=== PATIENT | male | born 1945 | race Caucasian/White ===

== ENCOUNTER → 2018-01-17 06:05 | Outpatient (REF) | payer MEDICARE, SELFPAY ==
[2018-01-25 13:17] LABS: Anion Gap 10 (5-15); BUN 19 mg/dL (7-18); BUN/Creat Ratio 118.8 RATIO (10-20); Calcium,Total 8.2 mg/dL (8.5-10.1); Chloride 87 mmol/L (98-107); Cholesterol 193 mg/dL (200); Creatinine, Serum 0.16 mg/dL (0.70-1.30); EST Glomerular Filtration Rate 649 mL/min (>60); Est Glom Filt Rate - Afr Amer 787 mL/min (>60); Glucose 99 mg/dL (74-106); High Density Lipoprotein 18 mg/dL; Potassium 3.3 mmol/L (3.5-5.1); Sodium Level 131 mmol/L (136-145); Triglycerides 160 mg/dL; Very Low Density Lipoprotein 32 mg/dL (5-40)
[2018-01-25 13:19] LABS: Hematocrit 38.2 % (40-54); Hemoglobin 12.9 g/dl (13.0-16.5); Red Blood Count 4.11 M/mm3 (4.6-6.2); White Blood Count 10.1 K/mm3 (4.4-11.0)
[2018-01-25 13:20] LABS: Mean Corp Hgb Conc 33.8 g/gl (32-36); Mean Corpuscular Hgb 31.4 pg (27.0-32.0); Mean Corpuscular Volume 92.9 fL (80-94); Mean Platelet Vol. 9.6 fl (6.2-12.0); Platelet Count 349 K/mm3 (150-450); RBC Distribution Width CV 14.7 % (11.6-14.6); RBC Distribution Width SD 48.9 fl (35.1-43.9); Scan Indicated on CBC? Y/N NO
== END ==
LOC: OLS.WCC 06:05
PROVIDERS: Visit Provider Family Medicine
DX: E78.5 Hyperlipidemia, unspecified (principal); Z79.899 Other long term (current) drug therapy
CPT/HCPCS: 36415; 80048; 80061; 85027

== ENCOUNTER → 2018-02-01 04:00 | Outpatient (REF) | payer OTHER, SELFPAY ==
[2018-02-01 07:47] LABS: ALB/GLOB Ratio 0.7 RATIO (0.9-2.4); Albumin, Serum 2.2 g/dL (3.2-5.0); Prealbumin 16.2 mg/dL (20.0-40.0); Protein, Total 5.2 g/dL (6.4-8.2)
== END ==
LOC: OLS.WCC 04:00
DX: L89.132 Pressure ulcer of right lower back, stage 2 (principal)
CPT/HCPCS: 36415; 82040; 84134; 84156

== ENCOUNTER 2018-02-07 08:30 | Outpatient (RCR) | payer MEDICARE, SELFPAY ==
[2018-01-31 10:57] VITALS: BP 127/70; PULSE 91; RESP 18; TEMP 36.5; BMI 20.9
--- NOTE | 2018-01-31 12:12 | PCM.WC.HP ---
(1) Sacral decubitus ulcer, stage II Status: Chronic Current Visit: Yes Code(s): L89.152 - Pressure ulcer of sacral region, stage 2 (2) Ulcer of left knee Status: Chronic Current Visit: Yes Qualifiers: Non-pressure ulcer stage: limited to breakdown of skin Qualified Code(s): L97.821 - Non-pressure chronic ulcer of other part of left lower leg limited to breakdown of skin Code(s): L97.829 - Non-pressure chronic ulcer of other part of left lower leg with unspecified severity (3) Ulcer of right knee Status: Chronic Current Visit: Yes Qualifiers: Non-pressure ulcer stage: limited to breakdown of skin Qualified Code(s): L97.811 - Non-pressure chronic ulcer of other part of right lower leg limited to breakdown of skin Code(s): L97.819 - Non-pressure chronic ulcer of other part of right lower leg with unspecified severity (4) Muscular dystrophy Status: Chronic Current Visit: Yes Code(s): G71.0 - Muscular dystrophy (5) Debility Status: Chronic Current Visit: Yes Code(s): R53.81 - Other malaise (6) Immobility Status: Chronic Current Visit: Yes Code(s): Z74.09 - Other reduced mobility (7) Malnutrition Status: Chronic Current Visit: Yes Qualifiers: Protein-calorie malnutrition severity: severe Code(s): E46 - Unspecified protein-calorie malnutrition (8) Incontinence of feces Status: Chronic Current Visit: Yes Code(s): R15.9 - Full incontinence of feces (9) Incontinence of urine Status: Chronic Current Visit: Yes Code(s): R32 - Unspecified urinary incontinence (10) Cachexia Status: Chronic Current Visit: Yes Code(s): R64 - Cachexia History of Present Illness Date of Service: 01/31/18 Chief Complaint: Pressure ulceration of the sacral area, stage II; bilateral knee ulcerations History of Wound: This is a 72-year-old male who is a resident of [facility]. He suffers from muscular dystrophy, and is severely impaired and immobilized. His muscular dystrophy was diagnosed in 1972. He has only recently been transferred to the [facility], approximately 6 weeks ago. Prior to that time, the patient resided at home, cared for by a hired aide and by his sister. He has been bedridden and nonambulatory for a prolonged period of time, with severe muscle atrophy. Due to a lack of mobility and physical therapy, lower extremity joints are essentially frozen and immovable. The patient is extremely thin and emaciated, suggesting malnutrition and cachexia. He claims his appetite is good. He claims to take a normal diet. He is incontinent of urine and stool, and wears a condom catheter. He has been referred to the [facility] due to superficial ulcerations on each knee, and a pressure ulceration in the sacral area, to the right of the midline, appearing to be a stage II pressure ulcer. Past Medical History Past Medical History: Chronic Problems Sacral decubitus ulcer, stage II (Chronic) Ulcer of left knee (Chronic) Ulcer of right knee (Chronic) Muscular dystrophy (Chronic) Debility (Chronic) Immobility (Chronic) Malnutrition (Chronic) Incontinence of feces (Chronic) Incontinence of urine (Chronic) Cachexia (Chronic) Past Medical History: The patient has a long-standing history of muscular dystrophy, diagnosed in 1972. He is extremely debilitated and bedridden. It appears as though he suffers from malnutrition and cachexia. He is known to be incontinent of urine and stool. His history is negative for myocardial infarction, congestive heart failure, diabetes mellitus, hypertension, cerebrovascular accident, cancer, pulmonary disease, renal disease, thyroid disease, and hyperlipidemia. Surgical History: tonsillectomy Allergies/Adverse Reactions: Allergies No Known Allergies Allergy (Verified 01/31/18 11:20) Home Medications: Ambulatory Orders Medication Instructions Recorded Ascorbic Acid 500 mg PO DAILY 01/31/18 Cyanocobalamin (Vitamin B-12) 1,000 mcg PO DAILY 01/31/18 [Vitamin B12] Fluticasone 0.05% [Flonase Nasal 1 spray NASAL DAILY 01/31/18 [place]] Furosemide 40 mg PO DAILY 01/31/18 Polyvinyl Alcohol [Artificial 2 drop OP TID 01/31/18 Tears] Saw/Vit E/Sod Nina/Lyc/Beta/Pyg 30 ml PO BID 01/31/18 [Prostate Health Caplet] - Family History Paternal - - The patient's father at the age of 93 with a history of cancer, of unknown etiology. Patient's mother at the age of 84 from pneumonia, but had a history of breast cancer and muscular dystrophy. Social History: The patient is a resident of [facility]. 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 Lives: [facility] Smoking Status: Former smoker Tobacco Use: Non-smoker Alcohol: Rare Drugs: None Review of Systems Constitutional: Denies: Chills, Fever, Weight Change Eyes: Denies: Pain, Vision Change HEENT: Denies: Difficulty Hearing, Difficulty Swallowing, Sinus Congestion Cardiovascular: Denies: Chest Pain, Palpitations Respiratory: Denies: Cough, Shortness of Breath Gastrointestinal: Denies: Diarrhea, Nausea, Vomiting Genitourinary: Denies: Dysuria, Hematuria Neurological: Reports: - - Patient has a history of muscular dystrophy, diagnosed in 1972. Endocrine: Denies: Heat/ Cold Intolerance, Polydipsia, Polyuria Hematologic/ Lymphatic: Denies: Easy Bruising, Easy Bleeding - Physical Exam Vital Signs Temp Pulse Resp BP 97.7 F L 91 18 127/70 H 01/31/18 10:57 01/31/18 10:57 01/31/18 10:57 01/31/18 10:57 General: Alert, Oriented x3, Cooperative, No apparent distress, - - The patient displays very little movement. Lower extremity joints are essentially frozen immovable. The patient appears cachectic and malnourished. He communicates verbally without deficit. HEENT: Atraumatic, PERRLA, EOMI, Normocephalic Oral: Moist Mucosa Neck: No JVD, Negative Carotid Bruits, Negative Hepatojugular Reflux, Trachea Midline Lungs: Clear to auscultation, Normal air movement, No rhonchi, No wheeze, No rales Cardiovascular: Regular rate, Regular Rhythm, Normal S1, Normal S2, No murmurs Abdomen: Soft, Non Tender, Non-Distended Extremities: No clubbing, No cyanosis, No Calf Tenderness, - - Right upper extremity and right hand edema is noted. Superficial ulceration is noted on each knee. No sign of infection or cellulitis. The base of the ulcerations are generally pink and healthy. Flexion and extension is minimal in the joints of the lower extremities. Skin: No rashes, - - Stage II pressure ulceration is noted on the sacral area, to the right of midline. Signs are documented elsewhere. It is small in size and relatively superficial. There is no evidence of undermining or tunneling. Wound Measurements and Assessment WC - Nurse 1 - General Ulcer Measurement Start: 01/31/18 10:57 Freq: Status: Active Protocol: Activity Type Activity Date Activity User E-Sign Co-Sign Detail Recorded Client Recorded Date Recorded By Document 01/31/18 10:57 ALEXANDRO [id number] 01/31/18 11:14 ALEXANDRO 01/31/18 10:57 Wound Center Nurse 1 [Ulcer Assessment] 3-right lumbar cluster -Combined with other wound No -Current Size (cm) - Length 0.4 -Current Size (cm) - Width 2 -Current Size (cm) - Depth 0.2 -Total Square Cm 0.8 -Photo Taken Yes -Epithelialization Small 1-33% -Tunneling No -Undermining/Tunneling No -Circular Undermining No -Classification - Thickness Unclassifiable (Eschar Covered ) -Exudate Amt Small (1-33%) -Exudate Type Serosanguineous -Wound Margin Flat & Intact -Granulation Amt None Present (0 %) -Slough/Fibrin Yes -Necrosis Amt Large (67-100%) -Necrotic Tissue Type Adherent Slough -Structure Exposed N/A -Texture (Jeanine-wound Skin Appearance) Assessed -Moisture (Jeanine-wound Skin Appearance Assessed ) Dry/Scaly -Color (Jeanine-wound Skin Appearance) Assessed -Temperature (Jeanine-wound Skin No Abnormality Appearance) (Pt Warm) -Tenderness on Palpation (Jeanine-wound No Skin Appearance) -Ulcer Cleansing Rinsed/ Irrigated with Saline -Foul Odor after Cleansing No -Anesthetic Used 4% Lidocaine Solution 2-left knee -Combined with other wound No -Current Size (cm) - Length 0.8 -Current Size (cm) - Width 0.6 -Current Size (cm) - Depth 0.1 -Total Square Cm 0.48 -Photo Taken Yes -Epithelialization Large 67-100% -Tunneling No -Undermining/Tunneling No -Circular Undermining No -Classification - Thickness Partial Thickness -Exudate Amt Small (1-33%) -Exudate Type Sanguineous -Wound Margin Flat & Intact -Granulation Amt Large (67-100%) -Granulation Quality [place] Pos -Slough/Fibrin Yes -Necrosis Amt Small (1-33%) -Necrotic Tissue Type Adherent Slough -Structure Exposed N/A -Texture (Jeanine-wound Skin Appearance) Assessed Scarring -Moisture (Jeanine-wound Skin Appearance Assessed ) Dry/Scaly -Color (Jeanine-wound Skin Appearance) Assessed -Temperature (Jeanine-wound Skin No Abnormality Appearance) (Pt Warm) -Tenderness on Palpation (Jeanine-wound No Skin Appearance) -Ulcer Cleansing Rinsed/ Irrigated with Saline -Foul Odor after Cleansing No -Anesthetic Used 4% Lidocaine Solution 1-right knee -Combined with other wound No -Current Size (cm) - Length 0.7 -Current Size (cm) - Width 0.6 -Current Size (cm) - Depth 0.1 -Total Square Cm 0.42 -Photo Taken Yes -Epithelialization Small 1-33% -Tunneling No -Undermining/Tunneling No -Circular Undermining No -Classification - Thickness Partial Thickness -Exudate Amt Small (1-33%) -Exudate Type Serosanguineous -Wound Margin Flat & Intact -Granulation Amt Large (67-100%) -Granulation Quality [place] Pos -Slough/Fibrin Yes -Necrosis Amt Small (1-33%) -Necrotic Tissue Type Adherent Slough -Structure Exposed N/A -Texture (Jeanine-wound Skin Appearance) Assessed Scarring -Moisture (Jeanine-wound Skin Appearance Assessed ) Dry/Scaly -Color (Jeanine-wound Skin Appearance) Assessed -Temperature (Jeanine-wound Skin No Abnormality Appearance) (Pt Warm) -Tenderness on Palpation (Jeanine-wound No Skin Appearance) -Ulcer Cleansing Rinsed/ Irrigated with Saline -Foul Odor after Cleansing No -Anesthetic Used 4% Lidocaine Solution [Edema Assessment] -Lower Limb Edema Present NA Musculoskeletal: Cachexia, Muscle Wasting, - - The joints of the hands and lower extremities are fixed and immobile. Neurological: Cranial nerves II-XII grossly intact, - - Patient is weak with little or no motion of extremities. Joints of the hands and the lower extremities are contracted and fixed in position. Psych/Mental Status: Normal Affect, Appropriate, Alert and oriented to time, place, person, mood and affect Debridement Note Laterality: Right - Knee Type of Debridement: Selective debridement Anesthesia Used: 4% Lidocaine Solution Depth: Down to and including healthy tissue Percentage of wound debrided: 100 Instrument Used: 5mm curette Severity: Limited To Skin Breakdown Amount of bleeding with debridement: Mild Bleeding Controlled with: Compression and gauze Patient tolerated procedure well - Additional Wound Laterality: Left - Knee Type of Debridement: Selective debridement Anesthesia Used: 4% Lidocaine Solution Depth: Down to and including healthy tissue Percentage of wound debrided: 100 Instrument Used: 5mm curette Severity: Limited To Skin Breakdown Amount of bleeding with debridement: Mild Bleeding Controlled with: Compression and gauze Patient tolerated procedure: Patient tolerated procedure well - Additional Wound Laterality: Right - Sacrum Type of Debridement: Excisional debridement Anesthesia Used: 4% Lidocaine Solution Depth: Down to and including healthy tissue, in the subcutaneous layer Percentage of wound debrided: 100 Instrument Used: 5mm curette Severity: Fat Layer Exposed Amount of bleeding with debridement: Mild Bleeding Controlled with: Compression and gauze Patient tolerated procedure: Patient tolerated procedure well Assessment/Plan Active Problems Sacral decubitus ulcer, stage II (Chronic) Ulcer of left knee (Chronic) Ulcer of right knee (Chronic) Muscular dystrophy (Chronic) Debility (Chronic) Immobility (Chronic) Malnutrition (Chronic) Incontinence of feces (Chronic) Incontinence of urine (Chronic) Cachexia (Chronic) Assessment: This is a 72-year-old male with muscular dystrophy and chronic debility, immobilization, cachexia, malnutrition, and ulcerations on the knees and sacral area. His extremities are relatively immobile and fixed in position. Extremities are atrophic. The patient has been in the home environment, cared for by his sister and a hired aide so recently. As of 6 weeks ago, the patient's care was transferred to the [facility], where he currently resides. The ulcerations on each knee are superficial. The pressure ulcer on the sacral area appears to represent a stage II ulceration, and is also somewhat superficial. Laboratory studies have been performed recently, and have been reviewed. Results are as follows: Glucose 99, BUN 19, creatinine 0.16, calcium 8.2, cholesterol 193, triglycerides 160, sodium 131, potassium 3.3, chloride 87, blood count 10.1, globin 12.9, hematocrit 38.2, platelets 349,000. Plan: Offloading measures are to be implemented. The patient is known to have a low air loss mattress on his bed. Frequent repositioning is to be recommended. We are to implement the use of collagen hydrogel topically on each of the patient's 3 ulcerations, one on each knee, and one in the sacral area. We are to use OptiFoam to minimize pressure and shear forces. The patient has been encouraged to take a well balanced diet, with the use of nutritional supplements several times daily. We are to obtain additional laboratory studies, including serum protein, serum albumin, and serum prealbumin, which will allow for assessment of patient's nutritional status. Patient is to return in 1 week for reassessment. The patient is not a smoker. Influenza vaccine was not administered today. Patient stands 5 feet 9 inches tall, and weighs 142 pounds. His BMI is 20.9.
[2018-02-07 08:49] VITALS: BP 116/61; PULSE 91; RESP 16; TEMP 36.8; BMI 20.9
--- NOTE | 2018-02-07 09:47 | PCM.WC.HP ---
(1) Sacral decubitus ulcer, stage II Status: Chronic Current Visit: Yes Code(s): L89.152 - Pressure ulcer of sacral region, stage 2 (2) Ulcer of left knee Status: Chronic Current Visit: Yes Qualifiers: Non-pressure ulcer stage: limited to breakdown of skin Qualified Code(s): L97.821 - Non-pressure chronic ulcer of other part of left lower leg limited to breakdown of skin Code(s): L97.829 - Non-pressure chronic ulcer of other part of left lower leg with unspecified severity (3) Ulcer of right knee Status: Chronic Current Visit: Yes Qualifiers: Non-pressure ulcer stage: limited to breakdown of skin Qualified Code(s): L97.811 - Non-pressure chronic ulcer of other part of right lower leg limited to breakdown of skin Code(s): L97.819 - Non-pressure chronic ulcer of other part of right lower leg with unspecified severity (4) Muscular dystrophy Status: Chronic Current Visit: Yes Code(s): G71.0 - Muscular dystrophy (5) Debility Status: Chronic Current Visit: Yes Code(s): R53.81 - Other malaise (6) Immobility Status: Chronic Current Visit: Yes Code(s): Z74.09 - Other reduced mobility (7) Malnutrition Status: Chronic Current Visit: Yes Qualifiers: Protein-calorie malnutrition severity: severe Code(s): E46 - Unspecified protein-calorie malnutrition (8) Incontinence of feces Status: Chronic Current Visit: Yes Code(s): R15.9 - Full incontinence of feces (9) Incontinence of urine Status: Chronic Current Visit: Yes Code(s): R32 - Unspecified urinary incontinence (10) Cachexia Status: Chronic Current Visit: Yes Code(s): R64 - Cachexia History of Present Illness Date of Service: 02/07/18 Chief Complaint: Pressure ulceration of the sacral area, stage II; bilateral knee ulcerations History of Wound: This is a 72-year-old male who is a resident of [facility]. He suffers from muscular dystrophy, and is severely impaired and immobilized. His muscular dystrophy was diagnosed in 1972. He has only recently been transferred to the [facility], approximately 6 weeks ago. Prior to that time, the patient resided at home, cared for by a hired aide and by his sister. He has been bedridden and nonambulatory for a prolonged period of time, with severe muscle atrophy. Due to a lack of mobility and physical therapy, lower extremity joints are essentially frozen and immovable. The patient is extremely thin and emaciated, suggesting malnutrition and cachexia. He claims his appetite is good. He claims to take a normal diet. He is incontinent of urine and stool, and wears a condom catheter. He has been referred to the [facility] due to superficial ulcerations on each knee, and a pressure ulceration in the sacral area, to the right of the midline, appearing to be a stage II pressure ulcer. Past Medical History Past Medical History: Chronic Problems Sacral decubitus ulcer, stage II (Chronic) Ulcer of left knee (Chronic) Ulcer of right knee (Chronic) Muscular dystrophy (Chronic) Debility (Chronic) Immobility (Chronic) Malnutrition (Chronic) Incontinence of feces (Chronic) Incontinence of urine (Chronic) Cachexia (Chronic) Surgical History: tonsillectomy Allergies/Adverse Reactions: Allergies No Known Allergies Allergy (Verified 01/31/18 11:20) Home Medications: Ambulatory Orders Medication Instructions Recorded Ascorbic Acid 500 mg PO DAILY 01/31/18 Cyanocobalamin (Vitamin B-12) 1,000 mcg PO DAILY 01/31/18 [Vitamin B12] Fluticasone 0.05% [Flonase Nasal 1 spray NASAL DAILY 01/31/18 [place]] Furosemide 40 mg PO DAILY 01/31/18 Polyvinyl Alcohol [Artificial 2 drop OP TID 01/31/18 [place]] Saw/Vit E/Sod Nina/Lyc/Beta/Pyg 30 ml PO BID 01/31/18 [Prostate Health [place]] - Family History Paternal - - The patient's father at the age of 93 with a history of cancer, of unknown etiology. Patient's mother at the age of 84 from pneumonia, but had a history of breast cancer and muscular dystrophy. [place]: [place] Smoking Status: Former smoker Tobacco Use: Non-smoker Alcohol: Rare Drugs: None Review of Systems Constitutional: Denies: Chills, Fever, Weight Change Eyes: Denies: Pain, Vision Change HEENT: Denies: Difficulty Hearing, Difficulty Swallowing, Sinus Congestion Cardiovascular: Denies: Chest Pain, Palpitations Respiratory: Denies: Cough, Shortness of Breath Gastrointestinal: Denies: Diarrhea, Nausea, Vomiting Genitourinary: Denies: Dysuria, Hematuria Endocrine: Denies: Heat/ Cold Intolerance, Polydipsia, Polyuria Hematologic/ Lymphatic: Denies: Easy Bruising, Easy Bleeding - Physical Exam Vital Signs Temp Pulse Resp BP 98.2 F 91 16 116/61 02/07/18 08:49 02/07/18 08:49 02/07/18 08:49 02/07/18 08:49 General: Alert, Oriented x3, Cooperative, No apparent distress, Well developed, Well nourished HEENT: Atraumatic, PERRLA, EOMI, Normocephalic Oral: Moist Mucosa Neck: No JVD Lungs: Normal air movement Abdomen: Non-Distended Extremities: No clubbing, No cyanosis, No edema, - - The joints of the extremities are essentially fixed, frozen, and immobile. Skin: - - The superficial ulceration on the right knee now appears to be completely healed and epithelialized. The ulceration on the left knee is smaller in size, quite superficial, and nearly healed. The stage II sacral pressure ulceration is relatively unchanged in size and appearance. There is a moderate amount of bioburden. There is no sign of infection or cellulitis. Dimensions are documented elsewhere. Wound Measurements and Assessment WC - Nurse 1 - General Ulcer Measurement Start: 01/31/18 10:57 Freq: Status: Active Protocol: Activity Type Activity Date Activity User E-Sign Co-Sign Detail Recorded Client Recorded Date Recorded By Document 02/07/18 08:49 [email or web address] [id number] 02/07/18 08:51 [email or web address] 02/07/18 08:49 Wound Center Nurse 1 [Ulcer Assessment] 3-right lumbar cluster -Combined with other wound No -Current Size (cm) - Length 0.4 -Current Size (cm) - Width 2.2 -Current Size (cm) - Depth 0.2 -Total Square Cm 0.88 -Photo Taken No -Epithelialization None Present -Tunneling No -Undermining/Tunneling No -Circular Undermining No -Exudate Amt Small (1-33%) -Exudate Type Serosanguineous -Wound Margin Flat & Intact -Granulation Amt None Present (0 %) -Slough/Fibrin Yes -Necrosis Amt Large (67-100%) -Necrotic Tissue Type Adherent Slough -Structure Exposed N/A -Texture (Jeanine-wound Skin Appearance) Assessed -Moisture (Jeanine-wound Skin Appearance Assessed ) Dry/Scaly -Color (Jeanine-wound Skin Appearance) Assessed -Temperature (Jeanine-wound Skin No Abnormality Appearance) (Pt Warm) -Tenderness on Palpation (Jeanine-wound No Skin Appearance) -Ulcer Cleansing Rinsed/ Irrigated with Saline -Foul Odor after Cleansing No -Anesthetic Used 4% Lidocaine Solution 2-left knee -Combined with other wound No -Current Size (cm) - Length 0.1 -Current Size (cm) - Width 0.1 -Current Size (cm) - Depth 0.1 -Total Square Cm 0.01 -Photo Taken No -Epithelialization Large 67-100% -Undermining/Tunneling No -Circular Undermining No -Exudate Amt None Present (0 %) -Wound Margin Flat & Intact -Granulation Amt Large (67-100%) -Granulation Quality [place] -Slough/Fibrin Yes -Necrosis Amt Small (1-33%) -Necrotic Tissue Type Adherent Slough -Structure Exposed N/A -Texture (Jeanine-wound Skin Appearance) Assessed Scarring -Moisture (Jeanine-wound Skin Appearance Assessed ) Dry/Scaly -Color (Jeanine-wound Skin Appearance) Assessed -Temperature (Jeanine-wound Skin No Abnormality Appearance) (Pt Warm) -Tenderness on Palpation (Jeanine-wound No Skin Appearance) -Ulcer Cleansing Rinsed/ Irrigated with Saline -Foul Odor after Cleansing No -Anesthetic Used 4% Lidocaine Solution 1-right knee -Combined with other wound No -Current Size (cm) - Length 0 -Current Size (cm) - Width 0 -Current Size (cm) - Depth 0 -Total Square Cm 0 -Photo Taken Yes -Epithelialization Large 67-100% -Tunneling No -Undermining/Tunneling No -Circular Undermining No -Exudate Amt None Present (0 %) [Edema Assessment] -Lower Limb Edema Present NA WC - Nurse 2 - General Ulcer CM Notes Start: 01/31/18 10:57 Freq: Status: Active Protocol: Activity Type Activity Date Activity User E-Sign Co-Sign Detail Recorded Client Recorded Date Recorded By Document 02/07/18 09:42 [id number] 02/07/18 09:47 CS 02/07/18 09:42 Wound Center Nurse 2 [Procedure/Treatment] 3-right lumbar cluster -Time 09:44 -Correct Patient Yes -Correct Side, Site, Position Yes -Correct Procedure Yes -Procedure Performed Yes -Type of Procedure Debridement -Clinical Debridement Subcutaneous -Post Debridement Size (cm) - Length 0.1 -Post Debridement Size (cm) - Width 0.1 -Post Debridement Size (cm) - Depth 0.1 -Total Square Cm 0.01 -Wound/Ulcer Outcome Not Healed 2-left knee -Time 09:45 -Correct Patient Yes -Correct Side, Site, Position Yes -Post Debridement Size (cm) - Length 0.1 -Post Debridement Size (cm) - Width 0.1 -Post Debridement Size (cm) - Depth 0.1 -Total Square Cm 0.01 -Wound/Ulcer Outcome Not Healed -Ulcer Cleansing Not Cleansed -Foul Odor after Cleansing No -Bioengineered Tissue No -Bleeding Controlled with NA 1-right knee -Post Debridement Size (cm) - Length 0 -Post Debridement Size (cm) - Width 0 -Post Debridement Size (cm) - Depth 0 -Total Square Cm 0 -Wound/Ulcer Outcome Healed- Epithelialized [See Physician Procedure note for Specifics] Pain Scale: 0-10 Numeric [Pain] -Is Patient Pain Free? Yes Neurological: Cranial nerves II-XII grossly intact, Neuro grossly intact Psych/Mental Status: Normal Affect, Appropriate, Alert and oriented to time, place, person, mood and affect Debridement Note Post-Debridement Measurements/Treatment WC - Nurse 2 - General Ulcer CM Notes Start: 01/31/18 10:57 Freq: Status: Active Protocol: Activity Type Activity Date Activity User E-Sign Co-Sign Detail Recorded Client Recorded Date Recorded By Document 01/31/18 12:20 [id number] 01/31/18 12:23 Document 02/07/18 09:42 [id number] 02/07/18 09:47 01/31/18 02/07/18 12:20 09:42 Wound Center Nurse 2 3-right lumbar cluster -Time 12:00 09:44 -Correct Patient Yes Yes -Correct Side, Site, Position Yes Yes -Correct Procedure Yes Yes -Procedure Performed Yes Yes -Type of Procedure Debridement Debridement -Clinical Debridement Subcutaneous Subcutaneous -Post Debridement Size (cm) - Length 0.4 0.1 -Post Debridement Size (cm) - Width 0.2 0.1 -Post Debridement Size (cm) - Depth 0.2 0.1 -Total Square Cm 0.08 0.01 -Wound/Ulcer Outcome Not Healed Not Healed -Ulcer Cleansing Rinsed/ Irrigated with Saline -Foul Odor after Cleansing No -Bioengineered Tissue No -Topical Lidocaine (%) 4 -Lidocaine (ml) 5 -Bleeding Controlled with Pressure -Treatment Response Procedure Tolerated Well 2-left knee -Time 12:00 09:45 -Correct Patient Yes Yes -Correct Side, Site, Position Yes Yes -Correct Procedure Yes -Procedure Performed Yes -Type of Procedure Debridement -Clinical Debridement Subcutaneous -Post Debridement Size (cm) - Length 0.9 0.1 -Post Debridement Size (cm) - Width 0.7 0.1 -Post Debridement Size (cm) - Depth 0.1 0.1 -Total Square Cm 0.63 0.01 -Wound/Ulcer Outcome Not Healed Not Healed -Ulcer Cleansing Rinsed/ Not Cleansed Irrigated with Saline -Foul Odor after Cleansing No No -Bioengineered Tissue No No -Topical Lidocaine (%) 4 -Lidocaine (ml) 5 -Bleeding Controlled with Pressure NA -Treatment Response Procedure Tolerated Well 1-right knee -Time 12:00 -Correct Patient Yes -Correct Side, Site, Position Yes -Correct Procedure Yes -Procedure Performed Yes -Type of Procedure Debridement -Clinical Debridement Subcutaneous -Post Debridement Size (cm) - Length 0.8 0 -Post Debridement Size (cm) - Width 0.7 0 -Post Debridement Size (cm) - Depth 0.1 0 -Total Square Cm 0.56 0 -Wound/Ulcer Outcome Not Healed Healed- Epithelialized -Ulcer Cleansing Rinsed/ Irrigated with Saline -Foul Odor after Cleansing No -Bioengineered Tissue No -Topical Lidocaine (%) 4 -Lidocaine (ml) 5 -Bleeding Controlled with Pressure -Treatment Response Procedure Tolerated Well Pain Scale: 0-10 Numeric Is Patient Pain Free? Yes Yes Laterality: Not Applicable - Stage II sacral pressure ulceration Type of Debridement: Excisional debridement Anesthesia Used: 4% Lidocaine Solution Depth: Down to and including healthy tissue, in the subcutaneous layer Percentage of wound debrided: 100 Instrument Used: 5mm curette Severity: Fat Layer Exposed Amount of bleeding with debridement: Mild Bleeding Controlled with: Compression and gauze Patient tolerated procedure well Assessment/Plan Active Problems Sacral decubitus ulcer, stage II (Chronic) Ulcer of left knee (Chronic) Ulcer of right knee (Chronic) Muscular dystrophy (Chronic) Debility (Chronic) Immobility (Chronic) Malnutrition (Chronic) Incontinence of feces (Chronic) Incontinence of urine (Chronic) Cachexia (Chronic) Assessment: This is a 72-year-old male with muscular dystrophy and chronic debility, immobilization, cachexia, malnutrition, and ulcerations on the knees and sacral area. His extremities are relatively immobile and fixed in position. Extremities are atrophic. The patient has been in the home environment, cared for by his sister and a hired aide so recently. As of 7 weeks ago, the patient's care was transferred to the [facility], where he currently resides. The ulcerations on each knee are superficial. The right knee ulceration is now healed. The pressure ulcer on the sacral area appears to represent a stage II ulceration, and is also somewhat superficial. Laboratory studies have been performed recently, and have been reviewed. Results are as follows: Glucose 99, BUN 19, creatinine 0.16, calcium 8.2, cholesterol 193, triglycerides 160, sodium 131, potassium 3.3, chloride 87, blood count 10.1, globin 12.9, hematocrit 38.2, platelets 349,000. Plan: Offloading measures are to be implemented. The patient is known to have a low air loss mattress on his bed. Frequent repositioning is to be recommended. We are to continue the use of collagen hydrogel topically on the left knee ulceration. We will use collagenase Santyl topically on the sacral pressure ulceration. We are to use OptiFoam to minimize pressure and shear forces. The patient has been encouraged to take a well balanced diet, with the use of nutritional supplements several times daily. We are to obtain additional laboratory studies, including serum protein, serum albumin, and serum prealbumin, which will allow for assessment of patient's nutritional status. Patient is to return in 1 week for reassessment. The patient is not a smoker. Influenza vaccine was not administered today. Patient stands 5 feet 9 inches tall, and weighs 142 pounds. His BMI is 20.9.
== END 2018-02-11 23:59 ==
LOC: WC 08:30
PROVIDERS: Family Provider Family Medicine; PCP Family Medicine; Visit Provider Surgery
DX: L89.152 Pressure ulcer of sacral region, stage 2 (principal); L97.821 Non-pressure chronic ulcer of other part of left lower leg limited to breakdown of skin; L97.811 Non-pressure chronic ulcer of other part of right lower leg limited to breakdown of skin; G71.0 Muscular dystrophy; R15.9 Full incontinence of feces; R32 Unspecified urinary incontinence; Z74.01 Bed confinement status; R64 Cachexia; Z68.21 Body mass index [BMI] 21.0-21.9, adult
CPT/HCPCS: 11042; 97597; 99214; G0463

== ENCOUNTER 2018-02-14 10:50 | Emergency (ER) | payer OTHER, SELFPAY ==
[2018-02-14 10:51] VITALS: BP 109/68; PULSE 92; RESP 15; TEMP 36.6; O2SAT 95; BMI 21.8
--- NOTE | 2018-02-14 11:06 | RAD_ITS ---
STUDY: X-RAY - LEFT SHOULDER REASON FOR EXAM: Male, 72 years old. Left shoulder and scapular pain. Patient has a history multiple sclerosis. TECHNIQUE: 3 view(s) of the shoulder. COMPARISON: None. FINDINGS: Normal glenohumeral articulation. Normal acromioclavicular joint. Normal acromion. Abnormal positioning of the scapula most likely secondary to the patient's underlying multiple sclerosis. Normal humeral head and visualized proximal humerus. The soft tissue structures are unremarkable. Increased markings at the left lung base. RAD/Shoulder min 2 Views IMPRESSION: No acute abnormality is seen. Increased markings at the left lung base. Electronically Signed: Jacques Parsons MD at 12:24 EDT Tel [phone], Service support ,
--- NOTE | 2018-02-14 11:06 | RAD_ITS ---
STUDY: X-RAY CHEST REASON FOR EXAM: Male, 72 years old. Cough. Patient has multiple sclerosis. TECHNIQUE: Single AP portable view of the chest. COMPARISON: None. FINDINGS: Patchy bibasilar infiltrates. Blunting of both costophrenic angles. Normal size heart. Normal mediastinum and charlie. Normal visualized pulmonary arteries. Normal visualized aortic arch and descending thoracic aorta. Normal visualized thoracic spine. There is abnormal position of the scapula bilaterally most likely secondary to the patient's underlying multiple sclerosis. There is no demonstrated abnormality of the visualized soft tissue structures of the upper abdomen. RAD/Chest 1 View (Portable) IMPRESSION: Patchy bibasilar infiltrates. Electronically Signed: Jacques Parsons MD at 12:23 EDT Tel [phone], Service support ,
--- NOTE | 2018-02-14 12:33 | ED.DCSUM_ITS ---
- ER Visit Summary Date of Service: 02/14/18 Chief Complaint: Left shoulder pain History of Present Illness: The patient is a [address] Miguel Butler. He has a history of severe muscular dystrophy and as a result of this has problems with his scapula. Reports that he has chronic pain in his scapula that worsened 2 days ago. It is a sharp pain that is 10 out of 10 at worst and 1 out of 10 currently. Is worsened by movement and relieved by rest. He denies any paresthesias or trauma. Physical Examination: Vitals: Stable. Afebrile. General: Well-developed, but cachectic. Head: Normocephalic atraumatic. Neck: Supple, no lymphadenopathy. No JVD. Nontender. Cardiovascular: Regular rate and rhythm. No murmurs. Respiratory: No respiratory distress. Clear to auscultation bilaterally. Abdominal: Soft, nontender, nondistended, normal bowel sounds. No guarding, rebound, or peritoneal signs. Back: Nontender. Extremities: Nontender, no edema. Posterior to his clavicle bilaterally he has prominent, palpable scapula that are nontender to palpation. He has no tenderness palpation over the left shoulder. He does have pain with any range of motion. He is neurovascular intact. Skin: Normal color, no rash. Neurologic: Alert and oriented ?3. Cranial nerves II through XII are intact. Normal strength and sensation. Psych: Normal affect. Test Results: Chest x-ray read by myself shows chronic changes with abnormal position of the scapula bilaterally. Left shoulder x-ray shows degenerative changes. Emergency Department Course and Treatment: Patient refused pain medications initially. He was then given oxycodone is resting comfortably. Treatment Plan: Patient will be discharged with Percocet and instructed to follow-up his primary care physician in 3-5 days if not improving. Return to the emergency department for any worsening symptoms. Disposition: To home in improved and stable condition. Impression: 1. Left scapula pain, acute on chronic. This note was generated with [employer] dictation software. It may contain incorrect words, spelling, and punctuation that were not noted in review of the chart prior to signing ED Disposition - Plan for ED Patient: Disposition: Home or Assisted Living Chief Complaint: Upper Extremity Injury Instructions: ED Shoulder Pain [facility] Prescriptions: Oxycodone HCl/Acetaminophen [Percocet 5/325] 1 tablet PO Q6H PRN PRN 5 Days #20 tablet PRN Reason: Pain Referrals: Miguel Butler MD [Primary Care Provider] - 3-5 Days if not improving
[2018-02-14 12:43] VITALS: BP 119/61; PULSE 101; RESP 15; O2SAT 96
[2018-02-14] MEDS: oxyCODONE 5 MG Tablet PO (12:43)
--- NOTE | 2018-02-14 12:51 | ED.RN ---
REPORT CALLED TO [facility] AND REPORT GIVEN TO
== END 2018-02-14 13:04 | disposition home or self-care (01) ==
LOC: ED 11:13
PROVIDERS: Emergency Provider Emergency Medicine; Family Provider Family Medicine; PCP Family Medicine
DX: M25.512 Pain in left shoulder (principal); G71.0 Muscular dystrophy; G89.29 Other chronic pain; Z66 Do not resuscitate; Z79.899 Other long term (current) drug therapy
CPT/HCPCS: 71045; 73030; 99284

== ENCOUNTER 2018-03-14 08:30 | Outpatient (RCR) | payer OTHER, SELFPAY ==
[2018-02-12 01:14] VITALS: BP 116/61; PULSE 91; RESP 16; TEMP 36.8
[2018-02-14 08:26] VITALS: BP 110/64; PULSE 84; RESP 18; TEMP 36
--- NOTE | 2018-02-14 10:14 | PCM.WC.HP ---
(1) Sacral decubitus ulcer, stage II Status: Chronic Current Visit: Yes Code(s): L89.152 - Pressure ulcer of sacral region, stage 2 (2) Ulcer of left knee Status: Chronic Current Visit: Yes Qualifiers: Code(s): L97.829 - Non-pressure chronic ulcer of other part of left lower leg with unspecified severity (3) Ulcer of right knee Status: Resolved Current Visit: No Qualifiers: Code(s): L97.819 - Non-pressure chronic ulcer of other part of right lower leg with unspecified severity (4) Muscular dystrophy Status: Chronic Current Visit: Yes Code(s): G71.0 - Muscular dystrophy (5) Debility Status: Chronic Current Visit: Yes Code(s): R53.81 - Other malaise (6) Immobility Status: Chronic Current Visit: Yes Code(s): Z74.09 - Other reduced mobility (7) Malnutrition Status: Chronic Current Visit: Yes Code(s): E46 - Unspecified protein-calorie malnutrition (8) Incontinence of feces Status: Chronic Current Visit: No Code(s): R15.9 - Full incontinence of feces (9) Incontinence of urine Status: Chronic Current Visit: No Code(s): R32 - Unspecified urinary incontinence (10) Cachexia Status: Chronic Current Visit: Yes Code(s): R64 - Cachexia History of Present Illness Date of Service: 02/14/18 Chief Complaint: Pressure ulceration of the sacral area, stage II; bilateral knee ulcerations History of Wound: This is a 72-year-old male who is a resident of [facility]. He suffers from muscular dystrophy, and is severely impaired and immobilized. His muscular dystrophy was diagnosed in 1972. He has only recently been transferred to the [facility]. Prior to that time, the patient resided at home, cared for by a hired aide and by his sister. He has been bedridden and nonambulatory for a prolonged period of time, with severe muscle atrophy. Due to a lack of mobility and physical therapy, extremity joints are essentially frozen and immovable. The patient is extremely thin and emaciated, suggesting malnutrition and cachexia. He claims his appetite is good. He claims to take a normal diet. He is incontinent of urine and stool, and wears a condom catheter. He has been referred to the [facility] due to superficial ulcerations on each knee, and a pressure ulceration in the sacral area, to the right of the midline, appearing to be a stage II pressure ulcer. Past Medical History Past Medical History: Chronic Problems Sacral decubitus ulcer, stage II (Chronic) Ulcer of left knee (Chronic) Muscular dystrophy (Chronic) Debility (Chronic) Immobility (Chronic) Malnutrition (Chronic) Incontinence of feces (Chronic) Incontinence of urine (Chronic) Cachexia (Chronic) Surgical History: tonsillectomy Allergies/Adverse Reactions: Allergies No Known Allergies Allergy (Verified 01/31/18 11:20) Home Medications: Ambulatory Orders Medication Instructions Recorded Ascorbic Acid 500 mg PO DAILY 01/31/18 Cyanocobalamin (Vitamin B-12) 1,000 mcg PO DAILY 01/31/18 [Vitamin B12] Fluticasone 0.05% [Flonase Nasal 1 spray NASAL DAILY 01/31/18 [place]] Furosemide 40 mg PO DAILY 01/31/18 Polyvinyl Alcohol [Artificial 2 drop OP TID 01/31/18 [place]] Saw/Vit E/Sod Nina/Lyc/Beta/Pyg 30 ml PO BID 01/31/18 [Prostate Health [place]] - Family History Paternal - - The patient's father at the age of 93 with a history of cancer, of unknown etiology. Patient's mother at the age of 84 from pneumonia, but had a history of breast cancer and muscular dystrophy. Smoking Status: Former smoker Tobacco Use: Non-smoker Review of Systems Constitutional: Denies: Chills, Fever, Weight Change Eyes: Denies: Pain, Vision Change HEENT: Denies: Difficulty Hearing, Difficulty Swallowing, Sinus Congestion Cardiovascular: Denies: Chest Pain, Palpitations Respiratory: Denies: Cough, Shortness of Breath Gastrointestinal: Denies: Diarrhea, Nausea, Vomiting Genitourinary: Denies: Dysuria, Hematuria Endocrine: Denies: Heat/ Cold Intolerance, Polydipsia, Polyuria Hematologic/ Lymphatic: Denies: Easy Bruising, Easy Bleeding - Physical Exam Vital Signs Temp Pulse Resp BP 96.8 F L 84 18 110/64 02/14/18 08:26 02/14/18 08:26 02/14/18 08:26 02/14/18 08:26 General: Alert, Oriented x3, Cooperative, No apparent distress, Well developed, - - Patient appears malnourished and extremely thin HEENT: Atraumatic, PERRLA, EOMI, Normocephalic Oral: Moist Mucosa Neck: No JVD Lungs: Normal air movement Abdomen: Non-Distended Extremities: No clubbing, No cyanosis, No edema, No Calf Tenderness, - - The right knee ulceration appears to be totally healed. The left knee ulceration is extremely small and superficial, now nearly healed. The patient's left shoulder appears to be anatomically displaced. Skin: - - The sacral ulceration is superficial. Is generally pink and healthy in appearance. There is no sign of infection or cellulitis. Dimensions are documented elsewhere. There is only a small amount of bioburden. Wound Measurements and Assessment WC - Nurse 1 - General Ulcer Measurement Start: 02/14/18 08:26 Freq: Status: Active Protocol: Activity Type Activity Date Activity User E-Sign Co-Sign Detail Recorded Client Recorded Date Recorded By Document 02/14/18 08:26 [id number] 02/14/18 08:42 02/14/18 08:26 Wound Center Nurse 1 [Ulcer Assessment] 3-right lumbar cluster -Combined with other wound No -Current Size (cm) - Length 0.4 -Current Size (cm) - Width 0.5 -Current Size (cm) - Depth 0.1 -Total Square Cm 0.20 -Photo Taken No -Epithelialization None Present -Tunneling No -Undermining/Tunneling No -Circular Undermining No -Exudate Amt Small (1-33%) -Exudate Type Serosanguineous -Wound Margin Distinct, Outline Attached -Granulation Amt Small (1-33%) -Granulation Quality Red -Slough/Fibrin Yes -Necrosis Amt None Present (0 %) -Necrotic Tissue Type Adherent Slough -Structure Exposed None/Limited to Skin Breakdown -Texture (Jeanine-wound Skin Appearance) No Abnormality Assessed -Moisture (Jeanine-wound Skin Appearance No Abnormality ) Assessed -Color (Jeanine-wound Skin Appearance) No Abnormality Assessed -Temperature (Jeanine-wound Skin No Abnormality Appearance) (Pt Warm) -Tenderness on Palpation (Jeanine-wound No Skin Appearance) -Ulcer Cleansing Rinsed/ Irrigated with Saline -Foul Odor after Cleansing No -Anesthetic Used 4% Lidocaine Solution 2-left knee -Combined with other wound No -Current Size (cm) - Length 0 -Current Size (cm) - Width 0 -Current Size (cm) - Depth 0 -Total Square Cm 0 -Date of Last Picture (Recall this 02/14/18 field) -Photo Taken Yes -Epithelialization Large 67-100% [Edema Assessment] -Lower Limb Edema Present NA Musculoskeletal: Muscle Wasting, - - Frozen joints of extremities Neurological: Cranial nerves II-XII grossly intact, Neuro grossly intact Psych/Mental Status: Normal Affect, Appropriate, Alert and oriented to time, place, person, mood and affect Debridement Note Laterality: Not Applicable - Sacrum Type of Debridement: Excisional debridement Anesthesia Used: 4% Lidocaine Solution Depth: Down to and including healthy tissue, in the subcutaneous layer Percentage of wound debrided: 100 Instrument Used: 3mm curette Severity: Fat Layer Exposed Amount of bleeding with debridement: Mild Bleeding Controlled with: Compression and gauze Patient tolerated procedure well Assessment/Plan Active Problems Sacral decubitus ulcer, stage II (Chronic) Ulcer of left knee (Chronic) Muscular dystrophy (Chronic) Debility (Chronic) Immobility (Chronic) Malnutrition (Chronic) Cachexia (Chronic) Assessment: This is a 72-year-old male with muscular dystrophy and chronic debility, immobilization, cachexia, malnutrition, and ulcerations on the knees and sacral area. His extremities are relatively immobile and fixed in position. Extremities are atrophic. The patient has been in the home environment, cared for by his sister and a hired aide recently. Recently, the patient's care was transferred to the [facility], where he currently resides. The ulcerations on each knee are superficial. The right knee ulceration is now healed. The pressure ulcer on the sacral area appears to represent a stage II ulceration, and is also superficial. Laboratory studies have been performed recently, and have been reviewed. Results are as follows: Glucose 99, BUN 19, creatinine 0.16, calcium 8.2, cholesterol 193, triglycerides 160, sodium 131, potassium 3.3, chloride 87, blood count 10.1, globin 12.9, hematocrit 38.2, platelets 349,000. Patient's nutritional labs have been reviewed, and suggest malnutrition. Total protein was 5.2, albumin 2.2, and serum prealbumin 16.2. Plan: Offloading measures are to be continued. The patient is known to have a low air loss mattress on his bed. Frequent repositioning has been recommended. We are to continue the use of collagen hydrogel topically on the left knee ulceration. We will use collagen hydrogel topically on the sacral pressure ulceration. We are to use OptiFoam to minimize pressure and shear forces. The patient has been encouraged to take a well balanced diet, with the use of nutritional supplements several times daily. Patient is to return in 1 week for reassessment. Additionally, clinically it appears as though the patient may have a left shoulder dislocation. This fact has been brought to the attention of his caregivers at the [facility]. Attention to this matter has been recommended. However, evaluation and management will be deferred to his caregivers at the snf. They have recommended that the patient be transferred to the emergency department. The patient is not a smoker. Influenza vaccine was not administered today. Patient stands 5 feet 9 inches tall, and weighs 142 pounds. His BMI is 20.9.
[2018-02-21 08:18] VITALS: BP 134/71; PULSE 92; RESP 16; TEMP 36.2
--- NOTE | 2018-02-21 08:53 | HP.PCM_ITS ---
(1) Sacral decubitus ulcer, stage II Status: Chronic Current Visit: Yes Code(s): L89.152 - Pressure ulcer of sacral region, stage 2 (2) Ulcer of left knee Status: Resolved Current Visit: No Qualifiers: Code(s): L97.829 - Non-pressure chronic ulcer of other part of left lower leg with unspecified severity (3) Ulcer of right knee Status: Resolved Current Visit: No Qualifiers: Code(s): L97.819 - Non-pressure chronic ulcer of other part of right lower leg with unspecified severity (4) Muscular dystrophy Status: Chronic Current Visit: Yes Code(s): G71.0 - Muscular dystrophy (5) Debility Status: Chronic Current Visit: Yes Code(s): R53.81 - Other malaise (6) Immobility Status: Chronic Current Visit: Yes Code(s): Z74.09 - Other reduced mobility (7) Malnutrition Status: Chronic Current Visit: Yes Code(s): E46 - Unspecified protein- calorie malnutrition (8) Incontinence of feces Status: Chronic Current Visit: No Code(s): R15.9 - Full incontinence of feces (9) Incontinence of urine Status: Chronic Current Visit: No Code(s): R32 - Unspecified urinary incontinence (10) Cachexia Status: Chronic Current Visit: Yes Code(s): R64 - Cachexia History of Present Illness Date of Service: 02/21/18 Chief Complaint: Pressure ulceration of the sacral area, stage II; bilateral knee ulcerations History of Wound: This is a 72-year-old male who is a resident of [facility]. He suffers from muscular dystrophy, and is severely impaired and immobilized. His muscular dystrophy was diagnosed in 1972. He has only recently been transferred to the [facility]. Prior to that time, the patient resided at home, cared for by a hired aide and by his sister. He has been bedridden and nonambulatory for a prolonged period of time, with severe muscle atrophy. Due to a lack of mobility and physical therapy, extremity joints are essentially frozen and immovable. The patient is extremely thin and emaciated, suggesting malnutrition and cachexia. He claims his appetite is good. He claims to take a normal diet. He is incontinent of urine and stool, and wears a condom catheter. He was referred to the [facility] due to superficial ulcerations on each knee, and a pressure ulceration in the sacral area, to the right of the midline , appearing to be a stage II pressure ulcer. Past Medical History Past Medical History: Chronic Problems Sacral decubitus ulcer, stage II (Chronic) Muscular dystrophy (Chronic) Debility (Chronic) Immobility (Chronic) Malnutrition (Chronic) Incontinence of feces (Chronic) Incontinence of urine (Chronic) Cachexia (Chronic) Surgical History: tonsillectomy Allergies/Adverse Reactions: Allergies No Known Allergies Allergy (Verified 02/14/18 12:30) Home Medications: Ambulatory Orders Medication Instructions Recorded Ascorbic Acid 500 mg PO DAILY 01/31/18 Cyanocobalamin (Vitamin B-12) 1,000 mcg PO DAILY 01/31/18 [Vitamin B12] Fluticasone 0.05% [Flonase Nasal 1 spray NASAL DAILY 01/31/18 [place]] Furosemide 40 mg PO DAILY 01/31/18 Polyvinyl Alcohol [Artificial 2 drop OP TID 01/31/18 [place]] Saw/Vit E/Sod Nina/Lyc/Beta/Pyg 30 ml PO BID 01/31/18 [Prostate Health Caplet] Oxycodone HCl/Acetaminophen 1 tablet PO Q6H PRN PRN 5 Days #20 02/14/18 [Percocet 5/325] tablet - Family History Paternal - - The patient's father at the age of 93 with a history of cancer, of unknown etiology. Patient's mother at the age of 84 from pneumonia, but had a history of breast cancer and muscular dystrophy. Smoking Status: Former smoker Tobacco Use: Non-smoker Review of Systems Constitutional: Denies: Chills, Fever, Weight Change Eyes: Denies: Pain, Vision Change HEENT: Denies: Difficulty Hearing, Difficulty Swallowing, Sinus Congestion Cardiovascular: Denies: Chest Pain, Palpitations Respiratory: Denies: Cough, Shortness of Breath Gastrointestinal: Denies: Diarrhea, Nausea, Vomiting Genitourinary: Denies: Dysuria, Hematuria Endocrine: Denies: Heat/ Cold Intolerance, Polydipsia, Polyuria Hematologic/ Lymphatic: Denies: Easy Bruising, Easy Bleeding - Physical Exam Vital Signs Temp Pulse Resp BP 97.1 F L 92 16 134/71 H 02/21/18 08:18 02/21/18 08:18 02/21/18 08:18 02/21/18 08:18 General: Alert, Oriented x3, Cooperative, No apparent distress, Well developed, - - The patient is extremely thin and cachectic. HEENT: Atraumatic, PERRLA, EOMI, Normocephalic Oral: Moist Mucosa Neck: No JVD Lungs: Normal air movement Abdomen: Non-Distended Extremities: No clubbing, No cyanosis, No edema, No Calf Tenderness, - - Severe muscle wasting is noted in the extremities. Joints in the upper and lower extremities are frozen and immovable. Skin: - - Ulceration in the sacral area is slightly improved. Dimensions are documented elsewhere. The base of the ulceration is generally pink and healthy in appearance. There is no sign of infection or cellulitis. Wound Measurements and Assessment WC - Nurse 1 - General Ulcer Measurement Start: 02/14/18 08:26 Freq: Status: Active Protocol: Activity Type Activity Date Activity User E-Sign Co-Sign Detail Recorded Client Recorded Date Recorded By Document 02/21/18 08:18 [id number] 02/21/18 08:32 02/21/18 08:18 Wound Center Nurse 1 [Ulcer Assessment] 3-right lumbar cluster -Combined with other wound No -Current Size (cm) - Length 1.6 -Current Size (cm) - Width 1.8 -Current Size (cm) - Depth 0.1 -Total Square Cm 2.88 -Epithelialization None Present -Exudate Amt Small (1-33%) -Exudate Type Purulent -Wound Margin Flat & Intact -Granulation Amt Medium (34-66%) -Granulation Quality Red -Slough/Fibrin Yes -Necrosis Amt Medium (34-66%) -Necrotic Tissue Type Adherent Slough -Structure Exposed N/A -Texture (Jeanine-wound Skin Appearance) Assessed -Moisture (Jeanine-wound Skin Appearance Assessed ) -Color (Jeanine-wound Skin Appearance) Assessed Erythema -Temperature (Jeanine-wound Skin No Abnormality Appearance) (Pt Warm) -Tenderness on Palpation (Jeanine-wound No Skin Appearance) -Ulcer Cleansing Rinsed/ Irrigated with Saline -Foul Odor after Cleansing No -Anesthetic Used 5% Lidocaine Gel Musculoskeletal: Cachexia, Muscle Wasting Neurological: Cranial nerves II-XII grossly intact, Neuro grossly intact Psych/Mental Status: Normal Affect, Appropriate, Alert and oriented to time, place, person, mood and affect Debridement Note Post-Debridement Measurements/Treatment WC - Nurse 2 - General Ulcer CM Notes Start: 02/14/18 08:26 Freq: Status: Active Protocol: Activity Type Activity Date Activity User E-Sign Co-Sign Detail Recorded Client Recorded Date Recorded By Document 02/14/18 10:01 [email or web address] [id number] 02/14/18 10:15 MITCHELL 02/14/18 10:01 Wound Center Nurse 2 3-right lumbar cluster -Time 10:01 -Correct Patient Yes -Correct Side, Site, Position Yes -Correct Procedure Yes -Procedure Performed Yes -Type of Procedure Debridement -Clinical Debridement Subcutaneous -Post Debridement Size (cm) - Length 0.6 -Post Debridement Size (cm) - Width 0.5 -Post Debridement Size (cm) - Depth 0.1 -Total Square Cm 0.30 -Wound/Ulcer Outcome Not Healed -Ulcer Cleansing Rinsed/ Irrigated with Saline -Foul Odor after Cleansing No -Bioengineered Tissue No -Bleeding Controlled with NA -Treatment Response Procedure Tolerated Well 2-left knee -Time 10:13 -Correct Patient Yes -Correct Side, Site, Position Yes -Correct Procedure Yes -Procedure Performed No -Wound/Ulcer Outcome Not Healed -Ulcer Cleansing Rinsed/ Irrigated with Saline -Foul Odor after Cleansing No -Bioengineered Tissue No -Bleeding Controlled with NA Pain Scale: 0-10 Numeric Is Patient Pain Free? No LEFT SHOULDER -Description Sharp Throbbing Burning Aching -Intensity 2 -Duration (hours) Chronic -Pain Behavior Moaning Facial Grimacing -Pain Aggravating Factors Changing Position -Alleviating Factors/Interventions Turning/ Repositioning -Effectiveness of Alleviating Factor/ Moderately Intervention effective Laterality: Not Applicable - Sacral pressure ulcer Type of Debridement: Excisional debridement Anesthesia Used: 4% Lidocaine Solution Depth: Down to and including healthy tissue, in the subcutaneous layer Percentage of wound debrided: 100 Instrument Used: 5mm curette Severity: Fat Layer Exposed Amount of bleeding with debridement: Mild Bleeding Controlled with: Compression and gauze Patient tolerated procedure well Assessment/Plan Active Problems Sacral decubitus ulcer, stage II (Chronic) Muscular dystrophy (Chronic) Debility (Chronic) Immobility (Chronic) Malnutrition (Chronic) Cachexia (Chronic) Assessment: This is a 72-year-old male with muscular dystrophy and chronic debility, immobilization, cachexia, malnutrition, and ulcerations on the knees and sacral area. His extremities are relatively immobile and fixed in position. Extremities are atrophic. The patient has been in the home environment, cared for by his sister and a hired aide recently. Recently, the patient's care was transferred to the [facility], where he currently resides. The ulcerations on each knee were superficial, and are now essentially healed. The sacral pressure ulceration represents a stage II ulcer. Laboratory studies have been performed recently, and have been reviewed. Results are as follows: Glucose 99, BUN 19, creatinine 0.16, calcium 8.2, cholesterol 193, triglycerides 160, sodium 131, potassium 3.3, chloride 87 , blood count 10.1, globin 12.9, hematocrit 38.2, platelets 349,000. Patient's nutritional labs have been reviewed, and suggest malnutrition. Total protein was 5.2, albumin 2.2, and serum prealbumin 16.2. Plan: Offloading measures are to be continued. The patient is known to have a low air loss mattress on his bed. Frequent repositioning has been recommended. We are to continue the use of collagen hydrogel topically on the sacral pressure ulceration. We are to use OptiFoam to minimize pressure and shear forces. The patient has been encouraged to take a well balanced diet, with the use of nutritional supplements several times daily. Patient is to return in 1 week for reassessment. . The patient is not a smoker. Influenza vaccine was not administered today. Patient stands 5 feet 9 inches tall, and weighs 142 pounds. His BMI is 20.9.
[2018-02-28 08:35] VITALS: BP 124/68; PULSE 89; RESP 16; TEMP 36.7
--- NOTE | 2018-02-28 09:19 | PCM.WC.HP ---
(1) Sacral decubitus ulcer, stage II Status: Chronic Current Visit: Yes Code(s): L89.152 - Pressure ulcer of sacral region, stage 2 (2) Ulcer of left knee Status: Resolved Current Visit: No Qualifiers: Code(s): L97.829 - Non-pressure chronic ulcer of other part of left lower leg with unspecified severity (3) Ulcer of right knee Status: Resolved Current Visit: No Qualifiers: Code(s): L97.819 - Non-pressure chronic ulcer of other part of right lower leg with unspecified severity (4) Muscular dystrophy Status: Chronic Current Visit: Yes Code(s): G71.0 - Muscular dystrophy (5) Debility Status: Chronic Current Visit: Yes Code(s): R53.81 - Other malaise (6) Immobility Status: Chronic Current Visit: Yes Code(s): Z74.09 - Other reduced mobility (7) Malnutrition Status: Chronic Current Visit: Yes Code(s): E46 - Unspecified protein-calorie malnutrition (8) Incontinence of feces Status: Chronic Current Visit: No Code(s): R15.9 - Full incontinence of feces (9) Incontinence of urine Status: Chronic Current Visit: No Code(s): R32 - Unspecified urinary incontinence (10) Cachexia Status: Chronic Current Visit: Yes Code(s): R64 - Cachexia History of Present Illness Date of Service: 02/28/18 Chief Complaint: Pressure ulceration of the sacral area, stage II; bilateral knee ulcerations History of Wound: This is a 72-year-old male who is a resident of . He suffers from muscular dystrophy, and is severely impaired and immobilized. His muscular dystrophy was diagnosed in 1972. He has only recently been transferred to the . Prior to that time, the patient resided at home, cared for by a hired aide and by his sister. He has been bedridden and nonambulatory for a prolonged period of time, with severe muscle atrophy. Due to a lack of mobility and physical therapy, extremity joints are essentially frozen and immovable. The patient is extremely thin and emaciated, suggesting malnutrition and cachexia. He claims his appetite is good. He claims to take a normal diet. He is incontinent of urine and stool, and wears a condom catheter. He was referred to the [facility] due to superficial ulcerations on each knee, and a pressure ulceration in the sacral area, to the right of the midline, appearing to be a stage II pressure ulcer. Past Medical History Past Medical History: Chronic Problems Sacral decubitus ulcer, stage II (Chronic) Muscular dystrophy (Chronic) Debility (Chronic) Immobility (Chronic) Malnutrition (Chronic) Incontinence of feces (Chronic) Incontinence of urine (Chronic) Cachexia (Chronic) Surgical History: tonsillectomy Allergies/Adverse Reactions: Allergies No Known Allergies Allergy (Verified 02/14/18 12:30) Home Medications: Ambulatory Orders Medication Instructions Recorded Ascorbic Acid 500 mg PO DAILY 01/31/18 Cyanocobalamin (Vitamin B-12) 1,000 mcg PO DAILY 01/31/18 [Vitamin B12] Fluticasone 0.05% [Flonase Nasal 1 spray NASAL DAILY 01/31/18 [place]] Furosemide 40 mg PO DAILY 01/31/18 Polyvinyl Alcohol [Artificial 2 drop OP TID 01/31/18 [place]] Saw/Vit E/Sod Nina/Lyc/Beta/Pyg 30 ml PO BID 01/31/18 [Prostate Health Caplet] Oxycodone HCl/Acetaminophen 1 tablet PO Q6H PRN PRN 5 Days #20 02/14/18 [Percocet 5/325] tablet - Family History Paternal - - The patient's father at the age of 93 with a history of cancer, of unknown etiology. Patient's mother at the age of 84 from pneumonia, but had a history of breast cancer and muscular dystrophy. Smoking Status: Former smoker Tobacco Use: Non-smoker Review of Systems Constitutional: Denies: Chills, Fever, Weight Change Eyes: Denies: Pain, Vision Change HEENT: Denies: Difficulty Hearing, Difficulty Swallowing, Sinus Congestion Cardiovascular: Denies: Chest Pain, Palpitations Respiratory: Denies: Cough, Shortness of Breath Gastrointestinal: Denies: Diarrhea, Nausea, Vomiting Genitourinary: Denies: Dysuria, Hematuria Endocrine: Denies: Heat/ Cold Intolerance, Polydipsia, Polyuria Hematologic/ Lymphatic: Denies: Easy Bruising, Easy Bleeding - Physical Exam Vital Signs Temp Pulse Resp BP 98.0 F 89 16 124/68 H 02/28/18 08:35 02/28/18 08:35 02/28/18 08:35 02/28/18 08:35 General: Alert, Oriented x3, Cooperative, No apparent distress, - - The patient is thin and emaciated. HEENT: Atraumatic, PERRLA, EOMI, Normocephalic Oral: Moist Mucosa Neck: No JVD Lungs: Normal air movement Abdomen: Non-Distended Extremities: No clubbing, No cyanosis, No edema, No Calf Tenderness, - - Severe muscle wasting is noted. Joints of all extremities are essentially frozen and immovable. Ulcerations on each knee are essentially healed, with only a small area of dry eschar on each knee. There is no sign of infection or cellulitis. Skin: - - The ulceration in the sacral area is clustered. Dimensions are documented elsewhere. There is no sign of infection or cellulitis. The base of the ulceration is generally pink and healthy, with a mild amount of bioburden. Wound Measurements and Assessment WC - Nurse 1 - General Ulcer Measurement Start: 02/14/18 08:26 Freq: Status: Active Protocol: Activity Type Activity Date Activity User E-Sign Co-Sign Detail Recorded Client Recorded Date Recorded By Document 02/28/18 08:35 HI [id number] 02/28/18 08:47 HI 02/28/18 08:35 Wound Center Nurse 1 [Ulcer Assessment] 3-right lumbar cluster -Current Size (cm) - Length 1.4 -Current Size (cm) - Width 1.7 -Current Size (cm) - Depth 0.1 -Total Square Cm 2.38 -Date of Last Picture (Recall this 02/28/18 field) -Photo Taken Yes -Epithelialization Small 1-33% -Tunneling No -Undermining/Tunneling No -Circular Undermining No -Exudate Amt Small (1-33%) -Exudate Type Purulent -Wound Margin Flat & Intact -Granulation Amt Large (67-100%) -Granulation Quality Red -Necrosis Amt Large (67-100%) -Necrotic Tissue Type Adherent Slough -Structure Exposed N/A -Texture (Jeanine-wound Skin Appearance) Assessed Localized Edema -Moisture (Jeanine-wound Skin Appearance Assessed ) -Color (Jeanine-wound Skin Appearance) Assessed Erythema -Temperature (Jeanine-wound Skin No Abnormality Appearance) (Pt Warm) -Tenderness on Palpation (Jeanine-wound No Skin Appearance) -Ulcer Cleansing Wound Cleanser -Foul Odor after Cleansing No -Anesthetic Used 4% Lidocaine Solution - Nurse 2 - General Ulcer CM Notes Start: 02/14/18 08:26 Freq: Status: Active Protocol: Activity Type Activity Date Activity User E-Sign Co-Sign Detail Recorded Client Recorded Date Recorded By Document 02/28/18 09:01 [id number] 02/28/18 09:18 JS 02/28/18 09:01 Wound Center Nurse 2 [Procedure/Treatment] -Time 09:02 -Correct Patient Yes -Correct Side, Site, Position Yes -Correct Procedure Yes -Procedure Performed Yes -Type of Procedure Debridement -Clinical Debridement Subcutaneous -Post Debridement Size (cm) - Length 1.5 -Post Debridement Size (cm) - Width 1.6 -Post Debridement Size (cm) - Depth 0.1 -Total Square Cm 2.40 -Wound/Ulcer Outcome Not Healed -Ulcer Cleansing Rinsed/ Irrigated with Saline -Foul Odor after Cleansing No -Bioengineered Tissue No -Bleeding Controlled with NA -Treatment Response Procedure Tolerated Well [See Physician Procedure note for Specifics] Pain Scale: 0-10 Numeric [Pain] -Is Patient Pain Free? Yes Musculoskeletal: Muscle Wasting, - - Severe muscle wasting is noted in extremities Neurological: Cranial nerves II-XII grossly intact, Neuro grossly intact Psych/Mental Status: Normal Affect, Appropriate, Alert and oriented to time, place, person, mood and affect Debridement Note Post-Debridement Measurements/Treatment - Nurse 2 - General Ulcer CM Notes Start: 02/14/18 08:26 Freq: Status: Active Protocol: Activity Type Activity Date Activity User E-Sign Co-Sign Detail Recorded Client Recorded Date Recorded By Document 02/14/18 10:01 [id number] 02/14/18 10:15 Document 02/21/18 08:48 [id number] 02/21/18 08:49 Document 02/28/18 09:01 JS [id number] 02/28/18 09:18 JS 02/14/18 02/21/18 02/28/18 10:01 08:48 09:01 Wound Center Nurse 2 3-right lumbar cluster -Time 10:01 08:48 09:02 -Correct Patient Yes Yes Yes -Correct Side, Site, Position Yes Yes Yes -Correct Procedure Yes Yes Yes -Procedure Performed Yes Yes Yes -Type of Procedure Debridement Debridement Debridement -Clinical Debridement Subcutaneous Subcutaneous Subcutaneous -Post Debridement Size (cm) - Length 0.6 0.6 1.5 -Post Debridement Size (cm) - Width 0.5 0.8 1.6 -Post Debridement Size (cm) - Depth 0.1 0.1 0.1 -Total Square Cm 0.30 0.48 2.40 -Wound/Ulcer Outcome Not Healed Not Healed Not Healed -Ulcer Cleansing Rinsed/ Rinsed/ Rinsed/ Irrigated with Irrigated with Irrigated with Saline Saline Saline -Foul Odor after Cleansing No No No -Bioengineered Tissue No No No -Bleeding Controlled with NA Pressure NA -Treatment Response Procedure Procedure Procedure Tolerated Well Tolerated Well Tolerated Well 2-left knee -Time 10:13 -Correct Patient Yes -Correct Side, Site, Position Yes -Correct Procedure Yes -Procedure Performed No -Wound/Ulcer Outcome Not Healed -Ulcer Cleansing Rinsed/ Irrigated with Saline -Foul Odor after Cleansing No -Bioengineered Tissue No -Bleeding Controlled with NA Pain Scale: 0-10 Numeric Is Patient Pain Free? No Yes Yes LEFT SHOULDER -Description Sharp Throbbing Burning Aching -Intensity 2 -Duration (hours) Chronic -Pain Behavior Moaning Facial Grimacing -Pain Aggravating Factors Changing Position -Alleviating Factors/Interventions Turning/ Repositioning -Effectiveness of Alleviating Factor/ Moderately Intervention effective Laterality: Not Applicable - Sacral ulceration Type of Debridement: Excisional debridement Anesthesia Used: 4% Lidocaine Solution Depth: Down to and including healthy tissue, in the subcutaneous layer Percentage of wound debrided: 100 Instrument Used: 3mm curette Severity: Fat Layer Exposed Amount of bleeding with debridement: Mild Bleeding Controlled with: Compression and gauze Patient tolerated procedure well Assessment/Plan Active Problems Sacral decubitus ulcer, stage II (Chronic) Muscular dystrophy (Chronic) Debility (Chronic) Immobility (Chronic) Malnutrition (Chronic) Cachexia (Chronic) Assessment: This is a 72-year-old male with muscular dystrophy and chronic debility, immobilization, cachexia, malnutrition, and ulcerations on the knees and sacral area. His extremities are relatively immobile and fixed in position. Extremities are atrophic. The patient has been in the home environment, cared for by his sister and a hired aide recently. Recently, the patient's care was transferred to the , where he currently resides. The ulcerations on each knee were superficial, and are now essentially healed. The sacral pressure ulceration represents a stage II ulcer. Laboratory studies have been performed recently, and have been reviewed. Results are as follows: Glucose 99, BUN 19, creatinine 0.16, calcium 8.2, cholesterol 193, triglycerides 160, sodium 131, potassium 3.3, chloride 87, blood count 10.1, globin 12.9, hematocrit 38.2, platelets 349,000. Patient's nutritional labs have been reviewed, and suggest malnutrition. Total protein was 5.2, albumin 2.2, and serum prealbumin 16.2. Plan: Offloading measures are to be continued. The patient is known to have a low air loss mattress on his bed. Frequent repositioning has been recommended. We are to continue the use of collagen hydrogel topically on the sacral pressure ulceration. We are to use OptiFoam to minimize pressure and shear forces. The patient has been encouraged to take a well balanced diet, with the use of nutritional supplements several times daily. Patient is to return in 2 weeks for reassessment. The patient is not a smoker. Influenza vaccine was not administered today. Patient stands 5 feet 9 inches tall, and weighs 142 pounds. His BMI is 20.9.
--- NOTE | 2018-02-28 09:24 | HP.PCM_ITS ---
(1) Sacral decubitus ulcer, stage II Status: Chronic Current Visit: Yes Code(s): L89.152 - Pressure ulcer of sacral region, stage 2 (2) Ulcer of left knee Status: Resolved Current Visit: No Qualifiers: Code(s): L97.829 - Non-pressure chronic ulcer of other part of left lower leg with unspecified severity (3) Ulcer of right knee Status: Resolved Current Visit: No Qualifiers: Code(s): L97.819 - Non-pressure chronic ulcer of other part of right lower leg with unspecified severity (4) Muscular dystrophy Status: Chronic Current Visit: Yes Code(s): G71.0 - Muscular dystrophy (5) Debility Status: Chronic Current Visit: Yes Code(s): R53.81 - Other malaise (6) Immobility Status: Chronic Current Visit: Yes Code(s): Z74.09 - Other reduced mobility (7) Malnutrition Status: Chronic Current Visit: Yes Code(s): E46 - Unspecified protein- calorie malnutrition (8) Incontinence of feces Status: Chronic Current Visit: No Code(s): R15.9 - Full incontinence of feces (9) Incontinence of urine Status: Chronic Current Visit: No Code(s): R32 - Unspecified urinary incontinence (10) Cachexia Status: Chronic Current Visit: Yes Code(s): R64 - Cachexia History of Present Illness Date of Service: 02/28/18 Chief Complaint: Pressure ulceration of the sacral area, stage II; bilateral knee ulcerations History of Wound: This is a 72-year-old male who is a resident of [facility]. He suffers from muscular dystrophy, and is severely impaired and immobilized. His muscular dystrophy was diagnosed in 1972. He has only recently been transferred to the [facility]. Prior to that time, the patient resided at home, cared for by a hired aide and by his sister. He has been bedridden and nonambulatory for a prolonged period of time, with severe muscle atrophy. Due to a lack of mobility and physical therapy, extremity joints are essentially frozen and immovable. The patient is extremely thin and emaciated, suggesting malnutrition and cachexia. He claims his appetite is good. He claims to take a normal diet. He is incontinent of urine and stool, and wears a condom catheter. He was referred to the [facility] due to superficial ulcerations on each knee, and a pressure ulceration in the sacral area, to the right of the midline , appearing to be a stage II pressure ulcer. Past Medical History Past Medical History: Chronic Problems Sacral decubitus ulcer, stage II (Chronic) Muscular dystrophy (Chronic) Debility (Chronic) Immobility (Chronic) Malnutrition (Chronic) Incontinence of feces (Chronic) Incontinence of urine (Chronic) Cachexia (Chronic) Surgical History: tonsillectomy Allergies/Adverse Reactions: Allergies No Known Allergies Allergy (Verified 02/14/18 12:30) Home Medications: Ambulatory Orders Medication Instructions Recorded Ascorbic Acid 500 mg PO DAILY 01/31/18 Cyanocobalamin (Vitamin B-12) 1,000 mcg PO DAILY 01/31/18 [Vitamin B12] Fluticasone 0.05% [Flonase Nasal 1 spray NASAL DAILY 01/31/18 [place]] Furosemide 40 mg PO DAILY 01/31/18 Polyvinyl Alcohol [Artificial 2 drop OP TID 01/31/18 Tears] Saw/Vit E/Sod Nina/Lyc/Beta/Pyg 30 ml PO BID 01/31/18 [Prostate Health Caplet] Oxycodone HCl/Acetaminophen 1 tablet PO Q6H PRN PRN 5 Days #20 02/14/18 [Percocet 5/325] tablet - Family History Paternal - - The patient's father at the age of 93 with a history of cancer, of unknown etiology. Patient's mother at the age of 84 from pneumonia, but had a history of breast cancer and muscular dystrophy. Smoking Status: Former smoker Tobacco Use: Non-smoker Review of Systems Constitutional: Denies: Chills, Fever, Weight Change Eyes: Denies: Pain, Vision Change HEENT: Denies: Difficulty Hearing, Difficulty Swallowing, Sinus Congestion Cardiovascular: Denies: Chest Pain, Palpitations Respiratory: Denies: Cough, Shortness of Breath Gastrointestinal: Denies: Diarrhea, Nausea, Vomiting Genitourinary: Denies: Dysuria, Hematuria Endocrine: Denies: Heat/ Cold Intolerance, Polydipsia, Polyuria Hematologic/ Lymphatic: Denies: Easy Bruising, Easy Bleeding - Physical Exam Vital Signs Temp Pulse Resp BP 98.0 F 89 16 124/68 H 02/28/18 08:35 02/28/18 08:35 02/28/18 08:35 02/28/18 08:35 General: Alert, Oriented x3, Cooperative, No apparent distress, - - The patient is thin and emaciated. HEENT: Atraumatic, PERRLA, EOMI, Normocephalic Oral: Moist Mucosa Neck: No JVD Lungs: Normal air movement Abdomen: Non-Distended Extremities: No clubbing, No cyanosis, No edema, No Calf Tenderness, - - Severe muscle wasting is noted. Joints of all extremities are essentially frozen and immovable. Ulcerations on each knee are essentially healed, with only a small area of dry eschar on each knee. There is no sign of infection or cellulitis. Skin: - - The ulceration in the sacral area is clustered. Dimensions are documented elsewhere. There is no sign of infection or cellulitis. The base of the ulceration is generally pink and healthy, with a mild amount of bioburden. Wound Measurements and Assessment WC - Nurse 1 - General Ulcer Measurement Start: 02/14/18 08:26 Freq: Status: Active Protocol: Activity Type Activity Date Activity User E-Sign Co-Sign Detail Recorded Client Recorded Date Recorded By Document 02/28/18 08:35 [place] [id number] 02/28/18 08:47 [place] 02/28/18 08:35 Wound Center Nurse 1 [Ulcer Assessment] 3-right lumbar cluster -Current Size (cm) - Length 1.4 -Current Size (cm) - Width 1.7 -Current Size (cm) - Depth 0.1 -Total Square Cm 2.38 -Date of Last Picture (Recall this 02/28/18 field) -Photo Taken Yes -Epithelialization Small 1-33% -Tunneling No -Undermining/Tunneling No -Circular Undermining No -Exudate Amt Small (1-33%) -Exudate Type Purulent -Wound Margin Flat & Intact -Granulation Amt Large (67-100%) -Granulation Quality Red -Necrosis Amt Large (67-100%) -Necrotic Tissue Type Adherent Slough -Structure Exposed N/A -Texture (Jeanine-wound Skin Appearance) Assessed Localized Edema -Moisture (Jeanine-wound Skin Appearance Assessed ) -Color (Jeanine-wound Skin Appearance) Assessed Erythema -Temperature (Jeanine-wound Skin No Abnormality Appearance) (Pt Warm) -Tenderness on Palpation (Jeanine-wound No Skin Appearance) -Ulcer Cleansing Wound Cleanser -Foul Odor after Cleansing No -Anesthetic Used 4% Lidocaine Solution - Nurse 2 - General Ulcer CM Notes Start: 02/14/18 08:26 Freq: Status: Active Protocol: Activity Type Activity Date Activity User E-Sign Co-Sign Detail Recorded Client Recorded Date Recorded By Document 02/28/18 09:01 [id number] 02/28/18 09:18 JS 02/28/18 09:01 Wound Center Nurse 2 [Procedure/Treatment] -Time 09:02 -Correct Patient Yes -Correct Side, Site, Position Yes -Correct Procedure Yes -Procedure Performed Yes -Type of Procedure Debridement -Clinical Debridement Subcutaneous -Post Debridement Size (cm) - Length 1.5 -Post Debridement Size (cm) - Width 1.6 -Post Debridement Size (cm) - Depth 0.1 -Total Square Cm 2.40 -Wound/Ulcer Outcome Not Healed -Ulcer Cleansing Rinsed/ Irrigated with Saline -Foul Odor after Cleansing No -Bioengineered Tissue No -Bleeding Controlled with NA -Treatment Response Procedure Tolerated Well [See Physician Procedure note for Specifics] Pain Scale: 0-10 Numeric [Pain] -Is Patient Pain Free? Yes Musculoskeletal: Muscle Wasting, - - Severe muscle wasting is noted in extremities Neurological: Cranial nerves II-XII grossly intact, Neuro grossly intact Psych/Mental Status: Normal Affect, Appropriate, Alert and oriented to time, place, person, mood and affect Debridement Note Post-Debridement Measurements/Treatment - Nurse 2 - General Ulcer CM Notes Start: 02/14/18 08:26 Freq: Status: Active Protocol: Activity Type Activity Date Activity User E-Sign Co-Sign Detail Recorded Client Recorded Date Recorded By Document 02/14/18 10:01 [id number] 02/14/18 10:15 Document 02/21/18 08:48 [id number] 02/21/18 08:49 Document 02/28/18 09:01 JS [id number] 02/28/18 09:18 JS 02/14/18 02/21/18 02/28/18 10:01 08:48 09:01 Wound Center Nurse 2 3-right lumbar cluster -Time 10:01 08:48 09:02 -Correct Patient Yes Yes Yes -Correct Side, Site, Position Yes Yes Yes -Correct Procedure Yes Yes Yes -Procedure Performed Yes Yes Yes -Type of Procedure Debridement Debridement Debridement -Clinical Debridement Subcutaneous Subcutaneous Subcutaneous -Post Debridement Size (cm) - Length 0.6 0.6 1.5 -Post Debridement Size (cm) - Width 0.5 0.8 1.6 -Post Debridement Size (cm) - Depth 0.1 0.1 0.1 -Total Square Cm 0.30 0.48 2.40 -Wound/Ulcer Outcome Not Healed Not Healed Not Healed -Ulcer Cleansing Rinsed/ Rinsed/ Rinsed/ Irrigated with Irrigated with Irrigated with Saline Saline Saline -Foul Odor after Cleansing No No No -Bioengineered Tissue No No No -Bleeding Controlled with NA Pressure NA -Treatment Response Procedure Procedure Procedure Tolerated Well Tolerated Well Tolerated Well 2-left knee -Time 10:13 -Correct Patient Yes -Correct Side, Site, Position Yes -Correct Procedure Yes -Procedure Performed No -Wound/Ulcer Outcome Not Healed -Ulcer Cleansing Rinsed/ Irrigated with Saline -Foul Odor after Cleansing No -Bioengineered Tissue No -Bleeding Controlled with NA Pain Scale: 0-10 Numeric Is Patient Pain Free? No Yes Yes LEFT SHOULDER -Description Sharp Throbbing Burning Aching -Intensity 2 -Duration (hours) Chronic -Pain Behavior Moaning Facial Grimacing -Pain Aggravating Factors Changing Position -Alleviating Factors/Interventions Turning/ Repositioning -Effectiveness of Alleviating Factor/ Moderately Intervention effective Laterality: Not Applicable - Sacral ulceration Type of Debridement: Excisional debridement Anesthesia Used: 4% Lidocaine Solution Depth: Down to and including healthy tissue, in the subcutaneous layer Percentage of wound debrided: 100 Instrument Used: 3mm curette Severity: Fat Layer Exposed Amount of bleeding with debridement: Mild Bleeding Controlled with: Compression and gauze Patient tolerated procedure well Assessment/Plan Active Problems Sacral decubitus ulcer, stage II (Chronic) Muscular dystrophy (Chronic) Debility (Chronic) Immobility (Chronic) Malnutrition (Chronic) Cachexia (Chronic) Assessment: This is a 72-year-old male with muscular dystrophy and chronic debility, immobilization, cachexia, malnutrition, and ulcerations on the knees and sacral area. His extremities are relatively immobile and fixed in position. Extremities are atrophic. The patient has been in the home environment, cared for by his sister and a hired aide recently. Recently, the patient's care was transferred to the [facility], where he currently resides. The ulcerations on each knee were superficial, and are now essentially healed. The sacral pressure ulceration represents a stage II ulcer. Laboratory studies have been performed recently, and have been reviewed. Results are as follows: Glucose 99, BUN 19, creatinine 0.16, calcium 8.2, cholesterol 193, triglycerides 160, sodium 131, potassium 3.3, chloride 87 , blood count 10.1, globin 12.9, hematocrit 38.2, platelets 349,000. Patient's nutritional labs have been reviewed, and suggest malnutrition. Total protein was 5.2, albumin 2.2, and serum prealbumin 16.2. Plan: Offloading measures are to be continued. The patient is known to have a low air loss mattress on his bed. Frequent repositioning has been recommended. We are to continue the use of collagen hydrogel topically on the sacral pressure ulceration. We are to use OptiFoam to minimize pressure and shear forces. The patient has been encouraged to take a well balanced diet, with the use of nutritional supplements several times daily. Patient is to return in 2 weeks for reassessment. The patient is not a smoker. Influenza vaccine was not administered today. Patient stands 5 feet 9 inches tall, and weighs 142 pounds. His BMI is 20.9.
[2018-03-14 08:35] VITALS: BP 121/71; PULSE 97; RESP 18; TEMP 36.7
--- NOTE | 2018-03-14 09:08 | PCM.WC.HP ---
(1) Sacral decubitus ulcer, stage II Status: Chronic Current Visit: Yes Code(s): L89.152 - Pressure ulcer of sacral region, stage 2 (2) Ulcer of left knee Status: Resolved Current Visit: No Qualifiers: Code(s): L97.829 - Non-pressure chronic ulcer of other part of left lower leg with unspecified severity (3) Ulcer of right knee Status: Resolved Current Visit: No Qualifiers: Code(s): L97.819 - Non-pressure chronic ulcer of other part of right lower leg with unspecified severity (4) Muscular dystrophy Status: Chronic Current Visit: Yes Code(s): G71.0 - Muscular dystrophy (5) Debility Status: Chronic Current Visit: Yes Code(s): R53.81 - Other malaise (6) Immobility Status: Chronic Current Visit: Yes Code(s): Z74.09 - Other reduced mobility (7) Malnutrition Status: Chronic Current Visit: Yes Code(s): E46 - Unspecified protein-calorie malnutrition (8) Incontinence of feces Status: Chronic Current Visit: No Code(s): R15.9 - Full incontinence of feces (9) Incontinence of urine Status: Chronic Current Visit: No Code(s): R32 - Unspecified urinary incontinence (10) Cachexia Status: Chronic Current Visit: Yes Code(s): R64 - Cachexia History of Present Illness Date of Service: 03/14/18 Chief Complaint: Pressure ulceration of the sacral area, stage II; bilateral knee ulcerations History of Wound: This is a 72-year-old male who is a resident of [facility]. He suffers from muscular dystrophy, and is severely impaired and immobilized. His muscular dystrophy was diagnosed in 1972. He has only recently been transferred to the [facility]. Prior to that time, the patient resided at home, cared for by a hired aide and by his sister. He has been bedridden and nonambulatory for a prolonged period of time, with severe muscle atrophy. Due to a lack of mobility and physical therapy, extremity joints are essentially frozen and immovable. The patient is extremely thin and emaciated, suggesting malnutrition and cachexia. He claims his appetite is good. He claims to take a normal diet. He is incontinent of urine and stool, and wears a condom catheter. He was referred to the [facility] due to superficial ulcerations on each knee, and a pressure ulceration in the sacral area, to the right of the midline, appearing to be a stage II pressure ulcer. The ulcerations on each knee are now completely healed, having responded to conservative treatment measures implemented at the Wound Center. Past Medical History Past Medical History: Chronic Problems Sacral decubitus ulcer, stage II (Chronic) Muscular dystrophy (Chronic) Debility (Chronic) Immobility (Chronic) Malnutrition (Chronic) Incontinence of feces (Chronic) Incontinence of urine (Chronic) Cachexia (Chronic) Surgical History: tonsillectomy Allergies/Adverse Reactions: Allergies No Known Allergies Allergy (Verified 02/14/18 12:30) Home Medications: Ambulatory Orders Medication Instructions Recorded Ascorbic Acid 500 mg PO DAILY 01/31/18 Cyanocobalamin (Vitamin B-12) 1,000 mcg PO DAILY 01/31/18 [Vitamin B12] Fluticasone 0.05% [Flonase Nasal 1 spray NASAL DAILY 01/31/18 [place]] Furosemide 40 mg PO DAILY 01/31/18 Polyvinyl Alcohol [Artificial 2 drop OP TID 01/31/18 [place]ears] Saw/Vit E/Sod Nina/Lyc/Beta/Pyg 30 ml PO BID 01/31/18 [Prostate Health Caplet] Oxycodone HCl/Acetaminophen 1 tablet PO Q6H PRN PRN 5 Days #20 02/14/18 [Percocet 5/325] tablet - Family History Paternal - - The patient's father at the age of 93 with a history of cancer, of unknown etiology. Patient's mother at the age of 84 from pneumonia, but had a history of breast cancer and muscular dystrophy. Smoking Status: Former smoker Tobacco Use: Non-smoker Review of Systems Constitutional: Denies: Chills, Fever, Weight Change Eyes: Denies: Pain, Vision Change HEENT: Denies: Difficulty Hearing, Difficulty Swallowing, Sinus Congestion Cardiovascular: Denies: Chest Pain, Palpitations Respiratory: Denies: Cough, Shortness of Breath Gastrointestinal: Denies: Diarrhea, Nausea, Vomiting Genitourinary: Denies: Dysuria, Hematuria Endocrine: Denies: Heat/ Cold Intolerance, Polydipsia, Polyuria Hematologic/ Lymphatic: Denies: Easy Bruising, Easy Bleeding - Physical Exam Vital Signs Temp Pulse Resp BP 98.0 F 97 18 121/71 H 03/14/18 08:35 03/14/18 08:35 03/14/18 08:35 03/14/18 08:35 General: Alert, Oriented x3, Cooperative, No apparent distress, - - The patient is immobile. He appears frail and cachectic. HEENT: Atraumatic, PERRLA, EOMI, Normocephalic Oral: Moist Mucosa Neck: No JVD Lungs: Normal air movement Abdomen: Non-Distended Extremities: No clubbing, No cyanosis, No edema, No Calf Tenderness, - - Severe atrophy is noted of all extremities. His joints are essentially frozen and immobile. The ulcerations on each knee remained healed. Skin: No rashes, - - The patient's stage II sacral pressure ulceration is markedly improved. There has been significant peripheral epithelialization. At this juncture, the remaining ulceration is quite small. Dimensions are documented elsewhere. There is no sign of infection or cellulitis. Wound Measurements and Assessment WC - Nurse 1 - General Ulcer Measurement Start: 02/14/18 08:26 Freq: Status: Active Protocol: Activity Type Activity Date Activity User E-Sign Co-Sign Detail Recorded Client Recorded Date Recorded By Document 03/14/18 08:35 [id number] 03/14/18 08:37 03/14/18 08:35 Wound Center Nurse 1 [Ulcer Assessment] 3-right lumbar cluster -Current Size (cm) - Length 0.7 -Current Size (cm) - Width 0.8 -Current Size (cm) - Depth 0.1 -Total Square Cm 0.56 -Photo Taken No -Epithelialization Small 1-33% -Tunneling No -Undermining/Tunneling No -Circular Undermining No -Exudate Amt Small (1-33%) -Exudate Type Serosanguineous -Wound Margin Distinct, Outline Attached -Granulation Amt Medium (34-66%) -Granulation Quality [place] -Slough/Fibrin Yes -Necrosis Amt None Present (0 %) -Necrotic Tissue Type Adherent Slough -Structure Exposed None/Limited to Skin Breakdown -Texture (Jeanine-wound Skin Appearance) No Abnormality Assessed -Moisture (Jeanine-wound Skin Appearance No Abnormality ) Assessed -Color (Jeanine-wound Skin Appearance) No Abnormality Assessed -Temperature (Jeanine-wound Skin No Abnormality Appearance) (Pt Warm) -Tenderness on Palpation (Jeanine-wound No Skin Appearance) -Ulcer Cleansing Wound Cleanser -Foul Odor after Cleansing No -Anesthetic Used 4% Lidocaine Solution [Edema Assessment] -Lower Limb Edema Present NA Musculoskeletal: Muscle Wasting Neurological: Cranial nerves II-XII grossly intact, Neuro grossly intact Psych/Mental Status: Normal Affect, Appropriate, Alert and oriented to time, place, person, mood and affect Debridement Note Post-Debridement Measurements/Treatment WC - Nurse 2 - General Ulcer CM Notes Start: 02/14/18 08:26 Freq: Status: Active Protocol: Activity Type Activity Date Activity User E-Sign Co-Sign Detail Recorded Client Recorded Date Recorded By Document 02/14/18 10:01 JS [id number] 02/14/18 10:15 JS Document 02/21/18 08:48 [id number] 02/21/18 08:49 JF Document 02/28/18 09:01 JS [id number] 02/28/18 09:18 JS 02/14/18 02/21/18 02/28/18 10:01 08:48 09:01 Wound Center Nurse 2 3-right lumbar cluster -Time 10:01 08:48 09:02 -Correct Patient Yes Yes Yes -Correct Side, Site, Position Yes Yes Yes -Correct Procedure Yes Yes Yes -Procedure Performed Yes Yes Yes -Type of Procedure Debridement Debridement Debridement -Clinical Debridement Subcutaneous Subcutaneous Subcutaneous -Post Debridement Size (cm) - Length 0.6 0.6 1.5 -Post Debridement Size (cm) - Width 0.5 0.8 1.6 -Post Debridement Size (cm) - Depth 0.1 0.1 0.1 -Total Square Cm 0.30 0.48 2.40 -Wound/Ulcer Outcome Not Healed Not Healed Not Healed -Ulcer Cleansing Rinsed/ Rinsed/ Rinsed/ Irrigated with Irrigated with Irrigated with Saline Saline Saline -Foul Odor after Cleansing No No No -Bioengineered Tissue No No No -Bleeding Controlled with NA Pressure NA -Treatment Response Procedure Procedure Procedure Tolerated Well Tolerated Well Tolerated Well 2-left knee -Time 10:13 -Correct Patient Yes -Correct Side, Site, Position Yes -Correct Procedure Yes -Procedure Performed No -Wound/Ulcer Outcome Not Healed -Ulcer Cleansing Rinsed/ Irrigated with Saline -Foul Odor after Cleansing No -Bioengineered Tissue No -Bleeding Controlled with NA Pain Scale: 0-10 Numeric Is Patient Pain Free? No Yes Yes LEFT SHOULDER -Description Sharp Throbbing Burning Aching -Intensity 2 -Duration (hours) Chronic -Pain Behavior Moaning Facial Grimacing -Pain Aggravating Factors Changing Position -Alleviating Factors/Interventions Turning/ Repositioning -Effectiveness of Alleviating Factor/ Moderately Intervention effective Laterality: Not Applicable - Stage II sacral pressure ulceration Type of Debridement: Excisional debridement Anesthesia Used: 4% Lidocaine Solution Depth: Down to and including healthy tissue, in the subcutaneous layer Percentage of wound debrided: 100 Instrument Used: 5mm curette Severity: Fat Layer Exposed Amount of bleeding with debridement: Mild Bleeding Controlled with: Compression and gauze Patient tolerated procedure well Assessment/Plan Active Problems Sacral decubitus ulcer, stage II (Chronic) Muscular dystrophy (Chronic) Debility (Chronic) Immobility (Chronic) Malnutrition (Chronic) Cachexia (Chronic) Assessment: This is a 72-year-old male with muscular dystrophy and chronic debility, immobilization, cachexia, malnutrition, and ulcerations on the knees and sacral area. His extremities are relatively immobile and fixed in position. Extremities are atrophic. The patient has been in the home environment, cared for by his sister and a hired aide recently. Recently, the patient's care was transferred to the [facility], where he currently resides. The ulcerations on each knee were superficial, and are now healed. The sacral pressure ulceration represents a stage II ulcer, which has shown good progress towards healing, and is now quite small in size. Laboratory studies have been performed recently, and have been reviewed. Results are as follows: Glucose 99, BUN 19, creatinine 0.16, calcium 8.2, cholesterol 193, triglycerides 160, sodium 131, potassium 3.3, chloride 87, blood count 10.1, globin 12.9, hematocrit 38.2, platelets 349,000. Patient's nutritional labs have been reviewed, and suggest malnutrition. Total protein was 5.2, albumin 2.2, and serum prealbumin 16.2. Plan: Offloading measures are to be continued. The patient is known to have a low air loss mattress on his bed. Frequent repositioning has been recommended. We are to continue the use of collagen hydrogel topically on the sacral pressure ulceration. We are to use OptiFoam to minimize pressure and shear forces. The patient has been encouraged to take a well balanced diet, with the use of nutritional supplements several times daily. Because his lower extremities are fixed in an externally rotated position, the patient's knees are vulnerable for trauma during transport. Therefore, we have recommended the use of kneepads for protection purposes. The patient is to return in 1 week for reassessment. The patient is not a smoker. Influenza vaccine was not administered today. Patient stands 5 feet 9 inches tall, and weighs 142 pounds. His BMI is 20.9.
--- NOTE | 2018-03-14 09:12 | HP.PCM_ITS ---
(1) Sacral decubitus ulcer, stage II Status: Chronic Current Visit: Yes Code(s): L89.152 - Pressure ulcer of sacral region, stage 2 (2) Ulcer of left knee Status: Resolved Current Visit: No Qualifiers: Code(s): L97.829 - Non-pressure chronic ulcer of other part of left lower leg with unspecified severity (3) Ulcer of right knee Status: Resolved Current Visit: No Qualifiers: Code(s): L97.819 - Non-pressure chronic ulcer of other part of right lower leg with unspecified severity (4) Muscular dystrophy Status: Chronic Current Visit: Yes Code(s): G71.0 - Muscular dystrophy (5) Debility Status: Chronic Current Visit: Yes Code(s): R53.81 - Other malaise (6) Immobility Status: Chronic Current Visit: Yes Code(s): Z74.09 - Other reduced mobility (7) Malnutrition Status: Chronic Current Visit: Yes Code(s): E46 - Unspecified protein- calorie malnutrition (8) Incontinence of feces Status: Chronic Current Visit: No Code(s): R15.9 - Full incontinence of feces (9) Incontinence of urine Status: Chronic Current Visit: No Code(s): R32 - Unspecified urinary incontinence (10) Cachexia Status: Chronic Current Visit: Yes Code(s): R64 - Cachexia History of Present Illness Date of Service: 03/14/18 Chief Complaint: Pressure ulceration of the sacral area, stage II; bilateral knee ulcerations History of Wound: This is a 72-year-old male who is a resident of [facility]. He suffers from muscular dystrophy, and is severely impaired and immobilized. His muscular dystrophy was diagnosed in 1972. He has only recently been transferred to the [facility]. Prior to that time, the patient resided at home, cared for by a hired aide and by his sister. He has been bedridden and nonambulatory for a prolonged period of time, with severe muscle atrophy. Due to a lack of mobility and physical therapy, extremity joints are essentially frozen and immovable. The patient is extremely thin and emaciated, suggesting malnutrition and cachexia. He claims his appetite is good. He claims to take a normal diet. He is incontinent of urine and stool, and wears a condom catheter. He was referred to the [facility] due to superficial ulcerations on each knee, and a pressure ulceration in the sacral area, to the right of the midline , appearing to be a stage II pressure ulcer. The ulcerations on each knee are now completely healed, having responded to conservative treatment measures implemented at the Wound Center. Past Medical History Past Medical History: Chronic Problems Sacral decubitus ulcer, stage II (Chronic) Muscular dystrophy (Chronic) Debility (Chronic) Immobility (Chronic) Malnutrition (Chronic) Incontinence of feces (Chronic) Incontinence of urine (Chronic) Cachexia (Chronic) Surgical History: tonsillectomy Allergies/Adverse Reactions: Allergies No Known Allergies Allergy (Verified 02/14/18 12:30) Home Medications: Ambulatory Orders Medication Instructions Recorded Ascorbic Acid 500 mg PO DAILY 01/31/18 Cyanocobalamin (Vitamin B-12) 1,000 mcg PO DAILY 01/31/18 [Vitamin B12] Fluticasone 0.05% [Flonase Nasal 1 spray NASAL DAILY 01/31/18 [place]] Furosemide 40 mg PO DAILY 01/31/18 Polyvinyl Alcohol [Artificial 2 drop OP TID 01/31/18 Tears] Saw/Vit E/Sod Nina/Lyc/Beta/Pyg 30 ml PO BID 01/31/18 [Prostate Health Caplet] Oxycodone HCl/Acetaminophen 1 tablet PO Q6H PRN PRN 5 Days #20 02/14/18 [Percocet 5/325] tablet - Family History Paternal - - The patient's father at the age of 93 with a history of cancer, of unknown etiology. Patient's mother at the age of 84 from pneumonia, but had a history of breast cancer and muscular dystrophy. Smoking Status: Former smoker Tobacco Use: Non-smoker Review of Systems Constitutional: Denies: Chills, Fever, Weight Change Eyes: Denies: Pain, Vision Change HEENT: Denies: Difficulty Hearing, Difficulty Swallowing, Sinus Congestion Cardiovascular: Denies: Chest Pain, Palpitations Respiratory: Denies: Cough, Shortness of Breath Gastrointestinal: Denies: Diarrhea, Nausea, Vomiting Genitourinary: Denies: Dysuria, Hematuria Endocrine: Denies: Heat/ Cold Intolerance, Polydipsia, Polyuria Hematologic/ Lymphatic: Denies: Easy Bruising, Easy Bleeding - Physical Exam Vital Signs Temp Pulse Resp BP 98.0 F 97 18 121/71 H 03/14/18 08:35 03/14/18 08:35 03/14/18 08:35 03/14/18 08:35 General: Alert, Oriented x3, Cooperative, No apparent distress, - - The patient is immobile. He appears frail and cachectic. HEENT: Atraumatic, PERRLA, EOMI, Normocephalic Oral: Moist Mucosa Neck: No JVD Lungs: Normal air movement Abdomen: Non-Distended Extremities: No clubbing, No cyanosis, No edema, No Calf Tenderness, - - Severe atrophy is noted of all extremities. His joints are essentially frozen and immobile. The ulcerations on each knee remained healed. Skin: No rashes, - - The patient's stage II sacral pressure ulceration is markedly improved. There has been significant peripheral epithelialization. At this juncture, the remaining ulceration is quite small. Dimensions are documented elsewhere. There is no sign of infection or cellulitis. Wound Measurements and Assessment WC - Nurse 1 - General Ulcer Measurement Start: 02/14/18 08:26 Freq: Status: Active Protocol: Activity Type Activity Date Activity User E-Sign Co-Sign Detail Recorded Client Recorded Date Recorded By Document 03/14/18 08:35 [id number] 03/14/18 08:37 03/14/18 08:35 Wound Center Nurse 1 [Ulcer Assessment] 3-right lumbar cluster -Current Size (cm) - Length 0.7 -Current Size (cm) - Width 0.8 -Current Size (cm) - Depth 0.1 -Total Square Cm 0.56 -Photo Taken No -Epithelialization Small 1-33% -Tunneling No -Undermining/Tunneling No -Circular Undermining No -Exudate Amt Small (1-33%) -Exudate Type Serosanguineous -Wound Margin Distinct, Outline Attached -Granulation Amt Medium (34-66%) -Granulation Quality [place] -Slough/Fibrin Yes -Necrosis Amt None Present (0 %) -Necrotic Tissue Type Adherent Slough -Structure Exposed None/Limited to Skin Breakdown -Texture (Jeanine-wound Skin Appearance) No Abnormality Assessed -Moisture (Jeanine-wound Skin Appearance No Abnormality ) Assessed -Color (Jeanine-wound Skin Appearance) No Abnormality Assessed -Temperature (Jeanine-wound Skin No Abnormality Appearance) (Pt Warm) -Tenderness on Palpation (Jeanine-wound No Skin Appearance) -Ulcer Cleansing Wound Cleanser -Foul Odor after Cleansing No -Anesthetic Used 4% Lidocaine Solution [Edema Assessment] -Lower Limb Edema Present NA Musculoskeletal: Muscle Wasting Neurological: Cranial nerves II-XII grossly intact, Neuro grossly intact Psych/Mental Status: Normal Affect, Appropriate, Alert and oriented to time, place, person, mood and affect Debridement Note Post-Debridement Measurements/Treatment WC - Nurse 2 - General Ulcer CM Notes Start: 02/14/18 08:26 Freq: Status: Active Protocol: Activity Type Activity Date Activity User E-Sign Co-Sign Detail Recorded Client Recorded Date Recorded By Document 02/14/18 10:01 JS [id number] 02/14/18 10:15 JS Document 02/21/18 08:48 JF [id number] 02/21/18 08:49 JF Document 02/28/18 09:01 JS [id number] 02/28/18 09:18 JS 02/14/18 02/21/18 02/28/18 10:01 08:48 09:01 Wound Center Nurse 2 3-right lumbar cluster -Time 10:01 08:48 09:02 -Correct Patient Yes Yes Yes -Correct Side, Site, Position Yes Yes Yes -Correct Procedure Yes Yes Yes -Procedure Performed Yes Yes Yes -Type of Procedure Debridement Debridement Debridement -Clinical Debridement Subcutaneous Subcutaneous Subcutaneous -Post Debridement Size (cm) - Length 0.6 0.6 1.5 -Post Debridement Size (cm) - Width 0.5 0.8 1.6 -Post Debridement Size (cm) - Depth 0.1 0.1 0.1 -Total Square Cm 0.30 0.48 2.40 -Wound/Ulcer Outcome Not Healed Not Healed Not Healed -Ulcer Cleansing Rinsed/ Rinsed/ Rinsed/ Irrigated with Irrigated with Irrigated with Saline Saline Saline -Foul Odor after Cleansing No No No -Bioengineered Tissue No No No -Bleeding Controlled with NA Pressure NA -Treatment Response Procedure Procedure Procedure Tolerated Well Tolerated Well Tolerated Well 2-left knee -Time 10:13 -Correct Patient Yes -Correct Side, Site, Position Yes -Correct Procedure Yes -Procedure Performed No -Wound/Ulcer Outcome Not Healed -Ulcer Cleansing Rinsed/ Irrigated with Saline -Foul Odor after Cleansing No -Bioengineered Tissue No -Bleeding Controlled with NA Pain Scale: 0-10 Numeric Is Patient Pain Free? No Yes Yes LEFT SHOULDER -Description Sharp Throbbing Burning Aching -Intensity 2 -Duration (hours) Chronic -Pain Behavior Moaning Facial Grimacing -Pain Aggravating Factors Changing Position -Alleviating Factors/Interventions Turning/ Repositioning -Effectiveness of Alleviating Factor/ Moderately Intervention effective Laterality: Not Applicable - Stage II sacral pressure ulceration Type of Debridement: Excisional debridement Anesthesia Used: 4% Lidocaine Solution Depth: Down to and including healthy tissue, in the subcutaneous layer Percentage of wound debrided: 100 Instrument Used: 5mm curette Severity: Fat Layer Exposed Amount of bleeding with debridement: Mild Bleeding Controlled with: Compression and gauze Patient tolerated procedure well Assessment/Plan Active Problems Sacral decubitus ulcer, stage II (Chronic) Muscular dystrophy (Chronic) Debility (Chronic) Immobility (Chronic) Malnutrition (Chronic) Cachexia (Chronic) Assessment: This is a 72-year-old male with muscular dystrophy and chronic debility, immobilization, cachexia, malnutrition, and ulcerations on the knees and sacral area. His extremities are relatively immobile and fixed in position. Extremities are atrophic. The patient has been in the home environment, cared for by his sister and a hired aide recently. Recently, the patient's care was transferred to the [facility], where he currently resides. The ulcerations on each knee were superficial, and are now healed. The sacral pressure ulceration represents a stage II ulcer, which has shown good progress towards healing, and is now quite small in size. Laboratory studies have been performed recently, and have been reviewed. Results are as follows: Glucose 99, BUN 19, creatinine 0.16, calcium 8.2, cholesterol 193, triglycerides 160, sodium 131, potassium 3.3, chloride 87, blood count 10.1, globin 12.9, hematocrit 38.2, platelets 349,000. Patient's nutritional labs have been reviewed, and suggest malnutrition. Total protein was 5.2, albumin 2.2, and serum prealbumin 16.2. Plan: Offloading measures are to be continued. The patient is known to have a low air loss mattress on his bed. Frequent repositioning has been recommended. We are to continue the use of collagen hydrogel topically on the sacral pressure ulceration. We are to use OptiFoam to minimize pressure and shear forces. The patient has been encouraged to take a well balanced diet, with the use of nutritional supplements several times daily. Because his lower extremities are fixed in an externally rotated position, the patient's knees are vulnerable for trauma during transport. Therefore, we have recommended the use of kneepads for protection purposes. The patient is to return in 1 week for reassessment. The patient is not a smoker. Influenza vaccine was not administered today. Patient stands 5 feet 9 inches tall, and weighs 142 pounds. His BMI is 20.9.
== END 2018-03-14 23:59 ==
LOC: WC 08:30
PROVIDERS: Family Provider Family Medicine; PCP Family Medicine; Visit Provider Surgery
DX: L89.152 Pressure ulcer of sacral region, stage 2 (principal); G71.0 Muscular dystrophy; R15.9 Full incontinence of feces; R32 Unspecified urinary incontinence; Z74.01 Bed confinement status; L97.828 Non-pressure chronic ulcer of other part of left lower leg with other specified severity
CPT/HCPCS: 11042

== ENCOUNTER 2018-03-21 08:09 | Outpatient (RCR) | payer OTHER, SELFPAY ==
[2018-03-15 01:09] VITALS: BP 121/71; PULSE 97; RESP 18; TEMP 36.7
[2018-03-21 09:26] VITALS: TEMP 36.2
--- NOTE | 2018-03-21 10:07 | PCM.WC.HP ---
(1) Sacral decubitus ulcer, stage II Status: Chronic Current Visit: Yes Code(s): L89.152 - Pressure ulcer of sacral region, stage 2 (2) Ulcer of left knee Status: Resolved Current Visit: No Qualifiers: Code(s): L97.829 - Non-pressure chronic ulcer of other part of left lower leg with unspecified severity (3) Ulcer of right knee Status: Resolved Current Visit: No Qualifiers: Code(s): L97.819 - Non-pressure chronic ulcer of other part of right lower leg with unspecified severity (4) Muscular dystrophy Status: Chronic Current Visit: Yes Code(s): G71.0 - Muscular dystrophy (5) Debility Status: Chronic Current Visit: Yes Code(s): R53.81 - Other malaise (6) Immobility Status: Chronic Current Visit: Yes Code(s): Z74.09 - Other reduced mobility (7) Malnutrition Status: Chronic Current Visit: No Code(s): E46 - Unspecified protein-calorie malnutrition (8) Incontinence of feces Status: Chronic Current Visit: No Code(s): R15.9 - Full incontinence of feces (9) Incontinence of urine Status: Chronic Current Visit: No Code(s): R32 - Unspecified urinary incontinence (10) Cachexia Status: Chronic Current Visit: No Code(s): R64 - Cachexia History of Present Illness Date of Service: 03/21/18 Chief Complaint: Pressure ulceration of the sacral area, stage II; bilateral knee ulcerations History of Wound: This is a 72-year-old male who is a resident of [facility]. He suffers from muscular dystrophy, and is severely impaired and immobilized. His muscular dystrophy was diagnosed in 1972. He has only recently been transferred to the [facility]. Prior to that time, the patient resided at home, cared for by a hired aide and by his sister. He has been bedridden and nonambulatory for a prolonged period of time, with severe muscle atrophy. Due to a lack of mobility and physical therapy, extremity joints are essentially frozen and immovable. The patient is extremely thin and emaciated, suggesting malnutrition and cachexia. He claims his appetite is good. He claims to take a normal diet. He is incontinent of urine and stool, and wears a condom catheter. He was referred to the [facility] due to superficial ulcerations on each knee, and a pressure ulceration in the sacral area, to the right of the midline, appearing to be a stage II pressure ulcer. The ulcerations on each knee are completely healed, having responded to conservative treatment measures implemented at the Wound Center. Past Medical History Past Medical History: Chronic Problems Sacral decubitus ulcer, stage II (Chronic) Muscular dystrophy (Chronic) Debility (Chronic) Immobility (Chronic) Malnutrition (Chronic) Incontinence of feces (Chronic) Incontinence of urine (Chronic) Cachexia (Chronic) Surgical History: tonsillectomy Allergies/Adverse Reactions: Allergies No Known Allergies Allergy (Verified 02/14/18 12:30) Home Medications: Ambulatory Orders Medication Instructions Recorded Ascorbic Acid 500 mg PO DAILY 01/31/18 Cyanocobalamin (Vitamin B-12) 1,000 mcg PO DAILY 01/31/18 [Vitamin B12] Fluticasone 0.05% [Flonase Nasal 1 spray NASAL DAILY 01/31/18 [place]] Furosemide 40 mg PO DAILY 01/31/18 Polyvinyl Alcohol [Artificial 2 drop OP TID 01/31/18 Tears] Saw/Vit E/Sod Nina/Lyc/Beta/Pyg 30 ml PO BID 01/31/18 [Prostate Health Caplet] Oxycodone HCl/Acetaminophen 1 tablet PO Q6H PRN PRN 5 Days #20 02/14/18 [Percocet 5/325] tablet - Family History Paternal - - The patient's father at the age of 93 with a history of cancer, of unknown etiology. Patient's mother at the age of 84 from pneumonia, but had a history of breast cancer and muscular dystrophy. Smoking Status: Former smoker Tobacco Use: Non-smoker Review of Systems Constitutional: Denies: Chills, Fever, Weight Change Eyes: Denies: Pain, Vision Change HEENT: Denies: Difficulty Hearing, Difficulty Swallowing, Sinus Congestion Cardiovascular: Denies: Chest Pain, Palpitations Respiratory: Denies: Cough, Shortness of Breath Gastrointestinal: Denies: Diarrhea, Nausea, Vomiting Genitourinary: Denies: Dysuria, Hematuria Endocrine: Denies: Heat/ Cold Intolerance, Polydipsia, Polyuria Hematologic/ Lymphatic: Denies: Easy Bruising, Easy Bleeding - Physical Exam Vital Signs Temp Pulse Resp BP 97.1 F L 97 18 121/71 H 03/21/18 09:26 03/15/18 01:09 03/15/18 01:09 03/15/18 01:09 General: Alert, Oriented x3, Cooperative, No apparent distress, - - The patient is bedridden. He is immobile. Joints of the extremities are frozen. The patient is thin and appears to be under nourished. HEENT: Atraumatic, PERRLA, EOMI, Normocephalic Oral: Moist Mucosa Neck: No JVD Lungs: Normal air movement Abdomen: Non-Distended Extremities: No clubbing, No cyanosis, No edema, No Calf Tenderness, - - Joints of the extremities are frozen and immobile. The patient's knee wounds remain healed. Skin: No rashes, No breakdown, - - The patient's sacral ulceration is now completely healed and epithelialized. Wound Measurements and Assessment WC - Nurse 1 - General Ulcer Measurement Start: 03/21/18 09:26 Freq: Status: Active Protocol: Activity Type Activity Date Activity User E-Sign Co-Sign Detail Recorded Client Recorded Date Recorded By Document 03/21/18 09:26 [email or web address] [id number] 03/21/18 09:34 03/21/18 09:26 Wound Center Nurse 1 [Ulcer Assessment] 3-right lumbar cluster -Combined with other wound No -Current Size (cm) - Length 0 -Current Size (cm) - Width 0 -Current Size (cm) - Depth 0 -Total Square Cm 0 -Photo Taken Yes -Epithelialization Large 67-100% [Edema Assessment] -Lower Limb Edema Present NA WC - Nurse 2 - General Ulcer CM Notes Start: 03/21/18 09:26 Freq: Status: Active Protocol: Activity Type Activity Date Activity User E-Sign Co-Sign Detail Recorded Client Recorded Date Recorded By Document 03/21/18 09:55 MITCHELL [id number] 03/21/18 09:58 JS 03/21/18 09:55 Wound Center Nurse 2 [Procedure/Treatment] 3-right lumbar cluster -Time 09:55 -Correct Patient Yes -Correct Side, Site, Position Yes -Correct Procedure Yes -Procedure Performed No -Post Debridement Size (cm) - Length 0 -Post Debridement Size (cm) - Width 0 -Post Debridement Size (cm) - Depth 0 -Total Square Cm 0 -Wound/Ulcer Outcome Healed- Epithelialized -Ulcer Cleansing Not Cleansed -Foul Odor after Cleansing No -Bioengineered Tissue No -Bleeding Controlled with NA -Treatment Response Procedure Tolerated Well [See Physician Procedure note for Specifics] Pain Scale: 0-10 Numeric [Pain] -Is Patient Pain Free? Yes Musculoskeletal: Muscle Wasting Neurological: Cranial nerves II-XII grossly intact Psych/Mental Status: Normal Affect, Appropriate, Alert and oriented to time, place, person, mood and affect Debridement Note Post-Debridement Measurements/Treatment WC - Nurse 2 - General Ulcer CM Notes Start: 03/21/18 09:26 Freq: Status: Active Protocol: Activity Type Activity Date Activity User E-Sign Co-Sign Detail Recorded Client Recorded Date Recorded By Document 03/21/18 09:55 MITCHELL [id number] 03/21/18 09:58 MITCHELL 03/21/18 09:55 Wound Center Nurse 2 3-right lumbar cluster -Time 09:55 -Correct Patient Yes -Correct Side, Site, Position Yes -Correct Procedure Yes -Procedure Performed No -Post Debridement Size (cm) - Length 0 -Post Debridement Size (cm) - Width 0 -Post Debridement Size (cm) - Depth 0 -Total Square Cm 0 -Wound/Ulcer Outcome Healed- Epithelialized -Ulcer Cleansing Not Cleansed -Foul Odor after Cleansing No -Bioengineered Tissue No -Bleeding Controlled with NA -Treatment Response Procedure Tolerated Well Pain Scale: 0-10 Numeric Is Patient Pain Free? Yes No debridement was completed today Assessment/Plan Active Problems Sacral decubitus ulcer, stage II (Chronic) Muscular dystrophy (Chronic) Debility (Chronic) Immobility (Chronic) Assessment: This is a 72-year-old male with muscular dystrophy and chronic debility, immobilization, cachexia, malnutrition, and ulcerations on the knees and sacral area. His extremities are immobile and fixed in position. Extremities are atrophic. The patient has been in the home environment, cared for by his sister and a hired aide recently. Recently, the patient's care was transferred to the [facility], where he currently resides. The ulcerations on each knee were superficial, and are now healed. The sacral pressure ulceration represented a stage II ulcer, which has now healed. Laboratory studies have been performed recently, and have been reviewed. Results are as follows: Glucose 99, BUN 19, creatinine 0.16, calcium 8.2, cholesterol 193, triglycerides 160, sodium 131, potassium 3.3, chloride 87, blood count 10.1, globin 12.9, hematocrit 38.2, platelets 349,000. Patient's nutritional labs have been reviewed, and suggest malnutrition. Total protein was 5.2, albumin 2.2, and serum prealbumin 16.2. Plan: The patient is now completely healed, and will be discharged. He will follow-up as needed in the future. Offloading measures are to be continued. The patient is known to have a low air loss mattress on his bed. Frequent repositioning has been recommended. Padding has been implemented to the patient's knees to avoid trauma, and this is to be continued. The patient has been advised to continue with adequate and appropriate nutrition. He has been advised to collaborate with his caregivers to assure that frequent repositioning continues to be a part of his daily regimen. We are to continue the use of OptiFoam to minimize pressure and shear forces in the sacral area. The patient has been encouraged to take a well balanced diet, with the use of nutritional supplements several times daily. Because his lower extremities are fixed in an externally rotated position, the patient's knees are vulnerable for trauma during transport. Therefore, we have recommended the use of kneepads for protection purposes. The patient is not a smoker. Influenza vaccine was not administered today. Patient stands 5 feet 9 inches tall, and weighs 142 pounds. His BMI is 20.9.
--- NOTE | 2018-03-21 10:12 | HP.PCM_ITS ---
(1) Sacral decubitus ulcer, stage II Status: Chronic Current Visit: Yes Code(s): L89.152 - Pressure ulcer of sacral region, stage 2 (2) Ulcer of left knee Status: Resolved Current Visit: No Qualifiers: Code(s): L97.829 - Non-pressure chronic ulcer of other part of left lower leg with unspecified severity (3) Ulcer of right knee Status: Resolved Current Visit: No Qualifiers: Code(s): L97.819 - Non-pressure chronic ulcer of other part of right lower leg with unspecified severity (4) Muscular dystrophy Status: Chronic Current Visit: Yes Code(s): G71.0 - Muscular dystrophy (5) Debility Status: Chronic Current Visit: Yes Code(s): R53.81 - Other malaise (6) Immobility Status: Chronic Current Visit: Yes Code(s): Z74.09 - Other reduced mobility (7) Malnutrition Status: Chronic Current Visit: No Code(s): E46 - Unspecified protein- calorie malnutrition (8) Incontinence of feces Status: Chronic Current Visit: No Code(s): R15.9 - Full incontinence of feces (9) Incontinence of urine Status: Chronic Current Visit: No Code(s): R32 - Unspecified urinary incontinence (10) Cachexia Status: Chronic Current Visit: No Code(s): R64 - Cachexia History of Present Illness Date of Service: 03/21/18 Chief Complaint: Pressure ulceration of the sacral area, stage II; bilateral knee ulcerations History of Wound: This is a 72-year-old male who is a resident of [facility]. He suffers from muscular dystrophy, and is severely impaired and immobilized. His muscular dystrophy was diagnosed in 1972. He has only recently been transferred to the [facility]. Prior to that time, the patient resided at home, cared for by a hired aide and by his sister. He has been bedridden and nonambulatory for a prolonged period of time, with severe muscle atrophy. Due to a lack of mobility and physical therapy, extremity joints are essentially frozen and immovable. The patient is extremely thin and emaciated, suggesting malnutrition and cachexia. He claims his appetite is good. He claims to take a normal diet. He is incontinent of urine and stool, and wears a condom catheter. He was referred to the [facility] due to superficial ulcerations on each knee, and a pressure ulceration in the sacral area, to the right of the midline , appearing to be a stage II pressure ulcer. The ulcerations on each knee are completely healed, having responded to conservative treatment measures implemented at the Wound Center. Past Medical History Past Medical History: Chronic Problems Sacral decubitus ulcer, stage II (Chronic) Muscular dystrophy (Chronic) Debility (Chronic) Immobility (Chronic) Malnutrition (Chronic) Incontinence of feces (Chronic) Incontinence of urine (Chronic) Cachexia (Chronic) Surgical History: tonsillectomy Allergies/Adverse Reactions: Allergies No Known Allergies Allergy (Verified 02/14/18 12:30) Home Medications: Ambulatory Orders Medication Instructions Recorded Ascorbic Acid 500 mg PO DAILY 01/31/18 Cyanocobalamin (Vitamin B-12) 1,000 mcg PO DAILY 01/31/18 [Vitamin B12] Fluticasone 0.05% [Flonase Nasal 1 spray NASAL DAILY 01/31/18 [place]] Furosemide 40 mg PO DAILY 01/31/18 Polyvinyl Alcohol [Artificial 2 drop OP TID 01/31/18 Tears] Saw/Vit E/Sod Nina/Lyc/Beta/Pyg 30 ml PO BID 01/31/18 [Prostate Health Caplet] Oxycodone HCl/Acetaminophen 1 tablet PO Q6H PRN PRN 5 Days #20 02/14/18 [Percocet 5/325] tablet - Family History Paternal - - The patient's father at the age of 93 with a history of cancer, of unknown etiology. Patient's mother at the age of 84 from pneumonia, but had a history of breast cancer and muscular dystrophy. Smoking Status: Former smoker Tobacco Use: Non-smoker Review of Systems Constitutional: Denies: Chills, Fever, Weight Change Eyes: Denies: Pain, Vision Change HEENT: Denies: Difficulty Hearing, Difficulty Swallowing, Sinus Congestion Cardiovascular: Denies: Chest Pain, Palpitations Respiratory: Denies: Cough, Shortness of Breath Gastrointestinal: Denies: Diarrhea, Nausea, Vomiting Genitourinary: Denies: Dysuria, Hematuria Endocrine: Denies: Heat/ Cold Intolerance, Polydipsia, Polyuria Hematologic/ Lymphatic: Denies: Easy Bruising, Easy Bleeding - Physical Exam Vital Signs Temp Pulse Resp BP 97.1 F L 97 18 121/71 H 03/21/18 09:26 03/15/18 01:09 03/15/18 01:09 03/15/18 01:09 General: Alert, Oriented x3, Cooperative, No apparent distress, - - The patient is bedridden. He is immobile. Joints of the extremities are frozen. The patient is thin and appears to be under nourished. HEENT: Atraumatic, PERRLA, EOMI, Normocephalic Oral: Moist Mucosa Neck: No JVD Lungs: Normal air movement Abdomen: Non-Distended Extremities: No clubbing, No cyanosis, No edema, No Calf Tenderness, - - Joints of the extremities are frozen and immobile. The patient's knee wounds remain healed. Skin: No rashes, No breakdown, - - The patient's sacral ulceration is now completely healed and epithelialized. Wound Measurements and Assessment WC - Nurse 1 - General Ulcer Measurement Start: 03/21/18 09:26 Freq: Status: Active Protocol: Activity Type Activity Date Activity User E-Sign Co-Sign Detail Recorded Client Recorded Date Recorded By Document 03/21/18 09:26 [email or web address] [id number] 03/21/18 09:34 03/21/18 09:26 Wound Center Nurse 1 [Ulcer Assessment] 3-right lumbar cluster -Combined with other wound No -Current Size (cm) - Length 0 -Current Size (cm) - Width 0 -Current Size (cm) - Depth 0 -Total Square Cm 0 -Photo Taken Yes -Epithelialization Large 67-100% [Edema Assessment] -Lower Limb Edema Present NA WC - Nurse 2 - General Ulcer CM Notes Start: 03/21/18 09:26 Freq: Status: Active Protocol: Activity Type Activity Date Activity User E-Sign Co-Sign Detail Recorded Client Recorded Date Recorded By Document 03/21/18 09:55 [email or web address] [id number] 03/21/18 09:58 JS 03/21/18 09:55 Wound Center Nurse 2 [Procedure/Treatment] 3-right lumbar cluster -Time 09:55 -Correct Patient Yes -Correct Side, Site, Position Yes -Correct Procedure Yes -Procedure Performed No -Post Debridement Size (cm) - Length 0 -Post Debridement Size (cm) - Width 0 -Post Debridement Size (cm) - Depth 0 -Total Square Cm 0 -Wound/Ulcer Outcome Healed- Epithelialized -Ulcer Cleansing Not Cleansed -Foul Odor after Cleansing No -Bioengineered Tissue No -Bleeding Controlled with NA -Treatment Response Procedure Tolerated Well [See Physician Procedure note for Specifics] Pain Scale: 0-10 Numeric [Pain] -Is Patient Pain Free? Yes Musculoskeletal: Muscle Wasting Neurological: Cranial nerves II-XII grossly intact Psych/Mental Status: Normal Affect, Appropriate, Alert and oriented to time, place, person, mood and affect Debridement Note Post-Debridement Measurements/Treatment WC - Nurse 2 - General Ulcer CM Notes Start: 03/21/18 09:26 Freq: Status: Active Protocol: Activity Type Activity Date Activity User E-Sign Co-Sign Detail Recorded Client Recorded Date Recorded By Document 03/21/18 09:55 [email or web address] [id number] 03/21/18 09:58 MITCHELL 03/21/18 09:55 Wound Center Nurse 2 3-right lumbar cluster -Time 09:55 -Correct Patient Yes -Correct Side, Site, Position Yes -Correct Procedure Yes -Procedure Performed No -Post Debridement Size (cm) - Length 0 -Post Debridement Size (cm) - Width 0 -Post Debridement Size (cm) - Depth 0 -Total Square Cm 0 -Wound/Ulcer Outcome Healed- Epithelialized -Ulcer Cleansing Not Cleansed -Foul Odor after Cleansing No -Bioengineered Tissue No -Bleeding Controlled with NA -Treatment Response Procedure Tolerated Well Pain Scale: 0-10 Numeric Is Patient Pain Free? Yes No debridement was completed today Assessment/Plan Active Problems Sacral decubitus ulcer, stage II (Chronic) Muscular dystrophy (Chronic) Debility (Chronic) Immobility (Chronic) Assessment: This is a 72-year-old male with muscular dystrophy and chronic debility, immobilization, cachexia, malnutrition, and ulcerations on the knees and sacral area. His extremities are immobile and fixed in position. Extremities are atrophic. The patient has been in the home environment, cared for by his sister and a hired aide recently. Recently, the patient's care was transferred to the [facility], where he currently resides. The ulcerations on each knee were superficial, and are now healed. The sacral pressure ulceration represented a stage II ulcer, which has now healed. Laboratory studies have been performed recently, and have been reviewed. Results are as follows: Glucose 99, BUN 19, creatinine 0.16, calcium 8.2, cholesterol 193, triglycerides 160, sodium 131, potassium 3.3, chloride 87, blood count 10.1, globin 12.9, hematocrit 38.2, platelets 349,000. Patient's nutritional labs have been reviewed, and suggest malnutrition. Total protein was 5.2, albumin 2.2, and serum prealbumin 16.2. Plan: The patient is now completely healed, and will be discharged. He will follow-up as needed in the future. Offloading measures are to be continued. The patient is known to have a low air loss mattress on his bed. Frequent repositioning has been recommended. Padding has been implemented to the patient 's knees to avoid trauma, and this is to be continued. The patient has been advised to continue with adequate and appropriate nutrition. He has been advised to collaborate with his caregivers to assure that frequent repositioning continues to be a part of his daily regimen. We are to continue the use of OptiFoam to minimize pressure and shear forces in the sacral area. The patient has been encouraged to take a well balanced diet, with the use of nutritional supplements several times daily. Because his lower extremities are fixed in an externally rotated position, the patient's knees are vulnerable for trauma during transport. Therefore, we have recommended the use of kneepads for protection purposes. The patient is not a smoker. Influenza vaccine was not administered today. Patient stands 5 feet 9 inches tall, and weighs 142 pounds. His BMI is 20.9.
== END 2018-04-14 23:59 ==
LOC: WC 08:09
PROVIDERS: Family Provider Family Medicine; PCP Family Medicine; Visit Provider Surgery
DX: L89.152 Pressure ulcer of sacral region, stage 2 (principal); G71.0 Muscular dystrophy; Z87.891 Personal history of nicotine dependence
CPT/HCPCS: 99211; G0463

== ENCOUNTER → 2018-04-14 13:00 | Outpatient (REF) | payer MEDICARE, SELFPAY | LOC: OLS.WCC 13:00 | PROVIDERS: Visit Provider Family Medicine | DX: R69 Illness, unspecified (principal) | CPT/HCPCS: 87070; 87077; 87205 ==

== ENCOUNTER 2018-04-15 15:45 | Emergency (ER) | payer MEDICARE, SELFPAY ==
[2018-04-15 15:46] VITALS: BP 116/64; PULSE 100; RESP 16; TEMP 36.5; O2SAT 95; BMI 21.2
[2018-04-15 17:46] VITALS: PULSE 94; RESP 16
[2018-04-15 17:47] LABS: Absolute Lymphocyte Count 1.68 X10^3/ul (0.83-4.51); Absolute Neutrophil Count 6.5 X10^3/uL (2.0-7.7); Basophil# 0.02 X10^3/uL; Basophil% 0.2 % (0-1); Eosinophil# 0.21 X10^3/uL; Eosinophils% 2.2 % (0-5); Hematocrit 46.3 % (40-54); Hemoglobin 15.2 g/dl (13.0-16.5); Lymphocyte # 1.68 X10^3/ul (4.0); Lymphocyte % 17.7 % (19-41); Mean Corp Hgb Conc 32.8 g/gl (32-36); Mean Corpuscular Hgb 30.8 pg (27.0-32.0); Mean Corpuscular Volume 93.7 fL (80-94); Mean Platelet Vol. 9.7 fl (6.2-12.0); Monocyte# 1.13 X10^3/uL; Monocyte% 11.9 % (0-10); Neutrophil # 6.45 X10^3/uL (2.7-7.7); Neutrophil % 67.9 % (47-70); Platelet Count 394 K/mm3 (150-450); RBC Distribution Width CV 13.2 % (11.6-14.6); RBC Distribution Width SD 45.1 fl (35.1-43.9); Red Blood Count 4.94 M/mm3 (4.6-6.2); White Blood Count 9.5 K/mm3 (4.4-11.0)
[2018-04-15 17:51] LABS: POSITIVE COUNT NO; POSITIVE DIFFERENTIAL NO; POSITIVE MORPHOLOGY NO
[2018-04-15 17:56] LABS: Anion Gap 9 (5-15); BUN 21 mg/dL (7-18); Calcium,Total 8.6 mg/dL (8.5-10.1); Chloride 93 mmol/L (98-107); Creatinine, Serum 0.25 mg/dL (0.70-1.30); EST Glomerular Filtration Rate 392 mL/min (>60); Est Glom Filt Rate - Afr Amer 475 mL/min (>60); Estimated Creatinine Clearance 64.33 ml/min; Glucose 129 mg/dL (74-106); Potassium 3.7 mmol/L (3.5-5.1); Sodium Level 137 mmol/L (136-145)
--- NOTE | 2018-04-15 18:39 | ED.VISSUMM ---
- ER Visit Summary Date of Service: 04/15/18 Chief Complaint: Sent to the emergency room because of concern for infected left scapular decubitus History of Present Illness: The patient is a 72 M who was sent from the nursing facility because of concern for infected left scapular decubitus. A wound culture was obtained which reveals 3+ WBCs and rare gram negative rods. He denies fever, chills night sweats. Review of old records reveals that he is DNR [facility] and has history of muscular dystrophy. He has a sacral decubiti as well. He is seen at the wound center. He has not seen the wound because he is bedridden. Physical Examination: Vital signs are normal. He is not febrile. He has a grade 4 left sacral decubiti. The opening is the size of a silver dollar. There is granulation tissue noted. There is no erythema, warmth, lymphangitis or any purulent drainage. Lungs are clear to auscultation. Heart is regular without murmur, gallop or rub Test Results: CBC was obtained and normal. BMP reveals slight elevation of glucose 129. Emergency Department Course and Treatment: Patient with sacral decubiti that does not appear infected. In my professional opinion the Gram stain reveals organism because a swab was taken of the granulation tissue. Labs were obtained to determine if there is any abnormality. If there are no abnormalities plan is to discharge back to the nursing facility and keep appointment at wound center on Treatment Plan: Wound care Disposition: Return to nursing facility Impression: Noninfected grade 4 left sacral decubitus This note was generated with [employer] dictation software. It may contain incorrect words, spelling, and punctuation that were not noted in review of the chart prior to signing ED Disposition - Plan for ED Patient: Disposition: Home or Assisted Living Chief Complaint: Wound Instructions: ED Ulcer Decubitus Referrals: Miguel Butler MD [Primary Care Provider] - Additional Instructions: The decubitus in my professional opinion is not infected. Patient needs wound care follow-up and probable surgical intervention to debride area and probable graft.
[2018-04-15 19:06] VITALS: PULSE 90; RESP 16
== END 2018-04-15 19:08 | disposition skilled nursing facility (03) ==
PROVIDERS: Emergency Provider Emergency Medicine; Family Provider Family Medicine; PCP Family Medicine
DX: L89.154 Pressure ulcer of sacral region, stage 4 (principal); G71.0 Muscular dystrophy; Z66 Do not resuscitate; Z79.899 Other long term (current) drug therapy
CPT/HCPCS: 36415; 80048; 85025; 99284

== ENCOUNTER 2018-05-11 14:30 | Outpatient (RCR) | payer OTHER, SELFPAY ==
[2018-04-15 01:14] VITALS: BP 121/71; PULSE 97; RESP 18; TEMP 36.2
[2018-04-20 14:11] VITALS: BP 117/70; PULSE 102; RESP 18; TEMP 36.3
--- NOTE | 2018-04-20 17:25 | PCM.WC.HP ---
(1) Pressure ulcer of left upper back, stage 4 Status: Acute Current Visit: Yes Code(s): L89.124 - Pressure ulcer of left upper back, stage 4 (2) Pressure injury of buttock, stage 1 Status: Acute Current Visit: Yes Code(s): L89.301 - Pressure ulcer of unspecified buttock, stage 1 (3) Cachexia Status: Chronic Current Visit: Yes Code(s): R64 - Cachexia (4) Debility Status: Chronic Current Visit: Yes Code(s): R53.81 - Other malaise (5) Immobility Status: Chronic Current Visit: Yes Code(s): Z74.09 - Other reduced mobility (6) Incontinence of feces Status: Chronic Current Visit: Yes Code(s): R15.9 - Full incontinence of feces (7) Incontinence of urine Status: Chronic Current Visit: Yes Code(s): R32 - Unspecified urinary incontinence (8) Malnutrition Status: Chronic Current Visit: Yes Code(s): E46 - Unspecified protein-calorie malnutrition (9) Muscular dystrophy Status: Chronic Current Visit: Yes Code(s): G71.0 - Muscular dystrophy History of Present Illness Date of Service: 04/20/18 Chief Complaint: Pressure ulceration of the sacral area, stage I; stage 4 pressure ulcer left scapula History of Wound: A 72-year-old male who is a resident of [facility]. Patient presented to wound center d/t new decubitus to left scapula and old sacral wound reopened. He suffers from muscular dystrophy, and is severely impaired and immobilized. His muscular dystrophy was diagnosed in 1972. He has been bedridden and nonambulatory for a prolonged period of time, with severe muscle atrophy. Due to a lack of mobility and physical therapy, extremity joints are essentially frozen and immovable. The patient is extremely thin and emaciated, suggesting malnutrition and cachexia. He is incontinent of urine and stool, and wears a condom catheter. Patient was recently in [facility] ER on 04/15/2018 d/t concern for left scapular decubitus. Labs in ER without abnormality and was discharged back to nursing facility. Patient at nursing facility was placed on augmentin d/t cultures which showed rare microorganisms and was packing decubitus with aquacel and covered with allevyn. Denies any signs and symptoms of systemic or local infection. Patient does often lay on the affected left shoulder causing a constant pressure. He is noncompliant with off loading and frequent position changes. Past Medical History Past Medical History: Chronic Problems Sacral decubitus ulcer, stage II (Chronic) Muscular dystrophy (Chronic) Debility (Chronic) Immobility (Chronic) Malnutrition (Chronic) Incontinence of feces (Chronic) Incontinence of urine (Chronic) Cachexia (Chronic) Surgical History: tonsillectomy Allergies/Adverse Reactions: Allergies No Known Allergies Allergy (Verified 04/15/18 16:34) Home Medications: Ambulatory Orders Medication Instructions Recorded Ascorbic Acid 500 mg PO DAILY 01/31/18 Cyanocobalamin (Vitamin B-12) 1,000 mcg PO DAILY 01/31/18 [Vitamin B12] Fluticasone 0.05% [Flonase Nasal 1 spray NASAL DAILY 01/31/18 [place]] Furosemide 40 mg PO DAILY 01/31/18 Polyvinyl Alcohol [Artificial 2 drop OP TID 01/31/18 [place]] Oxycodone HCl/Acetaminophen 1 tablet PO Q6H PRN PRN 5 Days #20 02/14/18 [Percocet 5/325] tablet Calcium Carbonate [Tums] 1,000 mg PO BIDCM PRN 04/15/18 Magnesium Hydroxide [Milk Of 30 ml PO DAILY PRN PRN 04/15/18 Magnesia] Potassium Chloride [Klor-Con] 20 meq PO DAILY 04/15/18 Tramadol HCl [Ultram] 50 mg PO Q6H PRN PRN 04/15/18 Zinc Sulfate (50mg elemental) 220 mg PO DAILY 04/15/18 [Zinc Sulfate] - Family History Paternal - - The patient's father at the age of 93 with a history of cancer, of unknown etiology. Patient's mother at the age of 84 from pneumonia, but had a history of breast cancer and muscular dystrophy. Smoking Status: Former smoker Tobacco Use: Non-smoker Review of Systems Constitutional: Denies: Chills, Fever, Weight Change Eyes: Denies: Pain, Vision Change HEENT: Denies: Difficulty Hearing, Difficulty Swallowing, Sinus Congestion Cardiovascular: Denies: Chest Pain, Palpitations Respiratory: Denies: Cough, Shortness of Breath Gastrointestinal: Denies: Diarrhea, Nausea, Vomiting Genitourinary: Reports: Incontinence. Denies: Dysuria, Hematuria Musculoskeletal: Reports: Joint Pain, Joint stiffness, Joint Tenderness, Shoulder Pain Skin: Reports: Wounds - see hpi Neurological: Reports: - - non ambulatory Psychiatric: Denies: Anxiety, Depression Hematologic/ Lymphatic: Denies: Easy Bruising, Easy Bleeding - Physical Exam Vital Signs Temp Pulse Resp BP 97.3 F L 102 H 18 117/70 04/20/18 14:11 04/20/18 14:11 04/20/18 14:11 04/20/18 14:11 General: Alert, Oriented x3, Cooperative, No apparent distress, - - thin and cahectic HEENT: Atraumatic Oral: Moist Mucosa Lungs: Clear to auscultation, Normal air movement Cardiovascular: Regular rate, Regular Rhythm, Normal S1, Normal S2 Abdomen: Soft, Non Tender, Non-Distended Extremities: No clubbing, No cyanosis, Edema - 2-3+ pitting blle Skin: Ulcer/ Wound - Stage I pressure ulcer sacral area with no adherent slough or signs of infection at this time, no indication for debridement, stage IV pressure ulcer to left scapular area with bone exposed, no foul smell or purulent discharge noted, though nursing does report copious amounts of serous drainage, site tunnels, no signs of acute infection at this time however Wound Measurements and Assessment WC - Nurse 1 - General Ulcer Measurement Start: 04/20/18 14:11 Freq: Status: Active Protocol: Activity Type Activity Date Activity User E-Sign Co-Sign Detail Recorded Client Recorded Date Recorded By Document 04/20/18 14:11 [facility] [id number] 04/20/18 14:30 [facility] 04/20/18 14:11 Wound Center Nurse 1 [Ulcer Assessment] #4- LT SCAPULA -Combined with other wound No -Current Size (cm) - Length 2.1 -Current Size (cm) - Width 2.3 -Current Size (cm) - Depth 1.3 -Total Square Cm 4.83 -Date of Last Picture (Recall this 04/20/18 field) -Photo Taken Yes -Epithelialization None Present -Tunneling No -Undermining/Tunneling No -Circular Undermining No -Exudate Amt Medium (34-66%) -Exudate Type Serosanguineous -Wound Margin Distinct, Outline Attached -Granulation Amt Small (1-33%) -Granulation Quality [place] -Slough/Fibrin Yes -Necrosis Amt Large (67-100%) -Necrotic Tissue Type Adherent Slough -Texture (Jeanine-wound Skin Appearance) Scarring -Moisture (Jeanine-wound Skin Appearance Assessed ) -Color (Jeanine-wound Skin Appearance) Erythema -Temperature (Jeanine-wound Skin No Abnormality Appearance) (Pt Warm) -Tenderness on Palpation (Jeanine-wound Yes Skin Appearance) -Ulcer Cleansing Rinsed/ Irrigated with Saline -Foul Odor after Cleansing No -Anesthetic Used 4% Lidocaine Solution 3-right lumbar cluster -Combined with other wound No -Current Size (cm) - Length 0.5 -Current Size (cm) - Width 0.6 -Current Size (cm) - Depth 0.1 -Total Square Cm 0.30 -Date of Last Picture (Recall this 04/20/18 field) -Photo Taken Yes -Epithelialization None Present -Tunneling No -Undermining/Tunneling No -Circular Undermining No -Exudate Amt Small (1-33%) -Exudate Type Serosanguineous -Wound Margin Distinct, Outline Attached -Granulation Amt Large (67-100%) -Granulation Quality [place] -Slough/Fibrin No -Necrosis Amt None Present (0 %) -Texture (Jeanine-wound Skin Appearance) Assessed -Moisture (Jeanine-wound Skin Appearance Assessed ) -Color (Jeanine-wound Skin Appearance) Erythema -Temperature (Jeanine-wound Skin No Abnormality Appearance) (Pt Warm) -Tenderness on Palpation (Jeanine-wound No Skin Appearance) -Ulcer Cleansing Rinsed/ Irrigated with Saline -Foul Odor after Cleansing No -Anesthetic Used 4% Lidocaine Solution WC - Nurse 2 - General Ulcer CM Notes Start: 04/20/18 14:11 Freq: Status: Active Protocol: Activity Type Activity Date Activity User E-Sign Co-Sign Detail Recorded Client Recorded Date Recorded By Document 04/20/18 15:48 [facility] [id number] 04/20/18 16:16 [facility] 04/20/18 15:48 Wound Center Nurse 2 [Procedure/Treatment] #4- LT SCAPULA -Time 15:53 -Correct Patient Yes -Correct Side, Site, Position Yes -Correct Procedure Yes -Procedure Performed Yes -Type of Procedure Debridement -Clinical Debridement Muscle -Post Debridement Size (cm) - Length 2.5 -Post Debridement Size (cm) - Width 3.2 -Post Debridement Size (cm) - Depth 2.4 -Total Square Cm 8.00 -Wound/Ulcer Outcome Not Healed -Ulcer Cleansing Rinsed/ Irrigated with Saline -Foul Odor after Cleansing No -Bioengineered Tissue No -Topical Lidocaine (%) 4 -Lidocaine (ml) 10 -Bleeding Controlled with NA -Treatment Response Procedure Tolerated Well 3-right lumbar cluster -Time 15:54 -Correct Patient Yes -Correct Side, Site, Position Yes -Correct Procedure Yes -Procedure Performed No -Wound/Ulcer Outcome Not Healed -Ulcer Cleansing Rinsed/ Irrigated with Saline -Bioengineered Tissue No -Topical Lidocaine (%) 4 -Bleeding Controlled with NA -Treatment Response Procedure Tolerated Well [See Physician Procedure note for Specifics] Pain Scale: 0-10 Numeric [Pain] -Is Patient Pain Free? Yes Musculoskeletal: Arthritic Changes, Cachexia, Muscle Wasting Lymphatic: No Cervical, Supraclavicular, or Inguinal Adenopathy Neurological: Neuro grossly intact, - - Nonambulatory Psych/Mental Status: Flat Affect, Alert and oriented to time, place, person, mood and affect Debridement Note Post-Debridement Measurements/Treatment WC - Nurse 2 - General Ulcer CM Notes Start: 04/20/18 14:11 Freq: Status: Active Protocol: Activity Type Activity Date Activity User E-Sign Co-Sign Detail Recorded Client Recorded Date Recorded By Document 04/20/18 15:48 [id number] 04/20/18 16:16 [facility] 04/20/18 15:48 Wound Center Nurse 2 #4- LT SCAPULA -Time 15:53 -Correct Patient Yes -Correct Side, Site, Position Yes -Correct Procedure Yes -Procedure Performed Yes -Type of Procedure Debridement -Clinical Debridement Muscle -Post Debridement Size (cm) - Length 2.5 -Post Debridement Size (cm) - Width 3.2 -Post Debridement Size (cm) - Depth 2.4 -Total Square Cm 8.00 -Wound/Ulcer Outcome Not Healed -Ulcer Cleansing Rinsed/ Irrigated with Saline -Foul Odor after Cleansing No -Bioengineered Tissue No -Topical Lidocaine (%) 4 -Lidocaine (ml) 10 -Bleeding Controlled with NA -Treatment Response Procedure Tolerated Well 3-right lumbar cluster -Time 15:54 -Correct Patient Yes -Correct Side, Site, Position Yes -Correct Procedure Yes -Procedure Performed No -Wound/Ulcer Outcome Not Healed -Ulcer Cleansing Rinsed/ Irrigated with Saline -Bioengineered Tissue No -Topical Lidocaine (%) 4 -Bleeding Controlled with NA -Treatment Response Procedure Tolerated Well Pain Scale: 0-10 Numeric Is Patient Pain Free? Yes Wound debrided: Left stage IV pressure ulcer scapular region Laterality: Left Wound Grade/Stage: Stage IV Type of Debridement: Excisional debridement Anesthesia Used: 4% Lidocaine Solution Depth: Down to and including healthy tissue, in the subcutaneous layer, to muscle Percentage of wound debrided: 100 Instrument Used: 7mm curette Tissue Removed: Slough and devitalized tissue Severity: Necrosis of Muscle Amount of bleeding with debridement: Mild Bleeding Controlled with: Pressure Patient tolerated procedure well Bone exposed Assessment/Plan Active Problems Muscular dystrophy (Chronic) Debility (Chronic) Immobility (Chronic) Malnutrition (Chronic) Incontinence of feces (Chronic) Incontinence of urine (Chronic) Cachexia (Chronic) Pressure ulcer of left upper back, stage 4 (Acute) Pressure injury of buttock, stage 1 (Acute) Assessment: See above diagnoses Plan: The patient was seen and examined at the wound center today and was updated on the plan of care. A muscular debridement was performed today of the stage IV pressure ulcer in the scapular region. The patient tolerated the procedure well. The patients wound care will consist of: Packing with Aquacel and covering with Allevyn, will apply for a wound VAC for next visit, continue with hydrogel to the stage I sacral ulcer. Wound cultures were collected. Baseline bloodwork reviewed and prealbumin low, encouraged patient to continue with protein supplementation. Patient educated on the importance of offloading, though due to his multiple comorbidities has been very noncompliant with this. Did discuss frequent position changes and offloading mechanisms. He is in a low air loss pressure mattress in his facility. Patient educated on the importance of diet on wound healing and instructed to increase protein and vitamin C intake. Patient verbalized understanding. Patient will follow up at wound healing center in one week or sooner if needed. Patient is currently on a palliative wound plan. This note was generated with [employer] dictation software. It may contain incorrect words, spelling, and punctuation that were not noted in checking the note before signing. Code Visit Office Visits / Consults: [id number] OV L4 Est 111xxx-113xx: [id number] Steph musc/fascia 20 sq cm/<
--- NOTE | 2018-04-25 17:44 | WC ---
Scapula Swab Culture reviewed from 04/20/18 Wound Center visit. Orders from Eda DAVENPORT to start NWPY @ 125mmHg/continuous. Microbiology Report and NWPT Orders faxed to [facility].
--- NOTE | 2018-04-27 14:49 | PCM.WC.PN ---
(1) Pressure ulcer of left upper back, stage 4 Status: Acute Current Visit: Yes Code(s): L89.124 - Pressure ulcer of left upper back, stage 4 (2) Pressure injury of buttock, stage 1 Status: Acute Current Visit: Yes Code(s): L89.301 - Pressure ulcer of unspecified buttock, stage 1 (3) Cachexia Status: Chronic Current Visit: Yes Code(s): R64 - Cachexia (4) Debility Status: Chronic Current Visit: Yes Code(s): R53.81 - Other malaise (5) Immobility Status: Chronic Current Visit: Yes Code(s): Z74.09 - Other reduced mobility (6) Incontinence of feces Status: Chronic Current Visit: Yes Code(s): R15.9 - Full incontinence of feces (7) Incontinence of urine Status: Chronic Current Visit: Yes Code(s): R32 - Unspecified urinary incontinence (8) Malnutrition Status: Chronic Current Visit: Yes Code(s): E46 - Unspecified protein-calorie malnutrition (9) Muscular dystrophy Status: Chronic Current Visit: Yes Code(s): G71.0 - Muscular dystrophy Type of Wound Date of Service: 04/27/18 Chief Complaint: Pressure ulceration of the sacral area, stage I; stage 4 pressure ulcer left scapula History of Wound: A 72-year-old male who is a resident of [facility]. Patient presented to wound center d/t new decubitus to left scapula and old sacral wound reopened. He suffers from muscular dystrophy, and is severely impaired and immobilized. His muscular dystrophy was diagnosed in 1972. He has been bedridden and nonambulatory for a prolonged period of time, with severe muscle atrophy. Due to a lack of mobility and physical therapy, extremity joints are essentially frozen and immovable. The patient is extremely thin and emaciated, suggesting malnutrition and cachexia. He is incontinent of urine and stool, and wears a condom catheter. Patient was recently in [facility] ER on 04/15/2018 d/t concern for left scapular decubitus. Labs in ER without abnormality and was discharged back to nursing facility. Patient at nursing facility was placed on augmentin d/t cultures which showed rare microorganisms and was packing decubitus with aquacel and covered with allevyn. Denies any signs and symptoms of systemic or local infection. Patient does often lay on the affected left shoulder causing a constant pressure. He is noncompliant with off loading and frequent position changes. Progress of Wound: Sacral pressure ulcer healed, stage 4 scapula pressure ulcer stable without signs of infection at this time, has not started wound vac yet, will be applied today. Xray reviewed and WNL. No signs of systemic or localized infection at this time. - Physical Exam Vital Signs Temp Pulse Resp BP 98.4 F 102 H 16 128/73 H 04/27/18 14:58 04/27/18 14:58 04/27/18 14:58 04/27/18 14:58 General: Alert, Oriented x3, Cooperative, No apparent distress, - - malnourished and cahectic HEENT: Atraumatic Lungs: Clear to auscultation Cardiovascular: Regular rate Skin: Ulcer/ Wound - stage 4 left scapular pressure ulcer with adherant slough present, bone still exposed and tunneling and undermining present as documented. Wound Measurements and Assessment WC - Nurse 1 - General Ulcer Measurement Start: 04/20/18 14:11 Freq: Status: Active Protocol: Activity Type Activity Date Activity User E-Sign Co-Sign Detail Recorded Client Recorded Date Recorded By Document 04/27/18 14:58 DL [id number] 04/27/18 15:10 DL 04/27/18 14:58 Wound Center Nurse 1 [Ulcer Assessment] #4- LT SCAPULA -Current Size (cm) - Length 2.6 -Current Size (cm) - Width 3 -Current Size (cm) - Depth 1.1 -Total Square Cm 7.8 -Photo Taken No -Undermining/Tunneling Starts (O' 6 clock) -Undermining/Tunneling Ends (O'clock) 1 -Maximum Distance (cm) 2.6 -Exudate Amt Medium (34-66%) -Exudate Type Serosanguineous -Wound Margin Distinct, Outline Attached -Granulation Amt Medium (34-66%) -Granulation Quality Red -Slough/Fibrin Yes -Necrosis Amt Medium (34-66%) -Necrotic Tissue Type Adherent Slough -Structure Exposed Bone -Texture (Jeanine-wound Skin Appearance) Scarring -Moisture (Jeanine-wound Skin Appearance No Abnormality ) -Color (Jeanine-wound Skin Appearance) Erythema -Temperature (Jeanine-wound Skin No Abnormality Appearance) (Pt Warm) -Tenderness on Palpation (Jeanine-wound No Skin Appearance) -Ulcer Cleansing Wound Cleanser -Foul Odor after Cleansing No -Anesthetic Used 4% Lidocaine Solution #3-right lumbar cluster -Current Size (cm) - Length 0.1 -Current Size (cm) - Width 0.1 -Current Size (cm) - Depth 0.1 -Total Square Cm 0.01 -Photo Taken No -Exudate Amt None Present (0 %) -Granulation Amt Large (67-100%) -Granulation Quality [place] -Necrosis Amt None Present (0 %) -Structure Exposed N/A -Texture (Jeanine-wound Skin Appearance) No Abnormality -Moisture (Jeanine-wound Skin Appearance No Abnormality ) -Color (Jeanine-wound Skin Appearance) No Abnormality -Temperature (Jeanine-wound Skin No Abnormality Appearance) (Pt Warm) -Tenderness on Palpation (Jeanine-wound No Skin Appearance) -Ulcer Cleansing Wound Cleanser -Foul Odor after Cleansing No WC - Nurse 2 - General Ulcer CM Notes Start: 04/20/18 14:11 Freq: Status: Active Protocol: Activity Type Activity Date Activity User E-Sign Co-Sign Detail Recorded Client Recorded Date Recorded By Document 04/27/18 15:22 [id number] 04/27/18 15:26 04/27/18 15:22 Wound Center Nurse 2 [Procedure/Treatment] #4- LT SCAPULA -Time 15:25 -Correct Patient Yes -Correct Side, Site, Position Yes -Correct Procedure Yes -Procedure Performed Yes -Type of Procedure Debridement -Clinical Debridement Subcutaneous -Post Debridement Size (cm) - Length 3.2 -Post Debridement Size (cm) - Width 3.5 -Post Debridement Size (cm) - Depth 2.0 -Total Square Cm 11.20 -Wound/Ulcer Outcome Not Healed -Ulcer Cleansing Not Cleansed -Foul Odor after Cleansing No -Bioengineered Tissue No -Bleeding Controlled with NA -Treatment Response Procedure Tolerated Well [See Physician Procedure note for Specifics] Pain Scale: 0-10 Numeric [Pain] -Is Patient Pain Free? Yes Musculoskeletal: Cachexia, Muscle Wasting Neurological: - - nonambulatory Psych/Mental Status: Alert and oriented to time, place, person, mood and affect Debridement Note Post-Debridement Measurements/Treatment WC - Nurse 2 - General Ulcer CM Notes Start: 04/20/18 14:11 Freq: Status: Active Protocol: Activity Type Activity Date Activity User E-Sign Co-Sign Detail Recorded Client Recorded Date Recorded By Document 04/20/18 15:48 [id number] 04/20/18 16:16 Document 04/27/18 15:22 [id number] 04/27/18 15:26 04/20/18 04/27/18 15:48 15:22 Wound Center Nurse 2 #4- LT SCAPULA -Time 15:53 15:25 -Correct Patient Yes Yes -Correct Side, Site, Position Yes Yes -Correct Procedure Yes Yes -Procedure Performed Yes Yes -Type of Procedure Debridement Debridement -Clinical Debridement Muscle Subcutaneous -Post Debridement Size (cm) - Length 2.5 3.2 -Post Debridement Size (cm) - Width 3.2 3.5 -Post Debridement Size (cm) - Depth 2.4 2.0 -Total Square Cm 8.00 11.20 -Wound/Ulcer Outcome Not Healed Not Healed -Ulcer Cleansing Rinsed/ Not Cleansed Irrigated with Saline -Foul Odor after Cleansing No No -Bioengineered Tissue No No -Topical Lidocaine (%) 4 -Lidocaine (ml) 10 -Bleeding Controlled with NA NA -Treatment Response Procedure Procedure Tolerated Well Tolerated Well #3-right lumbar cluster -Time 15:54 -Correct Patient Yes -Correct Side, Site, Position Yes -Correct Procedure Yes -Procedure Performed No -Wound/Ulcer Outcome Not Healed -Ulcer Cleansing Rinsed/ Irrigated with Saline -Bioengineered Tissue No -Topical Lidocaine (%) 4 -Bleeding Controlled with NA -Treatment Response Procedure Tolerated Well Pain Scale: 0-10 Numeric Is Patient Pain Free? Yes Yes Wound debrided: Left stage 4 pressure ulcer of scapula Laterality: Left Type of Debridement: Excisional debridement Anesthesia Used: 5% Lidocaine Gel Depth: Down to and including healthy tissue, in the subcutaneous layer Percentage of wound debrided: 100 Instrument Used: 7mm curette Tissue Removed: slough and devitalized tissue Severity: Fat Layer Exposed Amount of bleeding with debridement: Mild Bleeding Controlled with: Pressure Patient tolerated procedure well bone exposed Assessment/Plan Active Problems Muscular dystrophy (Chronic) Debility (Chronic) Immobility (Chronic) Malnutrition (Chronic) Incontinence of feces (Chronic) Incontinence of urine (Chronic) Cachexia (Chronic) Pressure ulcer of left upper back, stage 4 (Acute) Pressure injury of buttock, stage 1 (Acute) Assessment: See above diagnoses Plan: The patient was seen and examined at the wound center today and was updated on the plan of care. A subcutaneous debridement was performed today of the stage IV pressure ulcer in the scapular region. The patient tolerated the procedure well. The patients wound care will consist of: Packing with Aquacel and covering with Allevyn if vac is off, otherwise wound VAC to be applied at 125 mmhg . Wound cultures were collected previously and showed rare corybacterium, pt did just complete course of augmentin. Baseline bloodwork reviewed and prealbumin low, encouraged patient to continue with protein supplementation at minimum TID. Patient educated on the importance of offloading, though due to his multiple comorbidities has been very noncompliant with this. Did discuss frequent position changes and offloading mechanisms, which he is noncompliant with. He is in a low air loss pressure mattress in his facility. Patient educated on the importance of diet on wound healing and instructed to increase protein and vitamin C intake. Patient verbalized understanding. Patient will follow up at wound healing center in one week or sooner if needed. Patient is currently on a palliative wound plan. This note was generated with [employer] dictation software. It may contain incorrect words, spelling, and punctuation that were not noted in checking the note before signing. Code Visit 111xxx-113xx: [id number] Steph subq tissue 20 sq cm/<
[2018-04-27 14:58] VITALS: BP 128/73; PULSE 102; RESP 16; TEMP 36.9
--- NOTE | 2018-04-28 14:53 | PN.PCM_ITS ---
(1) Pressure ulcer of left upper back, stage 4 Status: Acute Current Visit: Yes Code(s): L89.124 - Pressure ulcer of left upper back, stage 4 (2) Pressure injury of buttock, stage 1 Status: Acute Current Visit: Yes Code(s): L89.301 - Pressure ulcer of unspecified buttock, stage 1 (3) Cachexia Status: Chronic Current Visit: Yes Code(s): R64 - Cachexia (4) Debility Status: Chronic Current Visit: Yes Code(s): R53.81 - Other malaise (5) Immobility Status: Chronic Current Visit: Yes Code(s): Z74.09 - Other reduced mobility (6) Incontinence of feces Status: Chronic Current Visit: Yes Code(s): R15.9 - Full incontinence of feces (7) Incontinence of urine Status: Chronic Current Visit: Yes Code(s): R32 - Unspecified urinary incontinence (8) Malnutrition Status: Chronic Current Visit: Yes Code(s): E46 - Unspecified protein- calorie malnutrition (9) Muscular dystrophy Status: Chronic Current Visit: Yes Code(s): G71.0 - Muscular dystrophy Type of Wound Date of Service: 04/27/18 Chief Complaint: Pressure ulceration of the sacral area, stage I; stage 4 pressure ulcer left scapula History of Wound: A 72-year-old male who is a resident of [facility]. Patient presented to wound center d/t new decubitus to left scapula and old sacral wound reopened. He suffers from muscular dystrophy, and is severely impaired and immobilized. His muscular dystrophy was diagnosed in 1972. He has been bedridden and nonambulatory for a prolonged period of time, with severe muscle atrophy. Due to a lack of mobility and physical therapy, extremity joints are essentially frozen and immovable. The patient is extremely thin and emaciated, suggesting malnutrition and cachexia. He is incontinent of urine and stool, and wears a condom catheter. Patient was recently in [facility] ER on 04/15/2018 d/t concern for left scapular decubitus. Labs in ER without abnormality and was discharged back to nursing facility. Patient at nursing facility was placed on augmentin d/t cultures which showed rare microorganisms and was packing decubitus with aquacel and covered with allevyn. Denies any signs and symptoms of systemic or local infection. Patient does often lay on the affected left shoulder causing a constant pressure. He is noncompliant with off loading and frequent position changes. Progress of Wound: Sacral pressure ulcer healed, stage 4 scapula pressure ulcer stable without signs of infection at this time, has not started wound vac yet, will be applied today. Xray reviewed and WNL. No signs of systemic or localized infection at this time. - Physical Exam Vital Signs Temp Pulse Resp BP 98.4 F 102 H 16 128/73 H 04/27/18 14:58 04/27/18 14:58 04/27/18 14:58 04/27/18 14:58 General: Alert, Oriented x3, Cooperative, No apparent distress, - - malnourished and cahectic HEENT: Atraumatic Lungs: Clear to auscultation Cardiovascular: Regular rate Skin: Ulcer/ Wound - stage 4 left scapular pressure ulcer with adherant slough present, bone still exposed and tunneling and undermining present as documented. Wound Measurements and Assessment WC - Nurse 1 - General Ulcer Measurement Start: 04/20/18 14:11 Freq: Status: Active Protocol: Activity Type Activity Date Activity User E-Sign Co-Sign Detail Recorded Client Recorded Date Recorded By Document 04/27/18 14:58 DL [id number] 04/27/18 15:10 DL 04/27/18 14:58 Wound Center Nurse 1 [Ulcer Assessment] #4- LT SCAPULA -Current Size (cm) - Length 2.6 -Current Size (cm) - Width 3 -Current Size (cm) - Depth 1.1 -Total Square Cm 7.8 -Photo Taken No -Undermining/Tunneling Starts (O' 6 clock) -Undermining/Tunneling Ends (O'clock) 1 -Maximum Distance (cm) 2.6 -Exudate Amt Medium (34-66%) -Exudate Type Serosanguineous -Wound Margin Distinct, Outline Attached -Granulation Amt Medium (34-66%) -Granulation Quality Red -Slough/Fibrin Yes -Necrosis Amt Medium (34-66%) -Necrotic Tissue Type Adherent Slough -Structure Exposed Bone -Texture (Jeanine-wound Skin Appearance) Scarring -Moisture (Jeanine-wound Skin Appearance No Abnormality ) -Color (Jeanine-wound Skin Appearance) Erythema -Temperature (Jeanine-wound Skin No Abnormality Appearance) (Pt Warm) -Tenderness on Palpation (Jeanine-wound No Skin Appearance) -Ulcer Cleansing Wound Cleanser -Foul Odor after Cleansing No -Anesthetic Used 4% Lidocaine Solution #3-right lumbar cluster -Current Size (cm) - Length 0.1 -Current Size (cm) - Width 0.1 -Current Size (cm) - Depth 0.1 -Total Square Cm 0.01 -Photo Taken No -Exudate Amt None Present (0 %) -Granulation Amt Large (67-100%) -Granulation Quality [place] -Necrosis Amt None Present (0 %) -Structure Exposed N/A -Texture (Jeanine-wound Skin Appearance) No Abnormality -Moisture (Jeanine-wound Skin Appearance No Abnormality ) -Color (Jeanine-wound Skin Appearance) No Abnormality -Temperature (Jeanine-wound Skin No Abnormality Appearance) (Pt Warm) -Tenderness on Palpation (Jeanine-wound No Skin Appearance) -Ulcer Cleansing Wound Cleanser -Foul Odor after Cleansing No WC - Nurse 2 - General Ulcer CM Notes Start: 04/20/18 14:11 Freq: Status: Active Protocol: Activity Type Activity Date Activity User E-Sign Co-Sign Detail Recorded Client Recorded Date Recorded By Document 04/27/18 15:22 [id number] 04/27/18 15:26 04/27/18 15:22 Wound Center Nurse 2 [Procedure/Treatment] #4- LT SCAPULA -Time 15:25 -Correct Patient Yes -Correct Side, Site, Position Yes -Correct Procedure Yes -Procedure Performed Yes -Type of Procedure Debridement -Clinical Debridement Subcutaneous -Post Debridement Size (cm) - Length 3.2 -Post Debridement Size (cm) - Width 3.5 -Post Debridement Size (cm) - Depth 2.0 -Total Square Cm 11.20 -Wound/Ulcer Outcome Not Healed -Ulcer Cleansing Not Cleansed -Foul Odor after Cleansing No -Bioengineered Tissue No -Bleeding Controlled with NA -Treatment Response Procedure Tolerated Well [See Physician Procedure note for Specifics] Pain Scale: 0-10 Numeric [Pain] -Is Patient Pain Free? Yes Musculoskeletal: Cachexia, Muscle Wasting Neurological: - - nonambulatory Psych/Mental Status: Alert and oriented to time, place, person, mood and affect Debridement Note Post-Debridement Measurements/Treatment WC - Nurse 2 - General Ulcer CM Notes Start: 04/20/18 14:11 Freq: Status: Active Protocol: Activity Type Activity Date Activity User E-Sign Co-Sign Detail Recorded Client Recorded Date Recorded By Document 04/20/18 15:48 [id number] 04/20/18 16:16 Document 04/27/18 15:22 [id number] 04/27/18 15:26 04/20/18 04/27/18 15:48 15:22 Wound Center Nurse 2 #4- LT SCAPULA -Time 15:53 15:25 -Correct Patient Yes Yes -Correct Side, Site, Position Yes Yes -Correct Procedure Yes Yes -Procedure Performed Yes Yes -Type of Procedure Debridement Debridement -Clinical Debridement Muscle Subcutaneous -Post Debridement Size (cm) - Length 2.5 3.2 -Post Debridement Size (cm) - Width 3.2 3.5 -Post Debridement Size (cm) - Depth 2.4 2.0 -Total Square Cm 8.00 11.20 -Wound/Ulcer Outcome Not Healed Not Healed -Ulcer Cleansing Rinsed/ Not Cleansed Irrigated with Saline -Foul Odor after Cleansing No No -Bioengineered Tissue No No -Topical Lidocaine (%) 4 -Lidocaine (ml) 10 -Bleeding Controlled with NA NA -Treatment Response Procedure Procedure Tolerated Well Tolerated Well #3-right lumbar cluster -Time 15:54 -Correct Patient Yes -Correct Side, Site, Position Yes -Correct Procedure Yes -Procedure Performed No -Wound/Ulcer Outcome Not Healed -Ulcer Cleansing Rinsed/ Irrigated with Saline -Bioengineered Tissue No -Topical Lidocaine (%) 4 -Bleeding Controlled with NA -Treatment Response Procedure Tolerated Well Pain Scale: 0-10 Numeric Is Patient Pain Free? Yes Yes Wound debrided: Left stage 4 pressure ulcer of scapula Laterality: Left Type of Debridement: Excisional debridement Anesthesia Used: 5% Lidocaine Gel Depth: Down to and including healthy tissue, in the subcutaneous layer Percentage of wound debrided: 100 Instrument Used: 7mm curette Tissue Removed: slough and devitalized tissue Severity: Fat Layer Exposed Amount of bleeding with debridement: Mild Bleeding Controlled with: Pressure Patient tolerated procedure well bone exposed Assessment/Plan Active Problems Muscular dystrophy (Chronic) Debility (Chronic) Immobility (Chronic) Malnutrition (Chronic) Incontinence of feces (Chronic) Incontinence of urine (Chronic) Cachexia (Chronic) Pressure ulcer of left upper back, stage 4 (Acute) Pressure injury of buttock, stage 1 (Acute) Assessment: See above diagnoses Plan: The patient was seen and examined at the wound center today and was updated on the plan of care. A subcutaneous debridement was performed today of the stage IV pressure ulcer in the scapular region. The patient tolerated the procedure well. The patients wound care will consist of: Packing with Aquacel and covering with Allevyn if vac is off, otherwise wound VAC to be applied at 125 mmhg . Wound cultures were collected previously and showed rare corybacterium, pt did just complete course of augmentin. Baseline bloodwork reviewed and prealbumin low, encouraged patient to continue with protein supplementation at minimum TID. Patient educated on the importance of offloading, though due to his multiple comorbidities has been very noncompliant with this. Did discuss frequent position changes and offloading mechanisms, which he is noncompliant with. He is in a low air loss pressure mattress in his facility. Patient educated on the importance of diet on wound healing and instructed to increase protein and vitamin C intake. Patient verbalized understanding. Patient will follow up at wound healing center in one week or sooner if needed. Patient is currently on a palliative wound plan. This note was generated with [employer] dictation software. It may contain incorrect words, spelling, and punctuation that were not noted in checking the note before signing. Code Visit 111xxx-113xx: 37330 Steph subq tissue 20 sq cm/<
[2018-05-04 15:12] VITALS: BP 118/72; PULSE 94; RESP 16; TEMP 36.7
--- NOTE | 2018-05-04 19:32 | PCM.WC.PN ---
(1) Pressure ulcer of left upper back, stage 4 Status: Acute Code(s): L89.124 - Pressure ulcer of left upper back, stage 4 (2) Pressure injury of buttock, stage 1 Status: Acute Code(s): L89.301 - Pressure ulcer of unspecified buttock, stage 1 (3) Cachexia Status: Chronic Code(s): R64 - Cachexia (4) Debility Status: Chronic Code(s): R53.81 - Other malaise (5) Immobility Status: Chronic Code(s): Z74.09 - Other reduced mobility (6) Incontinence of feces Status: Chronic Code(s): R15.9 - Full incontinence of feces (7) Incontinence of urine Status: Chronic Code(s): R32 - Unspecified urinary incontinence (8) Malnutrition Status: Chronic Code(s): E46 - Unspecified protein-calorie malnutrition (9) Muscular dystrophy Status: Chronic Code(s): G71.0 - Muscular dystrophy Type of Wound Date of Service: 05/04/18 Chief Complaint: Pressure ulceration of the sacral area, stage I; stage 4 pressure ulcer left scapula History of Wound: A 72-year-old male who is a resident of . Patient presented to wound center d/t new decubitus to left scapula and old sacral wound reopened. He suffers from muscular dystrophy, and is severely impaired and immobilized. His muscular dystrophy was diagnosed in 1972. He has been bedridden and nonambulatory for a prolonged period of time, with severe muscle atrophy. Due to a lack of mobility and physical therapy, extremity joints are essentially frozen and immovable. The patient is extremely thin and emaciated, suggesting malnutrition and cachexia. He is incontinent of urine and stool, and wears a condom catheter. Patient was recently in [facility] ER on 04/15/2018 d/t concern for left scapular decubitus. Labs in ER without abnormality and was discharged back to nursing facility. Patient at nursing facility was placed on augmentin d/t cultures which showed rare microorganisms and was packing decubitus with aquacel and covered with allevyn. Denies any signs and symptoms of systemic or local infection. Patient does often lay on the affected left shoulder causing a constant pressure. He is noncompliant with off loading and frequent position changes. Progress of Wound: Sacral pressure ulcer healed, stage 4 scapula pressure ulcer stable without signs of infection at this time, has done well on wound vac, more granulatory tissue present, bone still exposed, vac has small amount of serosanguinous drainage. Xray reviewed and WNL. No signs of systemic or localized infection at this time. - Physical Exam Vital Signs Temp Pulse Resp BP 98.0 F 94 16 118/72 05/04/18 15:12 05/04/18 15:12 05/04/18 15:12 05/04/18 15:12 General: Alert, Oriented x3, Cooperative, - - thin and malnourished HEENT: Atraumatic Cardiovascular: Regular rate Skin: Ulcer/ Wound - left scapular stage 4 pressure ulcer with adherhant slough, minimal drainage, no foul smell, no other signs of infection, bone still exposed Musculoskeletal: Cachexia Neurological: Neuro grossly intact Psych/Mental Status: Flat Affect, Alert and oriented to time, place, person, mood and affect Debridement Note Post-Debridement Measurements/Treatment WC - Nurse 2 - General Ulcer CM Notes Start: 04/20/18 14:11 Freq: Status: Active Protocol: Activity Type Activity Date Activity User E-Sign Co-Sign Detail Recorded Client Recorded Date Recorded By Document 04/20/18 15:48 [id number] 04/20/18 16:16 JS Document 04/27/18 15:22 [id number] 04/27/18 15:26 Document 05/04/18 16:15 [id number] 05/04/18 16:19 DV 04/20/18 04/27/18 05/04/18 15:48 15:22 16:15 Wound Center Nurse 2 #5 RT LUMBAR -Time 16:15 -Correct Patient Yes -Procedure Performed No -Ulcer Cleansing Rinsed/ Irrigated with Saline -Bleeding Controlled with Pressure -Treatment Response Procedure Tolerated Well #4- LT SCAPULA -Time 15:53 15:25 16:16 -Correct Patient Yes Yes Yes -Correct Side, Site, Position Yes Yes Yes -Correct Procedure Yes Yes Yes -Procedure Performed Yes Yes Yes -Type of Procedure Debridement Debridement Debridement -Clinical Debridement Muscle Subcutaneous Subcutaneous -Post Debridement Size (cm) - Length 2.5 3.2 2.9 -Post Debridement Size (cm) - Width 3.2 3.5 2.6 -Post Debridement Size (cm) - Depth 2.4 2.0 1.4 -Total Square Cm 8.00 11.20 7.54 -Wound/Ulcer Outcome Not Healed Not Healed Not Healed -Ulcer Cleansing Rinsed/ Not Cleansed Rinsed/ Irrigated with Irrigated with Saline Saline -Foul Odor after Cleansing No No No -Bioengineered Tissue No No No -Topical Lidocaine (%) 4 -Lidocaine (ml) 10 -Bleeding Controlled with NA NA Pressure -Treatment Response Procedure Procedure Procedure Tolerated Well Tolerated Well Tolerated Well #3-right lumbar cluster -Time 15:54 -Correct Patient Yes -Correct Side, Site, Position Yes -Correct Procedure Yes -Procedure Performed No -Wound/Ulcer Outcome Not Healed -Ulcer Cleansing Rinsed/ Irrigated with Saline -Bioengineered Tissue No -Topical Lidocaine (%) 4 -Bleeding Controlled with NA -Treatment Response Procedure Tolerated Well Pain Scale: 0-10 Numeric Is Patient Pain Free? Yes Yes Yes Wound debrided: left stage 4 pressure ulcer shoulder Laterality: Left Type of Debridement: Excisional debridement Anesthesia Used: 5% Lidocaine Gel Depth: Down to and including healthy tissue, in the subcutaneous layer Percentage of wound debrided: 100 Instrument Used: 5mm curette Tissue Removed: slough and devitalized tissue Severity: Fat Layer Exposed - bone exposed Amount of bleeding with debridement: Mild Bleeding Controlled with: Pressure Patient tolerated procedure well Assessment/Plan Assessment: See above diagnoses Plan: The patient was seen and examined at the wound center today and was updated on the plan of care. A subcutaneous debridement was performed today of the stage IV pressure ulcer in the scapular region. The patient tolerated the procedure well. The patients wound care will consist of: Packing with Aquacel and covering with Allevyn if vac is off, otherwise wound VAC to be applied at 125 mmhg with adaptic over bone. Wound cultures were collected previously and showed rare corybacterium, pt did just complete course of augmentin. Baseline bloodwork reviewed and prealbumin low, encouraged patient to continue with protein supplementation at minimum TID. Patient educated on the importance of offloading, though due to his multiple comorbidities has been very noncompliant with this. Did discuss frequent position changes and offloading mechanisms, which he is noncompliant with. He is in a low air loss pressure mattress in his facility. Patient educated on the importance of diet on wound healing and instructed to increase protein and vitamin C intake. Instructed nursing personelle that they may use aquacell over superfical skin ulcerations that occur from pressure on buttocks. Patient verbalized understanding. Patient will follow up at wound healing center in one week or sooner if needed. Patient is currently on a palliative wound plan. This note was generated with [employer] dictation software. It may contain incorrect words, spelling, and punctuation that were not noted in checking the note before signing. Code Visit 111xxx-113xx: 43432 Steph subq tissue 20 sq cm/<
--- NOTE | 2018-05-09 09:37 | PN.PCM_ITS ---
(1) Pressure ulcer of left upper back, stage 4 Status: Acute Code(s): L89.124 - Pressure ulcer of left upper back, stage 4 (2) Pressure injury of buttock, stage 1 Status: Acute Code(s): L89.301 - Pressure ulcer of unspecified buttock, stage 1 (3) Cachexia Status: Chronic Code(s): R64 - Cachexia (4) Debility Status: Chronic Code(s): R53.81 - Other malaise (5) Immobility Status: Chronic Code(s): Z74.09 - Other reduced mobility (6) Incontinence of feces Status: Chronic Code(s): R15.9 - Full incontinence of feces (7) Incontinence of urine Status: Chronic Code(s): R32 - Unspecified urinary incontinence (8) Malnutrition Status: Chronic Code(s): E46 - Unspecified protein-calorie malnutrition (9) Muscular dystrophy Status: Chronic Code(s): G71.0 - Muscular dystrophy Type of Wound Date of Service: 05/04/18 Chief Complaint: Pressure ulceration of the sacral area, stage I; stage 4 pressure ulcer left scapula History of Wound: A 72-year-old male who is a resident of [facility]. Patient presented to wound center d/t new decubitus to left scapula and old sacral wound reopened. He suffers from muscular dystrophy, and is severely impaired and immobilized. His muscular dystrophy was diagnosed in 1972. He has been bedridden and nonambulatory for a prolonged period of time, with severe muscle atrophy. Due to a lack of mobility and physical therapy, extremity joints are essentially frozen and immovable. The patient is extremely thin and emaciated, suggesting malnutrition and cachexia. He is incontinent of urine and stool, and wears a condom catheter. Patient was recently in [facility] ER on 04/15/2018 d/t concern for left scapular decubitus. Labs in ER without abnormality and was discharged back to nursing facility. Patient at nursing facility was placed on augmentin d/t cultures which showed rare microorganisms and was packing decubitus with aquacel and covered with allevyn. Denies any signs and symptoms of systemic or local infection. Patient does often lay on the affected left shoulder causing a constant pressure. He is noncompliant with off loading and frequent position changes. Progress of Wound: Sacral pressure ulcer healed, stage 4 scapula pressure ulcer stable without signs of infection at this time, has done well on wound vac, more granulatory tissue present, bone still exposed, vac has small amount of serosanguinous drainage. Xray reviewed and WNL. No signs of systemic or localized infection at this time. - Physical Exam Vital Signs Temp Pulse Resp BP 98.0 F 94 16 118/72 05/04/18 15:12 05/04/18 15:12 05/04/18 15:12 05/04/18 15:12 General: Alert, Oriented x3, Cooperative, - - thin and malnourished HEENT: Atraumatic Cardiovascular: Regular rate Skin: Ulcer/ Wound - left scapular stage 4 pressure ulcer with adherhant slough, minimal drainage, no foul smell, no other signs of infection, bone still exposed Musculoskeletal: Cachexia Neurological: Neuro grossly intact Psych/Mental Status: Flat Affect, Alert and oriented to time, place, person, mood and affect Debridement Note Post-Debridement Measurements/Treatment WC - Nurse 2 - General Ulcer CM Notes Start: 04/20/18 14:11 Freq: Status: Active Protocol: Activity Type Activity Date Activity User E-Sign Co-Sign Detail Recorded Client Recorded Date Recorded By Document 04/20/18 15:48 [id number] 04/20/18 16:16 JS Document 04/27/18 15:22 [id number] 04/27/18 15:26 Document 05/04/18 16:15 [id number] 05/04/18 16:19 DV 04/20/18 04/27/18 05/04/18 15:48 15:22 16:15 Wound Center Nurse 2 #5 RT LUMBAR -Time 16:15 -Correct Patient Yes -Procedure Performed No -Ulcer Cleansing Rinsed/ Irrigated with Saline -Bleeding Controlled with Pressure -Treatment Response Procedure Tolerated Well #4- LT SCAPULA -Time 15:53 15:25 16:16 -Correct Patient Yes Yes Yes -Correct Side, Site, Position Yes Yes Yes -Correct Procedure Yes Yes Yes -Procedure Performed Yes Yes Yes -Type of Procedure Debridement Debridement Debridement -Clinical Debridement Muscle Subcutaneous Subcutaneous -Post Debridement Size (cm) - Length 2.5 3.2 2.9 -Post Debridement Size (cm) - Width 3.2 3.5 2.6 -Post Debridement Size (cm) - Depth 2.4 2.0 1.4 -Total Square Cm 8.00 11.20 7.54 -Wound/Ulcer Outcome Not Healed Not Healed Not Healed -Ulcer Cleansing Rinsed/ Not Cleansed Rinsed/ Irrigated with Irrigated with Saline Saline -Foul Odor after Cleansing No No No -Bioengineered Tissue No No No -Topical Lidocaine (%) 4 -Lidocaine (ml) 10 -Bleeding Controlled with NA NA Pressure -Treatment Response Procedure Procedure Procedure Tolerated Well Tolerated Well Tolerated Well #3-right lumbar cluster -Time 15:54 -Correct Patient Yes -Correct Side, Site, Position Yes -Correct Procedure Yes -Procedure Performed No -Wound/Ulcer Outcome Not Healed -Ulcer Cleansing Rinsed/ Irrigated with Saline -Bioengineered Tissue No -Topical Lidocaine (%) 4 -Bleeding Controlled with NA -Treatment Response Procedure Tolerated Well Pain Scale: 0-10 Numeric Is Patient Pain Free? Yes Yes Yes Wound debrided: left stage 4 pressure ulcer shoulder Laterality: Left Type of Debridement: Excisional debridement Anesthesia Used: 5% Lidocaine Gel Depth: Down to and including healthy tissue, in the subcutaneous layer Percentage of wound debrided: 100 Instrument Used: 5mm curette Tissue Removed: slough and devitalized tissue Severity: Fat Layer Exposed - bone exposed Amount of bleeding with debridement: Mild Bleeding Controlled with: Pressure Patient tolerated procedure well Assessment/Plan Assessment: See above diagnoses Plan: The patient was seen and examined at the wound center today and was updated on the plan of care. A subcutaneous debridement was performed today of the stage IV pressure ulcer in the scapular region. The patient tolerated the procedure well. The patients wound care will consist of: Packing with Aquacel and covering with Allevyn if vac is off, otherwise wound VAC to be applied at 125 mmhg with adaptic over bone. Wound cultures were collected previously and showed rare corybacterium, pt did just complete course of augmentin. Baseline bloodwork reviewed and prealbumin low, encouraged patient to continue with protein supplementation at minimum TID. Patient educated on the importance of offloading, though due to his multiple comorbidities has been very noncompliant with this. Did discuss frequent position changes and offloading mechanisms, which he is noncompliant with. He is in a low air loss pressure mattress in his facility. Patient educated on the importance of diet on wound healing and instructed to increase protein and vitamin C intake. Instructed nursing personelle that they may use aquacell over superfical skin ulcerations that occur from pressure on buttocks. Patient verbalized understanding. Patient will follow up at wound healing center in one week or sooner if needed. Patient is currently on a palliative wound plan. This note was generated with [employer] dictation software. It may contain incorrect words, spelling, and punctuation that were not noted in checking the note before signing. Code Visit [id number]: [id number] Steph subq tissue 20 sq cm/<
[2018-05-11 14:33] VITALS: BP 133/72; PULSE 95; RESP 18; TEMP 36.9
--- NOTE | 2018-05-11 19:41 | PCM.WC.PN ---
(1) Pressure ulcer of left upper back, stage 4 Status: Acute Code(s): L89.124 - Pressure ulcer of left upper back, stage 4 (2) Pressure ulcer of right lower back, stage 2 Status: Acute Code(s): L89.132 - Pressure ulcer of right lower back, stage 2 (3) Pressure injury of buttock, stage 1 Status: Resolved Code(s): L89.301 - Pressure ulcer of unspecified buttock, stage 1 (4) Cachexia Status: Chronic Code(s): R64 - Cachexia (5) Debility Status: Chronic Code(s): R53.81 - Other malaise (6) Immobility Status: Chronic Code(s): Z74.09 - Other reduced mobility (7) Incontinence of feces Status: Chronic Code(s): R15.9 - Full incontinence of feces (8) Incontinence of urine Status: Chronic Code(s): R32 - Unspecified urinary incontinence (9) Malnutrition Status: Chronic Code(s): E46 - Unspecified protein-calorie malnutrition (10) Muscular dystrophy Status: Chronic Code(s): G71.0 - Muscular dystrophy Type of Wound Date of Service: 05/11/18 Chief Complaint: Pressure ulceration of the sacral area, stage I; stage 4 pressure ulcer left scapula History of Wound: A 72-year-old male who is a resident of [facility]. Patient presented to wound center d/t new decubitus to left scapula and old sacral wound reopened. He suffers from muscular dystrophy, and is severely impaired and immobilized. His muscular dystrophy was diagnosed in 1972. He has been bedridden and nonambulatory for a prolonged period of time, with severe muscle atrophy. Due to a lack of mobility and physical therapy, extremity joints are essentially frozen and immovable. The patient is extremely thin and emaciated, suggesting malnutrition and cachexia. He is incontinent of urine and stool, and wears a condom catheter. Patient was recently in [facility] ER on 04/15/2018 d/t concern for left scapular decubitus. Labs in ER without abnormality and was discharged back to nursing facility. Patient at nursing facility was placed on augmentin d/t cultures which showed rare microorganisms and was packing decubitus with aquacel and covered with allevyn. Denies any signs and symptoms of systemic or local infection. Patient does often lay on the affected left shoulder causing a constant pressure. He is noncompliant with off loading and frequent position changes. Progress of Wound: Sacral pressure ulcer healed, stage 4 scapula pressure ulcer stable without signs of infection at this time nursing states that wound edges are more red, has done well on wound vac, more granulatory tissue present, bone still exposed, vac has small amount of serosanguinous drainage. New pressure ulcer stage 2 on right lower back, has been going on approximately 1 week, nursing has been using hydrogel. No signs of systemic or localized infection at this time. - Physical Exam Vital Signs Temp Pulse Resp BP 98.4 F 95 18 133/72 H 05/11/18 14:33 05/11/18 14:33 05/11/18 14:33 05/11/18 14:33 General: Alert, Oriented x3, Cooperative, No apparent distress, - - cahectic and malnourished HEENT: Atraumatic Cardiovascular: Regular rate Skin: Ulcer/ Wound - left scapula stage 4 pressure ulcer with exposed bone present and slough, slightly erythematous wound edges, granulatory tissue present, undermining and tunneling present. Stage 2 pressure ulcer right lower back with adherant slough, no purulent drainage or redness present Musculoskeletal: Cachexia, Muscle Wasting Neurological: Neuro grossly intact Psych/Mental Status: Normal Affect, Appropriate, Alert and oriented to time, place, person, mood and affect Debridement Note Post-Debridement Measurements/Treatment WC - Nurse 2 - General Ulcer CM Notes Start: 04/20/18 14:11 Freq: Status: Active Protocol: Activity Type Activity Date Activity User E-Sign Co-Sign Detail Recorded Client Recorded Date Recorded By Document 04/20/18 15:48 [id number] 04/20/18 16:16 Document 04/27/18 15:22 [id number] 04/27/18 15:26 CS Document 05/04/18 16:15 DV [id number] 05/04/18 16:19 DV Document 05/11/18 14:53 [id number] 05/11/18 15:02 04/20/18 04/27/18 05/04/18 15:48 15:22 16:15 Wound Center Nurse 2 #5 RT LUMBAR -Time 16:15 -Correct Patient Yes -Correct Side, Site, Position -Correct Procedure -Procedure Performed No -Type of Procedure -Clinical Debridement -Post Debridement Size (cm) - Length -Post Debridement Size (cm) - Width -Post Debridement Size (cm) - Depth -Total Square Cm -Wound/Ulcer Outcome -Ulcer Cleansing Rinsed/ Irrigated with Saline -Foul Odor after Cleansing -Bioengineered Tissue -Bleeding Controlled with Pressure -Treatment Response Procedure Tolerated Well #4- LT SCAPULA -Time 15:53 15:25 16:16 -Correct Patient Yes Yes Yes -Correct Side, Site, Position Yes Yes Yes -Correct Procedure Yes Yes Yes -Procedure Performed Yes Yes Yes -Type of Procedure Debridement Debridement Debridement -Clinical Debridement Muscle Subcutaneous Subcutaneous -Post Debridement Size (cm) - Length 2.5 3.2 2.9 -Post Debridement Size (cm) - Width 3.2 3.5 2.6 -Post Debridement Size (cm) - Depth 2.4 2.0 1.4 -Total Square Cm 8.00 11.20 7.54 -Wound/Ulcer Outcome Not Healed Not Healed Not Healed -Ulcer Cleansing Rinsed/ Not Cleansed Rinsed/ Irrigated with Irrigated with Saline Saline -Foul Odor after Cleansing No No No -Bioengineered Tissue No No No -Topical Lidocaine (%) 4 -Lidocaine (ml) 10 -Bleeding Controlled with NA NA Pressure -Treatment Response Procedure Procedure Procedure Tolerated Well Tolerated Well Tolerated Well #3-right lumbar cluster -Time 15:54 -Correct Patient Yes -Correct Side, Site, Position Yes -Correct Procedure Yes -Procedure Performed No -Wound/Ulcer Outcome Not Healed -Ulcer Cleansing Rinsed/ Irrigated with Saline -Bioengineered Tissue No -Topical Lidocaine (%) 4 -Bleeding Controlled with NA -Treatment Response Procedure Tolerated Well Pain Scale: 0-10 Numeric Is Patient Pain Free? Yes Yes Yes 18 14:53 Wound Center Nurse 2 #5 RT LUMBAR -Time 14:53 -Correct Patient Yes -Correct Side, Site, Position Yes -Correct Procedure Yes -Procedure Performed Yes -Type of Procedure Debridement -Clinical Debridement Subcutaneous -Post Debridement Size (cm) - Length 1.4 -Post Debridement Size (cm) - Width 5.9 -Post Debridement Size (cm) - Depth 0.2 -Total Square Cm 8.26 -Wound/Ulcer Outcome Not Healed -Ulcer Cleansing Not Cleansed -Foul Odor after Cleansing No -Bioengineered Tissue No -Bleeding Controlled with Pressure -Treatment Response Procedure Tolerated Well #4- LT SCAPULA -Time 14:55 -Correct Patient Yes -Correct Side, Site, Position Yes -Correct Procedure Yes -Procedure Performed Yes -Type of Procedure Debridement -Clinical Debridement Subcutaneous -Post Debridement Size (cm) - Length 2.5 -Post Debridement Size (cm) - Width 1.8 -Post Debridement Size (cm) - Depth 1.2 -Total Square Cm 4.50 -Wound/Ulcer Outcome Not Healed -Ulcer Cleansing Not Cleansed -Foul Odor after Cleansing No -Bioengineered Tissue No -Topical Lidocaine (%) -Lidocaine (ml) -Bleeding Controlled with Pressure -Treatment Response Procedure Tolerated Well #3-right lumbar cluster -Time -Correct Patient -Correct Side, Site, Position -Correct Procedure -Procedure Performed -Wound/Ulcer Outcome -Ulcer Cleansing -Bioengineered Tissue -Topical Lidocaine (%) -Bleeding Controlled with -Treatment Response Pain Scale: 0-10 Numeric Is Patient Pain Free? No Wound debrided: Left stage 4 pressure ulcer of scapula Laterality: Left Type of Debridement: Excisional debridement Anesthesia Used: 5% Lidocaine Gel Depth: in the subcutaneous layer - debridement SQ, bone exposed however, to bone Percentage of wound debrided: 100 Instrument Used: 7mm curette Tissue Removed: slough and devitalized tissue Severity: Fat Layer Exposed Amount of bleeding with debridement: Mild Bleeding Controlled with: Pressure Patient tolerated procedure well - Additional Wound Wound debrided: right lumbar stage 2 pressure ulcer Laterality: Right Anesthesia Used: 5% Lidocaine Gel Depth: in the subcutaneous layer Percentage of wound debrided: 100 Instrument Used: 5mm curette Tissue Removed: slough and devitalized tissue Severity: Fat Layer Exposed Amount of bleeding with debridement: Mild Bleeding Controlled with: Pressure Patient tolerated procedure: Patient tolerated procedure well Assessment/Plan Assessment: See above diagnoses. Stage 4 pressure ulcer left scapula. Stage 2 pressure ulcer right lumbar region Plan: The patient was seen and examined at the wound center today and was updated on the plan of care. A subcutaneous debridement was performed today of the stage IV pressure ulcer in the scapular region. The patient tolerated the procedure well. The patients wound care will consist of: aquacell silver with optifoam over stage 2 pressure ulcer right lumbar region and to stage 4 scapular pressure ulcer, Packing with Aquacel and covering with Allevyn if vac is off, otherwise wound VAC to be applied at 125 mmhg with adaptic over bone. Wound cultures were collected previously and showed rare corybacterium, pt did just complete course of augmentin, due to nursing concern for infection, repeat culture collected. Baseline bloodwork reviewed and prealbumin low, encouraged patient to continue with protein supplementation at minimum TID. Patient educated on the importance of offloading, though due to his multiple comorbidities has been very noncompliant with this. Did discuss frequent position changes and offloading mechanisms, which he is noncompliant with. He is in a low air loss pressure mattress in his facility. Patient educated on the importance of diet on wound healing and instructed to increase protein and vitamin C intake. Instructed nursing personelle that they may use aquacell over superfical skin ulcerations that occur from pressure on buttocks. Patient verbalized understanding. Patient will follow up at wound healing center in one week or sooner if needed. Patient is currently on a palliative wound plan. This note was generated with [employer] dictation software. It may contain incorrect words, spelling, and punctuation that were not noted in checking the note before signing. Code Visit 111xxx-[id number]: 15600 Steph subq tissue 20 sq cm/<
--- NOTE | 2018-05-16 13:45 | PN.PCM_ITS ---
(1) Pressure ulcer of left upper back, stage 4 Status: Acute Code(s): L89.124 - Pressure ulcer of left upper back, stage 4 (2) Pressure ulcer of right lower back, stage 2 Status: Acute Code(s): L89.132 - Pressure ulcer of right lower back, stage 2 (3) Pressure injury of buttock, stage 1 Status: Resolved Code(s): L89.301 - Pressure ulcer of unspecified buttock, stage 1 (4) Cachexia Status: Chronic Code(s): R64 - Cachexia (5) Debility Status: Chronic Code(s): R53.81 - Other malaise (6) Immobility Status: Chronic Code(s): Z74.09 - Other reduced mobility (7) Incontinence of feces Status: Chronic Code(s): R15.9 - Full incontinence of feces (8) Incontinence of urine Status: Chronic Code(s): R32 - Unspecified urinary incontinence (9) Malnutrition Status: Chronic Code(s): E46 - Unspecified protein-calorie malnutrition (10) Muscular dystrophy Status: Chronic Code(s): G71.0 - Muscular dystrophy Type of Wound Date of Service: 05/11/18 Chief Complaint: Pressure ulceration of the sacral area, stage I; stage 4 pressure ulcer left scapula History of Wound: A 72-year-old male who is a resident of [facility]. Patient presented to wound center d/t new decubitus to left scapula and old sacral wound reopened. He suffers from muscular dystrophy, and is severely impaired and immobilized. His muscular dystrophy was diagnosed in 1972. He has been bedridden and nonambulatory for a prolonged period of time, with severe muscle atrophy. Due to a lack of mobility and physical therapy, extremity joints are essentially frozen and immovable. The patient is extremely thin and emaciated, suggesting malnutrition and cachexia. He is incontinent of urine and stool, and wears a condom catheter. Patient was recently in [facility] ER on 04/15/2018 d/t concern for left scapular decubitus. Labs in ER without abnormality and was discharged back to nursing facility. Patient at nursing facility was placed on augmentin d/t cultures which showed rare microorganisms and was packing decubitus with aquacel and covered with allevyn. Denies any signs and symptoms of systemic or local infection. Patient does often lay on the affected left shoulder causing a constant pressure. He is noncompliant with off loading and frequent position changes. Progress of Wound: Sacral pressure ulcer healed, stage 4 scapula pressure ulcer stable without signs of infection at this time nursing states that wound edges are more red, has done well on wound vac, more granulatory tissue present, bone still exposed, vac has small amount of serosanguinous drainage. New pressure ulcer stage 2 on right lower back, has been going on approximately 1 week, nursing has been using hydrogel. No signs of systemic or localized infection at this time. - Physical Exam Vital Signs Temp Pulse Resp BP 98.4 F 95 18 133/72 H 05/11/18 14:33 05/11/18 14:33 05/11/18 14:33 05/11/18 14:33 General: Alert, Oriented x3, Cooperative, No apparent distress, - - cahectic and malnourished HEENT: Atraumatic Cardiovascular: Regular rate Skin: Ulcer/ Wound - left scapula stage 4 pressure ulcer with exposed bone present and slough, slightly erythematous wound edges, granulatory tissue present, undermining and tunneling present. Stage 2 pressure ulcer right lower b ack with adherant slough, no purulent drainage or redness present Musculoskeletal: Cachexia, Muscle Wasting Neurological: Neuro grossly intact Psych/Mental Status: Normal Affect, Appropriate, Alert and oriented to time, place, person, mood and affect Debridement Note Post-Debridement Measurements/Treatment WC - Nurse 2 - General Ulcer CM Notes Start: 04/20/18 14:11 Freq: Status: Active Protocol: Activity Type Activity Date Activity User E-Sign Co-Sign Detail Recorded Client Recorded Date Recorded By Document 04/20/18 15:48 [id number] 04/20/18 16:16 Document 04/27/18 15:22 [id number] 04/27/18 15:26 CS Document 05/04/18 16:15 DV [id number] 05/04/18 16:19 DV Document 05/11/18 14:53 [id number] 05/11/18 15:02 04/20/18 04/27/18 05/04/18 15:48 15:22 16:15 Wound Center Nurse 2 #5 RT LUMBAR -Time 16:15 -Correct Patient Yes -Correct Side, Site, Position -Correct Procedure -Procedure Performed No -Type of Procedure -Clinical Debridement -Post Debridement Size (cm) - Length -Post Debridement Size (cm) - Width -Post Debridement Size (cm) - Depth -Total Square Cm -Wound/Ulcer Outcome -Ulcer Cleansing Rinsed/ Irrigated with Saline -Foul Odor after Cleansing -Bioengineered Tissue -Bleeding Controlled with Pressure -Treatment Response Procedure Tolerated Well #4- LT SCAPULA -Time 15:53 15:25 16:16 -Correct Patient Yes Yes Yes -Correct Side, Site, Position Yes Yes Yes -Correct Procedure Yes Yes Yes -Procedure Performed Yes Yes Yes -Type of Procedure Debridement Debridement Debridement -Clinical Debridement Muscle Subcutaneous Subcutaneous -Post Debridement Size (cm) - Length 2.5 3.2 2.9 -Post Debridement Size (cm) - Width 3.2 3.5 2.6 -Post Debridement Size (cm) - Depth 2.4 2.0 1.4 -Total Square Cm 8.00 11.20 7.54 -Wound/Ulcer Outcome Not Healed Not Healed Not Healed -Ulcer Cleansing Rinsed/ Not Cleansed Rinsed/ Irrigated with Irrigated with Saline Saline -Foul Odor after Cleansing No No No -Bioengineered Tissue No No No -Topical Lidocaine (%) 4 -Lidocaine (ml) 10 -Bleeding Controlled with NA NA Pressure -Treatment Response Procedure Procedure Procedure Tolerated Well Tolerated Well Tolerated Well #3-right lumbar cluster -Time 15:54 -Correct Patient Yes -Correct Side, Site, Position Yes -Correct Procedure Yes -Procedure Performed No -Wound/Ulcer Outcome Not Healed -Ulcer Cleansing Rinsed/ Irrigated with Saline -Bioengineered Tissue No -Topical Lidocaine (%) 4 -Bleeding Controlled with NA -Treatment Response Procedure Tolerated Well Pain Scale: 0-10 Numeric Is Patient Pain Free? Yes Yes Yes 18 14:53 Wound Center Nurse 2 #5 RT LUMBAR -Time 14:53 -Correct Patient Yes -Correct Side, Site, Position Yes -Correct Procedure Yes -Procedure Performed Yes -Type of Procedure Debridement -Clinical Debridement Subcutaneous -Post Debridement Size (cm) - Length 1.4 -Post Debridement Size (cm) - Width 5.9 -Post Debridement Size (cm) - Depth 0.2 -Total Square Cm 8.26 -Wound/Ulcer Outcome Not Healed -Ulcer Cleansing Not Cleansed -Foul Odor after Cleansing No -Bioengineered Tissue No -Bleeding Controlled with Pressure -Treatment Response Procedure Tolerated Well #4- LT SCAPULA -Time 14:55 -Correct Patient Yes -Correct Side, Site, Position Yes -Correct Procedure Yes -Procedure Performed Yes -Type of Procedure Debridement -Clinical Debridement Subcutaneous -Post Debridement Size (cm) - Length 2.5 -Post Debridement Size (cm) - Width 1.8 -Post Debridement Size (cm) - Depth 1.2 -Total Square Cm 4.50 -Wound/Ulcer Outcome Not Healed -Ulcer Cleansing Not Cleansed -Foul Odor after Cleansing No -Bioengineered Tissue No -Topical Lidocaine (%) -Lidocaine (ml) -Bleeding Controlled with Pressure -Treatment Response Procedure Tolerated Well #3-right lumbar cluster -Time -Correct Patient -Correct Side, Site, Position -Correct Procedure -Procedure Performed -Wound/Ulcer Outcome -Ulcer Cleansing -Bioengineered Tissue -Topical Lidocaine (%) -Bleeding Controlled with -Treatment Response Pain Scale: 0-10 Numeric Is Patient Pain Free? No Wound debrided: Left stage 4 pressure ulcer of scapula Laterality: Left Type of Debridement: Excisional debridement Anesthesia Used: 5% Lidocaine Gel Depth: in the subcutaneous layer - debridement SQ, bone exposed however, to bone Percentage of wound debrided: 100 Instrument Used: 7mm curette Tissue Removed: slough and devitalized tissue Severity: Fat Layer Exposed Amount of bleeding with debridement: Mild Bleeding Controlled with: Pressure Patient tolerated procedure well - Additional Wound Wound debrided: right lumbar stage 2 pressure ulcer Laterality: Right Anesthesia Used: 5% Lidocaine Gel Depth: in the subcutaneous layer Percentage of wound debrided: 100 Instrument Used: 5mm curette Tissue Removed: slough and devitalized tissue Severity: Fat Layer Exposed Amount of bleeding with debridement: Mild Bleeding Controlled with: Pressure Patient tolerated procedure: Patient tolerated procedure well Assessment/Plan Assessment: See above diagnoses. Stage 4 pressure ulcer left scapula. Stage 2 pressure ulcer right lumbar region Plan: The patient was seen and examined at the wound center today and was updated on the plan of care. A subcutaneous debridement was performed today of the stage IV pressure ulcer in the scapular region. The patient tolerated the procedure well. The patients wound care will consist of: aquacell silver with optifoam over stage 2 pressure ulcer right lumbar region and to stage 4 scapular pressure ulcer, Packing with Aquacel and covering with Allevyn if vac is off, otherwise wound VAC to be applied at 125 mmhg with adaptic over bone. Wound cultures were collected previously and showed rare corybacterium, pt did just complete course of augmentin, due to nursing concern for infection, repeat culture collected. Baseline bloodwork reviewed and prealbumin low, encouraged patient to continue with protein supplementation at minimum TID. Patient educated on the importance of offloading, though due to his multiple comorbidities has been very noncompliant with this. Did discuss frequent position changes and offloading mechanisms, which he is noncompliant with. He is in a low air loss pressure mattress in his facility. Patient educated on the importance of diet on wound healing and instructed to increase protein and vitamin C intake. Instructed nursing personelle that they may use aquacell over superfical skin ulcerations that occur from pressure on buttocks. Patient verbalized understanding. Patient will follow up at wound healing center in one week or sooner if needed. Patient is currently on a palliative wound plan. This note was generated with [employer] dictation software. It may contain incorrect words, spelling, and punctuation that were not noted in checking the note before signing. Code Visit [id number]: 79442 Steph subq tissue 20 sq cm/<
== END 2018-05-14 23:59 ==
LOC: WC 14:30
PROVIDERS: Family Provider Family Medicine; PCP Family Medicine; Visit Provider Nurse Practitioner Family
DX: L89.124 Pressure ulcer of left upper back, stage 4 (principal); R15.9 Full incontinence of feces; R32 Unspecified urinary incontinence; G71.0 Muscular dystrophy; L89.151 Pressure ulcer of sacral region, stage 1; Z91.19 Patient's noncompliance with other medical treatment and regimen
CPT/HCPCS: 11042; 11043; 87070; 87075; 87077; 87205; 97605

== ENCOUNTER 2018-06-08 13:30 | Outpatient (RCR) | payer OTHER, SELFPAY ==
[2018-05-15 00:57] VITALS: BP 133/72; PULSE 95; RESP 18; TEMP 36.9
[2018-05-18 13:42] VITALS: BP 139/67; PULSE 101; RESP 20; TEMP 36.5
--- NOTE | 2018-05-23 09:23 | PN.PCM_ITS ---
(1) Pressure ulcer of left upper back, stage 4 Status: Acute Code(s): L89.124 - Pressure ulcer of left upper back, stage 4 (2) Pressure ulcer of right lower back, stage 2 Status: Acute Code(s): L89.132 - Pressure ulcer of right lower back, stage 2 (3) Cachexia Status: Chronic Code(s): R64 - Cachexia (4) Debility Status: Chronic Code(s): R53.81 - Other malaise (5) Immobility Status: Chronic Code(s): Z74.09 - Other reduced mobility (6) Incontinence of feces Status: Chronic Code(s): R15.9 - Full incontinence of feces (7) Incontinence of urine Status: Chronic Code(s): R32 - Unspecified urinary incontinence (8) Malnutrition Status: Chronic Code(s): E46 - Unspecified protein-calorie malnutrition (9) Muscular dystrophy Status: Chronic Code(s): G71.0 - Muscular dystrophy Type of Wound Date of Service: 05/18/18 Chief Complaint: Pressure ulceration of right lower back, stage 2; stage 4 pressure ulcer left scapula History of Wound: A 72-year-old male who is a resident of [facility]. Patient presented to wound center d/t new decubitus to left scapula and old sacral wound reopened. He suffers from muscular dystrophy, and is severely impaired and immobilized. His muscular dystrophy was diagnosed in 1972. He has been bedridden and nonambulatory for a prolonged period of time, with severe muscle atrophy. Due to a lack of mobility and physical therapy, extremity joints are essentially frozen and immovable. The patient is extremely thin and emaciated, suggesting malnutrition and cachexia. He is incontinent of urine and stool, and wears a condom catheter. Patient was recently in [facility] ER on 04/15/2018 d/t concern for left scapular decubitus. Labs in ER without abnormality and was discharged back to nursing facility. Patient at nursing facility was placed on augmentin d/t cultures which showed rare microorganisms and was packing decubitus with aquacel and covered with allevyn. Denies any signs and symptoms of systemic or local infection. Patient does often lay on the affected left shoulder causing a constant pressure. He is noncompliant with off loading and frequent position changes. Progress of Wound: Sacral pressure ulcer healed, stage 4 scapula pressure ulcer stable without signs of infection at this time, has done well on wound vac, more granulatory tissue present, bone still exposed, vac has small amount of serosanguinous drainage. Xray reviewed and WNL. No signs of systemic or localized infection at this time. Stage 2 right lower back pressure ulcer is now a cluster ulcer, still stage two with adherant slough present. No signs of infection at this time. - Physical Exam Vital Signs Temp Pulse Resp BP 97.7 F L 101 H 20 H 139/67 H 05/18/18 13:42 05/18/18 13:42 05/18/18 13:42 05/18/18 13:42 General: Alert, Oriented x3, Cooperative, No apparent distress, - - Malnourished and cachectic HEENT: Atraumatic Cardiovascular: Regular rate Skin: Ulcer/ Wound - Stage II pressure cluster ulcer present right lower back with adherent slough, no signs of infection at this time. Stage IV pressure ulcer left scapula, bone still exposed, however more granulation tissue, slightly erythematous wound edges, undermining still present, mild serosanguineous drainage. Neurological: Neuro grossly intact Psych/Mental Status: Normal Affect, Appropriate, Alert and oriented to time, place, person, mood and affect Debridement Note Post-Debridement Measurements/Treatment WC - Nurse 2 - General Ulcer CM Notes Start: 05/18/18 13:40 Freq: Status: Active Protocol: Activity Type Activity Date Activity User E-Sign Co-Sign Detail Recorded Client Recorded Date Recorded By Document 05/18/18 14:34 [id number] 05/18/18 14:35 [email or web address] 05/18/18 14:34 Wound Center Nurse 2 #5 RT LUMBAR -Time 14:34 -Correct Patient Yes -Correct Side, Site, Position Yes -Correct Procedure Yes -Procedure Performed Yes -Type of Procedure Debridement -Clinical Debridement Subcutaneous -Post Debridement Size (cm) - Length 1.2 -Post Debridement Size (cm) - Width 2.5 -Post Debridement Size (cm) - Depth 0.1 -Total Square Cm 3.00 -Wound/Ulcer Outcome Not Healed -Ulcer Cleansing Rinsed/ Irrigated with Saline -Foul Odor after Cleansing No -Bioengineered Tissue No -Topical Lidocaine (%) 5 -Bleeding Controlled with NA -Treatment Response Procedure Tolerated Well #4- LT SCAPULA -Time 14:35 -Correct Patient Yes -Correct Side, Site, Position Yes -Correct Procedure Yes -Procedure Performed Yes -Type of Procedure Debridement -Clinical Debridement Bone -Post Debridement Size (cm) - Length 2.5 -Post Debridement Size (cm) - Width 1.9 -Post Debridement Size (cm) - Depth 1.0 -Total Square Cm 4.75 -Wound/Ulcer Outcome Not Healed -Ulcer Cleansing Rinsed/ Irrigated with Saline -Foul Odor after Cleansing No -Bioengineered Tissue No -Topical Lidocaine (%) 4 -Bleeding Controlled with NA -Treatment Response Procedure Tolerated Well Pain Scale: 0-10 Numeric Is Patient Pain Free? Yes Wound debrided: Stage IV left scapular pressure ulcer Type of Debridement: Excisional debridement Anesthesia Used: 5% Lidocaine Gel Depth: in the subcutaneous layer - Bone is exposed Percentage of wound debrided: 100 Instrument Used: 5mm curette Tissue Removed: Slough and devitalized tissue Severity: Necrosis of Bone Amount of bleeding with debridement: Mild Bleeding Controlled with: Pressure Patient tolerated procedure well - Additional Wound Wound debrided: Stage II pressure ulcer right lower back Laterality: Right Type of Debridement: Excisional debridement Anesthesia Used: 5% Lidocaine Gel Depth: in the subcutaneous layer Percentage of wound debrided: 100 Instrument Used: 5mm curette Tissue Removed: Slough and devitalized tissue Severity: Fat Layer Exposed Amount of bleeding with debridement: Mild Bleeding Controlled with: Pressure Patient tolerated procedure: Patient tolerated procedure well Assessment/Plan Assessment: See above diagnoses Plan: The patient was seen and examined at the wound center today and was updated on the plan of care. A subcutaneous debridement was performed today of the stage IV pressure ulcer in the scapular region and a stage II pressure ulcer right lower back. The patient tolerated the procedure well. The patients wound care will consist of: Packing with Aquacel and covering with Allevyn if vac is off, otherwise wound VAC to be applied at 150 mmhg with adaptic over bone. Wound cultures were collected at previous visit and demonstrated anaerobic cocci to the stage IV pressure ulcer, therefore patient will be started on lateral 3 times daily times 10 days and Culturelle as well. Baseline bloodwork reviewed and prealbumin low, encouraged patient to continue with protein supplementation at minimum TID. Patient educated on the importance of offloading, though due to his multiple comorbidities has been very noncompliant with this. Did discuss frequent position changes and offloading mechanisms, which he is noncompliant with. He is in a low air loss pressure mattress in his facility. Patient educated on the importance of diet on wound healing and instructed to increase protein and vitamin C intake. Patient verbalized understanding. Patient will follow up at wound healing center in one week or sooner if needed. Patient is currently on a palliative wound plan. This note was generated with [employer] dictation software. It may contain incorrect words, spelling, and punctuation that were not noted in checking the note before signing. Code Visit 111xxx-[id number]: 05203 Steph subq tissue 20 sq cm/<
[2018-05-25 13:45] VITALS: BP 122/71; PULSE 95; RESP 16; TEMP 36.2
--- NOTE | 2018-05-29 08:48 | PN.PCM_ITS ---
(1) Pressure ulcer of left upper back, stage 4 Status: Acute Code(s): L89.124 - Pressure ulcer of left upper back, stage 4 (2) Pressure ulcer of right lower back, stage 2 Status: Acute Code(s): L89.132 - Pressure ulcer of right lower back, stage 2 (3) Cachexia Status: Chronic Code(s): R64 - Cachexia (4) Debility Status: Chronic Code(s): R53.81 - Other malaise (5) Immobility Status: Chronic Code(s): Z74.09 - Other reduced mobility (6) Incontinence of feces Status: Chronic Code(s): R15.9 - Full incontinence of feces (7) Incontinence of urine Status: Chronic Code(s): R32 - Unspecified urinary incontinence (8) Malnutrition Status: Chronic Code(s): E46 - Unspecified protein-calorie malnutrition (9) Muscular dystrophy Status: Chronic Code(s): G71.0 - Muscular dystrophy Type of Wound Date of Service: 05/25/18 Chief Complaint: Pressure ulceration of right lower back, stage 2; stage 4 pressure ulcer left scapula History of Wound: A 72-year-old male who is a resident of [facility]. Patient presented to wound center d/t new decubitus to left scapula and old sacral wound reopened. He suffers from muscular dystrophy, and is severely impaired and immobilized. His muscular dystrophy was diagnosed in 1972. He has been bedridden and nonambulatory for a prolonged period of time, with severe muscle atrophy. Due to a lack of mobility and physical therapy, extremity joints are essentially frozen and immovable. The patient is extremely thin and emaciated, suggesting malnutrition and cachexia. He is incontinent of urine and stool, and wears a condom catheter. Patient was recently in [facility] ER on 04/15/2018 d/t concern for left scapular decubitus. Labs in ER without abnormality and was discharged back to nursing facility. Patient at nursing facility was placed on augmentin d/t cultures which showed rare microorganisms and was packing decubitus with aquacel and covered with allevyn. Denies any signs and symptoms of systemic or local infection. Patient does often lay on the affected left shoulder causing a constant pressure. He is noncompliant with off loading and frequent position changes. Progress of Wound: Sacral pressure ulcer healed, stage 4 scapula pressure ulcer stable without signs of infection at this time, has done well on wound vac, more granulatory tissue present, bone still exposed, vac has small amount of serosanguinous drainage. Xray reviewed and WNL. No signs of systemic or localized infection at this time. Stage 2 right lower lumbar pressure ulcer is stable with adherant slough present. No signs of infection at this time. - Physical Exam Vital Signs Temp Pulse Resp BP 97.1 F L 95 16 122/71 H 05/25/18 13:45 05/25/18 13:45 05/25/18 13:45 05/25/18 13:45 General: Alert, Oriented x3, Cooperative, No apparent distress HEENT: Atraumatic Cardiovascular: Regular rate Extremities: No clubbing, No cyanosis, No edema Skin: Ulcer/ Wound - Stage IV pressure ulcer present left scapula with adherent slough, bone still exposed at 7:00, no signs of infection, mild serosanguineous discharge present, stage II pressure ulcer right lumbar with adherent slough, wound bed slightly erythematous, minimal serous drainage, no other signs of infection at this time. Musculoskeletal: Cachexia, Muscle Wasting Neurological: - - nonambulatory Psych/Mental Status: Normal Affect, Appropriate, Alert and oriented to time, place, person, mood and affect Debridement Note Post-Debridement Measurements/Treatment WC - Nurse 2 - General Ulcer CM Notes Start: 05/18/18 13:40 Freq: Status: Active Protocol: Activity Type Activity Date Activity User E-Sign Co-Sign Detail Recorded Client Recorded Date Recorded By Document 05/18/18 14:34 [id number] 05/18/18 14:35 Document 05/25/18 14:36 [id number] 05/25/18 14:39 05/18/18 05/25/18 14:34 14:36 Wound Center Nurse 2 #5 RT LUMBAR -Time 14:34 14:36 -Correct Patient Yes Yes -Correct Side, Site, Position Yes Yes -Correct Procedure Yes Yes -Procedure Performed Yes Yes -Type of Procedure Debridement Debridement -Clinical Debridement Subcutaneous Subcutaneous -Post Debridement Size (cm) - Length 1.2 0.9 -Post Debridement Size (cm) - Width 2.5 0.5 -Post Debridement Size (cm) - Depth 0.1 0.2 -Total Square Cm 3.00 0.45 -Wound/Ulcer Outcome Not Healed Not Healed -Ulcer Cleansing Rinsed/ Rinsed/ Irrigated with Irrigated with Saline Saline -Foul Odor after Cleansing No No -Bioengineered Tissue No No -Topical Lidocaine (%) 5 4 -Bleeding Controlled with NA Pressure -Treatment Response Procedure Procedure Tolerated Well Tolerated Well #4- LT SCAPULA -Time 14:35 14:36 -Correct Patient Yes Yes -Correct Side, Site, Position Yes Yes -Correct Procedure Yes Yes -Procedure Performed Yes Yes -Type of Procedure Debridement Debridement -Clinical Debridement Bone Subcutaneous -Post Debridement Size (cm) - Length 2.5 2.1 -Post Debridement Size (cm) - Width 1.9 1.9 -Post Debridement Size (cm) - Depth 1.0 0.7 -Total Square Cm 4.75 3.99 -Wound/Ulcer Outcome Not Healed Not Healed -Ulcer Cleansing Rinsed/ Rinsed/ Irrigated with Irrigated with Saline Saline -Foul Odor after Cleansing No No -Bioengineered Tissue No No -Topical Lidocaine (%) 4 4 -Bleeding Controlled with NA Pressure -Other UNDERMINING@6-7 (1.2CM) TUNNELING@12 (2 .4CM) -Treatment Response Procedure Procedure Tolerated Well Tolerated Well Pain Scale: 0-10 Numeric Is Patient Pain Free? Yes Yes Wound debrided: Stage IV left scapular pressure ulcer Type of Debridement: Excisional debridement Anesthesia Used: 5% Lidocaine Gel Depth: in the subcutaneous layer Percentage of wound debrided: 100 Instrument Used: 7mm curette Tissue Removed: Slough and devitalized tissue Severity: Fat Layer Exposed Amount of bleeding with debridement: Mild Bleeding Controlled with: Pressure Patient tolerated procedure well - Additional Wound Wound debrided: Stage II right lumbar pressure ulcer Type of Debridement: Excisional debridement Anesthesia Used: 5% Lidocaine Gel Depth: in the subcutaneous layer Percentage of wound debrided: 100 Instrument Used: 5mm curette Tissue Removed: Slough and devitalized tissue Severity: Fat Layer Exposed Amount of bleeding with debridement: Mild Bleeding Controlled with: Pressure Patient tolerated procedure: Patient tolerated procedure well Assessment/Plan Assessment: See above diagnoses Plan: The patient was seen and examined at the wound center today and was updated on the plan of care. A subcutaneous debridement was performed today of the stage IV pressure ulcer in the scapular region and a stage II pressure ulcer right lower back. The patient tolerated the procedure well. The patients wound care will consist of: Packing with Aquacel and covering with Allevyn if vac is off, otherwise wound VAC to be applied at 150 mmhg with adaptic over bone. Wound cultures were collected at previous visit and demonstrated anaerobic cocci to the stage IV pressure ulcer, therefore patient was started on flagyl 3 times daily times 10 days and Culturelle and has been tolerating well, previously completed a course of augmentin by pcp. Baseline bloodwork reviewed and prealbumin low, encouraged patient to continue with protein supplementation at minimum TID. Patient educated on the importance of offloading, though due to his multiple comorbidities has been very noncompliant with this. Did discuss frequent position changes and offloading mechanisms, which he is noncompliant with. He is in a low air loss pressure mattress in his facility. Patient edu cated on the importance of diet on wound healing and instructed to increase protein and vitamin C intake. Patient verbalized understanding. Patient will follow up at wound healing center in one week or sooner if needed. Patient is currently on a palliative wound plan. This note was generated with [employer] dictation software. It may contain incorrect words, spelling, and punctuation that were not noted in checking the note before signing. Code Visit 111xxx-113xx: [id number] Steph subq tissue 20 sq cm/<
[2018-06-08 13:51] VITALS: BP 100/59; PULSE 89; RESP 16; TEMP 37
--- NOTE | 2018-06-09 15:03 | PCM.WC.PN ---
(1) Pressure ulcer of left upper back, stage 4 Status: Acute Current Visit: Yes Code(s): L89.124 - Pressure ulcer of left upper back, stage 4 (2) Pressure ulcer of right lower back, stage 2 Status: Acute Current Visit: Yes Code(s): L89.132 - Pressure ulcer of right lower back, stage 2 (3) Cachexia Status: Chronic Current Visit: Yes Code(s): R64 - Cachexia (4) Debility Status: Chronic Current Visit: Yes Code(s): R53.81 - Other malaise (5) Immobility Status: Chronic Current Visit: Yes Code(s): Z74.09 - Other reduced mobility (6) Incontinence of feces Status: Chronic Current Visit: Yes Code(s): R15.9 - Full incontinence of feces (7) Incontinence of urine Status: Chronic Current Visit: Yes Code(s): R32 - Unspecified urinary incontinence (8) Malnutrition Status: Chronic Current Visit: Yes Code(s): E46 - Unspecified protein-calorie malnutrition (9) Muscular dystrophy Status: Chronic Current Visit: Yes Code(s): G71.0 - Muscular dystrophy Type of Wound Date of Service: 06/08/18 Chief Complaint: Pressure ulceration of right lower back, stage 2; stage 4 pressure ulcer left scapula History of Wound: A 72-year-old male who is a resident of [facility]. Patient presented to wound center d/t new decubitus to left scapula and old sacral wound reopened. He suffers from muscular dystrophy, and is severely impaired and immobilized. His muscular dystrophy was diagnosed in 1972. He has been bedridden and nonambulatory for a prolonged period of time, with severe muscle atrophy. Due to a lack of mobility and physical therapy, extremity joints are essentially frozen and immovable. The patient is extremely thin and emaciated, suggesting malnutrition and cachexia. He is incontinent of urine and stool, and wears a condom catheter. Patient was recently in [facility] ER on 04/15/2018 d/t concern for left scapular decubitus. Labs in ER without abnormality and was discharged back to nursing facility. Patient at nursing facility was placed on augmentin d/t cultures which showed rare microorganisms and was packing decubitus with aquacel and covered with allevyn. Denies any signs and symptoms of systemic or local infection. Patient does often lay on the affected left shoulder causing a constant pressure. He is noncompliant with off loading and frequent position changes. Progress of Wound: Sacral pressure ulcer healed, stage 4 scapula pressure ulcer stable without signs of infection at this time, has done well on wound vac, more granulatory tissue present, bone still exposed, vac has small amount of serosanguinous drainage. VAC foam was misplaced this last week and damaged some surrounding viable tissue. Otherwise doing well.No signs of systemic or localized infection at this time. Stage 2 right lower lumbar pressure ulcer is stable with adherant slough present. No signs of infection at this time. - Physical Exam Vital Signs Temp Pulse Resp BP 98.6 F 89 16 100/59 L 06/08/18 13:51 06/08/18 13:51 06/08/18 13:51 06/08/18 13:51 General: Alert, Oriented x3, Cooperative, No apparent distress HEENT: Atraumatic Cardiovascular: Regular rate Extremities: No clubbing, No cyanosis Skin: Ulcer/ Wound - left stage 4 scapular ulcer with adherant slough and devitalized tissue, some damaged external tissue at 7-10 oclock, bone still exposed at 5 oclock. Stage 2 pressure ulcer right lumbar with adherant slough, no signs of infection, no malodor Wound Measurements and Assessment WC - Nurse 1 - General Ulcer Measurement Start: 05/18/18 13:40 Freq: Status: Active Protocol: Activity Type Activity Date Activity User E-Sign Co-Sign Detail Recorded Client Recorded Date Recorded By Document 06/08/18 13:[address] [facility] [id number] 06/08/18 14:[address] [facility] 06/08/18 13:51 Wound Center Nurse 1 [Ulcer Assessment] #5 RT LUMBAR -Combined with other wound No -Current Size (cm) - Length 1.8 -Current Size (cm) - Width 1 -Current Size (cm) - Depth 0.1 -Total Square Cm 1.8 -Date of Last Picture (Recall this 06/08/18 field) -Photo Taken Yes -Epithelialization None Present -Tunneling No -Undermining/Tunneling No -Circular Undermining No -Exudate Amt Medium (34-66%) -Exudate Type Yellow/Green -Wound Margin Distinct, Outline Attached -Granulation Amt Large (67-100%) -Granulation Quality Red -Slough/Fibrin Yes -Necrosis Amt Small (1-33%) -Necrotic Tissue Type Adherent Slough -Texture (Jeanine-wound Skin Appearance) Scarring -Moisture (Jeanine-wound Skin Appearance Dry/Scaly ) -Color (Jeanine-wound Skin Appearance) Erythema -Temperature (Jeanine-wound Skin No Abnormality Appearance) (Pt Warm) -Tenderness on Palpation (Jeanine-wound No Skin Appearance) -Ulcer Cleansing Rinsed/ Irrigated with Saline -Foul Odor after Cleansing No -Anesthetic Used 4% Lidocaine Solution #4- LT SCAPULA -Combined with other wound No -Current Size (cm) - Length 1.8 -Current Size (cm) - Width 1.8 -Current Size (cm) - Depth 0.4 -Total Square Cm 3.24 -Photo Taken No -Epithelialization None Present -Tunneling Yes -Tunneling Position (O'clock) 1 -Tunneling Distance (cm) 0.8 -Undermining/Tunneling Yes -Undermining/Tunneling Starts (O' 12 clock) -Undermining/Tunneling Ends (O'clock) 9 -Maximum Distance (cm) 0.6 -Exudate Amt None Present (0 %) -Wound Margin Distinct, Outline Attached -Granulation Amt Large (67-100%) -Granulation Quality [place] Red -Slough/Fibrin Yes -Necrosis Amt Small (1-33%) -Necrotic Tissue Type Adherent Slough -Texture (Jeanine-wound Skin Appearance) Scarring -Moisture (Jeanine-wound Skin Appearance Assessed ) -Color (Jeanine-wound Skin Appearance) Assessed -Temperature (Jeanine-wound Skin No Abnormality Appearance) (Pt Warm) -Tenderness on Palpation (Jeanine-wound No Skin Appearance) -Ulcer Cleansing Rinsed/ Irrigated with Saline -Foul Odor after Cleansing No -Anesthetic Used 4% Lidocaine Solution Musculoskeletal: Cachexia Neurological: - - immobile Psych/Mental Status: Normal Affect, Appropriate, Alert and oriented to time, place, person, mood and affect Debridement Note Post-Debridement Measurements/Treatment WC - Nurse 2 - General Ulcer CM Notes Start: 05/18/18 13:40 Freq: Status: Active Protocol: Activity Type Activity Date Activity User E-Sign Co-Sign Detail Recorded Client Recorded Date Recorded By Document 05/18/18 14:34 JS [id number] 05/18/18 14:35 JS Document 05/25/18 14:36 [id number] 05/25/18 14:39 TM 05/18/18 05/25/18 14:34 14:36 Wound Center Nurse 2 #5 RT LUMBAR -Time 14:34 14:36 -Correct Patient Yes Yes -Correct Side, Site, Position Yes Yes -Correct Procedure Yes Yes -Procedure Performed Yes Yes -Type of Procedure Debridement Debridement -Clinical Debridement Subcutaneous Subcutaneous -Post Debridement Size (cm) - Length 1.2 0.9 -Post Debridement Size (cm) - Width 2.5 0.5 -Post Debridement Size (cm) - Depth 0.1 0.2 -Total Square Cm 3.00 0.45 -Wound/Ulcer Outcome Not Healed Not Healed -Ulcer Cleansing Rinsed/ Rinsed/ Irrigated with Irrigated with Saline Saline -Foul Odor after Cleansing No No -Bioengineered Tissue No No -Topical Lidocaine (%) 5 4 -Bleeding Controlled with NA Pressure -Treatment Response Procedure Procedure Tolerated Well Tolerated Well #4- LT SCAPULA -Time 14:35 14:36 -Correct Patient Yes Yes -Correct Side, Site, Position Yes Yes -Correct Procedure Yes Yes -Procedure Performed Yes Yes -Type of Procedure Debridement Debridement -Clinical Debridement Bone Subcutaneous -Post Debridement Size (cm) - Length 2.5 2.1 -Post Debridement Size (cm) - Width 1.9 1.9 -Post Debridement Size (cm) - Depth 1.0 0.7 -Total Square Cm 4.75 3.99 -Wound/Ulcer Outcome Not Healed Not Healed -Ulcer Cleansing Rinsed/ Rinsed/ Irrigated with Irrigated with Saline Saline -Foul Odor after Cleansing No No -Bioengineered Tissue No No -Topical Lidocaine (%) 4 4 -Bleeding Controlled with NA Pressure -Other UNDERMINING@6-7 (1.2CM) TUNNELING@12 (2 .4CM) -Treatment Response Procedure Procedure Tolerated Well Tolerated Well Pain Scale: 0-10 Numeric Is Patient Pain Free? Yes Yes Wound debrided: right stage 2 lumbar pressure ulcer Laterality: Right Type of Debridement: Excisional debridement Anesthesia Used: 5% Lidocaine Gel Depth: in the subcutaneous layer Percentage of wound debrided: 100 Instrument Used: 5mm curette Tissue Removed: slough and devitalized tissue Severity: Fat Layer Exposed Amount of bleeding with debridement: Mild Bleeding Controlled with: Pressure Patient tolerated procedure well - Additional Wound Wound debrided: left scapular pressure ulcer stage 4 Laterality: Left Type of Debridement: Excisional debridement Anesthesia Used: 5% Lidocaine Gel Depth: to bone Percentage of wound debrided: 100 Instrument Used: 5mm curette Tissue Removed: slough and devitalized tissue Severity: Necrosis of Bone Amount of bleeding with debridement: Mild Bleeding Controlled with: Pressure Patient tolerated procedure: Patient tolerated procedure well Assessment/Plan Active Problems Muscular dystrophy (Chronic) Debility (Chronic) Immobility (Chronic) Malnutrition (Chronic) Incontinence of feces (Chronic) Incontinence of urine (Chronic) Cachexia (Chronic) Pressure ulcer of left upper back, stage 4 (Acute) Pressure ulcer of right lower back, stage 2 (Acute) Assessment: See above diagnoses Plan: The patient was seen and examined at the wound center today and was updated on the plan of care. A subcutaneous debridement was performed today of the stage IV pressure ulcer in the scapular region and a stage II pressure ulcer right lower back. The patient tolerated the procedure well. The patients wound care will consist of: Packing with Aquacel and covering with Allevyn if vac is off, otherwise wound VAC to be applied at 150 mmhg with adaptic over bone. Wound cultures were collected at previous visit and demonstrated anaerobic cocci to the stage IV pressure ulcer, therefore patient was started on flagyl 3 times daily times 10 days and Culturelle and has completed, previously completed a course of augmentin by pcp.D/t cotyden, may consider applying for purraply at next visit. Baseline bloodwork reviewed and prealbumin low, encouraged patient to continue with protein supplementation at minimum TID. Patient educated on the importance of offloading, though due to his multiple comorbidities has been very noncompliant with this. Did discuss frequent position changes and offloading mechanisms, which he is noncompliant with. He is in a low air loss pressure mattress in his facility. Patient educated on the importance of diet on wound healing and instructed to increase protein and vitamin C intake. Patient verbalized understanding. Patient will follow up at wound healing center in one week or sooner if needed. Patient is currently on a palliative wound plan. This note was generated with [employer] software. It may contain incorrect words, spelling, and punctuation that were not noted in checking the note before signing. Code Visit 111xxx-113xx: 51005 Steph subq tissue 20 sq cm/<
--- NOTE | 2018-06-09 15:08 | PN.PCM_ITS ---
(1) Pressure ulcer of left upper back, stage 4 Status: Acute Current Visit: Yes Code(s): L89.124 - Pressure ulcer of left upper back, stage 4 (2) Pressure ulcer of right lower back, stage 2 Status: Acute Current Visit: Yes Code(s): L89.132 - Pressure ulcer of right lower back, stage 2 (3) Cachexia Status: Chronic Current Visit: Yes Code(s): R64 - Cachexia (4) Debility Status: Chronic Current Visit: Yes Code(s): R53.81 - Other malaise (5) Immobility Status: Chronic Current Visit: Yes Code(s): Z74.09 - Other reduced mobility (6) Incontinence of feces Status: Chronic Current Visit: Yes Code(s): R15.9 - Full incontinence of feces (7) Incontinence of urine Status: Chronic Current Visit: Yes Code(s): R32 - Unspecified urinary incontinence (8) Malnutrition Status: Chronic Current Visit: Yes Code(s): E46 - Unspecified protein- calorie malnutrition (9) Muscular dystrophy Status: Chronic Current Visit: Yes Code(s): G71.0 - Muscular dystrophy Type of Wound Date of Service: 06/08/18 Chief Complaint: Pressure ulceration of right lower back, stage 2; stage 4 pressure ulcer left scapula History of Wound: A 72-year-old male who is a resident of [facility]. Patient presented to wound center d/t new decubitus to left scapula and old sacral wound reopened. He suffers from muscular dystrophy, and is severely impaired and immobilized. His muscular dystrophy was diagnosed in 1972. He has been bedridden and nonambulatory for a prolonged period of time, with severe muscle atrophy. Due to a lack of mobility and physical therapy, extremity joints are essentially frozen and immovable. The patient is extremely thin and emaciated, suggesting malnutrition and cachexia. He is incontinent of urine and stool, and wears a condom catheter. Patient was recently in [facility] ER on 04/15/2018 d/t concern for left scapular decubitus. Labs in ER without abnormality and was discharged back to nursing facility. Patient at nursing facility was placed on augmentin d/t cultures which showed rare microorganisms and was packing decubitus with aquacel and covered with allevyn. Denies any signs and symptoms of systemic or local infection. Patient does often lay on the affected left shoulder causing a constant pressure. He is noncompliant with off loading and frequent position changes. Progress of Wound: Sacral pressure ulcer healed, stage 4 scapula pressure ulcer stable without signs of infection at this time, has done well on wound vac, more granulatory tissue present, bone still exposed, vac has small amount of serosanguinous drainage. VAC foam was misplaced this last week and damaged some surrounding viable tissue. Otherwise doing well.No signs of systemic or localized infection at this time. Stage 2 right lower lumbar pressure ulcer is stable with adherant slough present. No signs of infection at this time. - Physical Exam Vital Signs Temp Pulse Resp BP 98.6 F 89 16 100/59 L 06/08/18 13:51 06/08/18 13:51 06/08/18 13:51 06/08/18 13:51 General: Alert, Oriented x3, Cooperative, No apparent distress HEENT: Atraumatic Cardiovascular: Regular rate Extremities: No clubbing, No cyanosis Skin: Ulcer/ Wound - left stage 4 scapular ulcer with adherant slough and devitalized tissue, some damaged external tissue at 7-10 oclock, bone still exposed at 5 oclock. Stage 2 pressure ulcer right lumbar with adherant slough, no signs of infection, no malodor Wound Measurements and Assessment WC - Nurse 1 - General Ulcer Measurement Start: 05/18/18 13:40 Freq: Status: Active Protocol: Activity Type Activity Date Activity User E-Sign Co-Sign Detail Recorded Client Recorded Date Recorded By Document 06/08/18 13:51 [facility] [id number] 06/08/18 14:02 [facility] 06/08/18 13:51 Wound Center Nurse 1 [Ulcer Assessment] #5 RT LUMBAR -Combined with other wound No -Current Size (cm) - Length 1.8 -Current Size (cm) - Width 1 -Current Size (cm) - Depth 0.1 -Total Square Cm 1.8 -Date of Last Picture (Recall this 06/08/18 field) -Photo Taken Yes -Epithelialization None Present -Tunneling No -Undermining/Tunneling No -Circular Undermining No -Exudate Amt Medium (34-66%) -Exudate Type Yellow/Green -Wound Margin Distinct, Outline Attached -Granulation Amt Large (67-100%) -Granulation Quality Red -Slough/Fibrin Yes -Necrosis Amt Small (1-33%) -Necrotic Tissue Type Adherent Slough -Texture (Jeanine-wound Skin Appearance) Scarring -Moisture (Jeanine-wound Skin Appearance Dry/Scaly ) -Color (Jeanine-wound Skin Appearance) Erythema -Temperature (Jeanine-wound Skin No Abnormality Appearance) (Pt Warm) -Tenderness on Palpation (Jeanine-wound No Skin Appearance) -Ulcer Cleansing Rinsed/ Irrigated with Saline -Foul Odor after Cleansing No -Anesthetic Used 4% Lidocaine Solution #4- LT SCAPULA -Combined with other wound No -Current Size (cm) - Length 1.8 -Current Size (cm) - Width 1.8 -Current Size (cm) - Depth 0.4 -Total Square Cm 3.24 -Photo Taken No -Epithelialization None Present -Tunneling Yes -Tunneling Position (O'clock) 1 -Tunneling Distance (cm) 0.8 -Undermining/Tunneling Yes -Undermining/Tunneling Starts (O' 12 clock) -Undermining/Tunneling Ends (O'clock) 9 -Maximum Distance (cm) 0.6 -Exudate Amt None Present (0 %) -Wound Margin Distinct, Outline Attached -Granulation Amt Large (67-100%) -Granulation Quality [place] Red -Slough/Fibrin Yes -Necrosis Amt Small (1-33%) -Necrotic Tissue Type Adherent Slough -Texture (Jeanine-wound Skin Appearance) Scarring -Moisture (Jeanine-wound Skin Appearance Assessed ) -Color (Jeanine-wound Skin Appearance) Assessed -Temperature (Jeanine-wound Skin No Abnormality Appearance) (Pt Warm) -Tenderness on Palpation (Jeanine-wound No Skin Appearance) -Ulcer Cleansing Rinsed/ Irrigated with Saline -Foul Odor after Cleansing No -Anesthetic Used 4% Lidocaine Solution Musculoskeletal: Cachexia Neurological: - - immobile Psych/Mental Status: Normal Affect, Appropriate, Alert and oriented to time, place, person, mood and affect Debridement Note Post-Debridement Measurements/Treatment WC - Nurse 2 - General Ulcer CM Notes Start: 05/18/18 13:40 Freq: Status: Active Protocol: Activity Type Activity Date Activity User E-Sign Co-Sign Detail Recorded Client Recorded Date Recorded By Document 05/18/18 14:34 JS [id number] 05/18/18 14:35 JS Document 05/25/18 14:36 [id number] 05/25/18 14:39 TM 05/18/18 05/25/18 14:34 14:36 Wound Center Nurse 2 #5 RT LUMBAR -Time 14:34 14:36 -Correct Patient Yes Yes -Correct Side, Site, Position Yes Yes -Correct Procedure Yes Yes -Procedure Performed Yes Yes -Type of Procedure Debridement Debridement -Clinical Debridement Subcutaneous Subcutaneous -Post Debridement Size (cm) - Length 1.2 0.9 -Post Debridement Size (cm) - Width 2.5 0.5 -Post Debridement Size (cm) - Depth 0.1 0.2 -Total Square Cm 3.00 0.45 -Wound/Ulcer Outcome Not Healed Not Healed -Ulcer Cleansing Rinsed/ Rinsed/ Irrigated with Irrigated with Saline Saline -Foul Odor after Cleansing No No -Bioengineered Tissue No No -Topical Lidocaine (%) 5 4 -Bleeding Controlled with NA Pressure -Treatment Response Procedure Procedure Tolerated Well Tolerated Well #4- LT SCAPULA -Time 14:35 14:36 -Correct Patient Yes Yes -Correct Side, Site, Position Yes Yes -Correct Procedure Yes Yes -Procedure Performed Yes Yes -Type of Procedure Debridement Debridement -Clinical Debridement Bone Subcutaneous -Post Debridement Size (cm) - Length 2.5 2.1 -Post Debridement Size (cm) - Width 1.9 1.9 -Post Debridement Size (cm) - Depth 1.0 0.7 -Total Square Cm 4.75 3.99 -Wound/Ulcer Outcome Not Healed Not Healed -Ulcer Cleansing Rinsed/ Rinsed/ Irrigated with Irrigated with Saline Saline -Foul Odor after Cleansing No No -Bioengineered Tissue No No -Topical Lidocaine (%) 4 4 -Bleeding Controlled with NA Pressure -Other UNDERMINING@6-7 (1.2CM) TUNNELING@12 (2 .4CM) -Treatment Response Procedure Procedure Tolerated Well Tolerated Well Pain Scale: 0-10 Numeric Is Patient Pain Free? Yes Yes Wound debrided: right stage 2 lumbar pressure ulcer Laterality: Right Type of Debridement: Excisional debridement Anesthesia Used: 5% Lidocaine Gel Depth: in the subcutaneous layer Percentage of wound debrided: 100 Instrument Used: 5mm curette Tissue Removed: slough and devitalized tissue Severity: Fat Layer Exposed Amount of bleeding with debridement: Mild Bleeding Controlled with: Pressure Patient tolerated procedure well - Additional Wound Wound debrided: left scapular pressure ulcer stage 4 Laterality: Left Type of Debridement: Excisional debridement Anesthesia Used: 5% Lidocaine Gel Depth: to bone Percentage of wound debrided: 100 Instrument Used: 5mm curette Tissue Removed: slough and devitalized tissue Severity: Necrosis of Bone Amount of bleeding with debridement: Mild Bleeding Controlled with: Pressure Patient tolerated procedure: Patient tolerated procedure well Assessment/Plan Active Problems Muscular dystrophy (Chronic) Debility (Chronic) Immobility (Chronic) Malnutrition (Chronic) Incontinence of feces (Chronic) Incontinence of urine (Chronic) Cachexia (Chronic) Pressure ulcer of left upper back, stage 4 (Acute) Pressure ulcer of right lower back, stage 2 (Acute) Assessment: See above diagnoses Plan: The patient was seen and examined at the wound center today and was updated on the plan of care. A subcutaneous debridement was performed today of the stage IV pressure ulcer in the scapular region and a stage II pressure ulcer right lower back. The patient tolerated the procedure well. The patients wound care will consist of: Packing with Aquacel and covering with Allevyn if vac is off, otherwise wound VAC to be applied at 150 mmhg with adaptic over bone. Wound cultures were collected at previous visit and demonstrated anaerobic cocci to the stage IV pressure ulcer, therefore patient was started on flagyl 3 times daily times 10 days and Culturelle and has completed, previously completed a course of augmentin by pcp.D/t cotyden, may consider applying for purraply at next visit. Baseline bloodwork reviewed and prealbumin low, encouraged patient to continue with protein supplementation at minimum TID. Patient educated on the importance of offloading, though due to his multiple comorbidities has been very noncompliant with this. Did discuss frequent position changes and offloading mechanisms, which he is noncompliant with. He is in a low air loss pressure mattress in his facility. Patient educated on the importance of diet on wound healing and instructed to increase protein and vitamin C intake. Patient verbalized understanding. Patient will follow up at wound healing center in one week or sooner if needed. Patient is currently on a palliative wound plan. This note was generated with [employer] software. It may contain incorrect words, spelling, and punctuation that were not noted in checking the note before signing. Code Visit 111xxx-113xx: 11405 Steph subq tissue 20 sq cm/<
== END 2018-06-14 23:59 ==
LOC: WC 13:30
PROVIDERS: Family Provider Family Medicine; PCP Family Medicine; Visit Provider Nurse Practitioner Family
DX: L89.124 Pressure ulcer of left upper back, stage 4 (principal); L89.132 Pressure ulcer of right lower back, stage 2; R64 Cachexia; R15.9 Full incontinence of feces; R32 Unspecified urinary incontinence; G71.00 Muscular dystrophy, unspecified
CPT/HCPCS: 11042; 97605

== ENCOUNTER 2018-07-13 13:30 | Outpatient (RCR) | payer OTHER, SELFPAY ==
[2018-06-15 01:00] VITALS: BP 100/59; PULSE 89; RESP 16; TEMP 37
[2018-06-15 13:45] VITALS: BP 137/73; PULSE 103; RESP 18; TEMP 36.6
--- NOTE | 2018-06-15 20:27 | PCM.WC.PN ---
(1) Pressure ulcer of left upper back, stage 4 Status: Acute Code(s): L89.124 - Pressure ulcer of left upper back, stage 4 (2) Pressure ulcer of right lower back, stage 2 Status: Acute Code(s): L89.132 - Pressure ulcer of right lower back, stage 2 (3) Cachexia Status: Chronic Code(s): R64 - Cachexia (4) Debility Status: Chronic Code(s): R53.81 - Other malaise (5) Immobility Status: Chronic Code(s): Z74.09 - Other reduced mobility (6) Incontinence of feces Status: Chronic Code(s): R15.9 - Full incontinence of feces (7) Incontinence of urine Status: Chronic Code(s): R32 - Unspecified urinary incontinence (8) Malnutrition Status: Chronic Code(s): E46 - Unspecified protein-calorie malnutrition (9) Muscular dystrophy Status: Chronic Code(s): G71.0 - Muscular dystrophy Type of Wound Date of Service: 06/15/18 Chief Complaint: Pressure ulceration of right lower back, stage 2; stage 4 pressure ulcer left scapula History of Wound: A 72-year-old male who is a resident of [facility]. Patient presented to wound center d/t new decubitus to left scapula and old sacral wound reopened. He suffers from muscular dystrophy, and is severely impaired and immobilized. His muscular dystrophy was diagnosed in 1972. He has been bedridden and nonambulatory for a prolonged period of time, with severe muscle atrophy. Due to a lack of mobility and physical therapy, extremity joints are essentially frozen and immovable. The patient is extremely thin and emaciated, suggesting malnutrition and cachexia. He is incontinent of urine and stool, and wears a condom catheter. Patient was recently in [facility] ER on 04/15/2018 d/t concern for left scapular decubitus. Labs in ER without abnormality and was discharged back to nursing facility. Patient at nursing facility was placed on augmentin d/t cultures which showed rare microorganisms and was packing decubitus with aquacel and covered with allevyn. Denies any signs and symptoms of systemic or local infection. Patient does often lay on the affected left shoulder causing a constant pressure. He is noncompliant with off loading and frequent position changes. Progress of Wound: Sacral pressure ulcer healed, stage 4 scapula pressure ulcer stable without signs of infection at this time, has done well on wound vac, more granulatory tissue present, bone still exposed, vac has small amount of serosanguinous drainage. No signs of systemic or localized infection at this time. Stage 2 right lower lumbar pressure ulcer is stable with adherant slough present. No signs of infection at this time. - Physical Exam Vital Signs Temp Pulse Resp BP 97.8 F 103 H 18 137/73 H 06/15/18 13:45 06/15/18 13:45 06/15/18 13:45 06/15/18 13:45 General: Alert, Oriented x3, Cooperative, No apparent distress HEENT: Atraumatic Oral: Moist Mucosa Cardiovascular: Regular rate Abdomen: - - Condom cath in place Extremities: No clubbing, No cyanosis, No edema Skin: Ulcer/ Wound - Stage IV pressure ulcer present left scapula, adherent slough present and bone still exposed in the 6 and 7:00 range, less tunneling and less undermining, no signs of gross infection at this time, mild serous drainage, stage II right lower back pressure ulcer with adherent slough present, still an area of high pressure and patient not consistent with offloading, no signs of infection at this time Neurological: - - Patient nonambulatory Psych/Mental Status: Flat Affect, Alert and oriented to time, place, person, mood and affect Debridement Note Post-Debridement Measurements/Treatment WC - Nurse 2 - General Ulcer CM Notes Start: 06/15/18 13:44 Freq: Status: Active Protocol: Activity Type Activity Date Activity User E-Sign Co-Sign Detail Recorded Client Recorded Date Recorded By Document 06/15/18 15:09 [id number] 06/15/18 15:12 06/15/18 15:09 Wound Center Nurse 2 #5 RT LUMBAR -Time 15:09 -Correct Patient Yes -Correct Side, Site, Position Yes -Correct Procedure Yes -Procedure Performed Yes -Type of Procedure Debridement -Clinical Debridement Subcutaneous -Post Debridement Size (cm) - Length 1.9 -Post Debridement Size (cm) - Width 1.8 -Post Debridement Size (cm) - Depth 0.6 -Total Square Cm 3.42 -Wound/Ulcer Outcome Not Healed -Ulcer Cleansing Rinsed/ Irrigated with Saline -Foul Odor after Cleansing No -Bioengineered Tissue No -Topical Lidocaine (%) 4 -Bleeding Controlled with Pressure -Treatment Response Procedure Tolerated Well #4- LT SCAPULA -Time 15:10 -Correct Patient Yes -Correct Side, Site, Position Yes -Correct Procedure Yes -Procedure Performed Yes -Type of Procedure Debridement -Clinical Debridement Subcutaneous -Post Debridement Size (cm) - Length 1.6 -Post Debridement Size (cm) - Width 1.8 -Post Debridement Size (cm) - Depth 0.7 -Total Square Cm 2.88 -Wound/Ulcer Outcome Not Healed -Ulcer Cleansing Rinsed/ Irrigated with Saline -Foul Odor after Cleansing No -Bioengineered Tissue No -Topical Lidocaine (%) 4 -Bleeding Controlled with Pressure -Treatment Response Procedure Tolerated Well Pain Scale: 0-10 Numeric Is Patient Pain Free? Yes Wound debrided: Left scapular stage IV pressure ulcer Laterality: Left Type of Debridement: Excisional debridement Anesthesia Used: 5% Lidocaine Gel Depth: in the subcutaneous layer, to bone Percentage of wound debrided: 100 Instrument Used: 7mm curette Tissue Removed: Slough and devitalized tissue Severity: Fat Layer Exposed Amount of bleeding with debridement: Mild Bleeding Controlled with: Pressure Patient tolerated procedure well - Additional Wound Wound debrided: Right stage II pressure ulcer lumbar Type of Debridement: Excisional debridement Anesthesia Used: 5% Lidocaine Gel Depth: in the subcutaneous layer Percentage of wound debrided: 100 Instrument Used: 5mm curette Tissue Removed: Slough and devitalized tissue Severity: Fat Layer Exposed Amount of bleeding with debridement: Mild Bleeding Controlled with: Pressure Patient tolerated procedure: Patient tolerated procedure well - depth is .1 cm Assessment/Plan Assessment: See above diagnoses Plan: The patient was seen and examined at the wound center today and was updated on the plan of care. A subcutaneous debridement was performed today of the stage IV pressure ulcer in the scapular region and a stage II pressure ulcer right lower back. The patient tolerated the procedure well. The patients wound care will consist of: Packing with Aquacel and covering with Allevyn if vac is off, otherwise wound VAC to be applied at 150 mmhg with adaptic over bone to scapular ulcer and aquacell and optifoam over right lumbar pressure ulcer. Wound cultures were collected at previous visit and demonstrated anaerobic cocci to the stage IV pressure ulcer, therefore patient was started on flagyl 3 times daily times 10 days and Culturelle and has completed, previously completed a course of augmentin by pcp.D/t shaunna, may consider applying for purraply at next visit. Baseline bloodwork reviewed and prealbumin low, encouraged patient to continue with protein supplementation at minimum TID. Patient educated on the importance of offloading, though due to his multiple comorbidities has been very noncompliant with this. Did discuss frequent position changes and offloading mechanisms, which he is noncompliant with. He is in a low air loss pressure mattress in his facility. Patient educated on the importance of diet on wound healing and instructed to increase protein and vitamin C intake. Patient verbalized understanding. Patient will follow up at wound healing center in one week or sooner if needed. Patient is currently on a palliative wound plan. This note was generated with [employer] dictation software. It may contain incorrect words, spelling, and punctuation that were not noted in checking the note before signing. Code Visit 111xxx-[id number]: [id number] Steph subq tissue 20 sq cm/<
[2018-06-22 13:33] VITALS: BP 109/60; PULSE 95; RESP 16; TEMP 36.9
--- NOTE | 2018-06-26 18:46 | PCM.WC.PN ---
(1) Pressure ulcer of left upper back, stage 4 Status: Acute Code(s): L89.124 - Pressure ulcer of left upper back, stage 4 (2) Pressure ulcer of right lower back, stage 2 Status: Acute Code(s): L89.132 - Pressure ulcer of right lower back, stage 2 (3) Cachexia Status: Chronic Code(s): R64 - Cachexia (4) Debility Status: Chronic Code(s): R53.81 - Other malaise (5) Immobility Status: Chronic Code(s): Z74.09 - Other reduced mobility (6) Incontinence of feces Status: Chronic Code(s): R15.9 - Full incontinence of feces (7) Incontinence of urine Status: Chronic Code(s): R32 - Unspecified urinary incontinence (8) Malnutrition Status: Chronic Code(s): E46 - Unspecified protein-calorie malnutrition (9) Muscular dystrophy Status: Chronic Code(s): G71.0 - Muscular dystrophy Type of Wound Date of Service: 06/22/18 Chief Complaint: Pressure ulceration of right lower back, stage 2; stage 4 pressure ulcer left scapula History of Wound: A 72-year-old male who is a resident of [facility]. Patient presented to wound center d/t new decubitus to left scapula and old sacral wound reopened. He suffers from muscular dystrophy, and is severely impaired and immobilized. His muscular dystrophy was diagnosed in 1972. He has been bedridden and nonambulatory for a prolonged period of time, with severe muscle atrophy. Due to a lack of mobility and physical therapy, extremity joints are essentially frozen and immovable. The patient is extremely thin and emaciated, suggesting malnutrition and cachexia. He is incontinent of urine and stool, and wears a condom catheter. Patient was recently in [facility] ER on 04/15/2018 d/t concern for left scapular decubitus. Labs in ER without abnormality and was discharged back to nursing facility. Patient at nursing facility was placed on augmentin d/t cultures which showed rare microorganisms and was packing decubitus with aquacel and covered with allevyn. Denies any signs and symptoms of systemic or local infection. Patient does often lay on the affected left shoulder causing a constant pressure. He is noncompliant with off loading and frequent position changes. Progress of Wound: Sacral pressure ulcer healed, stage 4 scapula pressure ulcer stable without signs of infection at this time, has done well on wound vac, no more tunneling or undermining, bone still exposed and surrounding tissue somewhat sunken in, will take vac holiday. No signs of systemic or localized infection at this time. Stage 2 right lower lumbar pressure ulcer is stable with adherant slough present. No signs of infection at this time. - Physical Exam Vital Signs Temp Pulse Resp BP 98.4 F 95 16 109/60 06/22/18 13:33 06/22/18 13:33 06/22/18 13:33 06/22/18 13:33 General: Alert, Oriented x3, Cooperative, No apparent distress HEENT: Atraumatic Lungs: Clear to auscultation Cardiovascular: Regular rate Abdomen: Soft Extremities: No clubbing, No cyanosis, No edema Skin: Ulcer/ Wound - Stage IV pressure ulcer present left scapular area with adherent slough and bone exposed at 6:00, no further undermining or tunneling, surrounding tissue somewhat sunken in. No signs of infection at this time. Stage II pressure ulcer right lumbar region with adherent slough and no signs of localized infection at this time. Musculoskeletal: Cachexia, Muscle Wasting Neurological: - - Nonambulatory Psych/Mental Status: Normal Affect, Appropriate, Flat Affect, Alert and oriented to time, place, person, mood and affect Debridement Note Post-Debridement Measurements/Treatment WC - Nurse 2 - General Ulcer CM Notes Start: 06/15/18 13:44 Freq: Status: Active Protocol: Activity Type Activity Date Activity User E-Sign Co-Sign Detail Recorded Client Recorded Date Recorded By Document 06/15/18 15:09 [id number] 06/15/18 15:12 Document 06/22/18 14:26 [id number] 06/22/18 14:28 06/15/18 06/22/18 15:09 14:26 Wound Center Nurse 2 #5 RT LUMBAR -Time 15:09 14:10 -Correct Patient Yes Yes -Correct Side, Site, Position Yes Yes -Correct Procedure Yes Yes -Procedure Performed Yes Yes -Type of Procedure Debridement Debridement -Clinical Debridement Subcutaneous Subcutaneous -Post Debridement Size (cm) - Length 1.9 1.1 -Post Debridement Size (cm) - Width 1.8 0.7 -Post Debridement Size (cm) - Depth 0.6 0.1 -Total Square Cm 3.42 0.77 -Wound/Ulcer Outcome Not Healed Not Healed -Ulcer Cleansing Rinsed/ Not Cleansed Irrigated with Saline -Foul Odor after Cleansing No No -Bioengineered Tissue No -Topical Lidocaine (%) 4 -Bleeding Controlled with Pressure Silver Nitrate -Treatment Response Procedure Procedure Tolerated Well Tolerated Well #4- LT SCAPULA -Time 15:10 14:10 -Correct Patient Yes Yes -Correct Side, Site, Position Yes Yes -Correct Procedure Yes Yes -Procedure Performed Yes Yes -Type of Procedure Debridement Debridement -Clinical Debridement Subcutaneous Subcutaneous -Post Debridement Size (cm) - Length 1.6 2.1 -Post Debridement Size (cm) - Width 1.8 1.6 -Post Debridement Size (cm) - Depth 0.7 0.6 -Total Square Cm 2.88 3.36 -Wound/Ulcer Outcome Not Healed Not Healed -Ulcer Cleansing Rinsed/ Not Cleansed Irrigated with Saline -Foul Odor after Cleansing No No -Bioengineered Tissue No No -Topical Lidocaine (%) 4 -Bleeding Controlled with Pressure NA -Treatment Response Procedure Procedure Tolerated Well Tolerated Well Pain Scale: 0-10 Numeric Is Patient Pain Free? Yes Yes Wound debrided: Stage IV left scapular pressure ulcer Laterality: Left Type of Debridement: Excisional debridement Anesthesia Used: 5% Lidocaine Gel Depth: in the subcutaneous layer, to bone Percentage of wound debrided: 100 Instrument Used: 7mm curette Tissue Removed: Slough and devitalized tissue Severity: Necrosis of Bone Amount of bleeding with debridement: Mild Bleeding Controlled with: Pressure Patient tolerated procedure well - Additional Wound Wound debrided: Stage II right lumbar pressure ulcer Laterality: Right Type of Debridement: Excisional debridement Anesthesia Used: 5% Lidocaine Gel Depth: in the subcutaneous layer Percentage of wound debrided: 100 Instrument Used: 5mm curette Tissue Removed: Slough and devitalized tissue Severity: Fat Layer Exposed Amount of bleeding with debridement: Mild Bleeding Controlled with: Pressure Patient tolerated procedure: Patient tolerated procedure well Assessment/Plan Assessment: See above diagnoses Plan: The patient was seen and examined at the wound center today and was updated on the plan of care. A subcutaneous debridement was performed today of the stage IV pressure ulcer in the scapular region and a stage II pressure ulcer right lower back. The patient tolerated the procedure well. The patients wound care will consist of: Taking a holiday from the wound VAC due to the stage IV pressure ulcer of the left scapula no longer having tunneling or undermining, daily packing with Aquacel and covering with Allevyn and aquacell and optifoam over right lumbar pressure ulcer. Wound cultures were collected at previous visit and demonstrated anaerobic cocci to the stage IV pressure ulcer, therefore patient was started on flagyl 3 times daily times 10 days and Culturelle and has completed, previously completed a course of augmentin by pcp.D/t shaunna, will apply for purraply am. Baseline bloodwork reviewed and prealbumin low, encouraged patient to continue with protein supplementation at minimum TID. Patient educated on the importance of offloading, though due to his multiple comorbidities has been very noncompliant with this. Did discuss frequent position changes and offloading mechanisms, which he is noncompliant with. He is in a low air loss pressure mattress in his facility. Patient educated on the importance of diet on wound healing and instructed to increase protein and vitamin C intake. Patient verbalized understanding. Patient will follow up at wound healing center in one week or sooner if needed. Patient is currently on a palliative wound plan. This note was generated with [employer] dictation software. It may contain incorrect words, spelling, and punctuation that were not noted in checking the note before signing. Code Visit 111xxx-113xx: 07931 Steph subq tissue 20 sq cm/<
[2018-06-29 14:05] VITALS: BP 105/69; PULSE 93; RESP 16; TEMP 36.6
--- NOTE | 2018-06-29 15:43 | PCM.WC.PN ---
(1) Pressure ulcer of left upper back, stage 4 Status: Acute Current Visit: Yes Code(s): L89.124 - Pressure ulcer of left upper back, stage 4 (2) Pressure ulcer of right lower back, stage 2 Status: Acute Current Visit: Yes Code(s): L89.132 - Pressure ulcer of right lower back, stage 2 (3) Cachexia Status: Chronic Current Visit: Yes Code(s): R64 - Cachexia (4) Debility Status: Chronic Current Visit: Yes Code(s): R53.81 - Other malaise (5) Immobility Status: Chronic Current Visit: Yes Code(s): Z74.09 - Other reduced mobility (6) Incontinence of feces Status: Chronic Current Visit: Yes Code(s): R15.9 - Full incontinence of feces (7) Incontinence of urine Status: Chronic Current Visit: Yes Code(s): R32 - Unspecified urinary incontinence (8) Malnutrition Status: Chronic Current Visit: Yes Code(s): E46 - Unspecified protein-calorie malnutrition (9) Muscular dystrophy Status: Chronic Current Visit: Yes Code(s): G71.0 - Muscular dystrophy Type of Wound Date of Service: 06/29/18 Chief Complaint: Pressure ulceration of right lower back, stage 2; stage 4 pressure ulcer left scapula History of Wound: A 72-year-old male who is a resident of [facility]. Patient presented to wound center d/t new decubitus to left scapula and old sacral wound reopened. He suffers from muscular dystrophy, and is severely impaired and immobilized. His muscular dystrophy was diagnosed in 1972. He has been bedridden and nonambulatory for a prolonged period of time, with severe muscle atrophy. Due to a lack of mobility and physical therapy, extremity joints are essentially frozen and immovable. The patient is extremely thin and emaciated, suggesting malnutrition and cachexia. He is incontinent of urine and stool, and wears a condom catheter. Patient was recently in [facility] ER on 04/15/2018 d/t concern for left scapular decubitus. Labs in ER without abnormality and was discharged back to nursing facility. Patient at nursing facility was placed on augmentin d/t cultures which showed rare microorganisms and was packing decubitus with aquacel and covered with allevyn. Denies any signs and symptoms of systemic or local infection. Patient does often lay on the affected left shoulder causing a constant pressure. He is noncompliant with off loading and frequent position changes. Progress of Wound: Sacral pressure ulcer healed, stage 4 scapula pressure ulcer stable without signs of infection at this time, no more tunneling or undermining, bone still exposed and surrounding tissue intact, continue with vac holiday. No signs of systemic or localized infection at this time. Stage 2 right lower lumbar pressure ulcer is stable with adherant slough present. No signs of infection at this time. - Physical Exam Vital Signs Temp Pulse Resp BP 97.8 F 93 16 105/69 06/29/18 14:05 06/29/18 14:05 06/29/18 14:05 06/29/18 14:05 General: Alert, Oriented x3, Cooperative, No apparent distress HEENT: Atraumatic, PERRLA Oral: Moist Mucosa Cardiovascular: Regular rate Extremities: No clubbing, No cyanosis, No edema Skin: Ulcer/ Wound - Stage IV pressure ulcer present to left scapular region with adherent slough to wound bed, bone exposed at 6:00 and 11:00, no signs of localized infection at this time, some purplish discoloration surrounding wound edges, stage II right lumbar pressure ulcer with adherent slough, no signs of infection at this time. Wound Measurements and Assessment WC - Nurse 1 - General Ulcer Measurement Start: 06/15/18 13:44 Freq: Status: Active Protocol: Activity Type Activity Date Activity User E-Sign Co-Sign Detail Recorded Client Recorded Date Recorded By Document 06/29/18 14:05 [id number] 06/29/18 14:09 06/29/18 14:05 Wound Center Nurse 1 [Ulcer Assessment] #5 RT LUMBAR -Combined with other wound No -Current Size (cm) - Length 0.7 -Current Size (cm) - Width 0.4 -Current Size (cm) - Depth 0.2 -Total Square Cm 0.28 -Photo Taken No -Epithelialization None Present -Tunneling No -Undermining/Tunneling No -Circular Undermining No -Exudate Amt Medium (34-66%) -Exudate Type Serosanguineous -Wound Margin Distinct, Outline Attached -Granulation Amt Medium (34-66%) -Granulation Quality [place] -Slough/Fibrin Yes -Necrosis Amt None Present (0 %) -Necrotic Tissue Type Adherent Slough -Structure Exposed None/Limited to Skin Breakdown -Texture (Jeanine-wound Skin Appearance) Assessed Scarring -Moisture (Jeanine-wound Skin Appearance Assessed ) Dry/Scaly -Color (Jeanine-wound Skin Appearance) Assessed Not Assessed -Temperature (Jeanine-wound Skin No Abnormality Appearance) (Pt Warm) -Tenderness on Palpation (Jeanine-wound No Skin Appearance) -Ulcer Cleansing Rinsed/ Irrigated with Saline -Foul Odor after Cleansing No -Anesthetic Used 5% Lidocaine Gel #4- LT SCAPULA -Combined with other wound No -Current Size (cm) - Length 3.6 -Current Size (cm) - Width 2.4 -Current Size (cm) - Depth 0.4 -Total Square Cm 8.64 -Photo Taken No -Epithelialization None Present -Tunneling No -Undermining/Tunneling No -Circular Undermining No -Exudate Amt Large (67-100%) -Exudate Type Yellow/Green -Wound Margin Distinct, Outline Attached -Granulation Amt Medium (34-66%) -Granulation Quality Pale Red -Slough/Fibrin Yes -Necrosis Amt Large (67-100%) -Necrotic Tissue Type Adherent Slough -Structure Exposed Bone -Texture (Jeanine-wound Skin Appearance) Assessed Scarring -Moisture (Jeanine-wound Skin Appearance No Abnormality ) Assessed -Color (Jeanine-wound Skin Appearance) No Abnormality Assessed -Temperature (Jeanine-wound Skin No Abnormality Appearance) (Pt Warm) -Tenderness on Palpation (Jeanine-wound No Skin Appearance) -Ulcer Cleansing Rinsed/ Irrigated with Saline -Foul Odor after Cleansing No -Anesthetic Used 5% Lidocaine Gel [Edema Assessment] -Lower Limb Edema Present NA WC - Nurse 2 - General Ulcer CM Notes Start: 06/15/18 13:44 Freq: Status: Active Protocol: Activity Type Activity Date Activity User E-Sign Co-Sign Detail Recorded Client Recorded Date Recorded By Document 06/29/18 14:49 [id number] 06/29/18 14:52 06/29/18 14:49 Wound Center Nurse 2 [Procedure/Treatment] #5 RT LUMBAR -Time 14:49 -Correct Patient Yes -Correct Side, Site, Position Yes -Correct Procedure Yes -Procedure Performed Yes -Type of Procedure Debridement -Clinical Debridement Subcutaneous -Post Debridement Size (cm) - Length 0.9 -Post Debridement Size (cm) - Width 0.8 -Post Debridement Size (cm) - Depth 0.2 -Total Square Cm 0.72 -Wound/Ulcer Outcome Not Healed -Ulcer Cleansing Rinsed/ Irrigated with Saline -Foul Odor after Cleansing No -Bioengineered Tissue Yes -Type of bioengineered Tissue [id number] -Expiration Date 11/17/20 -Product Lot Number [id number] -Percent Used 25 -Saline Lot Number [id number] -Topical Lidocaine (%) 4 -Bleeding Controlled with Pressure -Treatment Response Procedure Tolerated Well #4- LT SCAPULA -Time 14:50 -Correct Patient Yes -Correct Side, Site, Position Yes -Correct Procedure Yes -Procedure Performed Yes -Type of Procedure Debridement -Clinical Debridement Subcutaneous -Post Debridement Size (cm) - Length 2.2 -Post Debridement Size (cm) - Width 2.1 -Post Debridement Size (cm) - Depth 0.6 -Total Square Cm 4.62 -Wound/Ulcer Outcome Not Healed -Ulcer Cleansing Rinsed/ Irrigated with Saline -Foul Odor after Cleansing No -Bioengineered Tissue Yes -Type of bioengineered Tissue [id number] -Expiration Date 11/17/20 -Product Lot Number [id number] -Percent Used 75 -Saline Lot Number [id number] -Topical Lidocaine (%) 4 -Bleeding Controlled with Pressure -Treatment Response Procedure Tolerated Well [See Physician Procedure note for Specifics] Pain Scale: 0-10 Numeric [Pain] -Is Patient Pain Free? Yes Musculoskeletal: Cachexia, Muscle Wasting Neurological: - - Patient nonambulatory Psych/Mental Status: Normal Affect, Appropriate, Flat Affect, Alert and oriented to time, place, person, mood and affect Debridement Note Post-Debridement Measurements/Treatment WC - Nurse 2 - General Ulcer CM Notes Start: 06/15/18 13:44 Freq: Status: Active Protocol: Activity Type Activity Date Activity User E-Sign Co-Sign Detail Recorded Client Recorded Date Recorded By Document 06/15/18 15:09 [id number] 06/15/18 15:12 Document 06/22/18 14:26 [id number] 06/22/18 14:28 CS Document 06/29/18 14:49 [id number] 06/29/18 14:52 TM 06/15/18 06/22/18 06/29/18 15:09 14:26 14:49 Wound Center Nurse 2 #5 RT LUMBAR -Time 15:09 14:10 14:49 -Correct Patient Yes Yes Yes -Correct Side, Site, Position Yes Yes Yes -Correct Procedure Yes Yes Yes -Procedure Performed Yes Yes Yes -Type of Procedure Debridement Debridement Debridement -Clinical Debridement Subcutaneous Subcutaneous Subcutaneous -Post Debridement Size (cm) - Length 1.9 1.1 0.9 -Post Debridement Size (cm) - Width 1.8 0.7 0.8 -Post Debridement Size (cm) - Depth 0.6 0.1 0.2 -Total Square Cm 3.42 0.77 0.72 -Wound/Ulcer Outcome Not Healed Not Healed Not Healed -Ulcer Cleansing Rinsed/ Not Cleansed Rinsed/ Irrigated with Irrigated with Saline Saline -Foul Odor after Cleansing No No No -Bioengineered Tissue No Yes -Type of bioengineered Tissue [id number] -Expiration Date 11/17/20 -Product Lot Number [id number] -Percent Used 25 -Saline Lot Number [id number] -Topical Lidocaine (%) 4 4 -Bleeding Controlled with Pressure Silver Nitrate Pressure -Treatment Response Procedure Procedure Procedure Tolerated Well Tolerated Well Tolerated Well #4- LT SCAPULA -Time 15:10 14:10 14:50 -Correct Patient Yes Yes Yes -Correct Side, Site, Position Yes Yes Yes -Correct Procedure Yes Yes Yes -Procedure Performed Yes Yes Yes -Type of Procedure Debridement Debridement Debridement -Clinical Debridement Subcutaneous Subcutaneous Subcutaneous -Post Debridement Size (cm) - Length 1.6 2.1 2.2 -Post Debridement Size (cm) - Width 1.8 1.6 2.1 -Post Debridement Size (cm) - Depth 0.7 0.6 0.6 -Total Square Cm 2.88 3.36 4.62 -Wound/Ulcer Outcome Not Healed Not Healed Not Healed -Ulcer Cleansing Rinsed/ Not Cleansed Rinsed/ Irrigated with Irrigated with Saline Saline -Foul Odor after Cleansing No No No -Bioengineered Tissue No No Yes -Type of bioengineered Tissue [id number] -Expiration Date 11/17/20 -Product Lot Number [id number] -Percent Used 75 -Saline Lot Number [id number] -Topical Lidocaine (%) 4 4 -Bleeding Controlled with Pressure NA Pressure -Treatment Response Procedure Procedure Procedure Tolerated Well Tolerated Well Tolerated Well Pain Scale: 0-10 Numeric Is Patient Pain Free? Yes Yes Yes Wound debrided: Stage IV pressure ulcer left scapular region Laterality: Left Type of Debridement: Excisional debridement Anesthesia Used: 5% Lidocaine Gel Depth: in the subcutaneous layer, to bone Percentage of wound debrided: 100 Instrument Used: 7mm curette Tissue Removed: Slough and devitalized tissue Severity: Fat Layer Exposed Amount of bleeding with debridement: Mild Bleeding Controlled with: Pressure Patient tolerated procedure well - Additional Wound Wound debrided: Stage II right lumbar pressure ulcer Laterality: Right Type of Debridement: Excisional debridement Anesthesia Used: 5% Lidocaine Gel Depth: in the subcutaneous layer Percentage of wound debrided: 100 Instrument Used: 5mm curette Tissue Removed: Slough and devitalized tissue Severity: Fat Layer Exposed Amount of bleeding with debridement: Mild Bleeding Controlled with: Pressure Patient tolerated procedure: Patient tolerated procedure well Assessment/Plan Active Problems Muscular dystrophy (Chronic) Debility (Chronic) Immobility (Chronic) Malnutrition (Chronic) Incontinence of feces (Chronic) Incontinence of urine (Chronic) Cachexia (Chronic) Pressure ulcer of left upper back, stage 4 (Acute) Pressure ulcer of right lower back, stage 2 (Acute) Assessment: See above diagnoses Plan: The patient was seen and examined at the wound center today and was updated on the plan of care. A subcutaneous debridement was performed today of the stage IV pressure ulcer in the scapular region and a stage II pressure ulcer right lower back. The patient tolerated the procedure well. The patients wound care will consist of: Taking a holiday from the wound VAC purapply #1 was applied to the stage IV left scapular pressure ulcer in the stage II right lumbar pressure ulcer, a thin layer of hydrogel was placed and sites were secured with wound veil and Steri-Strips, foam dressing over top to help assist with offloading. Discussed with nursing staff that if the purapply falls off, may return to [facility] daily dressing changes. Wound cultures were collected at previous visit and demonstrated anaerobic cocci to the stage IV pressure ulcer, therefore patient was started on flagyl 3 times daily times 10 days and Culturelle and has completed, previously completed a course of augmentin by pcp.Baseline bloodwork reviewed and prealbumin low, encouraged patient to continue with protein supplementation at minimum TID. Patient educated on the importance of offloading, though due to his multiple comorbidities has been very noncompliant with this. Did discuss frequent position changes and offloading mechanisms, which he is noncompliant with. He is in a low air loss pressure mattress in his facility. Patient educated on the importance of diet on wound healing and instructed to increase protein and vitamin C intake. Patient verbalized understanding. Patient will follow up at wound healing center in 2 week due to the holiday or sooner if needed. Patient is currently on a palliative wound plan. This note was generated with [email or web address] dictation software. It may contain incorrect words, spelling, and punctuation that were not noted in checking the note before signing. Code Visit 150xxx-[id number]: 18191 Skin sub graft trnk/arm/leg
--- NOTE | 2018-06-30 15:47 | PN.PCM_ITS ---
(1) Pressure ulcer of left upper back, stage 4 Status: Acute Current Visit: Yes Code(s): L89.124 - Pressure ulcer of left upper back, stage 4 (2) Pressure ulcer of right lower back, stage 2 Status: Acute Current Visit: Yes Code(s): L89.132 - Pressure ulcer of right lower back, stage 2 (3) Cachexia Status: Chronic Current Visit: Yes Code(s): R64 - Cachexia (4) Debility Status: Chronic Current Visit: Yes Code(s): R53.81 - Other malaise (5) Immobility Status: Chronic Current Visit: Yes Code(s): Z74.09 - Other reduced mobility (6) Incontinence of feces Status: Chronic Current Visit: Yes Code(s): R15.9 - Full incontinence of feces (7) Incontinence of urine Status: Chronic Current Visit: Yes Code(s): R32 - Unspecified urinary incontinence (8) Malnutrition Status: Chronic Current Visit: Yes Code(s): E46 - Unspecified protein- calorie malnutrition (9) Muscular dystrophy Status: Chronic Current Visit: Yes Code(s): G71.0 - Muscular dystrophy Type of Wound Date of Service: 06/29/18 Chief Complaint: Pressure ulceration of right lower back, stage 2; stage 4 pressure ulcer left scapula History of Wound: A 72-year-old male who is a resident of [facility]. Patient presented to wound center d/t new decubitus to left scapula and old sacral wound reopened. He suffers from muscular dystrophy, and is severely impaired and immobilized. His muscular dystrophy was diagnosed in 1972. He has been bedridden and nonambulatory for a prolonged period of time, with severe muscle atrophy. Due to a lack of mobility and physical therapy, extremity joints are essentially frozen and immovable. The patient is extremely thin and emaciated, suggesting malnutrition and cachexia. He is incontinent of urine and stool, and wears a condom catheter. Patient was recently in [facility] ER on 04/15/2018 d/t concern for left scapular decubitus. Labs in ER without abnormality and was discharged back to nursing facility. Patient at nursing facility was placed on augmentin d/t cultures which showed rare microorganisms and was packing decubitus with aquacel and covered with allevyn. Denies any signs and symptoms of systemic or local infection. Patient does often lay on the affected left shoulder causing a constant pressure. He is noncompliant with off loading and frequent position changes. Progress of Wound: Sacral pressure ulcer healed, stage 4 scapula pressure ulcer stable without signs of infection at this time, no more tunneling or undermining, bone still exposed and surrounding tissue intact, continue with vac holiday. No signs of systemic or localized infection at this time. Stage 2 right lower lumbar pressure ulcer is stable with adherant slough present. No signs of infection at this time. - Physical Exam Vital Signs Temp Pulse Resp BP 97.8 F 93 16 105/69 06/29/18 14:05 06/29/18 14:05 06/29/18 14:05 06/29/18 14:05 General: Alert, Oriented x3, Cooperative, No apparent distress HEENT: Atraumatic, PERRLA Oral: Moist Mucosa Cardiovascular: Regular rate Extremities: No clubbing, No cyanosis, No edema Skin: Ulcer/ Wound - Stage IV pressure ulcer present to left scapular region with adherent slough to wound bed, bone exposed at 6:00 and 11:00, no signs of localized infection at this time, some purplish discoloration surrounding wound edges, stage II right lumbar pressure ulcer with adherent slough, no signs of infection at this time. Wound Measurements and Assessment WC - Nurse 1 - General Ulcer Measurement Start: 06/15/18 13:44 Freq: Status: Active Protocol: Activity Type Activity Date Activity User E-Sign Co-Sign Detail Recorded Client Recorded Date Recorded By Document 06/29/18 14:05 [id number] 06/29/18 14:09 06/29/18 14:05 Wound Center Nurse 1 [Ulcer Assessment] #5 RT LUMBAR -Combined with other wound No -Current Size (cm) - Length 0.7 -Current Size (cm) - Width 0.4 -Current Size (cm) - Depth 0.2 -Total Square Cm 0.28 -Photo Taken No -Epithelialization None Present -Tunneling No -Undermining/Tunneling No -Circular Undermining No -Exudate Amt Medium (34-66%) -Exudate Type Serosanguineous -Wound Margin Distinct, Outline Attached -Granulation Amt Medium (34-66%) -Granulation Quality [place] -Slough/Fibrin Yes -Necrosis Amt None Present (0 %) -Necrotic Tissue Type Adherent Slough -Structure Exposed None/Limited to Skin Breakdown -Texture (Jeanine-wound Skin Appearance) Assessed Scarring -Moisture (Jeanine-wound Skin Appearance Assessed ) Dry/Scaly -Color (Jeanine-wound Skin Appearance) Assessed Not Assessed -Temperature (Jeanine-wound Skin No Abnormality Appearance) (Pt Warm) -Tenderness on Palpation (Jeanine-wound No Skin Appearance) -Ulcer Cleansing Rinsed/ Irrigated with Saline -Foul Odor after Cleansing No -Anesthetic Used 5% Lidocaine Gel #4- LT SCAPULA -Combined with other wound No -Current Size (cm) - Length 3.6 -Current Size (cm) - Width 2.4 -Current Size (cm) - Depth 0.4 -Total Square Cm 8.64 -Photo Taken No -Epithelialization None Present -Tunneling No -Undermining/Tunneling No -Circular Undermining No -Exudate Amt Large (67-100%) -Exudate Type Yellow/Green -Wound Margin Distinct, Outline Attached -Granulation Amt Medium (34-66%) -Granulation Quality Pale Red -Slough/Fibrin Yes -Necrosis Amt Large (67-100%) -Necrotic Tissue Type Adherent Slough -Structure Exposed Bone -Texture (Jeanine-wound Skin Appearance) Assessed Scarring -Moisture (Jeanine-wound Skin Appearance No Abnormality ) Assessed -Color (Jeanine-wound Skin Appearance) No Abnormality Assessed -Temperature (Jeanine-wound Skin No Abnormality Appearance) (Pt Warm) -Tenderness on Palpation (Jeanine-wound No Skin Appearance) -Ulcer Cleansing Rinsed/ Irrigated with Saline -Foul Odor after Cleansing No -Anesthetic Used 5% Lidocaine Gel [Edema Assessment] -Lower Limb Edema Present NA WC - Nurse 2 - General Ulcer CM Notes Start: 06/15/18 13:44 Freq: Status: Active Protocol: Activity Type Activity Date Activity User E-Sign Co-Sign Detail Recorded Client Recorded Date Recorded By Document 06/29/18 14:49 [id number] 06/29/18 14:52 06/29/18 14:49 Wound Center Nurse 2 [Procedure/Treatment] #5 RT LUMBAR -Time 14:49 -Correct Patient Yes -Correct Side, Site, Position Yes -Correct Procedure Yes -Procedure Performed Yes -Type of Procedure Debridement -Clinical Debridement Subcutaneous -Post Debridement Size (cm) - Length 0.9 -Post Debridement Size (cm) - Width 0.8 -Post Debridement Size (cm) - Depth 0.2 -Total Square Cm 0.72 -Wound/Ulcer Outcome Not Healed -Ulcer Cleansing Rinsed/ Irrigated with Saline -Foul Odor after Cleansing No -Bioengineered Tissue Yes -Type of bioengineered Tissue [id number] -Expiration Date 11/17/20 -Product Lot Number [id number] -Percent Used 25 -Saline Lot Number [id number] -Topical Lidocaine (%) 4 -Bleeding Controlled with Pressure -Treatment Response Procedure Tolerated Well #4- LT SCAPULA -Time 14:50 -Correct Patient Yes -Correct Side, Site, Position Yes -Correct Procedure Yes -Procedure Performed Yes -Type of Procedure Debridement -Clinical Debridement Subcutaneous -Post Debridement Size (cm) - Length 2.2 -Post Debridement Size (cm) - Width 2.1 -Post Debridement Size (cm) - Depth 0.6 -Total Square Cm 4.62 -Wound/Ulcer Outcome Not Healed -Ulcer Cleansing Rinsed/ Irrigated with Saline -Foul Odor after Cleansing No -Bioengineered Tissue Yes -Type of bioengineered Tissue [id number] -Expiration Date 11/17/20 -Product Lot Number [id number] -Percent Used 75 -Saline Lot Number [id number] -Topical Lidocaine (%) 4 -Bleeding Controlled with Pressure -Treatment Response Procedure Tolerated Well [See Physician Procedure note for Specifics] Pain Scale: 0-10 Numeric [Pain] -Is Patient Pain Free? Yes Musculoskeletal: Cachexia, Muscle Wasting Neurological: - - Patient nonambulatory Psych/Mental Status: Normal Affect, Appropriate, Flat Affect, Alert and oriented to time, place, person, mood and affect Debridement Note Post-Debridement Measurements/Treatment WC - Nurse 2 - General Ulcer CM Notes Start: 06/15/18 13:44 Freq: Status: Active Protocol: Activity Type Activity Date Activity User E-Sign Co-Sign Detail Recorded Client Recorded Date Recorded By Document 06/15/18 15:09 [id number] 06/15/18 15:12 Document 06/22/18 14:26 [id number] 06/22/18 14:28 CS Document 06/29/18 14:49 [id number] 06/29/18 14:52 TM 06/15/18 06/22/18 06/29/18 15:09 14:26 14:49 Wound Center Nurse 2 #5 RT LUMBAR -Time 15:09 14:10 14:49 -Correct Patient Yes Yes Yes -Correct Side, Site, Position Yes Yes Yes -Correct Procedure Yes Yes Yes -Procedure Performed Yes Yes Yes -Type of Procedure Debridement Debridement Debridement -Clinical Debridement Subcutaneous Subcutaneous Subcutaneous -Post Debridement Size (cm) - Length 1.9 1.1 0.9 -Post Debridement Size (cm) - Width 1.8 0.7 0.8 -Post Debridement Size (cm) - Depth 0.6 0.1 0.2 -Total Square Cm 3.42 0.77 0.72 -Wound/Ulcer Outcome Not Healed Not Healed Not Healed -Ulcer Cleansing Rinsed/ Not Cleansed Rinsed/ Irrigated with Irrigated with Saline Saline -Foul Odor after Cleansing No No No -Bioengineered Tissue No Yes -Type of bioengineered Tissue [id number] -Expiration Date 11/17/20 -Product Lot Number [id number] -Percent Used 25 -Saline Lot Number [id number] -Topical Lidocaine (%) 4 4 -Bleeding Controlled with Pressure Silver Nitrate Pressure -Treatment Response Procedure Procedure Procedure Tolerated Well Tolerated Well Tolerated Well #4- LT SCAPULA -Time 15:10 14:10 14:50 -Correct Patient Yes Yes Yes -Correct Side, Site, Position Yes Yes Yes -Correct Procedure Yes Yes Yes -Procedure Performed Yes Yes Yes -Type of Procedure Debridement Debridement Debridement -Clinical Debridement Subcutaneous Subcutaneous Subcutaneous -Post Debridement Size (cm) - Length 1.6 2.1 2.2 -Post Debridement Size (cm) - Width 1.8 1.6 2.1 -Post Debridement Size (cm) - Depth 0.7 0.6 0.6 -Total Square Cm 2.88 3.36 4.62 -Wound/Ulcer Outcome Not Healed Not Healed Not Healed -Ulcer Cleansing Rinsed/ Not Cleansed Rinsed/ Irrigated with Irrigated with Saline Saline -Foul Odor after Cleansing No No No -Bioengineered Tissue No No Yes -Type of bioengineered Tissue [id number] -Expiration Date 11/17/20 -Product Lot Number [id number] -Percent Used 75 -Saline Lot Number [id number] -Topical Lidocaine (%) 4 4 -Bleeding Controlled with Pressure NA Pressure -Treatment Response Procedure Procedure Procedure Tolerated Well Tolerated Well Tolerated Well Pain Scale: 0-10 Numeric Is Patient Pain Free? Yes Yes Yes Wound debrided: Stage IV pressure ulcer left scapular region Laterality: Left Type of Debridement: Excisional debridement Anesthesia Used: 5% Lidocaine Gel Depth: in the subcutaneous layer, to bone Percentage of wound debrided: 100 Instrument Used: 7mm curette Tissue Removed: Slough and devitalized tissue Severity: Fat Layer Exposed Amount of bleeding with debridement: Mild Bleeding Controlled with: Pressure Patient tolerated procedure well - Additional Wound Wound debrided: Stage II right lumbar pressure ulcer Laterality: Right Type of Debridement: Excisional debridement Anesthesia Used: 5% Lidocaine Gel Depth: in the subcutaneous layer Percentage of wound debrided: 100 Instrument Used: 5mm curette Tissue Removed: Slough and devitalized tissue Severity: Fat Layer Exposed Amount of bleeding with debridement: Mild Bleeding Controlled with: Pressure Patient tolerated procedure: Patient tolerated procedure well Assessment/Plan Active Problems Muscular dystrophy (Chronic) Debility (Chronic) Immobility (Chronic) Malnutrition (Chronic) Incontinence of feces (Chronic) Incontinence of urine (Chronic) Cachexia (Chronic) Pressure ulcer of left upper back, stage 4 (Acute) Pressure ulcer of right lower back, stage 2 (Acute) Assessment: See above diagnoses Plan: The patient was seen and examined at the wound center today and was updated on the plan of care. A subcutaneous debridement was performed today of the stage IV pressure ulcer in the scapular region and a stage II pressure ulcer right lower back. The patient tolerated the procedure well. The patients wound care will consist of: Taking a holiday from the wound VAC purapply #1 was applied to the stage IV left scapular pressure ulcer in the stage II right lumbar pressure ulcer, a thin layer of hydrogel was placed and sites were secured with wound veil and Steri-Strips, foam dressing over top to help assist with offloading. Discussed with nursing staff that if the purapply falls off, may return to [facility] daily dressing changes. Wound cultures were collected at previous visit and demonstrated anaerobic cocci to the stage IV pressure ulcer, therefore patient was started on flagyl 3 times daily times 10 days and Culturelle and has completed, previously completed a course of augmentin by pcp.Baseline bloodwork reviewed and prealbumin low, encouraged patient to continue with protein supplementation at minimum TID. Patient educated on the importance of offloading, though due to his multiple comorbidities has been very noncompliant with this. Did discuss frequent position changes and offloading mechanisms, which he is noncompliant with. He is in a low air loss pressure mattress in his facility. Patient educated on the importance of diet on wound healing and instructed to increase protein and vitamin C intake. Patient verbalized understanding. Patient will follow up at wound healing center in 2 week due to the holiday or sooner if needed. Patient is currently on a palliative wound plan. This note was generated with [employer] dictation software. It may contain incorrect words, spelling, and punctuation that were not noted in checking the note before signing. Code Visit [id number]: [id number] Skin sub graft trnk/arm/leg
[2018-07-13 13:47] VITALS: BP 125/70; PULSE 89; RESP 16; TEMP 37
--- NOTE | 2018-07-13 20:18 | PCM.WC.PN ---
(1) Pressure ulcer of left upper back, stage 4 Status: Acute Code(s): L89.124 - Pressure ulcer of left upper back, stage 4 Comment: x 2 inferior and superior (2) Pressure ulcer of right lower back, stage 2 Status: Acute Code(s): L89.132 - Pressure ulcer of right lower back, stage 2 (3) Cachexia Status: Chronic Code(s): R64 - Cachexia (4) Debility Status: Chronic Code(s): R53.81 - Other malaise (5) Immobility Status: Chronic Code(s): Z74.09 - Other reduced mobility (6) Incontinence of feces Status: Chronic Code(s): R15.9 - Full incontinence of feces (7) Incontinence of urine Status: Chronic Code(s): R32 - Unspecified urinary incontinence (8) Malnutrition Status: Chronic Code(s): E46 - Unspecified protein-calorie malnutrition (9) Muscular dystrophy Status: Chronic Code(s): G71.0 - Muscular dystrophy Type of Wound Date of Service: 07/13/18 Chief Complaint: Pressure ulceration of right lower back, stage 2; stage 4 pressure ulcer left scapula History of Wound: A 72-year-old male who is a resident of [facility]. Patient presented to wound center d/t new decubitus to left scapula and old sacral wound reopened. He suffers from muscular dystrophy, and is severely impaired and immobilized. His muscular dystrophy was diagnosed in 1972. He has been bedridden and nonambulatory for a prolonged period of time, with severe muscle atrophy. Due to a lack of mobility and physical therapy, extremity joints are essentially frozen and immovable. The patient is extremely thin and emaciated, suggesting malnutrition and cachexia. He is incontinent of urine and stool, and wears a condom catheter. Patient was recently in [facility] ER on 04/15/2018 d/t concern for left scapular decubitus. Labs in ER without abnormality and was discharged back to nursing facility. Patient at nursing facility was placed on augmentin d/t cultures which showed rare microorganisms and was packing decubitus with aquacel and covered with allevyn. Denies any signs and symptoms of systemic or local infection. Patient does often lay on the affected left shoulder causing a constant pressure. He is noncompliant with off loading and frequent position changes. Progress of Wound: Sacral pressure ulcer healed, stage 4 left scapula pressure ulcer stable without signs of infection at this time, no more tunneling or undermining, bone no longer exposed, however there is a new superior stage IV pressure ulcer to the bone on the left scapula, caregiver states that this was noticed over the past week and that patient does remain noncompliant with offloading to the left scapular region. Continue with vac holiday. No signs of systemic or localized infection at this time. Stage 2 right lower lumbar pressure ulcer is healed. No signs of infection at this time. - Physical Exam Vital Signs Temp Pulse Resp BP 98.6 F 89 16 125/70 H 07/13/18 13:47 07/13/18 13:47 07/13/18 13:47 07/13/18 13:47 General: Alert, Oriented x3, Cooperative, No apparent distress HEENT: Atraumatic Lungs: Clear to auscultation Cardiovascular: Regular rate Abdomen: Soft Extremities: No clubbing, No cyanosis, No edema Skin: Ulcer/ Wound - Stage IV pressure ulcer left scapula superior ulcer, bone exposed, slough surrounding ulceration, no signs of infection at this time, left scapular inferior ulcer granular Tory tissue present over top of bone which is no longer exposed, although size has worsened, granular Tory tissue has filled in over top of the bone. Stage II right lumbar pressure ulcer healed without signs of infection. Musculoskeletal: Cachexia, Muscle Wasting Neurological: - - patient nonambulatory Psych/Mental Status: Normal Affect, Appropriate, Flat Affect, Alert and oriented to time, place, person, mood and affect Debridement Note Post-Debridement Measurements/Treatment WC - Nurse 2 - General Ulcer CM Notes Start: 06/15/18 13:44 Freq: Status: Active Protocol: Activity Type Activity Date Activity User E-Sign Co-Sign Detail Recorded Client Recorded Date Recorded By Document 06/15/18 15:09 [id number] 06/15/18 15:12 TM Document 06/22/18 14:26 [id number] 06/22/18 14:28 CS Document 06/29/18 14:49 [id number] 06/29/18 14:52 TM Document 07/13/18 13:56 [id number] 07/13/18 14:11 06/15/18 06/22/18 06/29/18 15:09 14:26 14:49 Wound Center Nurse 2 #6 Superior to Scapula wound -Time -Correct Patient -Correct Side, Site, Position -Correct Procedure -Procedure Performed -Type of Procedure -Clinical Debridement -Post Debridement Size (cm) - Length -Post Debridement Size (cm) - Width -Post Debridement Size (cm) - Depth -Total Square Cm -Wound/Ulcer Outcome -Ulcer Cleansing -Foul Odor after Cleansing -Bioengineered Tissue -Bleeding Controlled with -Offloading #5 RT LUMBAR -Time 15:09 14:10 14:49 -Correct Patient Yes Yes Yes -Correct Side, Site, Position Yes Yes Yes -Correct Procedure Yes Yes Yes -Procedure Performed Yes Yes Yes -Type of Procedure Debridement Debridement Debridement -Clinical Debridement Subcutaneous Subcutaneous Subcutaneous -Post Debridement Size (cm) - Length 1.9 1.1 0.9 -Post Debridement Size (cm) - Width 1.8 0.7 0.8 -Post Debridement Size (cm) - Depth 0.6 0.1 0.2 -Total Square Cm 3.42 0.77 0.72 -Wound/Ulcer Outcome Not Healed Not Healed Not Healed -Ulcer Cleansing Rinsed/ Not Cleansed Rinsed/ Irrigated with Irrigated with Saline Saline -Foul Odor after Cleansing No No No -Bioengineered Tissue No Yes -Type of bioengineered Tissue [id number] -Expiration Date 11/17/20 -Product Lot Number [id number] -Percent Used 25 -Saline Lot Number [id number] -Topical Lidocaine (%) 4 4 -Bleeding Controlled with Pressure Silver Nitrate Pressure -Treatment Response Procedure Procedure Procedure Tolerated Well Tolerated Well Tolerated Well #4- LT SCAPULA -Time 15:10 14:10 14:50 -Correct Patient Yes Yes Yes -Correct Side, Site, Position Yes Yes Yes -Correct Procedure Yes Yes Yes -Procedure Performed Yes Yes Yes -Type of Procedure Debridement Debridement Debridement -Clinical Debridement Subcutaneous Subcutaneous Subcutaneous -Post Debridement Size (cm) - Length 1.6 2.1 2.2 -Post Debridement Size (cm) - Width 1.8 1.6 2.1 -Post Debridement Size (cm) - Depth 0.7 0.6 0.6 -Total Square Cm 2.88 3.36 4.62 -Wound/Ulcer Outcome Not Healed Not Healed Not Healed -Ulcer Cleansing Rinsed/ Not Cleansed Rinsed/ Irrigated with Irrigated with Saline Saline -Foul Odor after Cleansing No No No -Bioengineered Tissue No No Yes -Type of bioengineered Tissue [id number] -Expiration Date 11/17/20 -Product Lot Number [id number] -Percent Used 75 -Saline Lot Number [id number] -Topical Lidocaine (%) 4 4 -Bleeding Controlled with Pressure NA Pressure -Offloading -Treatment Response Procedure Procedure Procedure Tolerated Well Tolerated Well Tolerated Well Pain Scale: 0-10 Numeric Is Patient Pain Free? Yes Yes Yes 07/13/18 13:56 Wound Center Nurse 2 #6 Superior to Scapula wound -Time 13:56 -Correct Patient Yes -Correct Side, Site, Position Yes -Correct Procedure Yes -Procedure Performed Yes -Type of Procedure Debridement -Clinical Debridement Subcutaneous -Post Debridement Size (cm) - Length 0.6 -Post Debridement Size (cm) - Width 0.6 -Post Debridement Size (cm) - Depth 0.7 -Total Square Cm 0.36 -Wound/Ulcer Outcome Not Healed -Ulcer Cleansing Not Cleansed -Foul Odor after Cleansing No -Bioengineered Tissue No -Bleeding Controlled with NA -Offloading No #5 RT LUMBAR -Time 13:56 -Correct Patient -Correct Side, Site, Position -Correct Procedure -Procedure Performed -Type of Procedure -Clinical Debridement -Post Debridement Size (cm) - Length 0.1 -Post Debridement Size (cm) - Width 0.1 -Post Debridement Size (cm) - Depth 0.1 -Total Square Cm 0.01 -Wound/Ulcer Outcome Healed- Epithelialized -Ulcer Cleansing -Foul Odor after Cleansing -Bioengineered Tissue -Type of bioengineered Tissue -Expiration Date -Product Lot Number -Percent Used -Saline Lot Number -Topical Lidocaine (%) -Bleeding Controlled with -Treatment Response #4- LT SCAPULA -Time 13:59 -Correct Patient Yes -Correct Side, Site, Position Yes -Correct Procedure Yes -Procedure Performed Yes -Type of Procedure Debridement -Clinical Debridement Subcutaneous -Post Debridement Size (cm) - Length 2.8 -Post Debridement Size (cm) - Width 2.5 -Post Debridement Size (cm) - Depth 0.4 -Total Square Cm 7.00 -Wound/Ulcer Outcome Not Healed -Ulcer Cleansing Not Cleansed -Foul Odor after Cleansing No -Bioengineered Tissue -Type of bioengineered Tissue TREVOR -Expiration Date 11/17/20 -Product Lot Number [id number] -Percent Used 100 -Saline Lot Number -Topical Lidocaine (%) -Bleeding Controlled with Pressure -Offloading No -Treatment Response Procedure Tolerated Well Pain Scale: 0-10 Numeric Is Patient Pain Free? Yes Wound debrided: Stage IV left inferior and superior pressure ulcer of the scapula Laterality: Left Type of Debridement: Excisional debridement Anesthesia Used: 5% Lidocaine Gel Depth: in the subcutaneous layer Percentage of wound debrided: 100 Instrument Used: 5mm curette Tissue Removed: Slough and devitalized tissue Severity: Fat Layer Exposed Amount of bleeding with debridement: Mild Bleeding Controlled with: Pressure Patient tolerated procedure well Assessment/Plan Assessment: See above diagnoses Plan: The patient was seen and examined at the wound center today and was updated on the plan of care. A subcutaneous debridement was performed today of the stage IV pressure ulcers of the left scapula. The stage II pressure ulcer right lower back is now healed. The patient tolerated the procedure well. The patients wound care will consist of: Taking a holiday from the wound VAC purapply #2 was applied to the stage IV left inferior scapular pressure ulcer, a thin layer of hydrogel was placed and sites were secured with wound veil and Steri-Strips, Aquacel extra and foam dressing over top to help assist with offloading, this can be changed every other day. may use Aquacel extra over the new stage IV superior left scapular pressure ulcer. Regarding the recently healed stage II right lumbar pressure ulcer, may continue with optifoam to help assist offloading. Discussed with nursing staff that if the purapply falls off, may return to Aquacel daily dressing changes. Wound cultures were collected at previous visit and demonstrated anaerobic cocci to the stage IV pressure ulcer, therefore patient was started on flagyl 3 times daily times 10 days and Culturelle and has completed, previously completed a course of augmentin by pcp.Baseline bloodwork reviewed and prealbumin low, encouraged patient to continue with protein supplementation at minimum TID. Patient educated on the importance of offloading, though due to his multiple comorbidities has been very noncompliant with this. Did discuss frequent position changes and offloading mechanisms, which he is noncompliant with. He is in a low air loss pressure mattress in his facility. Patient educated on the importance of diet on wound healing and instructed to increase protein and vitamin C intake. Patient verbalized understanding. Patient will follow up at wound healing center in 1 week or sooner if needed. Patient is currently on a palliative wound plan. This note was generated with [employer] dictation software. It may contain incorrect words, spelling, and punctuation that were not noted in checking the note before signing. Code Visit [id number]: 77576 Steph subq tissue 20 sq cm/<
== END 2018-07-14 23:59 ==
LOC: WC 13:30
PROVIDERS: Family Provider Family Medicine; PCP Family Medicine; Visit Provider Nurse Practitioner Family
DX: L89.124 Pressure ulcer of left upper back, stage 4 (principal); L89.132 Pressure ulcer of right lower back, stage 2; R64 Cachexia; R32 Unspecified urinary incontinence; G71.00 Muscular dystrophy, unspecified; R15.9 Full incontinence of feces; Z74.01 Bed confinement status; Z91.19 Patient's noncompliance with other medical treatment and regimen
CPT/HCPCS: 11042; 15271; 97605; Q4172

== ENCOUNTER → 2018-07-19 05:00 | Outpatient (REF) | payer MEDICARE, SELFPAY ==
[2018-07-19 09:00] LABS: Hematocrit 45.5 % (40-54); Hemoglobin 14.3 g/dl (13.0-16.5); Mean Corp Hgb Conc 31.4 g/gl (32-36); Mean Corpuscular Hgb 29.8 pg (27.0-32.0); Mean Corpuscular Volume 94.8 fL (80-94); Mean Platelet Vol. 10.8 fl (6.2-12.0); Platelet Count 267 K/mm3 (150-450); RBC Distribution Width CV 15.1 % (11.6-14.6); RBC Distribution Width SD 52.5 fl (35.1-43.9); White Blood Count 6.5 K/mm3 (4.4-11.0)
[2018-07-19 09:01] LABS: Scan Indicated on CBC? Y/N NO
[2018-07-19 09:06] LABS: Anion Gap 3 (5-15); BUN 25 mg/dL (7-18); BUN/Creat Ratio 127.6 RATIO (10-20); Calcium,Total 8.7 mg/dL (8.5-10.1); Chloride 95 mmol/L (98-107); Cholesterol 186 mg/dL (200); EST Glomerular Filtration Rate 512 mL/min (>60); Est Glom Filt Rate - Afr Amer 619 mL/min (>60); Glucose 97 mg/dL (74-106); High Density Lipoprotein 42 mg/dL; Potassium 3.5 mmol/L (3.5-5.1); Sodium Level 136 mmol/L (136-145); Triglycerides 82 mg/dL; Very Low Density Lipoprotein 16 mg/dL (5-40)
== END ==
LOC: OLS.WCC 05:00
PROVIDERS: Visit Provider Family Medicine
DX: E78.5 Hyperlipidemia, unspecified (principal); Z79.899 Other long term (current) drug therapy
CPT/HCPCS: 36415; 80048; 80061; 85027

== ENCOUNTER → 2018-07-31 04:00 | Outpatient (REF) | payer MEDICARE, SELFPAY ==
[2018-07-31 08:43] LABS: Hematocrit 45.6 % (40-54); Hemoglobin 14.2 g/dl (13.0-16.5); Mean Corp Hgb Conc 31.1 g/gl (32-36); Mean Corpuscular Hgb 29.8 pg (27.0-32.0); Mean Corpuscular Volume 95.6 fL (80-94); Mean Platelet Vol. 10.8 fl (6.2-12.0); Platelet Count 245 K/mm3 (150-450); RBC Distribution Width CV 14.9 % (11.6-14.6); RBC Distribution Width SD 52.3 fl (35.1-43.9); Red Blood Count 4.77 M/mm3 (4.6-6.2); White Blood Count 5.3 K/mm3 (4.4-11.0)
[2018-07-31 08:44] LABS: Scan Indicated on CBC? Y/N NO
[2018-07-31 08:57] LABS: Anion Gap 5 (5-15); BUN 36 mg/dL (7-18); BUN/Creat Ratio 130.9 RATIO (10-20); Calcium,Total 8.8 mg/dL (8.5-10.1); Chloride 98 mmol/L (98-107); Creatinine, Serum 0.28 mg/dL (0.70-1.30); EST Glomerular Filtration Rate 346 mL/min (>60); Est Glom Filt Rate - Afr Amer 419 mL/min (>60); Glucose 106 mg/dL (74-106); Potassium 3.8 mmol/L (3.5-5.1); Sodium Level 142 mmol/L (136-145)
--- OUTSIDE RECORDS SUMMARY | 2018-11-01 15:23 | XMS RPT_ITS ---
:1945 Author Organization OHIP Support Name Relationship Address Phone R Unavailable Unavailable Unavailable Gong Rufino Unavailable Unavailable + R Unavailable Unavailable Unavailable Gong Rufino Unavailable Unavailable + R Unavailable Unavailable Unavailable Gong Rufino Unavailable Unavailable + R Unavailable Unavailable Unavailable Gong Rufino Unavailable Unavailable + R Unavailable Unavailable Unavailable Gong Rufino Unavailable Unavailable + R Unavailable Unavailable Unavailable Gong Rufino Unavailable Unavailable + R Unavailable Unavailable Unavailable Gong Rufino Unavailable Unavailable + R Unavailable Unavailable Unavailable Gong Rufino Unavailable . + ., [place] . R Unavailable Unavailable Unavailable Gong Rufino Unavailable Unavailable + R Unavailable Unavailable Unavailable Gong Rufino Unavailable Unavailable + R Unavailable Unavailable Unavailable Gong Rufino Unavailable Unavailable + R Unavailable Unavailable Unavailable Gong Rufino Unavailable Unavailable + R Unavailable Unavailable Unavailable Gong Rufino Unavailable Unavailable + R Unavailable Unavailable Unavailable Gong Rufino Unavailable Unavailable + R Unavailable Unavailable Unavailable Gong Rufino Unavailable Unavailable + R Unavailable Unavailable Unavailable Gong Rufino Unavailable Unavailable + R Unavailable Unavailable Unavailable Gong Rufino Unavailable Unavailable + R Unavailable Unavailable Unavailable Gong Rufino Unavailable Unavailable + R Unavailable Unavailable Unavailable Gong, Rufino Unavailable Unavailable + R Unavailable Unavailable Unavailable Gong, Rufino Unavailable Unavailable + R Unavailable Unavailable Unavailable Gong, Rufino Unavailable Unavailable + R Unavailable Unavailable Unavailable Gong, Rufino Unavailable Unavailable + R Unavailable Unavailable Unavailable GONG, RUFINO Unavailable Unavailable + R Unavailable Unavailable Unavailable GONG, RUFINO Unavailable Unavailable + R Unavailable Unavailable Unavailable GONG, RUFINO Unavailable Unavailable + R Unavailable Unavailable Unavailable GONG, RUFINO Unavailable Unavailable + R Unavailable Unavailable Unavailable GONG, RUFINO Unavailable Unavailable + R Unavailable Unavailable Unavailable Gong, Rufino Unavailable Unavailable + Care Team Providers Name Role Phone Miguel Butler Attending Unavailable Oneal, Jose DEFLASH AND WASH OPERATOR-C Attending Unavailable Butler, Miguel Primary Care Unavailable Oneal, Jose DEFLASH AND WASH OPERATOR-C Consulting Unavailable Butler, Miguel Attending Unavailable Oneal, Jose DEFLASH AND WASH OPERATOR-C Attending Unavailable Butler, Miguel Primary Care Unavailable Oneal, Jose DEFLASH AND WASH OPERATOR-C Consulting Unavailable Oneal, Jose DEFLASH AND WASH OPERATOR-C Attending Unavailable Butler, Miguel Primary Care Unavailable Oneal, Jose DEFLASH AND WASH OPERATOR-C Consulting Unavailable Oneal, Jose DEFLASH AND WASH OPERATOR-C Attending Unavailable Butler, Miguel Primary Care Unavailable Oneal, Jose DEFLASH AND WASH OPERATOR-C Consulting Unavailable Butler, Miguel Primary Care Unavailable Oneal, Jose DEFLASH AND WASH OPERATOR-C Attending Unavailable Butler, Miguel Attending Unavailable Joel Dietz Attending Unavailable Bulter, Miguel Primary Care Unavailable Butler, Miguel Primary Care Unavailable Anton Sandra Attending Unavailable Joel Dietz Attending Unavailable Butler, Miguel Primary Care Unavailable Oneal, Jose DEFLASH AND WASH OPERATOR-C Attending Unavailable Butler, Miguel Primary Care Unavailable [facility] Attending Unavailable Joel Dietz Attending Unavailable Butler, Miguel Primary Care Unavailable Butler, Miguel Attending Unavailable Oneal, Jose DEFLASH AND WASH OPERATOR-C Attending Unavailable Butler, Miguel Primary Care Unavailable Oneal, Jose DEFLASH AND WASH OPERATOR-C Consulting Unavailable Oneal, Jose DEFLASH AND WASH OPERATOR-C Attending Unavailable Butler, Miguel Primary Care Unavailable Oneal, Jose DEFLASH AND WASH OPERATOR-C Attending Unavailable Oneal, Jose DEFLASH AND WASH OPERATOR-C Attending Unavailable Butler, Miguel Primary Care Unavailable Oneal, Jose DEFLASH AND WASH OPERATOR-C Consulting Unavailable Oneal, Jose DEFLASH AND WASH OPERATOR-C Attending Unavailable Butler, Miguel Primary Care Unavailable Oneal, Jose DEFLASH AND WASH OPERATOR-C Consulting Unavailable Oneal, Jose DEFLASH AND WASH OPERATOR-C Attending Unavailable Butler, Miguel Primary Care Unavailable Oneal, Jose DEFLASH AND WASH OPERATOR-C Attending Unavailable Butler, Miguel Primary Care Unavailable Oneal, Jose DEFLASH AND WASH OPERATOR-C Consulting Unavailable Oneal, Jose DEFLASH AND WASH OPERATOR-C Attending Unavailable Butler, Miguel Primary Care Unavailable Oneal, Jose DEFLASH AND WASH OPERATOR-C Consulting Unavailable Oneal, Jose DEFLASH AND WASH OPERATOR-C Attending Unavailable Butler, Miguel Primary Care Unavailable Oneal, Jose DEFLASH AND WASH OPERATOR-C Consulting Unavailable Oneal, Jose DEFLASH AND WASH OPERATOR-C Attending Unavailable Butler, Miguel Primary Care Unavailable Oneal, Jose DEFLASH AND WASH OPERATOR-C Consulting Unavailable Oneal, Jose DEFLASH AND WASH OPERATOR-C Attending Unavailable Butler, Miguel Primary Care Unavailable Oneal, Jose DEFLASH AND WASH OPERATOR-C Attending Unavailable Butler, Miguel Primary Care Unavailable Oneal, Jose DEFLASH AND WASH OPERATOR-C Consulting Unavailable Butler, Miguel Primary Care Unavailable Cheatham, Jose Alfredo Attending Unavailable PROBLEMS PROBLEMS DATE TYPE CONDITION / CODE ATTENDING STATUS SOURCE 08/21/2018 Unknown G71.00 - Muscular Miguel Butler Active [place] dystrophy, Community unspecified / Hospital G71.00(ICD-10) Repository 08/09/2018 Unknown E78.5 - Miguel Butler Active [place] Hyperlipidemia, Community unspecified / Hospital E78.5(ICD-10) Repository 08/09/2018 Unknown Z79.899 - Other Miguel Butler Active [place] [facility] Community (current) drug Hospital therapy / Repository Z79.899(ICD-10) 08/24/2018 Unknown L89.124 - Pressure Oneal, Jose Active [place] ulcer of left DEFLASH AND WASH OPERATOR-C [facility] upper back, [facility] 4 / Repository L89.124(ICD-10) 07/13/2018 Unknown L89.132 - Pressure Oneal, Jose Active [place] ulcer of right DEFLASH AND WASH OPERATOR-C [facility] lower back, [facility] 2 / Repository L89.132(ICD-10) 07/13/2018 Unknown R64 - Cachexia / Oneal, Jose Active [place] R64(ICD-10) DEFLASH AND WASH OPERATOR-C [facility] Hospital Repository 07/13/2018 Unknown R53.81 - Other Oneal, Jose Active [place] malaise / DEFLASH AND WASH OPERATOR-C [facility] R53.81(ICD-10) Hospital Repository 07/13/2018 Unknown Z74.09 - Other Oneal, Jose Active [facility] reduced mobility / DEFLASH AND WASH OPERATOR-C Community Z74.09(ICD-10) Hospital Repository 07/13/2018 Unknown R15.9 - Full Oneal, Jose Active [place] incontinence of DEFLASH AND WASH OPERATOR-C Community feces / Hospital R15.9(ICD-10) Repository 07/13/2018 Unknown R32 - Unspecified OnealJose Active [place] urinary DEFLASH AND WASH OPERATOR-C Community incontinence / Hospital R32(ICD-10) Repository 07/13/2018 Unknown E46 - Unspecified OnealJose espinosa Active [facility] protein-calorie DEFLASH AND WASH OPERATOR-C Community malnutrition / Hospital E46(ICD-10) Repository 05/05/2018 Unknown L89.154 - Pressure Cheatham, Jose Alfredo Active [place] ulcer of sacral Community region, stage 4 / Hospital L89.154(ICD-10) Repository 06/08/2018 Unknown T81.30XA - Miguel Butler Active [place] Disruption of Community wound, Hospital unspecified, Repository initial encounter / T81.30XA(ICD-10) 02/14/2018 Unknown M25.512 - Pain in Anton Sandra Active [facility] left shoulder / Community M25.512(ICD-10) Hospital Repository 04/03/2018 Unknown L89.152 - Pressure Dietz, Joel Active [place] ulcer of sacral Community region, stage 2 / Hospital L89.152(ICD-10) Repository PROCEDURES PROCEDURES No Procedure Records FoundRESULTS RESULTS Observed: 07/31/2018 Status: F Source: TRAVIS CULTURE, DEEP WOUND 11:00 AM [facility] REPOSITORY Gram Stain Gram Stain 3+ Red Blood Cells 2+ White Blood Cells Rare Gram positive cocci Wound Culture #2 There are no CLSI standards for interpretation of this Drug/Organism combination. Clinical correlation necessary, Possible skin contamination. ORGANISM 1: Staphylococcus epidermidis Amount Growth 2+ ORGANISM 2: Corynebacterium striatum Amount Growth 2+ Staphylococcus epidermidis: REACTION Benzylpenicillin NF <=0.03 R Cefoxitin *NF - Clindamycin $$ <=0.25 S Inducable Clindamycin Resistan - Erythromycin $ <=0.25 S Gentamicin $ <=0.5 S Levofloxacin $ 0.5 S Linezolid $$$$ 2 S Oxacillin NF <=0.25 S Tigecycline $$$$ 0.25 S Rifampin $$ <=0.5 S Tetracycline NF <=1 S Vancomycin $ 2 S (NF) indicates non-formulary drug at [facility]. Approval by Infectious Disease Specialist required before non-formulary drugs may be ordered and/or dispensed. * CLSI guidelines does not recommend testing of cephalosporins. This interpretation is deduced from Beta-lactam/penicillin results. Cult, Anaerobic No anaerobic bacteria isolated. Performed By: #### M100.1500 #### [facility] [address] [place], [place], [address] CBC-COMPLETE BLOOD CNT Collected: 07/31/2018 Status: F Source: TRAVIS NO DIFF 4:[address] [facility] REPOSITORY Order Comment: 128/2 TYPE CODE TESTS RESULT OUT OF RANGE REFERENCE UNITS LAB L100.1000 4.4-11.0 K/mm3 Normal WBC 5.3 LAB L100.1200 4.6-6.2 M/mm3 Normal RBC 4.77 LAB L100.1300 13.0-16.5 g/dl Normal HGB 14.2 LAB L100.1400 40-54 % Normal HCT 45.6 LAB L100.1500 80-94 fL High MCV 95.6 LAB L100.1600 27.0-32.0 pg Normal MCH 29.8 LAB L100.1700 32-36 g/gl Low MCHC 31.1 LAB L100.1810 11.6-14.6 % High RDW CV 14.9 LAB L100.1820 35.1-43.9 fl High RDW SD 52.3 LAB L100.1900 150-450 K/mm3 Normal PLT 245 LAB L100.2000 6.2-12.0 fl Normal MPV 10.8 Performed By: #### L100.0500 #### [facility] [address] [place], [place], [address] BASIC METABOLIC Collected: 07/31/2018 Status: F Source: TRAVIS PROFILE (BMP) 4:[address] [facility] REPOSITORY Order Comment: 128/2 TYPE CODE TESTS RESULT OUT OF RANGE REFERENCE UNITS LAB L501.0100 74-106 mg/dL Normal GLU 106 Result Comment: Fasting Glucose result from 100 to 125 mg/dL suggests IMPAIRED HOMEOSTASIS per A.D.A. criteria. Please note revised GLUCOSE reference range effective 2017. LAB L501.1000 7-18 mg/dL High BUN 36 LAB L501.1100 0.70-1.30 mg/dL Low CREAT,SERUM 0.28 Result Comment: The validity of the calculated GFR AND GFRAA in patients over 70 years has not been determined. Clinical correlation is essential. LAB L501.1110 >60 mL/min Normal EST GFR 346 Result Comment: Non- GFR Calc LAB L501.1115 >60 mL/min Normal EST GFR - AA 419 Result Comment: GFR Calc LAB L501.1300 10-20 RATIO High BUN/CRE 130.9 LAB L501.2200 8.5-10.1 mg/dL CA Normal 8.8 LAB L501.5300 136-145 mmol/L NA Normal 142 LAB L501.5600 3.5-5.1 mmol/L K Normal 3.8 LAB L501.5900 98-107 mmol/L CL Normal 98 LAB L501.6100 21.0-32.0 mmol/L High CO2 39.0 LAB L501.6200 5-15 Normal GAP 5 Performed By: #### L500.2500 #### [facility] [address] [facility] [place], [address] CBC-COMPLETE BLOOD CNT Collected: 07/19/2018 Status: F Source: TRAVIS NO DIFF 5:[address] [facility] REPOSITORY Order Comment: 128-2 TYPE CODE TESTS RESULT OUT OF RANGE REFERENCE UNITS LAB L100.1000 4.4-11.0 K/mm3 Normal WBC 6.5 LAB L100.1200 4.6-6.2 M/mm3 Normal RBC 4.80 LAB L100.1300 13.0-16.5 g/dl Normal HGB 14.3 LAB L100.1400 40-54 % Normal HCT 45.5 LAB L100.1500 80-94 fL High MCV 94.8 LAB L100.1600 27.0-32.0 pg Normal MCH 29.8 LAB L100.1700 32-36 g/gl Low MCHC 31.4 LAB L100.1810 11.6-14.6 % High RDW CV 15.1 LAB L100.1820 35.1-43.9 fl High RDW SD 52.5 LAB L100.1900 150-450 K/mm3 Normal PLT 267 LAB L100.2000 6.2-12.0 fl Normal MPV 10.8 Performed By: #### L100.0500 #### [facility] [address] [place], [place], [address] BASIC METABOLIC Collected: 07/19/2018 Status: F Source: TRAVIS PROFILE (BMP) 5:[address] [facility] REPOSITORY Order Comment: 128-2 TYPE CODE TESTS RESULT OUT OF RANGE REFERENCE UNITS LAB L501.0100 74-106 mg/dL Normal GLU 97 Result Comment: Please note revised GLUCOSE reference range effective 2017. LAB L501.1000 7-18 mg/dL High BUN 25 LAB L501.1100 0.70-1.30 mg/dL Low CREAT,SERUM 0.20 Result Comment: The validity of the calculated GFR AND GFRAA in patients over 70 years has not been determined. Clinical correlation is essential. LAB L501.1110 >60 mL/min Normal EST GFR 512 Result Comment: Non- GFR Calc LAB L501.1115 >60 mL/min Normal EST GFR - AA 619 Result Comment: GFR Calc LAB L501.1300 10-20 RATIO High BUN/CRE 127.6 LAB L501.2200 8.5-10.1 mg/dL CA Normal 8.7 LAB L501.5300 136-145 mmol/L NA Normal 136 LAB L501.5600 3.5-5.1 mmol/L K Normal 3.5 LAB L501.5900 98-107 mmol/L Low CL 95 LAB L501.6100 21.0-32.0 mmol/L High CO2 38.0 LAB L501.6200 5-15 Low GAP 3 Performed By: #### L500.2500, L500.4100 #### [facility] [place], [address] LIPID PROFILE Collected: 07/19/2018 Status: F Source: TRAVIS 5:[address] [facility] REPOSITORY Order Comment: 128-2 TYPE CODE TESTS RESULT OUT OF RANGE REFERENCE UNITS LAB L501.4900 200 mg/dL Normal CHOL 186 Result Comment: <200 mg/dL Desirable 200-240 mg/dL Borderline >240 mg/dL High Risk LAB L501.5000 mg/dL Normal TRIG 82 Result Comment: The drugs N-Acetylcysteine and Metamizole may falsely depress this assay. Serum Triglycerides Reference Interval Normal <150 mg/dL Borderline high 150 - 199 mg/dL High 200 - 499 mg/dL Very High > or = 500 mg/dL LAB L501.6400 mg/dL Normal HDL 42 Result Comment: The drugs N-Acetylcysteine and Metamizole may falsely depress this assay. Reference Range HDL <40 mg/dL Low HDL Cholesterol HDL >or= 60 mg/dL High HDL Cholesterol LAB L501.6500 0-130 mg/dL Normal LDL 128 LAB L501.6600 5-40 mg/dL Normal VLDL 16 Performed By: #### L500.2500, L500.4100 #### [facility] [address] [place], [address] Observed: 05/11/2018 Status: F Source: [place] CULTURE, DEEP WOUND 3:[address] [facility] REPOSITORY Gram Stain Gram Stain Rare Gram positive cocci 3+ Red Blood Cells 2+ White Blood Cells Wound Culture There are no CLSI standards for interpretation of this Drug/Organism combination. ORGANISM 1: Kocuria kristinae Amount Growth 1+ Cult, Anaerobic Studies have confirmed that Anaerobic Gram Positive Cocci are routinely susceptible to: Penicillin/Ampicillin, Ampicillin/Sulbactam, Piperacillin/Tazobactam, Cefoxatin, Ertapenem, Imipenem, Meropenem and Metronidazole and vary in resistance to: Clindamycin and Moxifloxacin. ORGANISM 1: Anaerobic cocci Performed By: #### M100.1500 #### [facility] [address] [place], [address] WOUND CTR HISTORY Observed: 04/20/2018 Status: F Source: TRAVIS AND PHYSICAL 5:[address] [facility] REPOSITORY [facility] [address] [place] [id number] Wound Ctr History AND Physical 04/20/18 1725 MR#: [id number] Acct: [id number] Name: GongZita D Rep #: [id number] : 1945 72 From: Jose Oneal NP-C PCP: Miguel Butler MD Status: REG RCR Y Location: WC (1) Pressure ulcer of left upper back, stage 4 Status: Acute Current Visit: Yes Code(s): L89.124 - Pressure ulcer of left upper back, stage 4 (2) Pressure injury of buttock, stage 1 Status: Acute Current Visit: Yes Code(s): L89.301 - Pressure ulcer of unspecified buttock, stage 1 (3) Cachexia Status: Chronic Current Visit: Yes Code(s): R64 - Cachexia (4) Debility Status: Chronic Current Visit: Yes Code(s): R53.81 - Other malaise (5) Immobility Status: Chronic Current Visit: Yes Code(s): Z74.09 - Other reduced mobility (6) Incontinence of feces Status: Chronic Current Visit: Yes Code(s): R15.9 - Full incontinence of feces (7) Incontinence of urine Status: Chronic Current Visit: Yes Code(s): R32 - Unspecified urinary incontinence (8) Malnutrition Status: Chronic Current Visit: Yes Code(s): E46 - Unspecified protein-calorie malnutrition (9) Muscular dystrophy Status: Chronic Current Visit: Yes Code(s): G71.0 - Muscular dystrophy History of Present Illness Date of Service: 04/20/18 Chief Complaint: Pressure ulceration of the sacral area, stage I; stage 4 pressure ulcer left scapula History of Wound: A 72-year-old male who is a resident of [facility]. Patient presented to wound center d/t new decubitus to left scapula and old sacral wound reopened. He suffers from muscular dystrophy, and is severely impaired and immobilized. His muscular dystrophy was diagnosed in 1972. He has been bedridden and nonambulatory for a prolonged period of time, with severe muscle atrophy. Due to a lack of mobility and physical therapy, extremity joints are essentially frozen and immovable. The patient is extremely thin and emaciated, suggesting malnutrition and cachexia. He is incontinent of urine and stool, and wears a condom catheter. Patient was recently in [facility] ER on 04/15/2018 d/t concern for left scapular decubitus. Labs in ER without abnormality and was discharged back to nursing facility. Patient at nursing facility was placed on augmentin d/t cultures which showed rare microorganisms and was packing decubitus with aquacel and covered with allevyn. Denies any signs and symptoms of systemic or local infection. Patient does often lay on the affected left shoulder causing a constant pressure. He is noncompliant with off loading and frequent position changes. Past Medical History Past Medical History: Chronic Problems Sacral decubitus ulcer, stage II (Chronic) Muscular dystrophy (Chronic) Debility (Chronic) Immobility (Chronic) Malnutrition (Chronic) Incontinence of feces (Chronic) Incontinence of urine (Chronic) Cachexia (Chronic) Surgical History: tonsillectomy Allergies/Adverse Reactions: Allergies No Known Allergies Allergy (Verified 04/15/18 16:34) Home Medications: Ambulatory Orders Medication Instructions Recorded Ascorbic Acid 500 mg PO DAILY 01/31/18 Cyanocobalamin (Vitamin B-12) 1,000 mcg PO DAILY 01/31/18 [Vitamin B12] - Family History Paternal - - The patient's father at the age of 93 with a history of cancer, of unknown etiology. Patient's mother at the age of 84 from pneumonia, but had a history of breast cancer and muscular dystrophy. Smoking Status: Former smoker Tobacco Use: Non-smoker Review of Systems Constitutional: Denies: Chills, Fever, Weight Change Eyes: Denies: Pain, Vision Change HEENT: Denies: Difficulty Hearing, Difficulty Swallowing, Sinus Congestion Cardiovascular: Denies: Chest Pain, Palpitations Respiratory: Denies: Cough, Shortness of Breath Gastrointestinal: Denies: Diarrhea, Nausea, Vomiting Genitourinary: Reports: Incontinence. Denies: Dysuria, Hematuria Musculoskeletal: Reports: Joint Pain, Joint stiffness, Joint Tenderness, Shoulder Pain Skin: Reports: Wounds - see hpi Neurological: Reports: - - non ambulatory Psychiatric: Denies: Anxiety, Depression Hematologic/ Lymphatic: Denies: Easy Bruising, Easy Bleeding - Physical Exam Vital Signs Temp Pulse Resp BP 97.3 F L 102 H 18 117/70 04/20/18 14:11 04/20/18 14:11 04/20/18 14:11 04/20/18 14:11 General: Alert, Oriented x3, Cooperative, No apparent distress, - - thin and cahectic HEENT: Atraumatic Oral: Moist Mucosa Lungs: Clear to auscultation, Normal air movement Cardiovascular: Regular rate, Regular Rhythm, Normal S1, Normal S2 Abdomen: Soft, Non Tender, Non-Distended Extremities: No clubbing, No cyanosis, Edema - 2-3+ pitting blle Skin: Ulcer/ Wound - Stage I pressure ulcer sacral area with no adherent slough or signs of infection at this time, no indication for debridement, stage IV pressure ulcer to left scapular area with bone exposed, no foul smell or purulent discharge noted, though nursing does report copious amounts of serous drainage, site tunnels, no signs of acute infection at this time however Wound Measurements and Assessment WC - Nurse 1 - General Ulcer Measurement Start: 04/20/18 14:11 Freq: Status: Active Protocol: Activity Type Activity Date Activity User E-Sign Co-Sign Detail Recorded Client Recorded Date Recorded By Document 04/20/18 14:11 [facility] [id number] 04/20/18 14:30 [facility] Wound [facility] Nurse 1 [Ulcer Assessment] #4- LT SCAPULA -Combined with other wound No -Current Size (cm) - Length 2.1 -Current Size (cm) - Width 2.3 -Current Size (cm) - Depth 1.3 WC - Nurse 2 - General Ulcer CM Notes Start: 04/20/18 14:11 Freq: Status: Active Protocol: Activity Type Activity Date Activity User E-Sign Co-Sign Detail Recorded Client Recorded Date Recorded By Document 04/20/18 15:48 [id number] 04/20/18 16:16 Wound Center Nurse 2 [Procedure/Treatment] Musculoskeletal: Arthritic Changes, Cachexia, Muscle Wasting Lymphatic: No Cervical, Supraclavicular, or Inguinal Adenopathy Neurological: Neuro grossly intact, - - Nonambulatory Psych/Mental Status: Flat Affect, Alert and oriented to time, place, person, mood and affect Debridement Note Post-Debridement Measurements/Treatment JUAN - Nurse 2 - General Ulcer CM Notes Start: 04/20/18 14:11 Freq: Status: Active Protocol: Activity Type Activity Date Activity User E-Sign Co-Sign Detail Recorded Client Recorded Date Recorded By Document 04/20/18 15:48 [id number] 04/20/18 16:16 Wound Center Nurse 2 #4- LT SCAPULA -Time 15:53 -Correct Patient Yes -Correct Side, Site, Position Yes Wound debrided: Left stage IV pressure ulcer scapular region Laterality: Left Wound Grade/Stage: Stage IV Type of Debridement: Excisional debridement Anesthesia Used: 4% Lidocaine Solution Depth: Down to and including healthy tissue, in the subcutaneous layer, to muscle Percentage of wound debrided: 100 Instrument Used: 7mm curette Tissue Removed: Slough and devitalized tissue Severity: Necrosis of Muscle Amount of bleeding with debridement: Mild Bleeding Controlled with: Pressure Patient tolerated procedure well Bone exposed Assessment/Plan Active Problems Muscular dystrophy (Chronic) Debility (Chronic) Immobility (Chronic) Malnutrition (Chronic) Incontinence of feces (Chronic) Incontinence of urine (Chronic) Cachexia (Chronic) Pressure ulcer of left upper back, stage 4 (Acute) Pressure injury of buttock, stage 1 (Acute) Assessment: See above diagnoses Plan: The patient was seen and examined at the wound center today and was updated on the plan of care. A muscular debridement was performed today of the stage IV pressure ulcer in the scapular region. The patient tolerated the procedure well. The patients wound care will consist of: Packing with Aquacel and covering with Allevyn, will apply for a wound VAC for next visit, continue with hydrogel to the stage I sacral ulcer. Wound cultures were collected. Baseline bloodwork reviewed and prealbumin low, encouraged patient to continue with protein supplementation. Patient educated on the importance of offloading, though due to his multiple comorbidities has been very noncompliant with this. Did discuss frequent position changes and offloading mechanisms. He is in a low air loss pressure mattress in his facility. Patient educated on the importance of diet on wound healing and instructed to increase protein and vitamin C intake. Patient verbalized understanding. Patient will follow up at wound healing center in one week or sooner if needed. Patient is currently on a palliative wound plan. This note was generated with [employer] dictation software. It may contain incorrect words, spelling, and punctuation that were not noted in checking the note before signing. Code Visit Office Visits / Consults: [id number] OV L4 Est 111xxx-113xx: [id number] Steph musc/fascia 20 sq cm/< 04/20/18 1748 <Electronically signed by Jose ALLISON> Date Jose ALLISON CC: Signed Observed: 04/20/2018 Status: F Source: TRAVIS CULTURE, DEEP WOUND 2:[address] [facility] REPOSITORY Comments: L SCAPULA ULCER Gram Stain Gram Stain 3+ Red Blood Cells 1+ White Blood Cells No organisms seen Wound Culture * This is an amended result. * A prior result that was reported as final has been changed. 04/24/18 0803 by SWATI Previously reported as: FINAL There are no CLSI standards for interpretation of this Drug/Organism combination. Clinical correlation necessary, Possible skin contamination. ORGANISM 1: Corynebacterium striatum Amount Growth Rare Cult, Anaerobic No anaerobic bacteria isolated. Performed By: #### M100.1500 #### [facility] [address] [place], [address] EMERGENCY DEPARTMENT Observed: 04/15/2018 Status: F Source: [place] SUMMARY 6:[address] [facility] REPOSITORY [facility] Medical Records Department [address] [place] [address] Emergency Department Summary 04/15/18 1839 MR#: [id number] Acct: [id number] Name: Zita Gong Rep #: [id number] : 1945 72 From: Jose Alfredo Cheatham MD PCP: Miguel Butler MD Status: REG ER - ER Visit Summary Date of Service: 04/15/18 Chief Complaint: Sent to the emergency room because of concern for infected left scapular decubitus History of Present Illness: The patient is a 72 M who was sent from the nursing facility because of concern for infected left scapular decubitus. A wound culture was obtained which reveals 3+ WBCs and rare gram negative rods. He denies fever, chills night sweats. Review of old records reveals that he is DNR [facility] and has history of muscular dystrophy. He has a sacral decubiti as well. He is seen at the wound center. He has not seen the wound because he is bedridden. Physical Examination: Vital signs are normal. He is not febrile. He has a grade 4 left sacral decubiti. The opening is the size of a silver dollar. There is granulation tissue noted. There is no erythema, warmth, lymphangitis or any purulent drainage. Lungs are clear to auscultation. Heart is regular without murmur, gallop or rub Test Results: CBC was obtained and normal. BMP reveals slight elevation of glucose 129. Emergency Department Course and Treatment: Patient with sacral decubiti that does not appear infected. In my professional opinion the Gram stain reveals organism because a swab was taken of the granulation tissue. Labs were obtained to determine if there is any abnormality. If there are no abnormalities plan is to discharge back to the nursing facility and keep appointment at wound center on Treatment Plan: Wound care Disposition: Return to nursing facility Impression: Noninfected grade 4 left sacral decubitus This note was generated with Storypanda dictation software. It may contain incorrect words, spelling, and punctuation that were not noted in review of the chart prior to signing ED Disposition - Plan for ED Patient: Disposition: Home or Assisted Living Chief Complaint: Wound Instructions: ED Ulcer Decubitus Referrals: Miguel Butler MD [Primary Care Provider] - Additional Instructions: The decubitus in my professional opinion is not infected. Patient needs wound care follow-up and probable surgical intervention to debride area and probable graft. What to do if you have Problems For any increased pain, shortness of breath, bleeding, nausea or vomiting, chest pain, or any unexpected problems, contact your Primary Care Provider. Call [facility] ([phone]) or report to the closest Emergency Room. Call 911 if necessary. 04/15/18 7836 <Electronically signed by Jose Alrfedo Cheatham MD> Date Jose Alfredo Cheatham MD Cosigner Signature (If Indicated): Date CC: Miguel Butler MD CBC W/DIFF, AUTOMATED Collected: 04/15/2018 Status: F Source: [place] 5:[address] [facility] REPOSITORY TYPE CODE TESTS RESULT OUT OF RANGE REFERENCE UNITS LAB L100.1000 4.4-11.0 K/mm3 Normal WBC 9.5 LAB L100.1200 4.6-6.2 M/mm3 Normal RBC 4.94 LAB L100.1300 13.0-16.5 g/dl Normal HGB 15.2 LAB L100.1400 40-54 % Normal HCT 46.3 LAB L100.1500 80-94 fL Normal MCV 93.7 LAB L100.1600 27.0-32.0 pg Normal MCH 30.8 LAB L100.1700 32-36 g/gl Normal MCHC 32.8 LAB L100.1810 11.6-14.6 % Normal RDW CV 13.2 LAB L100.1820 35.1-43.9 fl High RDW SD 45.1 LAB L100.1900 150-450 K/mm3 Normal PLT 394 LAB L100.2000 6.2-12.0 fl Normal MPV 9.7 LAB L100.2100 47-70 % Normal NEUT% 67.9 LAB L100.2200 19-41 % Low LY% 17.7 LAB L100.2300 0-10 % High MONO% 11.9 LAB L100.2400 0-5 % Normal EO% 2.2 LAB L100.2500 0-1 % Normal BASO% 0.2 LAB L100.2550 0.0-0.9 % Normal IM GRAN % 0.100 Result Comment: IG% - Immature Granulocytes (promyelocytes, myelocytes and metamyelocytes) > 1% indicates that a LEFT SHIFT is Present. LAB L100.2620 2.0-7.7 X10 3/uL Normal Absolute Neut 6.5 LAB L100.2720 0.83-4.51 X10 3/ul Normal Absolute Lymph 1.68 Performed By: #### L100.0100 #### [facility] [address] [place] [address]. [place], [address] BASIC METABOLIC Collected: 04/15/2018 Status: F Source: [place] PROFILE (BMP) 5:[address] [facility] REPOSITORY TYPE CODE TESTS RESULT OUT OF RANGE REFERENCE UNITS LAB L501.0100 74-106 mg/dL High GLU 129 Result Comment: Fasting Glucose result greater than or equal to 126 mg/dL suggests DIABETES MELLITUS per A.D.A. criteria. Please note revised GLUCOSE reference range effective 2017. LAB L501.1000 7-18 mg/dL High BUN 21 LAB L501.1100 0.70-1.30 mg/dL Low CREAT,SERUM 0.25 Result Comment: The validity of the calculated GFR AND GFRAA in patients over 70 years has not been determined. Clinical correlation is essential. LAB L501.1110 >60 mL/min Normal EST GFR 392 Result Comment: Non- GFR Calc LAB L501.1115 >60 mL/min Normal EST GFR - AA 475 Result Comment: GFR Calc LAB L501.1255 ml/min Normal Estimated CRCL 64.33 LAB L501.1300 10-20 RATIO High BUN/CRE 85.0 LAB L501.2200 8.5-10 mg/dL Normal .1 CA 8.6 LAB L501.5300 136-14 mmol/L Normal 5 NA 137 LAB L501.5600 3.5-5. mmol/L Normal 1 K 3.7 LAB L501.5900 98-107 mmol/L Low CL 93 LAB L501.6100 21.0-3 mmol/L High 2.0 CO2 35.0 LAB L501.6200 5-15 Normal GAP 9 Performed By: #### L500.2500 #### [facility] [address] [place], [address] Observed: 04/14/2018 Status: F Source: [place] CULTURE, WOUND 1:[address] [facility] REPOSITORY Gram Stain Gram Stain 3+ White Blood Cells Rare Gram positive rods Wound Culture #1 Gram positive polo suggestive of a diptheroid. Possible skin contamination, further Identification and sensitivity will be performed only by physician's request. ORGANISM 1: Gram positive polo Amount Growth Rare ORGANISM 2: Coag Negative Staph Amount Growth Rare Performed By: #### M100.1400 #### [facility] [address] [place], [address] WOUND CTR HISTORY Observed: 03/21/2018 Status: F Source: TRAVIS AND PHYSICAL 10:[address] [facility] REPOSITORY [facility] Wound Healing Center [address] [place] [address] Wound Ctr History AND Physical 03/21/18 1007 MR#: [id number] Acct: [id number] Name: ZITA GONG Rep #: [id number] : 1945 72 From: Joel Dietz MD PCP: Miguel Butler MD Status: REG RCR Y Location: WC (1) Sacral decubitus ulcer, stage II Status: Chronic Current Visit: Yes Code(s): L89.152 - Pressure ulcer of sacral region, stage 2 (2) Ulcer of left knee Status: Resolved Current Visit: No Qualifiers: Code(s): L97.829 - Non-pressure chronic ulcer of other part of left lower leg with unspecified severity (3) Ulcer of right knee Status: Resolved Current Visit: No Qualifiers: Code(s): L97.819 - Non-pressure chronic ulcer of other part of right lower leg with unspecified severity (4) Muscular dystrophy Status: Chronic Current Visit: Yes Code(s): G71.0 - Muscular dystrophy (5) Debility Status: Chronic Current Visit: Yes Code(s): R53.81 - Other malaise (6) Immobility Status: Chronic Current Visit: Yes Code(s): Z74.09 - Other reduced mobility (7) Malnutrition Status: Chronic Current Visit: No Code(s): E46 - Unspecified protein-calorie malnutrition (8) Incontinence of feces Status: Chronic Current Visit: No Code(s): R15.9 - Full incontinence of feces (9) Incontinence of urine Status: Chronic Current Visit: No Code(s): R32 - Unspecified urinary incontinence (10) Cachexia Status: Chronic Current Visit: No Code(s): R64 - Cachexia History of Present Illness Date of Service: 03/21/18 Chief Complaint: Pressure ulceration of the sacral area, stage II; bilateral knee ulcerations History of Wound: This is a 72-year-old male who is a resident of [facility]. He suffers from muscular dystrophy, and is severely impaired and immobilized. His muscular dystrophy was diagnosed in 1972. He has only recently been transferred to the [facility]. Prior to that time, the patient resided at home, cared for by a hired aide and by his sister. He has been bedridden and nonambulatory for a prolonged period of time, with severe muscle atrophy. Due to a lack of mobility and physical therapy, extremity joints are essentially frozen and immovable. The patient is extremely thin and emaciated, suggesting malnutrition and cachexia. He claims his appetite is good. He claims to take a normal diet. He is incontinent of urine and stool, and wears a condom catheter. He was referred to the [facility] due to superficial ulcerations on each knee, and a pressure ulceration in the sacral area, to the right of the midline, appearing to be a stage II pressure ulcer. The ulcerations on each knee are completely healed, having responded to conservative treatment measures implemented at the Wound Center. Past Medical History Past Medical History: Chronic Problems Sacral decubitus ulcer, stage II (Chronic) Muscular dystrophy (Chronic) Debility (Chronic) Immobility (Chronic) Malnutrition (Chronic) Incontinence of feces (Chronic) Incontinence of urine (Chronic) Cachexia (Chronic) Surgical History: tonsillectomy Allergies/Adverse Reactions: Allergies No Known Allergies Allergy (Verified 02/14/18 12:30) Home Medications: Ambulatory Orders Medication Instructions Recorded Ascorbic Acid 500 mg PO DAILY 01/31/18 Cyanocobalamin (Vitamin B-12) 1,000 mcg PO DAILY 01/31/18 - Family History Paternal - - The patient's father at the age of 93 with a history of cancer, of unknown etiology. Patient's mother at the age of 84 from pneumonia, but had a history of breast cancer and muscular dystrophy. Smoking Status: Former smoker Tobacco Use: Non-smoker Review of Systems Constitutional: Denies: Chills, Fever, Weight Change Eyes: Denies: Pain, Vision Change HEENT: Denies: Difficulty Hearing, Difficulty Swallowing, Sinus Congestion Cardiovascular: Denies: Chest Pain, Palpitations Respiratory: Denies: Cough, Shortness of Breath Gastrointestinal: Denies: Diarrhea, Nausea, Vomiting Genitourinary: Denies: Dysuria, Hematuria Endocrine: Denies: Heat/ Cold Intolerance, Polydipsia, Polyuria Hematologic/ Lymphatic: Denies: Easy Bruising, Easy Bleeding - Physical Exam Vital Signs Temp Pulse Resp BP 97.1 F L 97 18 121/71 H 03/21/18 09:26 03/15/18 01:09 03/15/18 01:09 03/15/18 01:09 General: Alert, Oriented x3, Cooperative, No apparent distress, - - The patient is bedridden. He is immobile. Joints of the extremities are frozen. The patient is thin and appears to be under nourished. HEENT: Atraumatic, PERRLA, EOMI, Normocephalic Oral: Moist Mucosa Neck: No JVD Lungs: Normal air movement Abdomen: Non-Distended Extremities: No clubbing, No cyanosis, No edema, No Calf Tenderness, - - Joints of the extremities are frozen and immobile. The patient's knee wounds remain healed. Skin: No rashes, No breakdown, - - The patient's sacral ulceration is now completely healed and epithelialized. Wound Measurements and Assessment WC - Nurse 1 - General Ulcer Measurement Start: 03/21/18 09:26 Freq: Status: Active Protocol: Activity Type Activity Date Activity User E-Sign Co-Sign Detail Recorded Client Recorded Date Recorded By Document 03/21/18 09:26 [email or web address] [id number] 03/21/18 09:34 Wound Center Nurse 1 [Ulcer Assessment] 3-right lumbar cluster -Combined with other wound No -Current Size (cm) - Length 0 -Current Size (cm) - Width 0 WC - Nurse 2 - General Ulcer CM Notes Start: 03/21/18 09:26 Freq: Status: Active Protocol: Activity Type Activity Date Activity User E-Sign Co-Sign Detail Recorded Client Recorded Date Recorded By Document 03/21/18 09:55 MITCHELL [id number] 03/21/18 09:58 Wound Center Nurse 2 [Procedure/Treatment] 3-right lumbar cluster -Time 09:55 -Correct Patient Yes Musculoskeletal: Muscle Wasting Neurological: Cranial nerves II-XII grossly intact Psych/Mental Status: Normal Affect, Appropriate, Alert and oriented to time, place, person, mood and affect Debridement Note Post-Debridement Measurements/Treatment WC - Nurse 2 - General Ulcer CM Notes Start: 03/21/18 09:26 Freq: Status: Active Protocol: Activity Type Activity Date Activity User E-Sign Co-Sign Detail Recorded Client Recorded Date Recorded By Document 03/21/18 09:55 [id number] 03/21/18 09:58 Wound Center Nurse 2 No debridement was completed today Assessment/Plan Active Problems Sacral decubitus ulcer, stage II (Chronic) Muscular dystrophy (Chronic) Debility (Chronic) Immobility (Chronic) Assessment: This is a 72-year-old male with muscular dystrophy and chronic debility, immobilization, cachexia, malnutrition, and ulcerations on the knees and sacral area. His extremities are immobile and fixed in position. Extremities are atrophic. The patient has been in the home environment, cared for by his sister and a hired aide recently. Recently, the patient's care was transferred to the [facility], where he currently resides. The ulcerations on each knee were superficial, and are now healed. The sacral pressure ulceration represented a stage II ulcer, which has now healed. Laboratory studies have been performed recently, and have been reviewed. Results are as follows: Glucose 99, BUN 19, creatinine 0.16, calcium 8.2, cholesterol 193, triglycerides 160, sodium 131, potassium 3.3, chloride 87, blood count 10.1, globin 12.9, hematocrit 38.2, platelets 349,000. Patient's nutritional labs have been reviewed, and suggest malnutrition. Total protein was 5.2, albumin 2.2, and serum prealbumin 16.2. Plan: The patient is now completely healed, and will be discharged. He will follow-up as needed in the future. Offloading measures are to be continued. The patient is known to have a low air loss mattress on his bed. Frequent repositioning has been recommended. Padding has been implemented to the patient's knees to avoid trauma, and this is to be continued. The patient has been advised to continue with adequate and appropriate nutrition. He has been advised to collaborate with his caregivers to assure that frequent repositioning continues to be a part of his daily regimen. We are to continue the use of OptiFoam to minimize pressure and shear forces in the sacral area. The patient has been encouraged to take a well balanced diet, with the use of nutritional supplements several times daily. Because his lower extremities are fixed in an externally rotated position, the patient's knees are vulnerable for trauma during transport. Therefore, we have recommended the use of kneepads for protection purposes. The patient is not a smoker. Influenza vaccine was not administered today. Patient stands 5 feet 9 inches tall, and weighs 142 pounds. His BMI is 20.9. 03/21/18 1015 <Electronically signed by Joel Dietz MD> Date Joel Dietz MD CC: Signed WOUND CTR HISTORY Observed: 03/14/2018 Status: F Source: TRAVIS AND PHYSICAL 9:[address] [facility] REPOSITORY [facility] Wound Healing Center [address] [place] [address] Wound Ctr History AND Physical 03/14/18 0908 MR#: [id number] Acct: [id number] Name: ZITA GONG Rep #: [id number] : 1945 72 From: Joel Dietz MD PCP: Miguel Butler MD Status: REG RCR Y Location: (1) Sacral decubitus ulcer, stage II Status: Chronic Current Visit: Yes Code(s): L89.152 - Pressure ulcer of sacral region, stage 2 (2) Ulcer of left knee Status: Resolved Current Visit: No Qualifiers: Code(s): L97.829 - Non-pressure chronic ulcer of other part of left lower leg with unspecified severity (3) Ulcer of right knee Status: Resolved Current Visit: No Qualifiers: Code(s): L97.819 - Non-pressure chronic ulcer of other part of right lower leg with unspecified severity (4) Muscular dystrophy Status: Chronic Current Visit: Yes Code(s): G71.0 - Muscular dystrophy (5) Debility Status: Chronic Current Visit: Yes Code(s): R53.81 - Other malaise (6) Immobility Status: Chronic Current Visit: Yes Code(s): Z74.09 - Other reduced mobility (7) Malnutrition Status: Chronic Current Visit: Yes Code(s): E46 - Unspecified protein-calorie malnutrition (8) Incontinence of feces Status: Chronic Current Visit: No Code(s): R15.9 - Full incontinence of feces (9) Incontinence of urine Status: Chronic Current Visit: No Code(s): R32 - Unspecified urinary incontinence (10) Cachexia Status: Chronic Current Visit: Yes Code(s): R64 - Cachexia History of Present Illness Date of Service: 03/14/18 Chief Complaint: Pressure ulceration of the sacral area, stage II; bilateral knee ulcerations History of Wound: This is a 72-year-old male who is a resident of [facility]. He suffers from muscular dystrophy, and is severely impaired and immobilized. His muscular dystrophy was diagnosed in 1972. He has only recently been transferred to the [facility]. Prior to that time, the patient resided at home, cared for by a hired aide and by his sister. He has been bedridden and nonambulatory for a prolonged period of time, with severe muscle atrophy. Due to a lack of mobility and physical therapy, extremity joints are essentially frozen and immovable. The patient is extremely thin and emaciated, suggesting malnutrition and cachexia. He claims his appetite is good. He claims to take a normal diet. He is incontinent of urine and stool, and wears a condom catheter. He was referred to the [facility] due to superficial ulcerations on each knee, and a pressure ulceration in the sacral area, to the right of the midline, appearing to be a stage II pressure ulcer. The ulcerations on each knee are now completely healed, having responded to conservative treatment measures implemented at the Wound Center. Past Medical History Past Medical History: Chronic Problems Sacral decubitus ulcer, stage II (Chronic) Muscular dystrophy (Chronic) Debility (Chronic) Immobility (Chronic) Malnutrition (Chronic) Incontinence of feces (Chronic) Incontinence of urine (Chronic) Cachexia (Chronic) Surgical History: tonsillectomy Allergies/Adverse Reactions: Allergies No Known Allergies Allergy (Verified 02/14/18 12:30) Home Medications: Ambulatory Orders Medication Instructions Recorded Ascorbic Acid 500 mg PO DAILY 01/31/18 Cyanocobalamin (Vitamin B-12) 1,000 mcg PO DAILY 01/31/18 - Family History Paternal - - The patient's father at the age of 93 with a history of cancer, of unknown etiology. Patient's mother at the age of 84 from pneumonia, but had a history of breast cancer and muscular dystrophy. Smoking Status: Former smoker Tobacco Use: Non-smoker Review of Systems Constitutional: Denies: Chills, Fever, Weight Change Eyes: Denies: Pain, Vision Change HEENT: Denies: Difficulty Hearing, Difficulty Swallowing, Sinus Congestion Cardiovascular: Denies: Chest Pain, Palpitations Respiratory: Denies: Cough, Shortness of Breath Gastrointestinal: Denies: Diarrhea, Nausea, Vomiting Genitourinary: Denies: Dysuria, Hematuria Endocrine: Denies: Heat/ Cold Intolerance, Polydipsia, Polyuria Hematologic/ Lymphatic: Denies: Easy Bruising, Easy Bleeding - Physical Exam Vital Signs Temp Pulse Resp BP 98.0 F 97 18 121/71 H 03/14/18 08:35 03/14/18 08:35 03/14/18 08:35 03/14/18 08:35 General: Alert, Oriented x3, Cooperative, No apparent distress, - - The patient is immobile. He appears frail and cachectic. HEENT: Atraumatic, PERRLA, EOMI, Normocephalic Oral: Moist Mucosa Neck: No JVD Lungs: Normal air movement Abdomen: Non-Distended Extremities: No clubbing, No cyanosis, No edema, No Calf Tenderness, - - Severe atrophy is noted of all extremities. His joints are essentially frozen and immobile. The ulcerations on each knee remained healed. Skin: No rashes, - - The patient's stage II sacral pressure ulceration is markedly improved. There has been significant peripheral epithelialization. At this juncture, the remaining ulceration is quite small. Dimensions are documented elsewhere. There is no sign of infection or cellulitis. Wound Measurements and Assessment WC - Nurse 1 - General Ulcer Measurement Start: 02/14/18 08:26 Freq: Status: Active Protocol: Activity Type Activity Date Activity User E-Sign Co-Sign Detail Recorded Client Recorded Date Recorded By Document 03/14/18 08:35 CS [id number] 03/14/18 08:37 CS Musculoskeletal: Muscle Wasting Neurological: Cranial nerves II-XII grossly intact, Neuro grossly intact Psych/Mental Status: Normal Affect, Appropriate, Alert and oriented to time, place, person, mood and affect Debridement Note Post-Debridement Measurements/Treatment WC - Nurse 2 - General Ulcer CM Notes Start: 02/14/18 08:26 Freq: Status: Active Protocol: Activity Type Activity Date Activity User E-Sign Co-Sign Detail Recorded Client Recorded Date Recorded By Wound Center Nurse 2 3-right lumbar cluster -Time 10:01 08:48 09:02 -Correct Patient Yes Yes Yes -Correct Side, Site, Position Yes Yes Yes Laterality: Not Applicable - Stage II sacral pressure ulceration Type of Debridement: Excisional debridement Anesthesia Used: 4% Lidocaine Solution Depth: Down to and including healthy tissue, in the subcutaneous layer Percentage of wound debrided: 100 Instrument Used: 5mm curette Severity: Fat Layer Exposed Amount of bleeding with debridement: Mild Bleeding Controlled with: Compression and gauze Patient tolerated procedure well Assessment/Plan Active Problems Sacral decubitus ulcer, stage II (Chronic) Muscular dystrophy (Chronic) Debility (Chronic) Immobility (Chronic) Malnutrition (Chronic) Cachexia (Chronic) Assessment: This is a 72-year-old male with muscular dystrophy and chronic debility, immobilization, cachexia, malnutrition, and ulcerations on the knees and sacral area. His extremities are relatively immobile and fixed in position. Extremities are atrophic. The patient has been in the home environment, cared for by his sister and a hired aide recently. Recently, the patient's care was transferred to the [facility], where he currently resides. The ulcerations on each knee were superficial, and are now healed. The sacral pressure ulceration represents a stage II ulcer, which has shown good progress towards healing, and is now quite small in size. Laboratory studies have been performed recently, and have been reviewed. Results are as follows: Glucose 99, BUN 19, creatinine 0.16, calcium 8.2, cholesterol 193, triglycerides 160, sodium 131, potassium 3.3, chloride 87, blood count 10.1, globin 12.9, hematocrit 38.2, platelets 349,000. Patient's nutritional labs have been reviewed, and suggest malnutrition. Total protein was 5.2, albumin 2.2, and serum prealbumin 16.2. Plan: Offloading measures are to be continued. The patient is known to have a low air loss mattress on his bed. Frequent repositioning has been recommended. We are to continue the use of collagen hydrogel topically on the sacral pressure ulceration. We are to use OptiFoam to minimize pressure and shear forces. The patient has been encouraged to take a well balanced diet, with the use of nutritional supplements several times daily. Because his lower extremities are fixed in an externally rotated position, the patient's knees are vulnerable for trauma during transport. Therefore, we have recommended the use of kneepads for protection purposes. The patient is to return in 1 week for reassessment. The patient is not a smoker. Influenza vaccine was not administered today. Patient stands 5 feet 9 inches tall, and weighs 142 pounds. His BMI is 20.9. 03/14/18 0914 <Electronically signed by Joel Dietz MD> Date Joel Dietz MD CC: Signed WOUND CTR HISTORY Observed: 02/28/2018 Status: F Source: TRAVIS AND PHYSICAL 9:[address] [facility] REPOSITORY [facility] Wound Healing Center [address] [place] [address] Wound Ctr History AND Physical 02/28/18918 MR#: [id number] Acct: [id number] Name: ZITA GONG Rep #: [id number] : 1945 72 From: Joel Dietz MD PCP: Miguel Butler MD Status: REG RCR Y Location: (1) Sacral decubitus ulcer, stage II Status: Chronic Current Visit: Yes Code(s): L89.152 - Pressure ulcer of sacral region, stage 2 (2) Ulcer of left knee Status: Resolved Current Visit: No Qualifiers: Code(s): L97.829 - Non-pressure chronic ulcer of other part of left lower leg with unspecified severity (3) Ulcer of right knee Status: Resolved Current Visit: No Qualifiers: Code(s): L97.819 - Non-pressure chronic ulcer of other part of right lower leg with unspecified severity (4) Muscular dystrophy Status: Chronic Current Visit: Yes Code(s): G71.0 - Muscular dystrophy (5) Debility Status: Chronic Current Visit: Yes Code(s): R53.81 - Other malaise (6) Immobility Status: Chronic Current Visit: Yes Code(s): Z74.09 - Other reduced mobility (7) Malnutrition Status: Chronic Current Visit: Yes Code(s): E46 - Unspecified protein-calorie malnutrition (8) Incontinence of feces Status: Chronic Current Visit: No Code(s): R15.9 - Full incontinence of feces (9) Incontinence of urine Status: Chronic Current Visit: No Code(s): R32 - Unspecified urinary incontinence (10) Cachexia Status: Chronic Current Visit: Yes Code(s): R64 - Cachexia History of Present Illness Date of Service: 02/28/18 Chief Complaint: Pressure ulceration of the sacral area, stage II; bilateral knee ulcerations History of Wound: This is a 72-year-old male who is a resident of [facility]. He suffers from muscular dystrophy, and is severely impaired and immobilized. His muscular dystrophy was diagnosed in 1972. He has only recently been transferred to the [facility]. Prior to that time, the patient resided at home, cared for by a hired aide and by his sister. He has been bedridden and nonambulatory for a prolonged period of time, with severe muscle atrophy. Due to a lack of mobility and physical therapy, extremity joints are essentially frozen and immovable. The patient is extremely thin and emaciated, suggesting malnutrition and cachexia. He claims his appetite is good. He claims to take a normal diet. He is incontinent of urine and stool, and wears a condom catheter. He was referred to the [facility] due to superficial ulcerations on each knee, and a pressure ulceration in the sacral area, to the right of the midline, appearing to be a stage II pressure ulcer. Past Medical History Past Medical History: Chronic Problems Sacral decubitus ulcer, stage II (Chronic) Muscular dystrophy (Chronic) Debility (Chronic) Immobility (Chronic) Malnutrition (Chronic) Incontinence of feces (Chronic) Incontinence of urine (Chronic) Cachexia (Chronic) Surgical History: tonsillectomy Allergies/Adverse Reactions: Allergies No Known Allergies Allergy (Verified 02/14/18 12:30) Home Medications: Ambulatory Orders Medication Instructions Recorded Ascorbic Acid 500 mg PO DAILY 01/31/18 Cyanocobalamin (Vitamin B-12) 1,000 mcg PO DAILY 01/31/18 - Family History Paternal - - The patient's father at the age of 93 with a history of cancer, of unknown etiology. Patient's mother at the age of 84 from pneumonia, but had a history of breast cancer and muscular dystrophy. Smoking Status: Former smoker Tobacco Use: Non-smoker Review of Systems Constitutional: Denies: Chills, Fever, Weight Change Eyes: Denies: Pain, Vision Change HEENT: Denies: Difficulty Hearing, Difficulty Swallowing, Sinus Congestion Cardiovascular: Denies: Chest Pain, Palpitations Respiratory: Denies: Cough, Shortness of Breath Gastrointestinal: Denies: Diarrhea, Nausea, Vomiting Genitourinary: Denies: Dysuria, Hematuria Endocrine: Denies: Heat/ Cold Intolerance, Polydipsia, Polyuria Hematologic/ Lymphatic: Denies: Easy Bruising, Easy Bleeding - Physical Exam Vital Signs Temp Pulse Resp BP 98.0 F 89 16 124/68 H 02/28/18 08:35 02/28/18 08:35 02/28/18 08:35 02/28/18 08:35 General: Alert, Oriented x3, Cooperative, No apparent distress, - - The patient is thin and emaciated. HEENT: Atraumatic, PERRLA, EOMI, Normocephalic Oral: Moist Mucosa Neck: No JVD Lungs: Normal air movement Abdomen: Non-Distended Extremities: No clubbing, No cyanosis, No edema, No Calf Tenderness, - - Severe muscle wasting is noted. Joints of all extremities are essentially frozen and immovable. Ulcerations on each knee are essentially healed, with only a small area of dry eschar on each knee. There is no sign of infection or cellulitis. Skin: - - The ulceration in the sacral area is clustered. Dimensions are documented elsewhere. There is no sign of infection or cellulitis. The base of the ulceration is generally pink and healthy, with a mild amount of bioburden. Wound Measurements and Assessment WC - Nurse 1 - General Ulcer Measurement Start: 02/14/18 08:26 Freq: Status: Active Protocol: Activity Type Activity Date Activity User E-Sign Co-Sign Detail Recorded Client Recorded Date Recorded By Document 02/28/18 08:35 NM [id number] 02/28/18 08:47 NM Wound Center Nurse 1 [Ulcer Assessment] 3-right lumbar cluster -Current Size (cm) - Length 1.4 WC - Nurse 2 - General Ulcer CM Notes Start: 02/14/18 08:26 Freq: Status: Active Protocol: Activity Type Activity Date Activity User E-Sign Co-Sign Detail Recorded Client Recorded Date Recorded By Document 02/28/18 09:01 [id number] 02/28/18 09:18 JS Wound Center Nurse 2 [Procedure/Treatment] -Time 09:02 -Correct Patient Yes -Correct Side, Site, Position Yes -Correct Procedure Yes -Procedure Performed Yes Musculoskeletal: Muscle Wasting, - - Severe muscle wasting is noted in extremities Neurological: Cranial nerves II-XII grossly intact, Neuro grossly intact Psych/Mental Status: Normal Affect, Appropriate, Alert and oriented to time, place, person, mood and affect Debridement Note Post-Debridement Measurements/Treatment WC - Nurse 2 - General Ulcer CM Notes Start: 02/14/18 08:26 Freq: Status: Active Protocol: Activity Type Activity Date Activity User E-Sign Co-Sign Detail Recorded Client Recorded Date Recorded By Wound Center Nurse 2 3-right lumbar cluster -Time 10:01 08:48 09:02 -Correct Patient Yes Yes Yes -Correct Side, Site, Position Yes Yes Yes Laterality: Not Applicable - Sacral ulceration Type of Debridement: Excisional debridement Anesthesia Used: 4% Lidocaine Solution Depth: Down to and including healthy tissue, in the subcutaneous layer Percentage of wound debrided: 100 Instrument Used: 3mm curette Severity: Fat Layer Exposed Amount of bleeding with debridement: Mild Bleeding Controlled with: Compression and gauze Patient tolerated procedure well Assessment/Plan Active Problems Sacral decubitus ulcer, stage II (Chronic) Muscular dystrophy (Chronic) Debility (Chronic) Immobility (Chronic) Malnutrition (Chronic) Cachexia (Chronic) Assessment: This is a 72-year-old male with muscular dystrophy and chronic debility, immobilization, cachexia, malnutrition, and ulcerations on the knees and sacral area. His extremities are relatively immobile and fixed in position. Extremities are atrophic. The patient has been in the home environment, cared for by his sister and a hired aide recently. Recently, the patient's care was transferred to the [facility], where he currently resides. The ulcerations on each knee were superficial, and are now essentially healed. The sacral pressure ulceration represents a stage II ulcer. Laboratory studies have been performed recently, and have been reviewed. Results are as follows: Glucose 99, BUN 19, creatinine 0.16, calcium 8.2, cholesterol 193, triglycerides 160, sodium 131, potassium 3.3, chloride 87, blood count 10.1, globin 12.9, hematocrit 38.2, platelets 349,000. Patient's nutritional labs have been reviewed, and suggest malnutrition. Total protein was 5.2, albumin 2.2, and serum prealbumin 16.2. Plan: Offloading measures are to be continued. The patient is known to have a low air loss mattress on his bed. Frequent repositioning has been recommended. We are to continue the use of collagen hydrogel topically on the sacral pressure ulceration. We are to use OptiFoam to minimize pressure and shear forces. The patient has been encouraged to take a well balanced diet, with the use of nutritional supplements several times daily. Patient is to return in 2 weeks for reassessment. The patient is not a smoker. Influenza vaccine was not administered today. Patient stands 5 feet 9 inches tall, and weighs 142 pounds. His BMI is 20.9. 02/28/18 0924 <Electronically signed by Joel Dietz MD> Date Joel Dietz MD CC: Signed WOUND CTR HISTORY Observed: 02/21/2018 Status: F Source: [facility] PHYSICAL 8:[address] [facility] REPOSITORY [facility] Wound Healing Center [address] [place] [address] Wound Ctr History AND Physical 02/21/18 0847 MR#: [id number] Acct: [id number] Name: ZITA GONG Rep #: [id number] : 1945 72 From: Joel Dietz MD PCP: Miguel Butler MD Status: REG RCR Y Location: WC (1) Sacral decubitus ulcer, stage II Status: Chronic Current Visit: Yes Code(s): L89.152 - Pressure ulcer of sacral region, stage 2 (2) Ulcer of left knee Status: Resolved Current Visit: No Qualifiers: Code(s): L97.829 - Non-pressure chronic ulcer of other part of left lower leg with unspecified severity (3) Ulcer of right knee Status: Resolved Current Visit: No Qualifiers: Code(s): L97.819 - Non-pressure chronic ulcer of other part of right lower leg with unspecified severity (4) Muscular dystrophy Status: Chronic Current Visit: Yes Code(s): G71.0 - Muscular dystrophy (5) Debility Status: Chronic Current Visit: Yes Code(s): R53.81 - Other malaise (6) Immobility Status: Chronic Current Visit: Yes Code(s): Z74.09 - Other reduced mobility (7) Malnutrition Status: Chronic Current Visit: Yes Code(s): E46 - Unspecified protein-calorie malnutrition (8) Incontinence of feces Status: Chronic Current Visit: No Code(s): R15.9 - Full incontinence of feces (9) Incontinence of urine Status: Chronic Current Visit: No Code(s): R32 - Unspecified urinary incontinence (10) Cachexia Status: Chronic Current Visit: Yes Code(s): R64 - Cachexia History of Present Illness Date of Service: 02/21/18 Chief Complaint: Pressure ulceration of the sacral area, stage II; bilateral knee ulcerations History of Wound: This is a 72-year-old male who is a resident of [facility]. He suffers from muscular dystrophy, and is severely impaired and immobilized. His muscular dystrophy was diagnosed in 1972. He has only recently been transferred to the [facility]. Prior to that time, the patient resided at home, cared for by a hired aide and by his sister. He has been bedridden and nonambulatory for a prolonged period of time, with severe muscle atrophy. Due to a lack of mobility and physical therapy, extremity joints are essentially frozen and immovable. The patient is extremely thin and emaciated, suggesting malnutrition and cachexia. He claims his appetite is good. He claims to take a normal diet. He is incontinent of urine and stool, and wears a condom catheter. He was referred to the [facility] due to superficial ulcerations on each knee, and a pressure ulceration in the sacral area, to the right of the midline, appearing to be a stage II pressure ulcer. Past Medical History Past Medical History: Chronic Problems Sacral decubitus ulcer, stage II (Chronic) Muscular dystrophy (Chronic) Debility (Chronic) Immobility (Chronic) Malnutrition (Chronic) Incontinence of feces (Chronic) Incontinence of urine (Chronic) Cachexia (Chronic) Surgical History: tonsillectomy Allergies/Adverse Reactions: Allergies No Known Allergies Allergy (Verified 02/14/18 12:30) Home Medications: Ambulatory Orders Medication Instructions Recorded Ascorbic Acid 500 mg PO DAILY 01/31/18 Cyanocobalamin (Vitamin B-12) 1,000 mcg PO DAILY 01/31/18 - Family History Paternal - - The patient's father at the age of 93 with a history of cancer, of unknown etiology. Patient's mother at the age of 84 from pneumonia, but had a history of breast cancer and muscular dystrophy. Smoking Status: Former smoker Tobacco Use: Non-smoker Review of Systems Constitutional: Denies: Chills, Fever, Weight Change Eyes: Denies: Pain, Vision Change HEENT: Denies: Difficulty Hearing, Difficulty Swallowing, Sinus Congestion Cardiovascular: Denies: Chest Pain, Palpitations Respiratory: Denies: Cough, Shortness of Breath Gastrointestinal: Denies: Diarrhea, Nausea, Vomiting Genitourinary: Denies: Dysuria, Hematuria Endocrine: Denies: Heat/ Cold Intolerance, Polydipsia, Polyuria Hematologic/ Lymphatic: Denies: Easy Bruising, Easy Bleeding - Physical Exam Vital Signs Temp Pulse Resp BP 97.1 F L 92 16 134/71 H 02/21/18 08:18 02/21/18 08:18 02/21/18 08:18 02/21/18 08:18 General: Alert, Oriented x3, Cooperative, No apparent distress, Well developed, - - The patient is extremely thin and cachectic. HEENT: Atraumatic, PERRLA, EOMI, Normocephalic Oral: Moist Mucosa Neck: No JVD Lungs: Normal air movement Abdomen: Non-Distended Extremities: No clubbing, No cyanosis, No edema, No Calf Tenderness, - - Severe muscle wasting is noted in the extremities. Joints in the upper and lower extremities are frozen and immovable. Skin: - - Ulceration in the sacral area is slightly improved. Dimensions are documented elsewhere. The base of the ulceration is generally pink and healthy in appearance. There is no sign of infection or cellulitis. Wound Measurements and Assessment WC - Nurse 1 - General Ulcer Measurement Start: 02/14/18 08:26 Freq: Status: Active Protocol: Activity Type Activity Date Activity User E-Sign Co-Sign Detail Recorded Client Recorded Date Recorded By Document 02/21/18 08:18 [id number] 02/21/18 08:32 CS Musculoskeletal: Cachexia, Muscle Wasting Neurological: Cranial nerves II-XII grossly intact, Neuro grossly intact Psych/Mental Status: Normal Affect, Appropriate, Alert and oriented to time, place, person, mood and affect Debridement Note Post-Debridement Measurements/Treatment WC - Nurse 2 - General Ulcer CM Notes Start: 02/14/18 08:26 Freq: Status: Active Protocol: Activity Type Activity Date Activity User E-Sign Co-Sign Detail Recorded Client Recorded Date Recorded By Document 02/14/18 10:01 [id number] 02/14/18 10:15 Wound Center Nurse 2 3-right lumbar cluster -Time 10:01 -Correct Patient Yes -Correct Side, Site, Position Yes -Correct Procedure Yes -Procedure Performed Yes Laterality: Not Applicable - Sacral pressure ulcer Type of Debridement: Excisional debridement Anesthesia Used: 4% Lidocaine Solution Depth: Down to and including healthy tissue, in the subcutaneous layer Percentage of wound debrided: 100 Instrument Used: 5mm curette Severity: Fat Layer Exposed Amount of bleeding with debridement: Mild Bleeding Controlled with: Compression and gauze Patient tolerated procedure well Assessment/Plan Active Problems Sacral decubitus ulcer, stage II (Chronic) Muscular dystrophy (Chronic) Debility (Chronic) Immobility (Chronic) Malnutrition (Chronic) Cachexia (Chronic) Assessment: This is a 72-year-old male with muscular dystrophy and chronic debility, immobilization, cachexia, malnutrition, and ulcerations on the knees and sacral area. His extremities are relatively immobile and fixed in position. Extremities are atrophic. The patient has been in the home environment, cared for by his sister and a hired aide recently. Recently, the patient's care was transferred to the [facility], where he currently resides. The ulcerations on each knee were superficial, and are now essentially healed. The sacral pressure ulceration represents a stage II ulcer. Laboratory studies have been performed recently, and have been reviewed. Results are as follows: Glucose 99, BUN 19, creatinine 0.16, calcium 8.2, cholesterol 193, triglycerides 160, sodium 131, potassium 3.3, chloride 87, blood count 10.1, globin 12.9, hematocrit 38.2, platelets 349,000. Patient's nutritional labs have been reviewed, and suggest malnutrition. Total protein was 5.2, albumin 2.2, and serum prealbumin 16.2. Plan: Offloading measures are to be continued. The patient is known to have a low air loss mattress on his bed. Frequent repositioning has been recommended. We are to continue the use of collagen hydrogel topically on the sacral pressure ulceration. We are to use OptiFoam to minimize pressure and shear forces. The patient has been encouraged to take a well balanced diet, with the use of nutritional supplements several times daily. Patient is to return in 1 week for reassessment. . The patient is not a smoker. Influenza vaccine was not administered today. Patient stands 5 feet 9 inches tall, and weighs 142 pounds. His BMI is 20.9. 02/21/18 0853 <Electronically signed by Joel Dietz MD> Date Joel Dietz MD CC: Signed EMERGENCY DEPARTMENT Observed: 02/14/2018 Status: F Source: [place] SUMMARY 4:[address] [facility] REPOSITORY [facility] Medical Records Department [address] [place] [address] Emergency Department Summary 02/14/18 1232 MR#: [id number] Acct: [id number] Name: ZITA GONG Rep #: [id number] : 1945 72 From: Anton Sandra MD PCP: Miguel Butler MD Status: DEP ER - ER Visit Summary Date of Service: 02/14/18 Chief Complaint: Left shoulder pain History of Present Illness: The patient is a [address] Miguel Butler. He has a history of severe muscular dystrophy and as a result of this has problems with his scapula. Reports that he has chronic pain in his scapula that worsened 2 days ago. It is a sharp pain that is 10 out of 10 at worst and 1 out of 10 currently. Is worsened by movement and relieved by rest. He denies any paresthesias or trauma. Physical Examination: Vitals: Stable. Afebrile. General: Well-developed, but cachectic. Head: Normocephalic atraumatic. Neck: Supple, no lymphadenopathy. No JVD. Nontender. Cardiovascular: Regular rate and rhythm. No murmurs. Respiratory: No respiratory distress. Clear to auscultation bilaterally. Abdominal: Soft, nontender, nondistended, normal bowel sounds. No guarding, rebound, or peritoneal signs. Back: Nontender. Extremities: Nontender, no edema. Posterior to his clavicle bilaterally he has prominent, palpable scapula that are nontender to palpation. He has no tenderness palpation over the left shoulder. He does have pain with any range of motion. He is neurovascular intact. Skin: Normal color, no rash. Neurologic: Alert and oriented 3. Cranial nerves II through XII are intact. Normal strength and sensation. Psych: Normal affect. Test Results: Chest x-ray read by myself shows chronic changes with abnormal position of the scapula bilaterally. Left shoulder x-ray shows degenerative changes. Emergency Department Course and Treatment: Patient refused pain medications initially. He was then given oxycodone is resting comfortably. Treatment Plan: Patient will be discharged with Percocet and instructed to follow-up his primary care physician in 3-5 days if not improving. Return to the emergency department for any worsening symptoms. Disposition: To home in improved and stable condition. Impression: 1. Left scapula pain, acute on chronic. This note was generated with [employer] dictation software. It may contain incorrect words, spelling, and punctuation that were not noted in review of the chart prior to signing ED Disposition - Plan for ED Patient: Disposition: Home or Assisted Living Chief Complaint: Upper Extremity Injury Instructions: ED Shoulder Pain [facility] Prescriptions: Oxycodone HCl/Acetaminophen [Percocet 5/325] 1 tablet PO Q6H PRN PRN 5 Days #20 tablet PRN Reason: Pain Referrals: Miguel Butler MD [Primary Care Provider] - 3-5 Days if not improving What to do if you have Problems For any increased pain, shortness of breath, bleeding, nausea or vomiting, chest pain, or any unexpected problems, contact your Primary Care Provider. Call [facility] ([phone]) or report to the closest Emergency Room. Call 911 if necessary. 02/14/18 1631 <Electronically signed by Anton Sandra MD> Date Anton Sandra MD Cosigner Signature (If Indicated): Date CC: Miguel Butler MD CHEST 1 VIEW Observed: 02/14/2018 Status: F Source: [place] (PORTABLE) 11:[address] [facility] REPOSITORY [facility] Imaging Services [address] [place] [id number] Chest 1 View (Portable) MR#: [id number] Acct: [id number] Name: ZITA GONG Rep #: [id number] : 1945 M 72 From: Jacques Parsons MD PCP: Miguel Butler MD Status: REG ER Study: Chest 1 View (Portable) Date of Exam: 02/14/18 Exam# [id number] Ordering Dr: Anton Sandra MD STUDY: X-RAY CHEST REASON FOR EXAM: Male, 72 years old. Cough. Patient has multiple sclerosis. TECHNIQUE: Single AP portable view of the chest. COMPARISON: None. FINDINGS: Patchy bibasilar infiltrates. Blunting of both costophrenic angles. Normal size heart. Normal mediastinum and charlie. Normal visualized pulmonary arteries. Normal visualized aortic arch and descending thoracic aorta. Normal visualized thoracic spine. There is abnormal position of the scapula bilaterally most likely secondary to the patient's underlying multiple sclerosis. There is no demonstrated abnormality of the visualized soft tissue structures of the upper abdomen. RAD/Chest 1 View (Portable) IMPRESSION: Patchy bibasilar infiltrates. Electronically Signed: Jacques Parsons MD at 12:23 EDT Tel [phone], Service support , CC: Miguel Butler MD; Anton Sandra MD Rf Engineer: Signed SHOULDER MIN 2 VIEWS Observed: 02/14/2018 Status: F Source: [place] 11:[address] [facility] REPOSITORY [facility] Imaging Services [address] [place] [id number] Shoulder min 2 Views MR#: [id number] Acct: [id number] Name: ZITA GONG Rep #: [id number] : 1945 72 From: Jacques Parsons MD PCP: Miguel Butler MD Status: REG ER Study: Shoulder min 2 Views Date of Exam: 02/14/18 Exam# [id number] Ordering Dr: Anton Sandra MD STUDY: X-RAY - LEFT SHOULDER REASON FOR EXAM: Male, 72 years old. Left shoulder and scapular pain. Patient has a history multiple sclerosis. TECHNIQUE: 3 view(s) of the shoulder. COMPARISON: None. FINDINGS: Normal glenohumeral articulation. Normal acromioclavicular joint. Normal acromion. Abnormal positioning of the scapula most likely secondary to the patient's underlying multiple sclerosis. Normal humeral head and visualized proximal humerus. The soft tissue structures are unremarkable. Increased markings at the left lung base. RAD/Shoulder min 2 Views IMPRESSION: No acute abnormality is seen. Increased markings at the left lung base. Electronically Signed: Jacques Parsons MD at 12:24 EDT Tel [phone], Service support , CC: Miguel Butler MD; Anton Sandra MD Rf Engineer: Signed WOUND CTR HISTORY Observed: 02/14/2018 Status: F Source: [facility] PHYSICAL 10:[address] [facility] REPOSITORY [facility] Wound Healing Center [address] [place] [id number] Wound Ctr History AND Physical 02/14/18 1014 MR#: [id number] Acct: [id number] Name: Zita Gong Rep #: [id number] : 1945 72 From: Joel Dietz MD PCP: Miguel Butler MD Status: REG RCR Y Location: WC (1) Sacral decubitus ulcer, stage II Status: Chronic Current Visit: Yes Code(s): L89.152 - Pressure ulcer of sacral region, stage 2 (2) Ulcer of left knee Status: Chronic Current Visit: Yes Qualifiers: Code(s): L97.829 - Non-pressure chronic ulcer of other part of left lower leg with unspecified severity (3) Ulcer of right knee Status: Resolved Current Visit: No Qualifiers: Code(s): L97.819 - Non-pressure chronic ulcer of other part of right lower leg with unspecified severity (4) Muscular dystrophy Status: Chronic Current Visit: Yes Code(s): G71.0 - Muscular dystrophy (5) Debility Status: Chronic Current Visit: Yes Code(s): R53.81 - Other malaise (6) Immobility Status: Chronic Current Visit: Yes Code(s): Z74.09 - Other reduced mobility (7) Malnutrition Status: Chronic Current Visit: Yes Code(s): E46 - Unspecified protein-calorie malnutrition (8) Incontinence of feces Status: Chronic Current Visit: No Code(s): R15.9 - Full incontinence of feces (9) Incontinence of urine Status: Chronic Current Visit: No Code(s): R32 - Unspecified urinary incontinence (10) Cachexia Status: Chronic Current Visit: Yes Code(s): R64 - Cachexia History of Present Illness Date of Service: 02/14/18 Chief Complaint: Pressure ulceration of the sacral area, stage II; bilateral knee ulcerations History of Wound: This is a 72-year-old male who is a resident of [facility]. He suffers from muscular dystrophy, and is severely impaired and immobilized. His muscular dystrophy was diagnosed in 1972. He has only recently been transferred to the [facility]. Prior to that time, the patient resided at home, cared for by a hired aide and by his sister. He has been bedridden and nonambulatory for a prolonged period of time, with severe muscle atrophy. Due to a lack of mobility and physical therapy, extremity joints are essentially frozen and immovable. The patient is extremely thin and emaciated, suggesting malnutrition and cachexia. He claims his appetite is good. He claims to take a normal diet. He is incontinent of urine and stool, and wears a condom catheter. He has been referred to the [facility] due to superficial ulcerations on each knee, and a pressure ulceration in the sacral area, to the right of the midline, appearing to be a stage II pressure ulcer. Past Medical History Past Medical History: Chronic Problems Sacral decubitus ulcer, stage II (Chronic) Ulcer of left knee (Chronic) Muscular dystrophy (Chronic) Debility (Chronic) Immobility (Chronic) Malnutrition (Chronic) Incontinence of feces (Chronic) Incontinence of urine (Chronic) Cachexia (Chronic) Surgical History: tonsillectomy Allergies/Adverse Reactions: Allergies No Known Allergies Allergy (Verified 01/31/18 11:20) Home Medications: Ambulatory Orders Medication Instructions Recorded - Family History Paternal - - The patient's father at the age of 93 with a history of cancer, of unknown etiology. Patient's mother at the age of 84 from pneumonia, but had a history of breast cancer and muscular dystrophy. Smoking Status: Former smoker Tobacco Use: Non-smoker Review of Systems Constitutional: Denies: Chills, Fever, Weight Change Eyes: Denies: Pain, Vision Change HEENT: Denies: Difficulty Hearing, Difficulty Swallowing, Sinus Congestion Cardiovascular: Denies: Chest Pain, Palpitations Respiratory: Denies: Cough, Shortness of Breath Gastrointestinal: Denies: Diarrhea, Nausea, Vomiting Genitourinary: Denies: Dysuria, Hematuria Endocrine: Denies: Heat/ Cold Intolerance, Polydipsia, Polyuria Hematologic/ Lymphatic: Denies: Easy Bruising, Easy Bleeding - Physical Exam Vital Signs Temp Pulse Resp BP 96.8 F L 84 18 110/64 02/14/18 08:26 02/14/18 08:26 02/14/18 08:26 02/14/18 08:26 General: Alert, Oriented x3, Cooperative, No apparent distress, Well developed, - - Patient appears malnourished and extremely thin HEENT: Atraumatic, PERRLA, EOMI, Normocephalic Oral: Moist Mucosa Neck: No JVD Lungs: Normal air movement Abdomen: Non-Distended Extremities: No clubbing, No cyanosis, No edema, No Calf Tenderness, - - The right knee ulceration appears to be totally healed. The left knee ulceration is extremely small and superficial, now nearly healed. The patient's left shoulder appears to be anatomically displaced. Skin: - - The sacral ulceration is superficial. Is generally pink and healthy in appearance. There is no sign of infection or cellulitis. Dimensions are documented elsewhere. There is only a small amount of bioburden. Wound Measurements and Assessment WC - Nurse 1 - General Ulcer Measurement Start: 02/14/18 08:26 Freq: Status: Active Protocol: Activity Type Activity Date Activity User E-Sign Co-Sign Detail Recorded Client Recorded Date Recorded By Document 02/14/18 08:26 [id number] 02/14/18 08:42 Wound Center Nurse 1 [Ulcer Assessment] 3-right lumbar cluster -Combined with other wound No -Current Size (cm) - Length 0.4 Musculoskeletal: Muscle Wasting, - - Frozen joints of extremities Neurological: Cranial nerves II-XII grossly intact, Neuro grossly intact Psych/Mental Status: Normal Affect, Appropriate, Alert and oriented to time, place, person, mood and affect Debridement Note Laterality: Not Applicable - Sacrum Type of Debridement: Excisional debridement Anesthesia Used: 4% Lidocaine Solution Depth: Down to and including healthy tissue, in the subcutaneous layer Percentage of wound debrided: 100 Instrument Used: 3mm curette Severity: Fat Layer Exposed Amount of bleeding with debridement: Mild Bleeding Controlled with: Compression and gauze Patient tolerated procedure well Assessment/Plan Active Problems Sacral decubitus ulcer, stage II (Chronic) Ulcer of left knee (Chronic) Muscular dystrophy (Chronic) Debility (Chronic) Immobility (Chronic) Malnutrition (Chronic) Cachexia (Chronic) Assessment: This is a 72-year-old male with muscular dystrophy and chronic debility, immobilization, cachexia, malnutrition, and ulcerations on the knees and sacral area. His extremities are relatively immobile and fixed in position. Extremities are atrophic. The patient has been in the home environment, cared for by his sister and a hired aide recently. Recently, the patient's care was transferred to the [facility], where he currently resides. The ulcerations on each knee are superficial. The right knee ulceration is now healed. The pressure ulcer on the sacral area appears to represent a stage II ulceration, and is also superficial. Laboratory studies have been performed recently, and have been reviewed. Results are as follows: Glucose 99, BUN 19, creatinine 0.16, calcium 8.2, cholesterol 193, triglycerides 160, sodium 131, potassium 3.3, chloride 87, blood count 10.1, globin 12.9, hematocrit 38.2, platelets 349,000. Patient's nutritional labs have been reviewed, and suggest malnutrition. Total protein was 5.2, albumin 2.2, and serum prealbumin 16.2. Plan: Offloading measures are to be continued. The patient is known to have a low air loss mattress on his bed. Frequent repositioning has been recommended. We are to continue the use of collagen hydrogel topically on the left knee ulceration. We will use collagen hydrogel topically on the sacral pressure ulceration. We are to use OptiFoam to minimize pressure and shear forces. The patient has been encouraged to take a well balanced diet, with the use of nutritional supplements several times daily. Patient is to return in 1 week for reassessment. Additionally, clinically it appears as though the patient may have a left shoulder dislocation. This fact has been brought to the attention of his caregivers at the [facility]. Attention to this matter has been recommended. However, evaluation and management will be deferred to his caregivers at the shelter. They have recommended that the patient be transferred to the emergency department. The patient is not a smoker. Influenza vaccine was not administered today. Patient stands 5 feet 9 inches tall, and weighs 142 pounds. His BMI is 20.9. 02/14/18 1024 <Electronically signed by Joel Dietz MD> Date Joel Dietz MD CC: Signed WOUND CTR HISTORY Observed: 02/07/2018 Status: F Source: [facility] 9:[address] [facility] REPOSITORY [facility] [address] [place] [address] Wound Ctr History AND Physical 02/07/18 0947 MR#: [id number] Acct: [id number] Name: ZITA GONG Rep #: [id number] : 1945 72 From: Joel Dietz MD PCP: Miguel Butler MD Status: REG RCR Y Location: WC (1) Sacral decubitus ulcer, stage II Status: Chronic Current Visit: Yes Code(s): L89.152 - Pressure ulcer of sacral region, stage 2 (2) Ulcer of left knee Status: Chronic Current Visit: Yes Qualifiers: Non-pressure ulcer stage: limited to breakdown of skin Qualified Code(s): L97.821 - Non-pressure chronic ulcer of other part of left lower leg limited to breakdown of skin Code(s): L97.829 - Non-pressure chronic ulcer of other part of left lower leg with unspecified severity (3) Ulcer of right knee Status: Chronic Current Visit: Yes Qualifiers: Non-pressure ulcer stage: limited to breakdown of skin Qualified Code(s): L97.811 - Non-pressure chronic ulcer of other part of right lower leg limited to breakdown of skin Code(s): L97.819 - Non-pressure chronic ulcer of other part of right lower leg with unspecified severity (4) Muscular dystrophy Status: Chronic Current Visit: Yes Code(s): G71.0 - Muscular dystrophy (5) Debility Status: Chronic Current Visit: Yes Code(s): R53.81 - Other malaise (6) Immobility Status: Chronic Current Visit: Yes Code(s): Z74.09 - Other reduced mobility (7) Malnutrition Status: Chronic Current Visit: Yes Qualifiers: Protein-calorie malnutrition severity: severe Code(s): E46 - Unspecified protein-calorie malnutrition (8) Incontinence of feces Status: Chronic Current Visit: Yes Code(s): R15.9 - Full incontinence of feces (9) Incontinence of urine Status: Chronic Current Visit: Yes Code(s): R32 - Unspecified urinary incontinence (10) Cachexia Status: Chronic Current Visit: Yes Code(s): R64 - Cachexia History of Present Illness Date of Service: 02/07/18 Chief Complaint: Pressure ulceration of the sacral area, stage II; bilateral knee ulcerations History of Wound: This is a 72-year-old male who is a resident of [facility]. He suffers from muscular dystrophy, and is severely impaired and immobilized. His muscular dystrophy was diagnosed in 1972. He has only recently been transferred to the [facility], approximately 6 weeks ago. Prior to that time, the patient resided at home, cared for by a hired aide and by his sister. He has been bedridden and nonambulatory for a prolonged period of time, with severe muscle atrophy. Due to a lack of mobility and physical therapy, lower extremity joints are essentially frozen and immovable. The patient is extremely thin and emaciated, suggesting malnutrition and cachexia. He claims his appetite is good. He claims to take a normal diet. He is incontinent of urine and stool, and wears a condom catheter. He has been referred to the [facility] due to superficial ulcerations on each knee, and a pressure ulceration in the sacral area, to the right of the midline, appearing to be a stage II pressure ulcer. Past Medical History Past Medical History: Chronic Problems Sacral decubitus ulcer, stage II (Chronic) Ulcer of left knee (Chronic) Ulcer of right knee (Chronic) Muscular dystrophy (Chronic) Debility (Chronic) Immobility (Chronic) Malnutrition (Chronic) Incontinence of feces (Chronic) Incontinence of urine (Chronic) Cachexia (Chronic) Surgical History: tonsillectomy Allergies/Adverse Reactions: Allergies No Known Allergies Allergy (Verified 01/31/18 11:20) Home Medications: Ambulatory Orders Medication Instructions Recorded - Family History Paternal - - The patient's father at the age of 93 with a history of cancer, of unknown etiology. Patient's mother at the age of 84 from pneumonia, but had a history of breast cancer and muscular dystrophy. [facility]: [facility] Smoking Status: Former smoker Tobacco Use: Non-smoker Alcohol: Rare Drugs: None Review of Systems Constitutional: Denies: Chills, Fever, Weight Change Eyes: Denies: Pain, Vision Change HEENT: Denies: Difficulty Hearing, Difficulty Swallowing, Sinus Congestion Cardiovascular: Denies: Chest Pain, Palpitations Respiratory: Denies: Cough, Shortness of Breath Gastrointestinal: Denies: Diarrhea, Nausea, Vomiting Genitourinary: Denies: Dysuria, Hematuria Endocrine: Denies: Heat/ Cold Intolerance, Polydipsia, Polyuria Hematologic/ Lymphatic: Denies: Easy Bruising, Easy Bleeding - Physical Exam Vital Signs Temp Pulse Resp BP 98.2 F 91 16 116/61 02/07/18 08:49 02/07/18 08:49 02/07/18 08:49 02/07/18 08:49 General: Alert, Oriented x3, Cooperative, No apparent distress, Well developed, Well nourished HEENT: Atraumatic, PERRLA, EOMI, Normocephalic Oral: Moist Mucosa Neck: No JVD Lungs: Normal air movement Abdomen: Non-Distended Extremities: No clubbing, No cyanosis, No edema, - - The joints of the extremities are essentially fixed, frozen, and immobile. Skin: - - The superficial ulceration on the right knee now appears to be completely healed and epithelialized. The ulceration on the left knee is smaller in size, quite superficial, and nearly healed. The stage II sacral pressure ulceration is relatively unchanged in size and appearance. There is a moderate amount of bioburden. There is no sign of infection or cellulitis. Dimensions are documented elsewhere. Wound Measurements and Assessment WC - Nurse 1 - General Ulcer Measurement Start: 01/31/18 10:57 Freq: Status: Active Protocol: Activity Type Activity Date Activity User E-Sign Co-Sign Detail Recorded Client Recorded Date Recorded By Document 02/07/18 08:49 [email or web address] [id number] 02/07/18 08:51 JF Wound Center Nurse 1 [Ulcer Assessment] 3-right lumbar cluster -Combined with other wound No WC - Nurse 2 - General Ulcer CM Notes Start: 01/31/18 10:57 Freq: Status: Active Protocol: Activity Type Activity Date Activity User E-Sign Co-Sign Detail Recorded Client Recorded Date Recorded By Document 02/07/18 09:42 CS [id number] 02/07/18 09:47 CS Wound Center Nurse 2 [Procedure/Treatment] Neurological: Cranial nerves II-XII grossly intact, Neuro grossly intact Psych/Mental Status: Normal Affect, Appropriate, Alert and oriented to time, place, person, mood and affect Debridement Note Post-Debridement Measurements/Treatment WC - Nurse 2 - General Ulcer CM Notes Start: 01/31/18 10:57 Freq: Status: Active Protocol: Activity Type Activity Date Activity User E-Sign Co-Sign Detail Wound Center Nurse 2 3-right lumbar cluster -Time 12:00 09:44 -Correct Patient Yes Yes Laterality: Not Applicable - Stage II sacral pressure ulceration Type of Debridement: Excisional debridement Anesthesia Used: 4% Lidocaine Solution Depth: Down to and including healthy tissue, in the subcutaneous layer Percentage of wound debrided: 100 Instrument Used: 5mm curette Severity: Fat Layer Exposed Amount of bleeding with debridement: Mild Bleeding Controlled with: Compression and gauze Patient tolerated procedure well Assessment/Plan Active Problems Sacral decubitus ulcer, stage II (Chronic) Ulcer of left knee (Chronic) Ulcer of right knee (Chronic) Muscular dystrophy (Chronic) Debility (Chronic) Immobility (Chronic) Malnutrition (Chronic) Incontinence of feces (Chronic) Incontinence of urine (Chronic) Cachexia (Chronic) Assessment: This is a 72-year-old male with muscular dystrophy and chronic debility, immobilization, cachexia, malnutrition, and ulcerations on the knees and sacral area. His extremities are relatively immobile and fixed in position. Extremities are atrophic. The patient has been in the home environment, cared for by his sister and a hired aide so recently. As of 7 weeks ago, the patient's care was transferred to the [facility], where he currently resides. The ulcerations on each knee are superficial. The right knee ulceration is now healed. The pressure ulcer on the sacral area appears to represent a stage II ulceration, and is also somewhat superficial. Laboratory studies have been performed recently, and have been reviewed. Results are as follows: Glucose 99, BUN 19, creatinine 0.16, calcium 8.2, cholesterol 193, triglycerides 160, sodium 131, potassium 3.3, chloride 87, blood count 10.1, globin 12.9, hematocrit 38.2, platelets 349,000. Plan: Offloading measures are to be implemented. The patient is known to have a low air loss mattress on his bed. Frequent repositioning is to be recommended. We are to continue the use of collagen hydrogel topically on the left knee ulceration. We will use collagenase Santyl topically on the sacral pressure ulceration. We are to use OptiFoam to minimize pressure and shear forces. The patient has been encouraged to take a well balanced diet, with the use of nutritional supplements several times daily. We are to obtain additional laboratory studies, including serum protein, serum albumin, and serum prealbumin, which will allow for assessment of patient's nutritional status. Patient is to return in 1 week for reassessment. The patient is not a smoker. Influenza vaccine was not administered today. Patient stands 5 feet 9 inches tall, and weighs 142 pounds. His BMI is 20.9. 02/07/18 0951 <Electronically signed by Joel Dietz MD> Date Joel Dietz MD CC: Signed PROTEIN, TOTAL Collected: 02/01/2018 Status: F Source: [place] 4:[address] [facility] REPOSITORY TYPE CODE TESTS RESULT OUT OF RANGE REFERENCE UNITS LAB L501.1500 6.4-8.2 g/dL Low T PROT 5.2 LAB L501.1950 2.2-4.2 g/dL Normal GLOB 3.0 LAB L501.2000 0.9-2.4 RATIO Low A/G 0.7 Performed By: #### L001.0705, L501.1800, L506.0500 #### [facility] [address] [place], [address] ALBUMIN, SERUM Collected: 02/01/2018 Status: F Source: [place] 4:[address] [facility] REPOSITORY TYPE CODE TESTS RESULT OUT OF RANGE REFERENCE UNITS LAB L501.1800 3.2-5.0 g/dL Low ALB 2.2 Performed By: #### L001.0705, L501.1800, L506.0500 #### [facility] [address] [place], [address] PREALBUMIN Collected: 02/01/2018 Status: F Source: [place] 4:[address] [facility] REPOSITORY TYPE CODE TESTS RESULT OUT OF REFERENCE UNITS RANGE LAB L506.0500 20.0-40.0 mg/dL Low PREALBUMIN 16.2 Performed By: #### L001.0705, L501.1800, L506.0500 #### [facility] [address] [place], [address] WOUND CTR HISTORY Observed: 01/31/2018 Status: F Source: [facility] 12:[address] [facility] REPOSITORY [facility] Wound Healing Center [address] [address] Wound Ctr History AND Physical 01/31/18 1212 MR#: [id number] Acct: [id number] Name: ZITA GONG Rep #: [id number] : 1945 72 From: Joel Dietz MD PCP: Miguel Butler MD Status: REG RCR Y Location: WC (1) Sacral decubitus ulcer, stage II Status: Chronic Current Visit: Yes Code(s): L89.152 - Pressure ulcer of sacral region, stage 2 (2) Ulcer of left knee Status: Chronic Current Visit: Yes Qualifiers: Non-pressure ulcer stage: limited to breakdown of skin Qualified Code(s): L97.821 - Non-pressure chronic ulcer of other part of left lower leg limited to breakdown of skin Code(s): L97.829 - Non-pressure chronic ulcer of other part of left lower leg with unspecified severity (3) Ulcer of right knee Status: Chronic Current Visit: Yes Qualifiers: Non-pressure ulcer stage: limited to breakdown of skin Qualified Code(s): L97.811 - Non-pressure chronic ulcer of other part of right lower leg limited to breakdown of skin Code(s): L97.819 - Non-pressure chronic ulcer of other part of right lower leg with unspecified severity (4) Muscular dystrophy Status: Chronic Current Visit: Yes Code(s): G71.0 - Muscular dystrophy (5) Debility Status: Chronic Current Visit: Yes Code(s): R53.81 - Other malaise (6) Immobility Status: Chronic Current Visit: Yes Code(s): Z74.09 - Other reduced mobility (7) Malnutrition Status: Chronic Current Visit: Yes Qualifiers: Protein-calorie malnutrition severity: severe Code(s): E46 - Unspecified protein-calorie malnutrition (8) Incontinence of feces Status: Chronic Current Visit: Yes Code(s): R15.9 - Full incontinence of feces (9) Incontinence of urine Status: Chronic Current Visit: Yes Code(s): R32 - Unspecified urinary incontinence (10) Cachexia Status: Chronic Current Visit: Yes Code(s): R64 - Cachexia History of Present Illness Date of Service: 01/31/18 Chief Complaint: Pressure ulceration of the sacral area, stage II; bilateral knee ulcerations History of Wound: This is a 72-year-old male who is a resident of [facility]. He suffers from muscular dystrophy, and is severely impaired and immobilized. His muscular dystrophy was diagnosed in 1972. He has only recently been transferred to the [facility], approximately 6 weeks ago. Prior to that time, the patient resided at home, cared for by a hired aide and by his sister. He has been bedridden and nonambulatory for a prolonged period of time, with severe muscle atrophy. Due to a lack of mobility and physical therapy, lower extremity joints are essentially frozen and immovable. The patient is extremely thin and emaciated, suggesting malnutrition and cachexia. He claims his appetite is good. He claims to take a normal diet. He is incontinent of urine and stool, and wears a condom catheter. He has been referred to the [facility] due to superficial ulcerations on each knee, and a pressure ulceration in the sacral area, to the right of the midline, appearing to be a stage II pressure ulcer. Past Medical History Past Medical History: Chronic Problems Sacral decubitus ulcer, stage II (Chronic) Ulcer of left knee (Chronic) Ulcer of right knee (Chronic) Muscular dystrophy (Chronic) Debility (Chronic) Immobility (Chronic) Malnutrition (Chronic) Incontinence of feces (Chronic) Incontinence of urine (Chronic) Cachexia (Chronic) Past Medical History: The patient has a long-standing history of muscular dystrophy, diagnosed in 1972. He is extremely debilitated and bedridden. It appears as though he suffers from malnutrition and cachexia. He is known to be incontinent of urine and stool. His history is negative for myocardial infarction, congestive heart failure, diabetes mellitus, hypertension, cerebrovascular accident, cancer, pulmonary disease, renal disease, thyroid disease, and hyperlipidemia. Surgical History: tonsillectomy Allergies/Adverse Reactions: Allergies No Known Allergies Allergy (Verified 01/31/18 11:20) Home Medications: Ambulatory Orders Medication Instructions Recorded - Family History Paternal - - The patient's father at the age of 93 with a history of cancer, of unknown etiology. Patient's mother at the age of 84 from pneumonia, but had a history of breast cancer and muscular dystrophy. Social History: The patient is a resident of [facility]. 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 Lives: [facility] Smoking Status: Former smoker Tobacco Use: Non-smoker Alcohol: Rare Drugs: None Review of Systems Constitutional: Denies: Chills, Fever, Weight Change Eyes: Denies: Pain, Vision Change HEENT: Denies: Difficulty Hearing, Difficulty Swallowing, Sinus Congestion Cardiovascular: Denies: Chest Pain, Palpitations Respiratory: Denies: Cough, Shortness of Breath Gastrointestinal: Denies: Diarrhea, Nausea, Vomiting Genitourinary: Denies: Dysuria, Hematuria Neurological: Reports: - - Patient has a history of muscular dystrophy, diagnosed in 1972. Endocrine: Denies: Heat/ Cold Intolerance, Polydipsia, Polyuria Hematologic/ Lymphatic: Denies: Easy Bruising, Easy Bleeding - Physical Exam Vital Signs Temp Pulse Resp BP 97.7 F L 91 18 127/70 H 01/31/18 10:57 01/31/18 10:57 01/31/18 10:57 01/31/18 10:57 General: Alert, Oriented x3, Cooperative, No apparent distress, - - The patient displays very little movement. Lower extremity joints are essentially frozen immovable. The patient appears cachectic and malnourished. He communicates verbally without deficit. HEENT: Atraumatic, PERRLA, EOMI, Normocephalic Oral: Moist Mucosa Neck: No JVD, Negative Carotid Bruits, Negative Hepatojugular Reflux, Trachea Midline Lungs: Clear to auscultation, Normal air movement, No rhonchi, No wheeze, No rales Cardiovascular: Regular rate, Regular Rhythm, Normal S1, Normal S2, No murmurs Abdomen: Soft, Non Tender, Non-Distended Extremities: No clubbing, No cyanosis, No Calf Tenderness, - - Right upper extremity and right hand edema is noted. Superficial ulceration is noted on each knee. No sign of infection or cellulitis. The base of the ulcerations are generally pink and healthy. Flexion and extension is minimal in the joints of the lower extremities. Skin: No rashes, - - Stage II pressure ulceration is noted on the sacral area, to the right of midline. Signs are documented elsewhere. It is small in size and relatively superficial. There is no evidence of undermining or tunneling. Wound Measurements and Assessment WC - Nurse 1 - General Ulcer Measurement Start: 01/31/18 10:57 Freq: Status: Active Protocol: Activity Type Activity Date Activity User E-Sign Co-Sign Detail Recorded Client Recorded Date Recorded By Document 01/31/18 10:57 [id number] 01/31/18 11:14 Musculoskeletal: Cachexia, Muscle Wasting, - - The joints of the hands and lower extremities are fixed and immobile. Neurological: Cranial nerves II-XII grossly intact, - - Patient is weak with little or no motion of extremities. Joints of the hands and the lower extremities are contracted and fixed in position. Psych/Mental Status: Normal Affect, Appropriate, Alert and oriented to time, place, person, mood and affect Debridement Note Laterality: Right - Knee Type of Debridement: Selective debridement Anesthesia Used: 4% Lidocaine Solution Depth: Down to and including healthy tissue Percentage of wound debrided: 100 Instrument Used: 5mm curette Severity: Limited To Skin Breakdown Amount of bleeding with debridement: Mild Bleeding Controlled with: Compression and gauze Patient tolerated procedure well - Additional Wound Laterality: Left - Knee Type of Debridement: Selective debridement Anesthesia Used: 4% Lidocaine Solution Depth: Down to and including healthy tissue Percentage of wound debrided: 100 Instrument Used: 5mm curette Severity: Limited To Skin Breakdown Amount of bleeding with debridement: Mild Bleeding Controlled with: Compression and gauze Patient tolerated procedure: Patient tolerated procedure well - Additional Wound Laterality: Right - Sacrum Type of Debridement: Excisional debridement Anesthesia Used: 4% Lidocaine Solution Depth: Down to and including healthy tissue, in the subcutaneous layer Percentage of wound debrided: 100 Instrument Used: 5mm curette Severity: Fat Layer Exposed Amount of bleeding with debridement: Mild Bleeding Controlled with: Compression and gauze Patient tolerated procedure: Patient tolerated procedure well Assessment/Plan Active Problems Sacral decubitus ulcer, stage II (Chronic) Ulcer of left knee (Chronic) Ulcer of right knee (Chronic) Muscular dystrophy (Chronic) Debility (Chronic) Immobility (Chronic) Malnutrition (Chronic) Incontinence of feces (Chronic) Incontinence of urine (Chronic) Cachexia (Chronic) Assessment: This is a 72-year-old male with muscular dystrophy and chronic debility, immobilization, cachexia, malnutrition, and ulcerations on the knees and sacral area. His extremities are relatively immobile and fixed in position. Extremities are atrophic. The patient has been in the home environment, cared for by his sister and a hired aide so recently. As of 6 weeks ago, the patient's care was transferred to the [facility], where he currently resides. The ulcerations on each knee are superficial. The pressure ulcer on the sacral area appears to represent a stage II ulceration, and is also somewhat superficial. Laboratory studies have been performed recently, and have been reviewed. Results are as follows: Glucose 99, BUN 19, creatinine 0.16, calcium 8.2, cholesterol 193, triglycerides 160, sodium 131, potassium 3.3, chloride 87, blood count 10.1, globin 12.9, hematocrit 38.2, platelets 349,000. Plan: Offloading measures are to be implemented. The patient is known to have a low air loss mattress on his bed. Frequent repositioning is to be recommended. We are to implement the use of collagen hydrogel topically on each of the patient's 3 ulcerations, one on each knee, and one in the sacral area. We are to use OptiFoam to minimize pressure and shear forces. The patient has been encouraged to take a well balanced diet, with the use of nutritional supplements several times daily. We are to obtain additional laboratory studies, including serum protein, serum albumin, and serum prealbumin, which will allow for assessment of patient's nutritional status. Patient is to return in 1 week for reassessment. The patient is not a smoker. Influenza vaccine was not administered today. Patient stands 5 feet 9 inches tall, and weighs 142 pounds. His BMI is 20.9. 01/31/18 1237 <Electronically signed by Joel Dietz MD> Date Joel Dietz MD CC: Signed BASIC METABOLIC Collected: 01/17/2018 Status: F Source: TRAVIS PROFILE (BMP) 6:[address] [facility] REPOSITORY Order Comment: RESULT(S) PREVIOUSLY REPORTED ON MANUAL REQUISITION DURING DOWNTIME. TYPE CODE TESTS RESULT OUT OF RANGE REFERENCE UNITS LAB L501.0100 74-106 mg/dL Normal GLU 99 Result Comment: Please note revised GLUCOSE reference range effective 2017. LAB L501.1000 7-18 mg/dL High BUN 19 LAB L501.1100 0.70-1.30 mg/dL Low CREAT,SERUM 0.16 Result Comment: The validity of the calculated GFR AND GFRAA in patients over 70 years has not been determined. Clinical correlation is essential. LAB L501.1110 >60 mL/min Normal EST GFR 649 LAB L501.1115 >60 mL/min Normal EST GFR - AA 787 LAB L501.1300 10-20 RATIO High BUN/CRE 118.8 LAB L501.2200 8.5-10.1 mg/dL Low CA 8.2 LAB L501.5300 136-145 mmol/L Low NA 131 LAB L501.5600 3.5-5.1 mmol/L Low K 3.3 LAB L501.5900 98-107 mmol/L Low CL 87 LAB L501.6100 21.0-32.0 mmol/L High CO2 34.0 LAB L501.6200 5-15 Normal GAP 10 Performed By: #### L500.2500, L500.4100 #### [facility] [address] [place], [place], [address] LIPID PROFILE Collected: 01/17/2018 Status: F Source: TRAVIS 6:[address] [facility] REPOSITORY Order Comment: RESULT(S) PREVIOUSLY REPORTED ON MANUAL REQUISITION DURING DOWNTIME. TYPE CODE TESTS RESULT OUT OF RANGE REFERENCE UNITS LAB L501.4900 200 mg/dL Normal CHOL 193 Result Comment: <200 mg/dL Desirable 200-240 mg/dL Borderline >240 mg/dL High Risk LAB L501.5000 mg/dL Normal TRIG 160 Result Comment: The drugs N-Acetylcysteine and Metamizole may falsely depress this assay. Serum Triglycerides Reference Interval Normal <150 mg/dL Borderline high 150 - 199 mg/dL High 200 - 499 mg/dL Very High > or = 500 mg/dL LAB L501.6400 mg/dL Low HDL 18 Result Comment: The drugs N-Acetylcysteine and Metamizole may falsely depress this assay. Reference Range HDL <40 mg/dL Low HDL Cholesterol HDL >or= 60 mg/dL High HDL Cholesterol LAB L501.6500 0-130 mg/dL High LDL 143 LAB L501.6600 5-40 mg/dL Normal VLDL 32 Performed By: #### L500.2500, L500.4100 #### [facility] [address] [facility] [place], [place], [address] CBC-COMPLETE BLOOD CNT Collected: 01/17/2018 Status: F Source: [place] NO DIFF 6:[address] [facility] REPOSITORY Order Comment: RESULT(S) PREVIOUSLY REPORTED ON MANUAL REQUISITION DURING DOWNTIME. TYPE CODE TESTS RESULT OUT OF RANGE REFERENCE UNITS LAB L100.1000 4.4-11.0 K/mm3 Normal WBC 10.1 LAB L100.1200 4.6-6.2 M/mm3 Low RBC 4.11 LAB L100.1300 13.0-16.5 g/dl Low HGB 12.9 LAB L100.1400 40-54 % Low HCT 38.2 LAB L100.1500 80-94 fL Normal MCV 92.9 LAB L100.1600 27.0-32.0 pg Normal MCH 31.4 LAB L100.1700 32-36 g/gl Normal MCHC 33.8 LAB L100.1810 11.6-14.6 % High RDW CV 14.7 LAB L100.1820 35.1-43.9 fl High RDW SD 48.9 LAB L100.1900 150-450 K/mm3 Normal PLT 349 LAB L100.2000 6.2-12.0 fl Normal MPV 9.6 Performed By: #### L100.0500 #### [facility] [address] [place], [address] ALLERGIES ALLERGIES DATE TYPE / CODE NAME / CODE REACTION SEVERITY SOURCE 04/15/2018 Drug No Known Unknown [place] [facility] Allergy/4160 Allergies/F00 Hospital 11499(SNOMED 7447006(RXNOR Repository CT) M) ENCOUNTERS ENCOUNTERS ADMIT/DISCHARGE ACCOUNT ADMITTING ENCOUNTER LOCATION SOURCE NUMBER CLASS 08/25/2018 [id number] Ambulatory [place] 7 [facility] Hospital ing: Repository 08/03/2018 [id number] Ambulatory BMSBuilding:B [place] 0 [facility] Repository 08/03/2018/ [id number] Ambulatory [place] 8 1 [facility] ing: Repository 07/31/2018 [id number] Ambulatory [place] 6 [facility] ing:OLS.[facility] Repository 07/20/2018 [id number] Ambulatory BMSBuilding:B [place] 7 [place] Repository 07/19/2018 [id number] Ambulatory [place] 8 [facility] ing:OLS.[facility] Repository 07/13/2018 [id number] Ambulatory BMSBuilding:B [place] 6 [place] Repository 07/13/2018/ [id number] Ambulatory [place] 8 3 [facility] ing: Repository 06/29/2018 [id number] Ambulatory BMSBuilding:B [place] 2 [facility] Repository 06/22/2018 [id number] Ambulatory BMSBuilding:W [place] 0 [facility] Repository 06/15/2018 [id number] Ambulatory BMSBuilding:B [place] 6 [place] Repository 06/09/2018 [id number] Ambulatory [facility]MSBuilding:B [place] 8 [place] Repository 06/08/2018/ [id number] Ambulatory [place] 8 8 [facility] ing: Repository 05/25/2018 [id number] Ambulatory BMSBuilding:B [place] 3 [facility] Repository 05/18/2018 [id number] Ambulatory BMSBuilding:B [place] 3 [place] Repository 05/11/2018 [id number] Ambulatory BMSBuilding:B [place] 8 [facility] Repository 05/11/2018/ [id number] Ambulatory [place] 8 3 [facility] ing: Repository 05/04/2018 [id number] Ambulatory BMSBuilding:B [place] 1 [place] Repository 04/27/2018 [id number] Ambulatory BMSBuilding:B [place] 0 [place] Repository 04/20/2018 [id number] Ambulatory BMSBuilding:B [place] 6 [place] Repository 04/15/2018/ [id number] Emergency [place] 8 7 [facility] ing:ED Repository 04/14/2018 [id number] Ambulatory [place] 2 [facility] ing:OLS.[facility] Repository 03/21/2018/ [id number] Ambulatory [place] 8 5 [facility] ing: Repository 03/14/2018/ [id number] Ambulatory [place] 8 6 [facility] ing: Repository 02/14/2018/ [id number] Emergency [place] 8 6 [facility] ing:ED Repository 02/07/2018/ [id number] Ambulatory [place] 8 7 [facility] ing: Repository 02/01/2018 [id number] Ambulatory [place] 4 [facility] ing:OLS.[facility] Repository 01/17/2018 [id number] Ambulatory [place] 5 [facility] ing:OLS.[facility] Repository PAYERS PAYERS ENCOUNTER GUARANTOR PAYER SUBSCRIBER SOURCE 08/25/2018 Zita Dc Primary Zita D [place] Y[place]AY[place] Insurance:MEDICARE A YatesDOB: [id number] [id number] Repository [facility] Date:2018-01-31 [place] [address]Ojf: () 08/25/2018 Secondary Zita D [place] Insurance:HUMANA YatesDOB: [facility] [id number] Hospital Number: Repository [id number] Date:3798-09-95[address] [address]HR: 08/25/2018 Tertiary NOT GIVENUNK [place] Insurance:SELF PAY [facility] Number: Effective Repository Date:2018-08-15 08/03/2018 Zita D Primary Zita D [place] YatesWAYNE Insurance:MEDICARE A YatesDOB: [facility] Number: [id number] [address] [place] [id number] Repository [facility] Date:2018-01-31 [place], [place] [address]Ugm: () 08/03/2018 Secondary Zita D [place] Insurance:HUMANA YatesDOB: [facility] [id number] Hospital Number: Repository [id number] Date:9728-45-54MO [address] [address]UY: 08/03/2018 Tertiary NOT GIVENUNK [place] Insurance:SELF PAY [facility] Number: Effective Repository Date:2018-08-03 08/03/2018 Zita D Primary Zita D [place] Y[place]AY[place] Insurance:MEDICARE A YatesDOB: [facility] Number: [id number] [place] [address] S [id number] Repository [facility] Date:2018-01-31 [place], [place] [address]Rlb: (hp) 08/03/2018 Secondary Zita D [place] Insurance:HUMANA YatesDOB: [facility] [id number] Hospital Number: Repository [id number] Date:0434-32-41FH[address] [address]KY: 08/03/2018 Tertiary NOT GIVENUNK [place] Insurance:SELF PAY [facility] Number: Effective Repository Date:2018-07-15 07/31/2018 Zita D Primary Zita D [place] Insurance:MEDICARE A YatesDOB: [facility] Number: [id number] [address] S [id number] Repository RA [facility] Date:2018-07-31 [place], [place] [address]Gql: () 07/31/2018 Secondary Ztia D [place] Insurance:HUMANA YatesDOB: [facility] [id number] Hospital Number: Repository [id number] Date:2016-35-74TB [address] [place] [address]GH: 07/31/2018 Tertiary NOT GIVENUNK [place] Insurance:SELF PAY [facility] Number: Effective Repository Date:2018-07-31 07/20/2018 Zita D Primary Zita D [place] Insurance:HUMANA YatesDOB: [facility] [id number] [address] [address] Number: Repository [facility] [id number] [place] Date:7865-56-79PF [address] [address]Bnm: [phone] [id number] [place] [address] [phone] () [address]AM: 07/20/2018 Secondary NOT GIVENUNK [place] Insurance:SELF PAY [facility] Number: Effective Repository Date:2018-07-20 07/19/2018 Zita D Primary Zita D [place] Insurance:HUMANA YatesDOB: [facility] MEDICARE PPOPolicy [id number] [place] [address] [address] Number: Repository [facility] [id number] [facility] [place] Date:0808-61-68QQ [address] [address]Cco: ([phone]) [id number], [place] [phone] () [address]AJ: 07/19/2018 Secondary NOT GIVENUNK [place] Insurance:SELF PAY [facility] Number: Effective Repository Date:2018-07-19 07/13/2018 Zita D Primary Zita D [place] Insurance:HUMANA YatesDOB: [facility] [id number] [place] [address] [address] Number: Kevin STRINGER [id number] [place] Date:9933-48-56ON [address] [address]Dju: ([phone]) 59580LYSHMWKIL, [place] [phone] () [address]JD: 07/13/2018 Secondary NOT GIVENUNK [place] Insurance:SELF PAY [facility] Number: Effective Repository Date:2018-07-13 07/13/2018 ZITA D Primary ZIAT D [place] Insurance:HUMANA YATESDOB: [facility] [id number] [place] [address] [address] Number: Kevin STRINGER [id number] [place] Date:6611-62-22DJ [address] [address]Ajy: ([phone]) [id number] [place] [phone] () [address]IO: 07/13/2018 Secondary NOT GIVENUNK [place] Insurance:SELF PAY [facility] Number: Effective Repository Date:2018-06-15 06/29/2018 Zita D Primary Zita D [place] Insurance:HUMANA YatesDOB: [facility] [id number] [address] [address] Number: Kevin STRINGER [id number] [place] Date:1244-20-08PA [address] [address]Mqb: ([phone]) 47037GLLCXIPAU, [place] [phone] () [address]TH: 06/29/2018 Secondary NOT GIVENUNK [place] Insurance:SELF PAY [facility] Number: Effective Repository Date:2018-06-29 06/22/2018 Zita D Primary Zita D [place] Insurance:MEDICARE A YatesDOB: [facility] Number: [id number] [address] [address] [id number] Repository RAH [facility] Date:2018-01-31 [place], [place] [address]Aww: () 06/22/2018 Secondary Zita D [place] Insurance:HUMANA YatesDOB: [facility] [id number] Hospital Number: Repository [id number] Date:2279-06-47HX [address] [place] [address]MF: 06/22/2018 Tertiary NOT GIVENUNK [place] Insurance:SELF PAY [facility] Number: Effective Repository Date:2018-06-22 06/15/2018 Zita D Primary Zita D [place] Insurance:HUMANA YatesDOB: [place]6616-10-12[place] [address] [address] Number: [facility] [id number] [place] Date:1998-86-95KR [address] [address]Ape: [phone]) [id number] [place] [address] [phone] () [address]PX: 06/15/2018 Secondary NOT GIVENUNK [place] Insurance:SELF PAY [facility] Number: Effective Repository Date:2018-06-15 06/09/2018 Zita D Primary Zita D [place] Insurance:HUMANA YatesDOB: [address] [address] [address] Number: Repository [facility] [id number] [place] Date:8490-32-66UD [address] [address]Kba: ([phone]) 00286ZEVSBCEER, [place] [phone] () [address]NQ: 06/09/2018 Secondary NOT GIVENUNK [place] Insurance:SELF PAY [facility] Number: Effective Repository Date:2018-06-09 06/08/2018 Zita D Primary Zita D [place] Insurance:HUMANA YatesDOB: [place]6616-10-12[place] [address] [address] Number: Repository [facility] [id number] [place] Date:6220-49-73KQ [address] [address]Cop: [phone] [id number] [place] [address] [phone] () [address]HW: 06/08/2018 Secondary NOT GIVENUNK [place] Insurance:SELF PAY [facility] Number: Effective Repository Date:2018-05-15 05/25/2018 Zita D Primary Zita D [place] Insurance:HUMANA YatesDOB: [address] [address] [address] Number: Repository RA STRINGER [id number] [place] Date:4506-00-56LK [address] [address]Odl: [phone]) [id number] [place], [place] [address] () [address]XG: 05/25/2018 Secondary NOT GIVENUNK [place] Insurance:SELF PAY [facility] Number: Effective Repository Date:2018-05-25 05/18/2018 Zita D Primary Zita D [place] Insurance:HUMANA YatesDOB: [address] [address] [address] Number: Repository RA STRINGER [id number] [place] Date:6624-79-39QW [address] [address]Zpj: ([phone]) [id number] [place] [address] () [address]SQ: 05/18/2018 Secondary NOT GIVENUNK [place] Insurance:SELF PAY [facility] Number: Effective Repository Date:2018-05-18 05/11/2018 Zita D Primary Zita D [place] Insurance:HUMANA YatesDOB: [address] [address] [address] Number: Kevin STRINGER [id number] [place] Date:7364-05-16UZ [address] [address]Jdq: ([phone]) [id number] [place] [address] (HP) [address]PC: 05/11/2018 Secondary NOT GIVENUNK [place] Insurance:SELF PAY [facility] Number: Effective Repository Date:2018-05-11 05/11/2018 Zita D Primary Zita D [place] Insurance:HUMANA YatesDOB: [address] [place] [address] S Number: Repository RA [facility] [id number] [place] Date:8748-59-15FZ [address] [address]Raf: ([phone]) [id number] [place] [address] [phone] () [address]PX: 05/11/2018 Secondary NOT GIVENUNK [place] Insurance:SELF PAY [facility] Number: Effective Repository Date:2018-04-15 05/04/2018 Zita D Primary Zita D [place] Insurance:HUMANA YatesDOB: [address] [address] [address] Number: Repository RA [facility] [id number] [place] Date:4482-16-69DI [address] [address]Lim: ([phone]) [id number] [place] [address] () [address]ZD: 05/04/2018 Secondary NOT GIVENUNK [place] Insurance:SELF PAY [facility] Number: Effective Repository Date:2018-05-04 04/27/2018 Zita D Primary Zita D [place] Insurance:HUMANA YatesDOB: [address] [address] S Number: Repository RA [facility] [id number] [place] Date:4720-49-39PN [address] [address]Svc: [phone]) [id number] [place] [address] [phone] () [address]93-[address]IX: 04/27/2018 Secondary NOT GIVENUNK [place] Insurance:SELF PAY [facility] Number: Effective Repository Date:2018-04-27 04/20/2018 Zita D Primary Zita D [place] Insurance:HUMANA YatesDOB: [facility] [id number] [address] [address] Number: Kevin STRINGER [id number] [place] Date:4733-24-55QY [address] [address]Fzu: ([phone]) [id number] [place] [address] () [address]GY: 04/20/2018 Secondary NOT GIVENUNK [place] Insurance:SELF PAY [facility] Number: Effective Repository Date:2018-04-20 04/15/2018 ZITA D Primary ZITA D [place] Insurance:HUMANA YATESDOB: [facility] [place] [facility] [place] PPOPolicy 1945[address] [address] S Number: Repository RA STRINGER [id number] [place] Date:5287-76-87PN [address] [address]Vas: ([phone]) [id number] [place] [address] () [address]KS: 04/15/2018 Secondary NOT GIVENUNK [place] Insurance:SELF PAY [facility] Number: Effective Repository Date:2018-04-15 04/14/2018 Zita D Primary Zita D [place] Insurance:HUMANA YatesDOB: [facility] [place] [place] PPOPolicy 1945[address] [address] [address] Number: Repository RA STRINGER [id number] [place] Date:0006-82-31KE [address] [address]Dcn: ([phone]) [id number] [place] [address] () [address]HY: 04/14/2018 Secondary NOT GIVENUNK [place] Insurance:SELF PAY [facility] Number: Effective Repository Date:2018-04-14 03/21/2018 ZITA D Primary ZITA D [place] Insurance:HUMANA YATESDOB: [address] [address] [address] Number: Repository RA STRINGER [id number] [place] Date:4476-67-41SO [address] [address]Bdd: (950) 10524PKOYRDQYP, [place] [phone] () [address]TR: 03/21/2018 Secondary NOT GIVENUNK [place] Insurance:SELF PAY [facility] Number: Effective Repository Date:2018-03-15 03/14/2018 ZITA D Primary ZITA D [place] Insurance:HUMANA YATESDOB: [address] [address] [address] Number: Repository RA STRINGER [id number] [place] Date:7438-71-64WI [address] [address]Amp: ([phone]) [id number] [place] [address] [phone] () [phone]: 03/14/2018 Secondary NOT GIVENUNK [place] Insurance:SELF PAY [facility] Number: Effective Repository Date:2018-02-12 02/14/2018 ZITA D Primary ZITA D [place] Insurance:HUMANA YATESDOB: [address] [address] [address] Number: Kevin STRINGER [id number] [place] Date:9838-74-63WE [address] [address]Neu: ([phone]) [id number] [place] [address] [phone] () [address]UK: 02/14/2018 Secondary NOT GIVENUNK [place] Insurance:SELF PAY [facility] Number: Effective Repository Date:2018-02-14 02/07/2018 ZITA D Primary ZITA D [place] Insurance:HUMANA YATESDOB: [facility] [place] [place] PPOPolicy 1945[address] [address] [address] Number: Kevin STRINGER [id number] [place] Date:4035-09-96CU [address] [address]Drf: (474) 90201VJQESDAFY, [place] [phone] () [address]VD: 02/07/2018 Secondary NOT GIVENUNK [place] Insurance:SELF PAY [facility] Number: Effective Repository Date:2018-01-31 02/01/2018 ZITA D Primary ZITA D [place] Insurance:HUMANA YATESDOB: [facility] [id number] [address] [address] Number: Repository RA STRINGER [id number] [place] Date:9050-82-21EJ [address] [address]Fyy: (184) 35893IHKRTBEYN, [place] [phone] () [address]MS: 02/01/2018 Secondary NOT GIVENUNK [place] Insurance:SELF PAY [facility] Number: Effective Repository Date:2018-02-01 01/17/2018 Zita D Primary Zita D [place] Insurance:HUMANA YatesDOB: [facility] [place] PPOPolicy [address] [address] [address] Number: Repository RA STRINGER [id number] [place] Date:8176-67-44YN [address] [address]Mwq: ([phone]) [address]PFDYDSUCT, [place] [phone] () [address]ZL: 01/17/2018 Secondary NOT GIVENUNK [place] Insurance:SELF PAY [facility] [facility] Number: Effective Repository Date:[email or web address]
== END ==
LOC: OLS.WCC 04:00
PROVIDERS: Visit Provider Family Medicine
DX: G71.00 Muscular dystrophy, unspecified (principal); B99.8 Other infectious disease
CPT/HCPCS: 36415; 80048; 85027; 87070; 87075; 87077; 87186; 87205

== ENCOUNTER 2018-08-03 13:30 | Outpatient (RCR) | payer MEDICARE, SELFPAY ==
[2018-07-15 00:58] VITALS: BP 125/70; PULSE 89; RESP 16; TEMP 37
[2018-07-20 13:42] VITALS: BP 123/76; PULSE 87; RESP 16; TEMP 37.3
--- NOTE | 2018-07-20 19:19 | PCM.WC.PN ---
(1) Pressure ulcer of left upper back, stage 4 Status: Acute Current Visit: Yes Code(s): L89.124 - Pressure ulcer of left upper back, stage 4 Comment: x 2 inferior and superior (2) Cachexia Status: Chronic Current Visit: Yes Code(s): R64 - Cachexia (3) Debility Status: Chronic Current Visit: Yes Code(s): R53.81 - Other malaise (4) Immobility Status: Chronic Current Visit: Yes Code(s): Z74.09 - Other reduced mobility (5) Incontinence of feces Status: Chronic Current Visit: Yes Code(s): R15.9 - Full incontinence of feces (6) Incontinence of urine Status: Chronic Current Visit: Yes Code(s): R32 - Unspecified urinary incontinence (7) Malnutrition Status: Chronic Current Visit: Yes Code(s): E46 - Unspecified protein-calorie malnutrition (8) Muscular dystrophy Status: Chronic Current Visit: Yes Code(s): G71.0 - Muscular dystrophy Type of Wound Date of Service: 07/20/18 Chief Complaint: Pressure ulceration of right lower back, stage 2; stage 4 pressure ulcer x 2 left scapula History of Wound: A 72-year-old male who is a resident of [facility]. Patient presented to wound center d/t new decubitus to left scapula and old sacral wound reopened. He suffers from muscular dystrophy, and is severely impaired and immobilized. His muscular dystrophy was diagnosed in 1972. He has been bedridden and nonambulatory for a prolonged period of time, with severe muscle atrophy. Due to a lack of mobility and physical therapy, extremity joints are essentially frozen and immovable. The patient is extremely thin and emaciated, suggesting malnutrition and cachexia. He is incontinent of urine and stool, and wears a condom catheter. Patient was recently in [facility] ER on 04/15/2018 d/t concern for left scapular decubitus. Labs in ER without abnormality and was discharged back to nursing facility. Patient at nursing facility was placed on augmentin d/t cultures which showed rare microorganisms and was packing decubitus with aquacel and covered with allevyn. Denies any signs and symptoms of systemic or local infection. Patient does often lay on the affected left shoulder causing a constant pressure. He is noncompliant with off loading and frequent position changes. Progress of Wound: Sacral pressure ulcer healed, stage 4 inferior scapula pressure ulcer stable without signs of infection at this time, no more tunneling or undermining, bone still exposed at 7 and 11 oclock and immediate surrounding tissue intact, continue with vac holiday, second stage 4 superior pressure ulcer stable without signs of infection, bone exposed in the center. No signs of systemic or localized infection at this time. Stage 2 right lower lumbar pressure ulcer is stable with adherant slough present. No signs of infection at this time. Nursing facilty does note that patient continue to lose weight and is not compliant with offloading the left scapula. - Physical Exam Vital Signs Temp Pulse Resp BP 99.1 F 87 16 123/76 H 07/20/18 13:42 07/20/18 13:42 07/20/18 13:42 07/20/18 13:42 General: Alert, Oriented x3, Cooperative, No apparent distress HEENT: Atraumatic Lungs: Clear to auscultation Cardiovascular: Regular rate Extremities: No clubbing, No cyanosis, No edema Skin: Ulcer/ Wound - See nursing documentation for left superior and inferior stage IV pressure ulcer of the left scapula, superior pressure ulcer with slough present and bone exposed in the middle of ulceration, inferior pressure ulcer with granular Tory tissue, slough, and bone exposed at 7:00 and 11:00 Wound Measurements and Assessment WC - Nurse 1 - General Ulcer Measurement Start: 07/20/18 13:40 Freq: Status: Active Protocol: Activity Type Activity Date Activity User E-Sign Co-Sign Detail Recorded Client Recorded Date Recorded By Document 07/20/18 13:42 [facility] [id number] 07/20/18 13:53 [facility] 07/20/18 13:42 Wound Center Nurse 1 [Ulcer Assessment] #6 Superior to Scapula wound -Combined with other wound No -Current Size (cm) - Length 0.6 -Current Size (cm) - Width 1 -Current Size (cm) - Depth 0.6 -Total Square Cm 0.6 -Photo Taken No -Epithelialization None Present -Tunneling No -Undermining/Tunneling No -Circular Undermining No -Exudate Amt Small (1-33%) -Exudate Type Serosanguineous -Wound Margin Distinct, Outline Attached -Granulation Amt Large (67-100%) -Granulation Quality [place] -Slough/Fibrin Yes -Necrosis Amt Small (1-33%) -Necrotic Tissue Type Adherent Slough -Texture (Jeanine-wound Skin Appearance) Localized Edema Scarring -Moisture (Jeanine-wound Skin Appearance Assessed ) -Color (Jeanine-wound Skin Appearance) Erythema -Temperature (Jeanine-wound Skin No Abnormality Appearance) (Pt Warm) -Tenderness on Palpation (Jeanine-wound No Skin Appearance) -Ulcer Cleansing Wound Cleanser -Foul Odor after Cleansing No -Anesthetic Used 5% Lidocaine Gel #4- LT SCAPULA -Combined with other wound No -Current Size (cm) - Length 3.5 -Current Size (cm) - Width 2.4 -Current Size (cm) - Depth 0.4 -Total Square Cm 8.40 -Photo Taken No -Epithelialization Small 1-33% -Tunneling No -Undermining/Tunneling No -Circular Undermining No -Classification - Thickness Full Thickness with Exposed Support Structure -Exudate Amt Medium (34-66%) -Exudate Type Serosanguineous -Wound Margin Thickened & Rolled Under -Granulation Amt Large (67-100%) -Granulation Quality [place] -Slough/Fibrin Yes -Necrosis Amt Small (1-33%) -Necrotic Tissue Type Adherent Slough -Structure Exposed Bone -Texture (Jeanine-wound Skin Appearance) Localized Edema Scarring -Moisture (Jeanine-wound Skin Appearance Assessed ) -Color (Jeanine-wound Skin Appearance) Erythema -Temperature (Jeanine-wound Skin No Abnormality Appearance) (Pt Warm) -Tenderness on Palpation (Jeanine-wound No Skin Appearance) -Ulcer Cleansing Wound Cleanser -Foul Odor after Cleansing No -Anesthetic Used 5% Lidocaine Gel WC - Nurse 2 - General Ulcer CM Notes Start: 07/20/18 13:40 Freq: Status: Active Protocol: Activity Type Activity Date Activity User E-Sign Co-Sign Detail Recorded Client Recorded Date Recorded By Document 07/20/18 14:16 [id number] 07/20/18 14:20 07/20/18 14:16 Wound Center Nurse 2 [Procedure/Treatment] #6 Superior to Scapula wound -Time 14:17 -Correct Patient Yes -Correct Side, Site, Position Yes -Correct Procedure Yes -Procedure Performed Yes -Type of Procedure Debridement -Clinical Debridement Subcutaneous -Post Debridement Size (cm) - Length 0.6 -Post Debridement Size (cm) - Width 0.9 -Post Debridement Size (cm) - Depth 0.5 -Total Square Cm 0.54 -Wound/Ulcer Outcome Not Healed -Ulcer Cleansing Rinsed/ Irrigated with Saline -Foul Odor after Cleansing No -Bioengineered Tissue No -Bleeding Controlled with Pressure -Other tunneling/ undermining@1-3 1.5cm -Offloading Yes -Treatment Response Procedure Tolerated Well #4- LT SCAPULA -Time 14:17 -Correct Patient Yes -Correct Side, Site, Position Yes -Correct Procedure Yes -Procedure Performed Yes -Type of Procedure Debridement -Clinical Debridement Subcutaneous -Post Debridement Size (cm) - Length 3.2 -Post Debridement Size (cm) - Width 2.3 -Post Debridement Size (cm) - Depth 0.6 -Total Square Cm 7.36 -Wound/Ulcer Outcome Not Healed -Ulcer Cleansing Rinsed/ Irrigated with Saline -Foul Odor after Cleansing No -Bioengineered Tissue Yes -Type of bioengineered Tissue [id number] -Expiration Date 11/03/20 -Product Lot Number [id number] -Percent Used 100 -Saline Lot Number [id number] -Topical Lidocaine (%) 4 -Bleeding Controlled with Pressure -Other bone exposed @ 7 and 12 oclock -Offloading Yes -Treatment Response Procedure Tolerated Well [See Physician Procedure note for Specifics] Pain Scale: 0-10 Numeric [Pain] -Is Patient Pain Free? Yes Musculoskeletal: Cachexia, Muscle Wasting Neurological: - - Patient nonambulatory Psych/Mental Status: Flat Affect, Alert and oriented to time, place, person, mood and affect Debridement Note Post-Debridement Measurements/Treatment WC - Nurse 2 - General Ulcer CM Notes Start: 07/20/18 13:40 Freq: Status: Active Protocol: Activity Type Activity Date Activity User E-Sign Co-Sign Detail Recorded Client Recorded Date Recorded By Document 07/20/18 14:16 TM [id number] 07/20/18 14:20 TM 07/20/18 14:16 Wound Center Nurse 2 #6 Superior to Scapula wound -Time 14:17 -Correct Patient Yes -Correct Side, Site, Position Yes -Correct Procedure Yes -Procedure Performed Yes -Type of Procedure Debridement -Clinical Debridement Subcutaneous -Post Debridement Size (cm) - Length 0.6 -Post Debridement Size (cm) - Width 0.9 -Post Debridement Size (cm) - Depth 0.5 -Total Square Cm 0.54 -Wound/Ulcer Outcome Not Healed -Ulcer Cleansing Rinsed/ Irrigated with Saline -Foul Odor after Cleansing No -Bioengineered Tissue No -Bleeding Controlled with Pressure -Other tunneling/ undermining@1-3 1.5cm -Offloading Yes -Treatment Response Procedure Tolerated Well #4- LT SCAPULA -Time 14:17 -Correct Patient Yes -Correct Side, Site, Position Yes -Correct Procedure Yes -Procedure Performed Yes -Type of Procedure Debridement -Clinical Debridement Subcutaneous -Post Debridement Size (cm) - Length 3.2 -Post Debridement Size (cm) - Width 2.3 -Post Debridement Size (cm) - Depth 0.6 -Total Square Cm 7.36 -Wound/Ulcer Outcome Not Healed -Ulcer Cleansing Rinsed/ Irrigated with Saline -Foul Odor after Cleansing No -Bioengineered Tissue Yes -Type of bioengineered Tissue [id number] -Expiration Date 11/03/20 -Product Lot Number [id number] -Percent Used 100 -Saline Lot Number [id number] -Topical Lidocaine (%) 4 -Bleeding Controlled with Pressure -Other bone exposed @ 7 and 12 oclock -Offloading Yes -Treatment Response Procedure Tolerated Well Pain Scale: 0-10 Numeric Is Patient Pain Free? Yes Wound debrided: Inferior and superior stage IV pressure ulcer left scapula Laterality: Left Type of Debridement: Excisional debridement Anesthesia Used: 5% Lidocaine Gel Depth: in the subcutaneous layer, to muscle, to bone Percentage of wound debrided: 100 Instrument Used: 7mm curette Tissue Removed: Slough and devitalized tissue Severity: Fat Layer Exposed Amount of bleeding with debridement: Mild Bleeding Controlled with: Pressure Patient tolerated procedure well Assessment/Plan Active Problems Muscular dystrophy (Chronic) Debility (Chronic) Immobility (Chronic) Malnutrition (Chronic) Incontinence of feces (Chronic) Incontinence of urine (Chronic) Cachexia (Chronic) Pressure ulcer of left upper back, stage 4 (Acute) x 2 inferior and superior Assessment: See above diagnoses Plan: The patient was seen and examined at the wound center today and was updated on the plan of care. A subcutaneous debridement was performed today of the stage IV pressure ulcers of the left scapula. The stage II pressure ulcer right lower back is now healed. The patient tolerated the procedure well. The patients wound care will consist of: Taking a holiday from the wound VAC purapply #3 was applied to the stage IV left inferior scapular pressure ulcer, a thin layer of hydrogel was placed and site was secured with wound veil and Steri-Strips, Aquacel extra and foam dressing over top to help assist with offloading, this can be changed every other day. may use Aquacel extra over the new stage IV superior left scapular pressure ulcer. Regarding the recently healed stage II right lumbar pressure ulcer, may continue with optifoam to help assist offloading. Discussed with nursing staff that if the purapply falls off, may return to Aquacel daily dressing changes. Wound cultures were collected at previous visit and demonstrated anaerobic cocci to the stage IV pressure ulcer, therefore patient was started on flagyl 3 times daily times 10 days and Culturelle and has completed, previously completed a course of augmentin by pcp.Baseline bloodwork reviewed and prealbumin low, encouraged patient to continue with protein supplementation at minimum TID, unfortunately patient continues to lose weight. Patient educated on the importance of offloading, though due to his multiple comorbidities has been very noncompliant with this. Did discuss frequent position changes and offloading mechanisms, which he is noncompliant with. He is in a low air loss pressure mattress in his facility. Patient educated on the importance of diet on wound healing and instructed to increase protein and vitamin C intake. Patient verbalized understanding. Patient will follow up at wound healing center in 1 week or sooner if needed. Patient is currently on a palliative wound plan. This note was generated with [employer] dictation software. It may contain incorrect words, spelling, and punctuation that were not noted in checking the note before signing. Code Visit [id number]: 25600 Skin sub graft trnk/arm/leg
--- NOTE | 2018-07-23 08:27 | PN.PCM_ITS ---
(1) Pressure ulcer of left upper back, stage 4 Status: Acute Current Visit: Yes Code(s): L89.124 - Pressure ulcer of left upper back, stage 4 Comment: x 2 inferior and superior (2) Cachexia Status: Chronic Current Visit: Yes Code(s): R64 - Cachexia (3) Debility Status: Chronic Current Visit: Yes Code(s): R53.81 - Other malaise (4) Immobility Status: Chronic Current Visit: Yes Code(s): Z74.09 - Other reduced mobility (5) Incontinence of feces Status: Chronic Current Visit: Yes Code(s): R15.9 - Full incontinence of feces (6) Incontinence of urine Status: Chronic Current Visit: Yes Code(s): R32 - Unspecified urinary incontinence (7) Malnutrition Status: Chronic Current Visit: Yes Code(s): E46 - Unspecified protein- calorie malnutrition (8) Muscular dystrophy Status: Chronic Current Visit: Yes Code(s): G71.0 - Muscular dystrophy Type of Wound Date of Service: 07/20/18 Chief Complaint: Pressure ulceration of right lower back, stage 2; stage 4 pressure ulcer x 2 left scapula History of Wound: A 72-year-old male who is a resident of [facility]. Patient presented to wound center d/t new decubitus to left scapula and old sacral wound reopened. He suffers from muscular dystrophy, and is severely impaired and immobilized. His muscular dystrophy was diagnosed in 1972. He has been bedridden and nonambulatory for a prolonged period of time, with severe muscle atrophy. Due to a lack of mobility and physical therapy, extremity joints are essentially frozen and immovable. The patient is extremely thin and emaciated, suggesting malnutrition and cachexia. He is incontinent of urine and stool, and wears a condom catheter. Patient was recently in [facility] ER on 04/15/2018 d/t concern for left scapular decubitus. Labs in ER without abnormality and was discharged back to nursing facility. Patient at nursing facility was placed on augmentin d/t cultures which showed rare microorganisms and was packing decubitus with aquacel and covered with allevyn. Denies any signs and symptoms of systemic or local infection. Patient does often lay on the affected left shoulder causing a constant pressure. He is noncompliant with off loading and frequent position changes. Progress of Wound: Sacral pressure ulcer healed, stage 4 inferior scapula pressure ulcer stable without signs of infection at this time, no more tunneling or undermining, bone still exposed at 7 and 11 oclock and immediate surrounding tissue intact, continue with vac holiday, second stage 4 superior pressure ulcer stable without signs of infection, bone exposed in the center. No signs of systemic or localized infection at this time. Stage 2 right lower lumbar pressure ulcer is stable with adherant slough present. No signs of infection at this time. Nursing facilty does note that patient continue to lose weight and is not compliant with offloading the left scapula. - Physical Exam Vital Signs Temp Pulse Resp BP 99.1 F 87 16 123/76 H 07/20/18 13:42 07/20/18 13:42 07/20/18 13:42 07/20/18 13:42 General: Alert, Oriented x3, Cooperative, No apparent distress HEENT: Atraumatic Lungs: Clear to auscultation Cardiovascular: Regular rate Extremities: No clubbing, No cyanosis, No edema Skin: Ulcer/ Wound - See nursing documentation for left superior and inferior stage IV pressure ulcer of the left scapula, superior pressure ulcer with slough present and bone exposed in the middle of ulceration, inferior pressure ulcer with granular Tory tissue, slough, and bone exposed at 7:00 and 11:00 Wound Measurements and Assessment WC - Nurse 1 - General Ulcer Measurement Start: 07/20/18 13:40 Freq: Status: Active Protocol: Activity Type Activity Date Activity User E-Sign Co-Sign Detail Recorded Client Recorded Date Recorded By Document 07/20/18 13:42 [facility] [id number] 07/20/18 13:53 [facility] 07/20/18 13:42 Wound Center Nurse 1 [Ulcer Assessment] #6 Superior to Scapula wound -Combined with other wound No -Current Size (cm) - Length 0.6 -Current Size (cm) - Width 1 -Current Size (cm) - Depth 0.6 -Total Square Cm 0.6 -Photo Taken No -Epithelialization None Present -Tunneling No -Undermining/Tunneling No -Circular Undermining No -Exudate Amt Small (1-33%) -Exudate Type Serosanguineous -Wound Margin Distinct, Outline Attached -Granulation Amt Large (67-100%) -Granulation Quality Garceno -Slough/Fibrin Yes -Necrosis Amt Small (1-33%) -Necrotic Tissue Type Adherent Slough -Texture (Jeanine-wound Skin Appearance) Localized Edema Scarring -Moisture (Jeanine-wound Skin Appearance Assessed ) -Color (Jeanine-wound Skin Appearance) Erythema -Temperature (Jeanine-wound Skin No Abnormality Appearance) (Pt Warm) -Tenderness on Palpation (Jeanine-wound No Skin Appearance) -Ulcer Cleansing Wound Cleanser -Foul Odor after Cleansing No -Anesthetic Used 5% Lidocaine Gel #4- LT SCAPULA -Combined with other wound No -Current Size (cm) - Length 3.5 -Current Size (cm) - Width 2.4 -Current Size (cm) - Depth 0.4 -Total Square Cm 8.40 -Photo Taken No -Epithelialization Small 1-33% -Tunneling No -Undermining/Tunneling No -Circular Undermining No -Classification - Thickness Full Thickness with Exposed Support Structure -Exudate Amt Medium (34-66%) -Exudate Type Serosanguineous -Wound Margin Thickened & Rolled Under -Granulation Amt Large (67-100%) -Granulation Quality Garceno -Slough/Fibrin Yes -Necrosis Amt Small (1-33%) -Necrotic Tissue Type Adherent Slough -Structure Exposed Bone -Texture (Jeanine-wound Skin Appearance) Localized Edema Scarring -Moisture (Jeanine-wound Skin Appearance Assessed ) -Color (Jeanine-wound Skin Appearance) Erythema -Temperature (Jeanine-wound Skin No Abnormality Appearance) (Pt Warm) -Tenderness on Palpation (Jeanine-wound No Skin Appearance) -Ulcer Cleansing Wound Cleanser -Foul Odor after Cleansing No -Anesthetic Used 5% Lidocaine Gel WC - Nurse 2 - General Ulcer CM Notes Start: 07/20/18 13:40 Freq: Status: Active Protocol: Activity Type Activity Date Activity User E-Sign Co-Sign Detail Recorded Client Recorded Date Recorded By Document 07/20/18 14:16 [id number] 07/20/18 14:20 07/20/18 14:16 Wound Center Nurse 2 [Procedure/Treatment] #6 Superior to Scapula wound -Time 14:17 -Correct Patient Yes -Correct Side, Site, Position Yes -Correct Procedure Yes -Procedure Performed Yes -Type of Procedure Debridement -Clinical Debridement Subcutaneous -Post Debridement Size (cm) - Length 0.6 -Post Debridement Size (cm) - Width 0.9 -Post Debridement Size (cm) - Depth 0.5 -Total Square Cm 0.54 -Wound/Ulcer Outcome Not Healed -Ulcer Cleansing Rinsed/ Irrigated with Saline -Foul Odor after Cleansing No -Bioengineered Tissue No -Bleeding Controlled with Pressure -Other tunneling/ undermining@1-3 1.5cm -Offloading Yes -Treatment Response Procedure Tolerated Well #4- LT SCAPULA -Time 14:17 -Correct Patient Yes -Correct Side, Site, Position Yes -Correct Procedure Yes -Procedure Performed Yes -Type of Procedure Debridement -Clinical Debridement Subcutaneous -Post Debridement Size (cm) - Length 3.2 -Post Debridement Size (cm) - Width 2.3 -Post Debridement Size (cm) - Depth 0.6 -Total Square Cm 7.36 -Wound/Ulcer Outcome Not Healed -Ulcer Cleansing Rinsed/ Irrigated with Saline -Foul Odor after Cleansing No -Bioengineered Tissue Yes -Type of bioengineered Tissue [id number] -Expiration Date 11/03/20 -Product Lot Number [id number] -Percent Used 100 -Saline Lot Number [id number] -Topical Lidocaine (%) 4 -Bleeding Controlled with Pressure -Other bone exposed @ 7 and 12 oclock -Offloading Yes -Treatment Response Procedure Tolerated Well [See Physician Procedure note for Specifics] Pain Scale: 0-10 Numeric [Pain] -Is Patient Pain Free? Yes Musculoskeletal: Cachexia, Muscle Wasting Neurological: - - Patient nonambulatory Psych/Mental Status: Flat Affect, Alert and oriented to time, place, person, mood and affect Debridement Note Post-Debridement Measurements/Treatment WC - Nurse 2 - General Ulcer CM Notes Start: 07/20/18 13:40 Freq: Status: Active Protocol: Activity Type Activity Date Activity User E-Sign Co-Sign Detail Recorded Client Recorded Date Recorded By Document 07/20/18 14:16 TM [id number] 07/20/18 14:20 TM 07/20/18 14:16 Wound Center Nurse 2 #6 Superior to Scapula wound -Time 14:17 -Correct Patient Yes -Correct Side, Site, Position Yes -Correct Procedure Yes -Procedure Performed Yes -Type of Procedure Debridement -Clinical Debridement Subcutaneous -Post Debridement Size (cm) - Length 0.6 -Post Debridement Size (cm) - Width 0.9 -Post Debridement Size (cm) - Depth 0.5 -Total Square Cm 0.54 -Wound/Ulcer Outcome Not Healed -Ulcer Cleansing Rinsed/ Irrigated with Saline -Foul Odor after Cleansing No -Bioengineered Tissue No -Bleeding Controlled with Pressure -Other tunneling/ undermining@1-3 1.5cm -Offloading Yes -Treatment Response Procedure Tolerated Well #4- LT SCAPULA -Time 14:17 -Correct Patient Yes -Correct Side, Site, Position Yes -Correct Procedure Yes -Procedure Performed Yes -Type of Procedure Debridement -Clinical Debridement Subcutaneous -Post Debridement Size (cm) - Length 3.2 -Post Debridement Size (cm) - Width 2.3 -Post Debridement Size (cm) - Depth 0.6 -Total Square Cm 7.36 -Wound/Ulcer Outcome Not Healed -Ulcer Cleansing Rinsed/ Irrigated with Saline -Foul Odor after Cleansing No -Bioengineered Tissue Yes -Type of bioengineered Tissue [id number] -Expiration Date 11/03/20 -Product Lot Number [id number] -Percent Used 100 -Saline Lot Number [id number] -Topical Lidocaine (%) 4 -Bleeding Controlled with Pressure -Other bone exposed @ 7 and 12 oclock -Offloading Yes -Treatment Response Procedure Tolerated Well Pain Scale: 0-10 Numeric Is Patient Pain Free? Yes Wound debrided: Inferior and superior stage IV pressure ulcer left scapula Laterality: Left Type of Debridement: Excisional debridement Anesthesia Used: 5% Lidocaine Gel Depth: in the subcutaneous layer, to muscle, to bone Percentage of wound debrided: 100 Instrument Used: 7mm curette Tissue Removed: Slough and devitalized tissue Severity: Fat Layer Exposed Amount of bleeding with debridement: Mild Bleeding Controlled with: Pressure Patient tolerated procedure well Assessment/Plan Active Problems Muscular dystrophy (Chronic) Debility (Chronic) Immobility (Chronic) Malnutrition (Chronic) Incontinence of feces (Chronic) Incontinence of urine (Chronic) Cachexia (Chronic) Pressure ulcer of left upper back, stage 4 (Acute) x 2 inferior and superior Assessment: See above diagnoses Plan: The patient was seen and examined at the wound center today and was updated on the plan of care. A subcutaneous debridement was performed today of the stage IV pressure ulcers of the left scapula. The stage II pressure ulcer right lower back is now healed. The patient tolerated the procedure well. The patients wound care will consist of: Taking a holiday from the wound VAC purapply #3 was applied to the stage IV left inferior scapular pressure ulcer, a thin layer of hydrogel was placed and site was secured with wound veil and Steri-Strips, Aquacel extra and foam dressing over top to help assist with offloading, this can be changed every other day. may use Aquacel extra over the new stage IV superior left scapular pressure ulcer. Regarding the recently healed stage II right lumbar pressure ulcer, may continue with optifoam to help assist offloading. Discussed with nursing staff that if the purapply falls off, may return to Aquacel daily dressing changes. Wound cultures were collected at previous visit and demonstrated anaerobic cocci to the stage IV pressure ulcer, therefore patient was started on flagyl 3 times daily times 10 days and Culturelle and has completed, previously completed a course of augmentin by pcp.Baseline bloodwork reviewed and prealbumin low, encouraged patient to co ntinue with protein supplementation at minimum TID, unfortunately patient continues to lose weight. Patient educated on the importance of offloading, though due to his multiple comorbidities has been very noncompliant with this. Did discuss frequent position changes and offloading mechanisms, which he is noncompliant with. He is in a low air loss pressure mattress in his facility. Patient educated on the importance of diet on wound healing and instructed to increase protein and vitamin C intake. Patient verbalized understanding. Patient will follow up at wound healing center in 1 week or sooner if needed. Patient is currently on a palliative wound plan. This note was generated with [employer] dictation software. It may contain incorrect words, spelling, and punctuation that were not noted in checking the note before signing. Code Visit 150xxx-152xx: 54972 Skin sub graft trnk/arm/leg
[2018-08-03 13:33] VITALS: BP 110/67; PULSE 101; RESP 18; TEMP 36.6
--- NOTE | 2018-08-03 19:30 | PCM.WC.PN ---
(1) Pressure ulcer of left upper back, stage 4 Status: Acute Code(s): L89.124 - Pressure ulcer of left upper back, stage 4 Comment: x 2 inferior and superior (2) Cachexia Status: Chronic Code(s): R64 - Cachexia (3) Debility Status: Chronic Code(s): R53.81 - Other malaise (4) Immobility Status: Chronic Code(s): Z74.09 - Other reduced mobility (5) Incontinence of feces Status: Chronic Code(s): R15.9 - Full incontinence of feces (6) Incontinence of urine Status: Chronic Code(s): R32 - Unspecified urinary incontinence (7) Malnutrition Status: Chronic Code(s): E46 - Unspecified protein-calorie malnutrition (8) Muscular dystrophy Status: Chronic Code(s): G71.0 - Muscular dystrophy (9) Pressure ulcer of right lower back, stage 2 Status: Acute Code(s): L89.132 - Pressure ulcer of right lower back, stage 2 Type of Wound Date of Service: 08/03/18 Chief Complaint: Pressure ulceration of right lower back, stage 2; stage 4 pressure ulcer x 2 left scapula History of Wound: A 72-year-old male who is a resident of [facility]. Patient presented to wound center d/t new decubitus to left scapula and old sacral wound reopened. He suffers from muscular dystrophy, and is severely impaired and immobilized. His muscular dystrophy was diagnosed in 1972. He has been bedridden and nonambulatory for a prolonged period of time, with severe muscle atrophy. Due to a lack of mobility and physical therapy, extremity joints are essentially frozen and immovable. The patient is extremely thin and emaciated, suggesting malnutrition and cachexia. He is incontinent of urine and stool, and wears a condom catheter. Patient was recently in [facility] ER on 04/15/2018 d/t concern for left scapular decubitus. Labs in ER without abnormality and was discharged back to nursing facility. Patient at nursing facility was placed on augmentin d/t cultures which showed rare microorganisms and was packing decubitus with aquacel and covered with allevyn. Denies any signs and symptoms of systemic or local infection. Patient does often lay on the affected left shoulder causing a constant pressure. He is noncompliant with off loading and frequent position changes. Progress of Wound: Sacral pressure ulcer healed, stage 4 inferior scapula pressure ulcer stable, PCP at [facility] did a wound culture which showed staph epidermidis and Corynebacterium stratum and patient was started on Doxy-100 twice daily times 10 days which was sensitive to the bacteria. Bone still exposed at 7 and 11 oclock and immediate surrounding tissue intact, continue with vac holiday, second stage 4 superior pressure ulcer stable, bone exposed in the center. No signs of systemic or localized infection at this time. Stage 2 right lower lumbar pressure ulcer is now reopened due to not offloading, site is stable with adherant slough present. No signs of infection at this time. Nursing facilty does note that patient continues to lose weight and is not compliant with offloading the left scapula. - Physical Exam Vital Signs Temp Pulse Resp BP 97.8 F 101 H 18 110/67 08/03/18 13:33 08/03/18 13:33 08/03/18 13:33 08/03/18 13:33 General: Alert, Oriented x3, Cooperative HEENT: Atraumatic Cardiovascular: Regular rate Abdomen: Soft, Non Tender, Non-Distended Extremities: No clubbing, No cyanosis Skin: Ulcer/ Wound - See nursing wound measurements, adherent slough present left scapular pressure ulcers, no purulent drainage or surrounding erythema noted. Right lumbar stage II pressure ulcer without signs of infection, no indication for debridement at this time Musculoskeletal: Cachexia, Muscle Wasting Neurological: - - Patient nonambulatory and appears malnourished Psych/Mental Status: Normal Affect, Appropriate, Alert and oriented to time, place, person, mood and affect Debridement Note Post-Debridement Measurements/Treatment WC - Nurse 2 - General Ulcer CM Notes Start: 07/20/18 13:40 Freq: Status: Active Protocol: Activity Type Activity Date Activity User E-Sign Co-Sign Detail Recorded Client Recorded Date Recorded By Document 07/20/18 14:16 TM [id number] 07/20/18 14:20 TM Document 08/03/18 14:17 [email or web address] 08/03/18 14:19 07/20/18 08/03/18 14:16 14:17 Wound Center Nurse 2 #6 Superior to Scapula wound -Time 14:17 14:17 -Correct Patient Yes Yes -Correct Side, Site, Position Yes Yes -Correct Procedure Yes Yes -Procedure Performed Yes Yes -Type of Procedure Debridement Debridement -Clinical Debridement Subcutaneous Subcutaneous -Post Debridement Size (cm) - Length 0.6 0.9 -Post Debridement Size (cm) - Width 0.9 0.8 -Post Debridement Size (cm) - Depth 0.5 0.5 -Total Square Cm 0.54 0.72 -Wound/Ulcer Outcome Not Healed Not Healed -Ulcer Cleansing Rinsed/ Not Cleansed Irrigated with Saline -Foul Odor after Cleansing No No -Bioengineered Tissue No No -Bleeding Controlled with Pressure Pressure -Other tunneling/ undermining@1-3 1.5cm -Offloading Yes No -Treatment Response Procedure Procedure Tolerated Well Tolerated Well #5 RT LUMBAR -Time 14:18 -Correct Patient No -Correct Side, Site, Position No -Correct Procedure No -Procedure Performed No -Post Debridement Size (cm) - Length 0.1 -Post Debridement Size (cm) - Width 0.1 -Post Debridement Size (cm) - Depth 0.1 -Total Square Cm 0.01 -Wound/Ulcer Outcome Not Healed -Bleeding Controlled with NA -Offloading No #4- LT SCAPULA -Time 14:17 14:18 -Correct Patient Yes Yes -Correct Side, Site, Position Yes Yes -Correct Procedure Yes Yes -Procedure Performed Yes Yes -Type of Procedure Debridement Debridement -Clinical Debridement Subcutaneous Subcutaneous -Post Debridement Size (cm) - Length 3.2 3 -Post Debridement Size (cm) - Width 2.3 2.5 -Post Debridement Size (cm) - Depth 0.6 0.4 -Total Square Cm 7.36 7.5 -Wound/Ulcer Outcome Not Healed Not Healed -Ulcer Cleansing Rinsed/ Not Cleansed Irrigated with Saline -Foul Odor after Cleansing No No -Bioengineered Tissue Yes No -Type of bioengineered Tissue [id number] -Expiration Date 11/03/20 -Product Lot Number [id number] -Percent Used 100 -Saline Lot Number [id number] -Topical Lidocaine (%) 4 -Bleeding Controlled with Pressure NA -Other bone exposed @ 7 and 12 oclock -Offloading Yes No -Treatment Response Procedure Tolerated Well Pain Scale: 0-10 Numeric Is Patient Pain Free? Yes Yes Wound debrided: Stage IV pressure ulcer left inferior and superior scapula Laterality: Left Type of Debridement: Excisional debridement Anesthesia Used: 5% Lidocaine Gel Depth: in the subcutaneous layer, to bone Percentage of wound debrided: 100 Instrument Used: 7mm curette Tissue Removed: Slough and devitalized tissue Severity: Fat Layer Exposed Amount of bleeding with debridement: Mild Bleeding Controlled with: Pressure Patient tolerated procedure well - Additional Wound Wound debrided: Stage II right lumbar pressure ulcer Patient tolerated procedure: - - No debridement done at this pressure ulcer as no indication Assessment/Plan Assessment: See above diagnoses Plan: The patient was seen and examined at the wound center today and was updated on the plan of care. A subcutaneous debridement was performed today of the stage IV pressure ulcers of the left scapula. The stage II pressure ulcer right lower back is now reopened and nursing facility instructed to utilize Aquacel extra with Allevyn over top. The patient tolerated the procedure well. The patients wound care will consist of: Aquacel extra and foam dressing over top to help assist with offloading, this can be changed every day. Wound cultures were collected by PCP and showed staph epidermidis and corynebacterium striated him and patient was started on an appropriate choice of doxy twice daily times 10 days.Baseline bloodwork reviewed and prealbumin low, encouraged patient to continue with protein supplementation at minimum TID, unfortunately patient continues to lose weight. Patient educated on the importance of offloading, though due to his multiple comorbidities has been very noncompliant with this. Did discuss frequent position changes and offloading mechanisms, which he is noncompliant with. He is in a low air loss pressure mattress in his facility. Patient educated on the importance of diet on wound healing and instructed to increase protein and vitamin C intake. Patient verbalized understanding. Patient will follow up at wound healing center in 1 week or sooner if needed. Patient is currently on a palliative wound plan and did have a lengthy discussion with patient that given his multiple chronic comorbidities, we may have difficulty healing his wounds due to his noncompliance with offloading and nutritional support as well. Did discuss with patient that since he is on a palliative plan we may see him every 4 weeks or have a discussion with his PCP whether or not the wound care wants to be taken over by the [facility]. This note was generated with [employer] software. It may contain incorrect words, spelling, and punctuation that were not noted in checking the note before signing. Code Visit 111xxx-113xx: 34811 Steph subq tissue 20 sq cm/<
--- NOTE | 2018-08-09 08:35 | PN.PCM_ITS ---
(1) Pressure ulcer of left upper back, stage 4 Status: Acute Code(s): L89.124 - Pressure ulcer of left upper back, stage 4 Comment: x 2 inferior and superior (2) Cachexia Status: Chronic Code(s): R64 - Cachexia (3) Debility Status: Chronic Code(s): R53.81 - Other malaise (4) Immobility Status: Chronic Code(s): Z74.09 - Other reduced mobility (5) Incontinence of feces Status: Chronic Code(s): R15.9 - Full incontinence of feces (6) Incontinence of urine Status: Chronic Code(s): R32 - Unspecified urinary incontinence (7) Malnutrition Status: Chronic Code(s): E46 - Unspecified protein-calorie malnutrition (8) Muscular dystrophy Status: Chronic Code(s): G71.0 - Muscular dystrophy (9) Pressure ulcer of right lower back, stage 2 Status: Acute Code(s): L89.132 - Pressure ulcer of right lower back, stage 2 Type of Wound Date of Service: 08/03/18 Chief Complaint: Pressure ulceration of right lower back, stage 2; stage 4 pressure ulcer x 2 left scapula History of Wound: A 72-year-old male who is a resident of [facility]. Patient presented to wound center d/t new decubitus to left scapula and old sacral wound reopened. He suffers from muscular dystrophy, and is severely impaired and immobilized. His muscular dystrophy was diagnosed in 1972. He has been bedridden and nonambulatory for a prolonged period of time, with severe muscle atrophy. Due to a lack of mobility and physical therapy, extremity joints are essentially frozen and immovable. The patient is extremely thin and emaciated, suggesting malnutrition and cachexia. He is incontinent of urine and stool, and wears a condom catheter. Patient was recently in [facility] ER on 04/15/2018 d/t concern for left scapular decubitus. Labs in ER without abnormality and was discharged back to nursing facility. Patient at nursing facility was placed on augmentin d/t cultures which showed rare microorganisms and was packing decubitus with aquacel and covered with allevyn. Denies any signs and symptoms of systemic or local infection. Patient does often lay on the affected left shoulder causing a constant pressure. He is noncompliant with off loading and frequent position changes. Progress of Wound: Sacral pressure ulcer healed, stage 4 inferior scapula pressure ulcer stable, PCP at [facility] did a wound culture which showed staph epidermidis and Corynebacterium stratum and patient was started on Doxy-100 twice daily times 10 days which was sensitive to the bacteria. Bone still exposed at 7 and 11 oclock and immediate surrounding tissue intact, continue with vac holiday, second stage 4 superior pressure ulcer stable, bone exposed in the center. No signs of systemic or localized infection at this time. Stage 2 right lower lumbar pressure ulcer is now reopened due to not offloading, site is stable with adherant slough present. No signs of infection at this time. Nursing facilty does note that patient continues to lose weight and is not compliant with offloading the left scapula. - Physical Exam Vital Signs Temp Pulse Resp BP 97.8 F 101 H 18 110/67 08/03/18 13:33 08/03/18 13:33 08/03/18 13:33 08/03/18 13:33 General: Alert, Oriented x3, Cooperative HEENT: Atraumatic Cardiovascular: Regular rate Abdomen: Soft, Non Tender, Non-Distended Extremities: No clubbing, No cyanosis Skin: Ulcer/ Wound - See nursing wound measurements, adherent slough present left scapular pressure ulcers, no purulent drainage or surrounding erythema noted. Right lumbar stage II pressure ulcer without signs of infection, no indication for debridement at this time Musculoskeletal: Cachexia, Muscle Wasting Neurological: - - Patient nonambulatory and appears malnourished Psych/Mental Status: Normal Affect, Appropriate, Alert and oriented to time, place, person, mood and affect Debridement Note Post-Debridement Measurements/Treatment WC - Nurse 2 - General Ulcer CM Notes Start: 07/20/18 13:40 Freq: Status: Active Protocol: Activity Type Activity Date Activity User E-Sign Co-Sign Detail Recorded Client Recorded Date Recorded By Document 07/20/18 14:16 TM [id number] 07/20/18 14:20 TM Document 08/03/18 14:17 [id number] 08/03/18 14:19 07/20/18 08/03/18 14:16 14:17 Wound Center Nurse 2 #6 Superior to Scapula wound -Time 14:17 14:17 -Correct Patient Yes Yes -Correct Side, Site, Position Yes Yes -Correct Procedure Yes Yes -Procedure Performed Yes Yes -Type of Procedure Debridement Debridement -Clinical Debridement Subcutaneous Subcutaneous -Post Debridement Size (cm) - Length 0.6 0.9 -Post Debridement Size (cm) - Width 0.9 0.8 -Post Debridement Size (cm) - Depth 0.5 0.5 -Total Square Cm 0.54 0.72 -Wound/Ulcer Outcome Not Healed Not Healed -Ulcer Cleansing Rinsed/ Not Cleansed Irrigated with Saline -Foul Odor after Cleansing No No -Bioengineered Tissue No No -Bleeding Controlled with Pressure Pressure -Other tunneling/ undermining@1-3 1.5cm -Offloading Yes No -Treatment Response Procedure Procedure Tolerated Well Tolerated Well #5 RT LUMBAR -Time 14:18 -Correct Patient No -Correct Side, Site, Position No -Correct Procedure No -Procedure Performed No -Post Debridement Size (cm) - Length 0.1 -Post Debridement Size (cm) - Width 0.1 -Post Debridement Size (cm) - Depth 0.1 -Total Square Cm 0.01 -Wound/Ulcer Outcome Not Healed -Bleeding Controlled with NA -Offloading No #4- LT SCAPULA -Time 14:17 14:18 -Correct Patient Yes Yes -Correct Side, Site, Position Yes Yes -Correct Procedure Yes Yes -Procedure Performed Yes Yes -Type of Procedure Debridement Debridement -Clinical Debridement Subcutaneous Subcutaneous -Post Debridement Size (cm) - Length 3.2 3 -Post Debridement Size (cm) - Width 2.3 2.5 -Post Debridement Size (cm) - Depth 0.6 0.4 -Total Square Cm 7.36 7.5 -Wound/Ulcer Outcome Not Healed Not Healed -Ulcer Cleansing Rinsed/ Not Cleansed Irrigated with Saline -Foul Odor after Cleansing No No -Bioengineered Tissue Yes No -Type of bioengineered Tissue [id number] -Expiration Date 11/03/20 -Product Lot Number [id number] -Percent Used 100 -Saline Lot Number [id number] -Topical Lidocaine (%) 4 -Bleeding Controlled with Pressure NA -Other bone exposed @ 7 and 12 oclock -Offloading Yes No -Treatment Response Procedure Tolerated Well Pain Scale: 0-10 Numeric Is Patient Pain Free? Yes Yes Wound debrided: Stage IV pressure ulcer left inferior and superior scapula Laterality: Left Type of Debridement: Excisional debridement Anesthesia Used: 5% Lidocaine Gel Depth: in the subcutaneous layer, to bone Percentage of wound debrided: 100 Instrument Used: 7mm curette Tissue Removed: Slough and devitalized tissue Severity: Fat Layer Exposed Amount of bleeding with debridement: Mild Bleeding Controlled with: Pressure Patient tolerated procedure well - Additional Wound Wound debrided: Stage II right lumbar pressure ulcer Patient tolerated procedure: - - No debridement done at this pressure ulcer as no indication Assessment/Plan Assessment: See above diagnoses Plan: The patient was seen and examined at the wound center today and was updated on the plan of care. A subcutaneous debridement was performed today of the stage IV pressure ulcers of the left scapula. The stage II pressure ulcer right lower back is now reopened and nursing facility instructed to utilize Aquacel extra with Allevyn over top. The patient tolerated the procedure well. The patients wound care will consist of: Aquacel extra and foam dressing over top to help assist with offloading, this can be changed every day. Wound cultures were collected by PCP and showed staph epidermidis and corynebacterium striated him and patient was started on an appropriate choice of doxy twice daily times 10 days.Baseline bloodwork reviewed and prealbumin low, encouraged patient to continue with protein supplementation at minimum TID, unfortunately patient continues to lose weight. Patient educated on the importance of offloading, though due to his multiple comorbidities has been very noncompliant with this. Did discuss frequent position changes and offloading mechanisms, which he is noncompliant with. He is in a low air loss pressure mattress in his facility. Patient educated on the importance of diet on wound healing and instructed to increase protein and vitamin C intake. Patient verbalized understanding. Patient will follow up at wound healing center in 1 week or sooner if needed. Patient is currently on a palliative wound plan and did have a lengthy discussion with patient that given his multiple chronic comorbidities, we may have difficulty healing his wounds due to his noncompliance with o ffloading and nutritional support as well. Did discuss with patient that since he is on a palliative plan we may see him every 4 weeks or have a discussion with his PCP whether or not the wound care wants to be taken over by the [facility]. This note was generated with [employer] software. It may contain incorrect words, spelling, and punctuation that were not noted in checking the note before signing. Code Visit [id number]: [id number] Steph subq tissue 20 sq cm/<
== END 2018-08-14 23:59 ==
LOC: WC 13:30
PROVIDERS: Family Provider Family Medicine; PCP Family Medicine; Visit Provider Nurse Practitioner Family
DX: L89.124 Pressure ulcer of left upper back, stage 4 (principal); R64 Cachexia; R15.9 Full incontinence of feces; G71.00 Muscular dystrophy, unspecified; R32 Unspecified urinary incontinence; Z74.01 Bed confinement status; Z91.19 Patient's noncompliance with other medical treatment and regimen
CPT/HCPCS: 11042; 15271; Q4196